=== PATIENT | male | born 1950 ===

== ENCOUNTER 2020-10-04 14:51 | Inpatient (IN) | payer MEDICARE, MEDICAID, SELFPAY ==
--- NOTE | ~2020-10-04 | CT_ITS ---
EXAMINATION: CT CHEST WITHOUT CONTRAST CLINICAL INFORMATION: hypoxia, abnormal CXR . COMPARISON: Chest x-ray. TECHNIQUE: Multidetector volumetric imaging was performed from the thoracic inlet through the lung bases without contrast. Sagittal and coronal reformatted images were obtained on the technologist workstation. Soft tissue and lung algorithms evaluated. Thick slab MIP images were performed to increase nodule conspicuity. This CT examination was performed using dose optimization techniques as appropriate, variously including the following: *Automated exposure control *Adjustment of mA and/or kV according to patient size (this includes techniques or standardized protocols for targeted exams where dose is matched to indication/reason for exam; i.e. extremities or head) *Use of iterative reconstruction technique DLP: 348 mGy-cm. FINDINGS: LUNG: Linear dependent scarring or atelectasis seen more so at the lung bases. This is superimposed on centrilobular emphysematous changes which is more prominent at the lung apices. MEDIASTINUM: Vascular calcification in the aorta and coronary vessels. No bulky adenopathy. PERICARDIUM/PLEURA: Small right pleural effusion. No significant pericardial effusion. No pleural mass or thickening. THYROID/VISUALIZED LOWER NECK: Unremarkable. CHEST WALL/AXILLA: Unremarkable. VISUALIZED UPPER ABDOMEN: Unremarkable. CT/CT chest wo con IMPRESSION: Dependent airspace disease more likely due to atelectasis or scarring. No dense consolidation otherwise..
--- NOTE | ~2020-10-04 | XR_ITS ---
EXAMINATION: PORTABLE CHEST 1 VIEW CLINICAL INFORMATION: SOB, hypoxia . COMPARISON: No recent pertinent prior studies are available for comparison. TECHNIQUE: Portable frontal view of the chest was obtained. FINDINGS: The lungs are hyperinflated with chronic appearing coarsened reticular markings bilaterally. No dense consolidation, effusion, overt edema, or pneumothorax. Mild central vascular prominence. Cardiac and mediastinal silhouettes are within normal limits for technique. No acute bony abnormality seen. XR/XR chest 1V IMPRESSION: Hyperinflated with chronic appearing coarsened reticular markings bilaterally. There is mild central vascular prominence but no overt edema. I do not have any prior films for comparison so acuteness of these changes would be difficult to assess. Clinical correlation and short interval follow-up films be helpful for evaluating further. Consider true PA and lateral films of the chest if possible.
[2020-10-04 15:17] VITALS: BP 197/120; BP 210/115; PULSE 115; PULSE 116; RESP 20; TEMP 37.1; O2SAT 75; O2SAT 85; BMI 35.4
--- NOTE | 2020-10-04 15:22 | ED_ITS ---
HPI - SOB/Dyspnea General Chief Complaint: Dyspnea Stated Complaint: DIFF BREATHING,COVID STATUS UNK Time Seen by Provider: 10/04/20 15:21 Source: patient and EMS Mode of arrival: EMS Limitations: no limitations History of Present Illness HPI Narrative: 70 yo male with history of COPD, HTN, obesity who presents to the ED with SOB x1 week. He was on his way to go get a COVID vaccination today and when he was walking he was very SOB. He used his rescue inhaler x2 without improvement. EMS was called and he was found hypoxic to 70% on room air with increased WOB. He reports he was seen by his PCP last week for SOB and he was given antibiotics for bronchitis. He had a negative COVID test at that time. He denies coughing, chest pain, abdominal pain, N/V/D, headaches or myalgias. His breathing is worse with exertion and improves with rest. In the ED he was found hypoxic to 85%, tachycardic to 110's and hypertensive 190/100's. He states he did not take his BP meds this morning. He was placed on 4L NC with improvement to 95% MD elicited complaint: shortness of breath Pertinent past history: COPD Onset (ago): day(s) (7) Context: recent illness Timing: intermittent and progressively worsening Severity: severe Exacerbating factors: exertion Relieving factors: rest Known history of: COPD Associated symptoms: denies other symptoms Treatment prior to arrival: oxygen Related Data Home oxygen amount: none Allergies Allergy/AdvReac Type Severity Reaction Status Date / Time No Known Allergies Allergy Verified 10/04/20 15:16 Review of Systems Review of Systems: Constitutional: No Fever, No Chills ENT/Mouth: No sore throat, No Rhinorrhea, No Swallowing Difficulty Cardiovascular: No Chest Pain, + SOB, No Orthopnea, No Edema Respiratory: No Cough, No Sputum, + Wheezing, + dyspnea Gastrointestinal: No Nausea, No Vomiting, No Diarrhea, No abdominal Pain Musculoskeletal: No joint pain, No Myalgias Skin: No Skin Lesions, No rash Neuro: No Weakness, No Numbness, No Dizziness, No Headache Psych: No Anxiety/Panic, No Depression Heme/Lymph: No Bruising, No Lymphadenopathy PMFSH Past Medical History Attestation statement: The following information was validated with the patient. Medical History Asthma Bronchitis COPD (chronic obstructive pulmonary disease) High cholesterol HTN (hypertension) Social History Social History Advance Directives: No Advance Directives Information Provided: No Physical Exam Vital Signs: Vital Signs: Last Vital Signs Temp 98.7 F 10/04/20 15:17 Pulse 114 H 10/04/20 15:32 Resp 20 10/04/20 15:17 BP 197/120 H 10/04/20 15:17 Pulse Ox 85 L 10/04/20 15:17 Body Mass Index 35.4 Appearance: Alert. Oriented X3. Mild respiratory distress with RR mid 20's Eyes: Pupils equal, round and reactive to light. ENT: Pharynx normal. Neck: Normal inspection. Neck supple. CVS: tachycardic, regular rhythm. Pulses normal. Respiratory: Mild respiratory distress, lung sounds are coarse and wheezy throughout with rhonchi in RLL. Abdomen: Softly distended, obese and nontender. +BS x4 Skin: Skin warm and dry. Normal skin color. Normal skin turgor. No rashes. Extremities: No lower extremity edema. Negative Jose R's sign Neuro: Oriented X 3. No motor deficit. No sensory deficit. Course Course Course Narrative: 70 y/o male with hx COPD presenting with SOB and hypoxia. Exam is consistent with COPD exacerbation - will need to r/o pneumonia and COVID. CXR and septic workup pending. Will give hour long albuterol treatement, IV solumedrol and reassess. RT at the bedside now. Reevaluation(s) Reevaluation #1: No leukocytosis and lactic acid is normal. Remains tachycardic and hypertensive (improving). He remains wheezy and course but it is overall improved. He is afebrile here but temp for EMS was 100.7. Will give Rocephin/Azithromycin for CAP coverage. His bicarbonate is 40, consistent with chronic CO2 retention. Suspect REBECA/OHS given his body habitus. Will check ABG now to see where he is at. He is not lethargic and not working to breathe, no need for rescue non-invasive ventilation at this time. Reevaluation #2: ABG is consistent with acute on chronic hypoxic and hypercarbic respiratory failure. CXR shows coarsened reticular markings bilaterally, no prior imaging to assess chronicity. DDIMER negative. COVID negative. Will get dry CT chest for further evaluation. He remains on 4L NC with SpO2 93-97%. Reevaluation #3: CT showing Dependent airspace disease more likely due to atelectasis or scarring. No dense consolidation otherwise. Procal low. Doubt pna. Spoke with Dr. Linda who will admit the patient - requesting repeat troponin and consult cards if elevated. MDM - SOB/Dyspnea Lab Data Result diagrams: 10/04/20 15:53 10/04/20 15:53 Labs: Lab Results 10/04/20 10/04/20 10/04/20 Range/Units 15:53 15:53 15:53 WBC 9.7 (4.8-10.8) X10*3/uL RBC 6.35 H (4.60-5.80) X10*6/uL Hgb 17.8 (14.0-18.0) g/dl Hct 60.4 H (42-52) % MCV 95.1 (80-98) fL MCH 28.0 (27.0-33.0) pg MCHC 29.5 L (31.0-36.0) g/dl RDW 13.8 (11.0-16.0) % Plt Count 200 (160-400) X10*3/uL MPV 10.6 (9.4-12.4) fL Immature Gran % (Auto) 0.6 H (0.0-0.4) % Neut % (Auto) 65.4 (45-73) % Lymph % (Auto) 19.0 L (20-40) % [place] % (Auto) 12.8 H (2-11) % Eos % (Auto) 1.6 (0-4) % Baso % (Auto) 0.6 (0-2) % Lymph # (Auto) 1.8 (1.2-4.9) X10*3/uL [place] # (Auto) 1.2 (0.1-1.2) X10*3/uL Eos # (Auto) 0.2 (0.0-0.4) X10*3/uL Baso # (Auto) 0.1 (0.0-0.2) X10*3/uL Abs Immat Gran (auto) 0.06 H (0.00-0.03) X10*3/uL Absolute Neuts (auto) 6.3 (2.0-8.3) X10*3/uL Absolute Nucleated RBC 0.000 (0.0-0.012) X10*3/uL Nucleated RBC % (auto) 0.0 (0.0-0.2) /100WBC PT (10.8-13.0) SEC INR (0.9-1.1) APTT (24.1-38.0) SEC D-Dimer NG/ML Hold Blue Top ABG pH (7.35-7.45) ABG pCO2 (32-45) mmHg ABG pO2 (83-108) mmHg ABG HCO3 (22-26) mmol/L ABG O2 Saturation % ABG Base Excess Oxygen Given Sodium 145 (135-145) mmol/L Potassium 4.4 (3.3-5.1) mmol/L Chloride 99 (96-108) mmol/L Carbon Dioxide 40 H* (22-29) mmol/L Anion Gap 10 L (12-20) BUN 18 H (9-16) mg/dL Creatinine 1.03 (0.5-1.4) mg/dL Estim Creat Clear Calc 67.4 Estimated GFR > 60 Random Glucose 126 H (60-115) mg/dL Lactic Acid (0.5-2.0) mmol/L Calcium 9.3 (8.4-10.2) mg/dL Magnesium 2.2 (1.6-2.6) mg/dL Total Bilirubin 0.8 (0.0-1.0) mg/dL Direct Bilirubin 0.2 (0.0-0.5) mg/dL AST 24 (5-37) U/L ALT 56 H (0-40) U/L Alkaline Phosphatase 80 (39-117) U/L Troponin I High Sens 17.9 (<3.5-35.0) ng/L C-Reactive Protein 0.50 (< or = 0.50) mg/dL B-Natriuretic Peptide 111 H (<100) pg/mL Total Protein 7.0 (6.5-8.0) g/dL Albumin 4.0 (3.5-5.0) g/dL Procalcitonin ng/mL Coronavirus (PCR) (Negative) Influenza Type A (PCR) (Negative) Influenza Type B (PCR) (Negative) RSV RNA Qual (PCR) (Negative) 10/04/20 10/04/20 10/04/20 Range/Units 15:53 15:54 15:55 WBC (4.8-10.8) X10*3/uL RBC (4.60-5.80) X10*6/uL Hgb (14.0-18.0) g/dl Hct (42-52) % MCV (80-98) fL MCH (27.0-33.0) pg MCHC (31.0-36.0) g/dl RDW (11.0-16.0) % Plt Count (160-400) X10*3/uL MPV (9.4-12.4) fL Immature Gran % (Auto) (0.0-0.4) % Neut % (Auto) (45-73) % Lymph % (Auto) (20-40) % [place] % (Auto) (2-11) % Eos % (Auto) (0-4) % Baso % (Auto) (0-2) % Lymph # (Auto) (1.2-4.9) X10*3/uL [place] # (Auto) (0.1-1.2) X10*3/uL Eos # (Auto) (0.0-0.4) X10*3/uL Baso # (Auto) (0.0-0.2) X10*3/uL Abs Immat Gran (auto) (0.00-0.03) X10*3/uL Absolute Neuts (auto) (2.0-8.3) X10*3/uL Absolute Nucleated RBC (0.0-0.012) X10*3/uL Nucleated RBC % (auto) (0.0-0.2) /100WBC PT 11.9 (10.8-13.0) SEC INR 1.0 (0.9-1.1) APTT 32.1 (24.1-38.0) SEC D-Dimer < 200 NG/ML Hold Blue Top SEE NOTE ABG pH (7.35-7.45) ABG pCO2 (32-45) mmHg ABG pO2 (83-108) mmHg ABG HCO3 (22-26) mmol/L ABG O2 Saturation % ABG Base Excess Oxygen Given Sodium (135-145) mmol/L Potassium (3.3-5.1) mmol/L Chloride (96-108) mmol/L Carbon Dioxide (22-29) mmol/L Anion Gap (12-20) BUN (9-16) mg/dL Creatinine (0.5-1.4) mg/dL Estim Creat Clear Calc Estimated GFR Random Glucose (60-115) mg/dL Lactic Acid 1.3 (0.5-2.0) mmol/L Calcium (8.4-10.2) mg/dL Magnesium (1.6-2.6) mg/dL Total Bilirubin (0.0-1.0) mg/dL Direct Bilirubin (0.0-0.5) mg/dL AST (5-37) U/L ALT (0-40) U/L Alkaline Phosphatase (39-117) U/L Troponin I High Sens (<3.5-35.0) ng/L C-Reactive Protein (< or = 0.50) mg/dL B-Natriuretic Peptide (<100) pg/mL Total Protein (6.5-8.0) g/dL Albumin (3.5-5.0) g/dL Procalcitonin ng/mL Coronavirus (PCR) (Negative) Influenza Type A (PCR) (Negative) Influenza Type B (PCR) (Negative) RSV RNA Qual (PCR) (Negative) 10/04/20 10/04/20 10/04/20 Range/Units 15:55 15:55 16:57 WBC (4.8-10.8) X10*3/uL RBC (4.60-5.80) X10*6/uL Hgb (14.0-18.0) g/dl Hct (42-52) % MCV (80-98) fL MCH (27.0-33.0) pg MCHC (31.0-36.0) g/dl RDW (11.0-16.0) % Plt Count (160-400) X10*3/uL MPV (9.4-12.4) fL Immature Gran % (Auto) (0.0-0.4) % Neut % (Auto) (45-73) % Lymph % (Auto) (20-40) % [place] % (Auto) (2-11) % Eos % (Auto) (0-4) % Baso % (Auto) (0-2) % Lymph # (Auto) (1.2-4.9) X10*3/uL [place] # (Auto) (0.1-1.2) X10*3/uL Eos # (Auto) (0.0-0.4) X10*3/uL Baso # (Auto) (0.0-0.2) X10*3/uL Abs Immat Gran (auto) (0.00-0.03) X10*3/uL Absolute Neuts (auto) (2.0-8.3) X10*3/uL Absolute Nucleated RBC (0.0-0.012) X10*3/uL Nucleated RBC % (auto) (0.0-0.2) /100WBC PT (10.8-13.0) SEC INR (0.9-1.1) APTT (24.1-38.0) SEC D-Dimer NG/ML Hold Blue Top ABG pH 7.33 L (7.35-7.45) ABG pCO2 64 H* (32-45) mmHg ABG pO2 77 L (83-108) mmHg ABG HCO3 34 H (22-26) mmol/L ABG O2 Saturation 96.0 % ABG Base Excess 5.5 Oxygen Given 4 L Sodium (135-145) mmol/L Potassium (3.3-5.1) mmol/L Chloride (96-108) mmol/L Carbon Dioxide (22-29) mmol/L Anion Gap (12-20) BUN (9-16) mg/dL Creatinine (0.5-1.4) mg/dL Estim Creat Clear Calc Estimated GFR Random Glucose (60-115) mg/dL Lactic Acid (0.5-2.0) mmol/L Calcium (8.4-10.2) mg/dL Magnesium (1.6-2.6) mg/dL Total Bilirubin (0.0-1.0) mg/dL Direct Bilirubin (0.0-0.5) mg/dL AST (5-37) U/L ALT (0-40) U/L Alkaline Phosphatase (39-117) U/L Troponin I High Sens (<3.5-35.0) ng/L C-Reactive Protein (< or = 0.50) mg/dL B-Natriuretic Peptide (<100) pg/mL Total Protein (6.5-8.0) g/dL Albumin (3.5-5.0) g/dL Procalcitonin 0.03 ng/mL Coronavirus (PCR) NEGATIVE (Negative) Influenza Type A (PCR) NEGATIVE (Negative) Influenza Type B (PCR) NEGATIVE (Negative) RSV RNA Qual (PCR) NEGATIVE (Negative) Critical Care Time Critical Care Time Critical Care Time: Yes Total Critical Care Time: 45 Attestation: I attest to critical care time spent caring for this patient with life threatening acute hypoxic respiratory failure. Time spent frequently reassessing respiratory and hemodynamic status at the bedside, reviewing results and imaging and coordinating care. Discharge Plan Discharge Clinical Impression: Acute respiratory failure with hypoxia and hypercarbia, COPD exacerbation Patient Disposition: Admitted As Inpatient
--- NOTE | 2020-10-04 15:28 | PC.NURSE ---
INCREASED WORK OF BREATHING WIT MINIMAL MOVEMENT IN BED. BELLY BREATHING. DENIES CP, LEG SWELLING, DIFF WITH LYING FLAT. PT SPKING SHORT PHRASES WHEN EXERTING HIMSELF. RECOVERS QUICKLY WITH 6L nc.
[2020-10-04 15:32] VITALS: PULSE 114; O2SAT 93
--- NOTE | 2020-10-04 15:33 | ECG_ITS ---
Test Reason : SHORTNES OF BREATH Blood Pressure : / mmHG Vent. Rate : 121 BPM Atrial Rate : 121 BPM P-R Int : 142 ms QRS Dur : 072 ms QT Int : 332 ms P-R-T Axes : 060 -19 049 degrees QTc Int : 471 ms Sinus tachycardia with Premature supraventricular complexes Inferior infarct , age undetermined Abnormal ECG No previous ECGs available Referred By: Yady Poe Electronically Signed By:Willem Tomlinson
[2020-10-04] MEDS: Albuterol Sulfate (0.083%) 2.5 MG/3 ML VIAL.NEB 10 MG INHALE (15:49)
[2020-10-04] MEDS: methylPREDNISolone Sod Succ/PF 125 MG/2 ML VIAL IVPUSH (15:59)
[2020-10-04 16:09] LABS: MANUAL DIFF FLAG NO
[2020-10-04 16:18] LABS: Basophils Absolute Auto 0.1 X10*3/uL (0.0-0.2); Basophils Percent Auto 0.6 % (0-2); Eosinophils Absolute Auto 0.2 X10*3/uL (0.0-0.4); Eosinophils Percent Auto 1.6 % (0-4); Hemoglobin 17.8 g/dl (14.0-18.0); Imm Gran Abs Auto 0.06 X10*3/uL (0.00-0.03); Imm Gran Pct Auto 0.6 % (0.0-0.4); Lymphocytes Absolute Auto 1.8 X10*3/uL (1.2-4.9); Mean Corpuscular HGB Conc 29.5 g/dl (31.0-36.0); Mean Corpuscular Volume 95.1 fL (80-98); Mean Platelet Volume 10.6 fL (9.4-12.4); Monocytes Absolute Auto 1.2 X10*3/uL (0.1-1.2); Monocytes Percent Auto 12.8 % (2-11); Neutrophils Absolute Auto 6.3 X10*3/uL (2.0-8.3); Neutrophils Percent Auto 65.4 % (45-73); Platelet Count 200 X10*3/uL (160-400); Red Blood Count 6.35 X10*6/uL (4.60-5.80); Red Cell Distribution Width 13.8 % (11.0-16.0); White Blood Count 9.7 X10*3/uL (4.8-10.8)
[2020-10-04 16:19] LABS: Partial Thromboplastin Time 32.1 SEC (24.1-38.0)
[2020-10-04 16:25] LABS: Prothrombin Time 11.9 SEC (10.8-13.0)
[2020-10-04 16:26] LABS: Hematocrit 60.4 % (42-52)
[2020-10-04 16:33] LABS: Lactic Acid 1.3 mmol/L (0.5-2.0)
[2020-10-04 16:41] LABS: Alanine Aminotransferase 56 U/L (0-40); Alkaline Phosphatase 80 U/L (39-117); Anion Gap 10 (12-20); Aspartate Amino Transferase 24 U/L (5-37); Bilirubin Direct 0.2 mg/dL (0.0-0.5); Bilirubin Total 0.8 mg/dL (0.0-1.0); Blood Urea Nitrogen 18 mg/dL (9-16); Calcium 9.3 mg/dL (8.4-10.2); Carbon Dioxide 40 mmol/L (22-29); Chloride 99 mmol/L (96-108); Creatinine Clr Calc Pharmacy 67.4; Estimated Glomerular Filt Rate > 60; Glucose Random 126 mg/dL (60-115); Magnesium 2.2 mg/dL (1.6-2.6); Potassium 4.4 mmol/L (3.3-5.1); Sodium 145 mmol/L (135-145)
[2020-10-04 16:45] LABS: B Type Natriuretic Peptide 111 pg/mL (<100); Troponin-I High Sensitivity 17.9 ng/L (<3.5-35.0)
[2020-10-04 16:47] LABS: Influenza A PCR NEGATIVE (Negative); Influenza B PCR NEGATIVE (Negative); Resp Syncy Virus RNA Qual PCR NEGATIVE (Negative); SARS COV2 PCR INHOUSE NEGATIVE (Negative)
[2020-10-04 16:52] LABS: D Dimer < 200 NG/ML
[2020-10-04 16:54] VITALS: O2SAT 94
[2020-10-04 16:57] LABS: Procalcitonin 0.03 ng/mL
[2020-10-04 17:05] LABS: Pt Ventilation O2% 4 L
[2020-10-04 17:12] LABS: PO2 ABG 77 mmHg (83-108); pH ABG 7.33 (7.35-7.45)
[2020-10-04 17:13] LABS: Base Excess ABG 5.5; HCO3 ABG 34 mmol/L (22-26)
[2020-10-04 17:14] LABS: ABG PCO2 64 mmHg (32-45)
[2020-10-04] MEDS: cefTRIAXone sodium 1 GM in 0.9 % Sodium Chloride 50 ML IV (17:19)
[2020-10-04] MEDS: 0.9 % Sodium Chloride 1,000 ML 999 ML IVCONT (17:25)
[2020-10-04 18:13] LABS: Adenovirus PCR Not Detected (Not Detect.); Bordetella parapertussis PCR Not Detected (Not Detect.); Bordetella pertussis PCR Not Detected (Not Detect.); Chlamydia pneumoniae PCR Not Detected (Not Detect.); Coronavirus 229E PCR Not Detected (Not Detect.); Coronavirus HKU1 PCR Not Detected (Not Detect.)
[2020-10-04 18:15] LABS: Coronavirus NL63 PCR Not Detected (Not Detect.); Coronavirus OC43 PCR Not Detected (Not Detect.); Human metapneumovirus PCR Not Detected (Not Detect.); Influenza A PCR Not Detected (Not Detect.); Influenza B PCR Not Detected (Not Detect.); Mycoplasma pneumoniae PCR Not Detected (Not Detect.); Parainfluenza 1 PCR Not Detected (Not Detect.); Parainfluenza 2 PCR Not Detected (Not Detect.); Parainfluenza 3 PCR Not Detected (Not Detect.); Parainfluenza 4 PCR Not Detected (Not Detect.); RSV PCR Not Detected (Not Detect.); Rhino/Enterovirus PCR Not Detected (Not Detect.); SARS-CoV-2 PCR Not Detected (Not Detect.)
[2020-10-04] MEDS: Azithromycin 500 MG in 0.9 % Sodium Chloride 250 ML 125 MG IV (18:40)
--- NOTE | 2020-10-04 19:34 | P.HPHOSP_ITS ---
History of Present Illness Date of Service: 10/04/20 Chief Complaint: Shortness of breath 70-year-old male with a past medical history of COPD not on home oxygen, hypertension presented to the hospital with a chief complaint of shortness of breath. Patient reported past 1 week he has been having shortness of breath and intermittent cough has seen the PCP will give antibiotics and her symptoms were not improving and has been scheduled for COVID test today Will glue for testing Center he became increasingly short of breath and dyspnea on exertion subsequently EMS was called in and EMS noted that he has increased work of breathing and was noted to be hypoxic to 70s placed on supplemental oxygen man after can lead 4 L with improvement in oxygenation subsequently brought to the ER for further evaluation. Patient denies any chest pain palpitations lightheadedness dizziness. Denies any numbness tingling. Denies any GI or symptoms. Patient denies any headaches or blurry visions. Review of all other systems is negative except mentioned above ER course: Per ER team patient's oxygenation improved on supplemental oxygen at 4 L. Patient was given nebulizations and steroids. His workup breathing impr tea. Blood gas showed pCO2 of 63 and a serum bicarb of 40. Troponin of 17, EKG nonischemic, patient denied any chest pain. Follow-up troponin pending. ER team Mentioned that if elevated will call Cardiology. Also mentioned that patient blood pressure was elevated on presentation noted to be in hypertensive urgency-attributed to the acute respiratory distress secondary to hypoxia/COPD exacerbation. D-dimer was negative. CT scan showed question atelectasis were pneumonia-given antibiotics. [facility] Medical History Asthma Bronchitis COPD (chronic obstructive pulmonary disease) High cholesterol HTN (hypertension) Social History Household Members: Spouse Housing: Apartment Do you presently have visiting nurse or other home services: No Smoking Status: Former smoker Use of substances other than those prescribed or required for medical reasons: No Have you been hit, kicked, punched, or otherwise hurt by someone within the past year? If so, by whom?: No Do you feel safe in your current relationship?: Yes Is there a partner from a previous relationship who is making you feel unsafe now?: No Are you made to feel afraid or neglected: No Advance Directives: No Advance Directives Information Provided: No Do you have thoughts of harming others: None Do you have a plan to hurt others: No Plan Recently lost weight without trying: No Meds Allergies Allergy/AdvReac Type Severity Reaction Status Date / Time No Known Allergies Allergy Verified 10/04/20 15:16 Active Medications: Current Medications Generic Name Dose Route Start Last Admin Trade Name Freq PRN Reason Stop Dose Admin Acetaminophen 650 mg 10/04/20 19:26 Acetaminophen Supp 650 Mg Supp.Rect FL Q6H PRN Pain, Mild (Pain Scale 1-3) Albuterol/Ipratropium 3 ml 10/04/20 20:00 Albuterol/Iprat 2.5/0.5mg 3 Ml Ampul.Neb INHALE RQ6H WHILE AWAKE MARISOL Albuterol/Ipratropium 3 ml 10/04/20 19:33 Albuterol/Iprat 2.5/0.5mg 3 Ml Ampul.Neb INHALE RQ4H PRN Shortness of Breath/Wheezing Docusate Sodium 100 mg 10/04/20 21:00 Docusate Sodium 100 Mg Capsule PO BID [facility] Enoxaparin Sodium 40 mg 10/04/20 20:00 Enoxaparin Sodium 40 Mg/0.4 Ml Syringe SUBCUT Q24H MARISOL Famotidine 20 mg 10/05/20 09:00 Famotidine 20 Mg Tablet PO DAILY [facility] Methylprednisolone Sodium Succinate 60 mg 10/04/20 22:00 Methylprednisolone Sod Succ/Pf 125 Mg/2 Ml Vial IVPUSH Q8H [facility] Sodium Chloride 3 ml 10/05/20 00:00 0.9 % Sodium Chloride Flush 3 Ml Syringe IVFLUSH QSHIFT [facility] Zolpidem Tartrate 5 mg 10/04/20 19:26 Zolpidem Tartrate 5 Mg Tablet PO BEDTIME PRN Insomnia Home Medications Medication Instructions Recorded Confirmed Last Taken Type albuterol sulfate 2 puff PO Q6H 10/04/20 10/04/20 10/04/20 09:00 History albuterol sulfate 3 ml INHALATION Q6H PRN 10/04/20 10/04/20 10/04/20 09:00 History brimonidine 1 drp OPHTHALMIC (EYE) Q12H 10/04/20 10/04/20 10/04/20 09:00 History budesonide-formoterol 2 puff PO BID 10/04/20 10/04/2021 09:00 History cholecalciferol (vitamin D3) 1 cap PO QWEEK 10/04/20 10/04/20 10/04/20 09:00 History fluticasone propion-salmeterol 1 puff PO BID 10/04/20 10/04/20 10/04/20 09:00 History [Advair Diskus] fluticasone propion-salmeterol 1 puff PO BID 10/04/20 10/04/20 10/04/20 09:00 History [Advair Diskus] olmesartan 1 tab PO DAILY 10/04/20 10/04/20 10/04/20 09:00 History prednisone PO 10/04/20 10/04/20 10/04/20 09:00 History tizanidine 1 tab PO Q8H PRN 10/04/20 10/04/20 10/04/20 09:00 History Physical Exam Vital Signs and Narrative: Vital Signs: Last Vital Signs Temp 98.7 F 10/04/20 15:17 Pulse 114 H 10/04/20 15:32 Resp 20 10/04/20 15:17 BP 197/120 H 10/04/20 15:17 Pulse Ox 85 L 10/04/20 15:17 Body Mass Index 35.4 Gen: Appears be in no acute distress; speaks in full sentences HEENT: NCAT, Moist mucosa. Pulmonary: Coarse breath sounds, bilateral expiratory wheezing, has decent air entry CVS: Normal S1-S2 Abdomen: BS+, Soft, Nontender Extremities: Warm well perfused Neuro: Alert and awake. Results Labs CBC and Chem 7: 10/04/20 15:53 10/04/20 15:53 Labs: Laboratory Results - last 24 hr 10/04/20 10/04/20 10/04/20 15:53 15:53 15:53 MCV 95.1 MCH 28.0 MCHC 29.5 L RDW 13.8 Plt Count 200 MPV 10.6 Immature Gran % (Auto) 0.6 H Neut % (Auto) 65.4 Lymph % (Auto) 19.0 L [place] % (Auto) 12.8 H Eos % (Auto) 1.6 Baso % (Auto) 0.6 Lymph # (Auto) 1.8 [place] # (Auto) 1.2 Eos # (Auto) 0.2 Baso # (Auto) 0.1 Abs Immat Gran (auto) 0.06 H Absolute Neuts (auto) 6.3 Absolute Nucleated RBC 0.000 Nucleated RBC % (auto) 0.0 PT INR APTT D-Dimer Hold Blue Top ABG pH ABG pCO2 ABG pO2 ABG HCO3 ABG O2 Saturation ABG Base Excess Oxygen Given Anion Gap 10 L Estim Creat Clear Calc 67.4 Estimated GFR > 60 Random Glucose 126 H Lactic Acid Calcium 9.3 Magnesium 2.2 Total Bilirubin 0.8 Direct Bilirubin 0.2 AST 24 ALT 56 H Alkaline Phosphatase 80 Troponin I High Sens 17.9 C-Reactive Protein 0.50 B-Natriuretic Peptide 111 H Total Protein 7.0 Albumin 4.0 Procalcitonin Coronavirus (PCR) Influenza Type A (PCR) Influenza Type B (PCR) RSV RNA Qual (PCR) 10/04/20 10/04/20 10/04/20 15:53 15:54 15:55 MCV MCH MCHC RDW Plt Count MPV Immature Gran % (Auto) Neut % (Auto) Lymph % (Auto) [place] % (Auto) Eos % (Auto) Baso % (Auto) Lymph # (Auto) [place] # (Auto) Eos # (Auto) Baso # (Auto) Abs Immat Gran (auto) Absolute Neuts (auto) Absolute Nucleated RBC Nucleated RBC % (auto) PT 11.9 INR 1.0 APTT 32.1 D-Dimer < 200 Hold Blue Top SEE NOTE ABG pH ABG pCO2 ABG pO2 ABG HCO3 ABG O2 Saturation ABG Base Excess Oxygen Given Anion Gap Estim Creat Clear Calc Estimated GFR Random Glucose Lactic Acid 1.3 Calcium Magnesium Total Bilirubin Direct Bilirubin AST ALT Alkaline Phosphatase Troponin I High Sens C-Reactive Protein B-Natriuretic Peptide Total Protein Albumin Procalcitonin Coronavirus (PCR) Influenza Type A (PCR) Influenza Type B (PCR) RSV RNA Qual (PCR) 10/04/20 10/04/20 10/04/20 15:55 15:55 16:57 MCV MCH MCHC RDW Plt Count MPV Immature Gran % (Auto) Neut % (Auto) Lymph % (Auto) [place] % (Auto) Eos % (Auto) Baso % (Auto) Lymph # (Auto) [place] # (Auto) Eos # (Auto) Baso # (Auto) Abs Immat Gran (auto) Absolute Neuts (auto) Absolute Nucleated RBC Nucleated RBC % (auto) PT INR APTT D-Dimer Hold Blue Top ABG pH 7.33 L ABG pCO2 64 H* ABG pO2 77 L ABG HCO3 34 H ABG O2 Saturation 96.0 ABG Base Excess 5.5 Oxygen Given 4 L Anion Gap Estim Creat Clear Calc Estimated GFR Random Glucose Lactic Acid Calcium Magnesium Total Bilirubin Direct Bilirubin AST ALT Alkaline Phosphatase Troponin I High Sens C-Reactive Protein B-Natriuretic Peptide Total Protein Albumin Procalcitonin 0.03 Coronavirus (PCR) NEGATIVE Influenza Type A (PCR) NEGATIVE Influenza Type B (PCR) NEGATIVE RSV RNA Qual (PCR) NEGATIVE Imaging Radiologist's Impressions: Impressions Chest X-Ray 10/04/20 15:32 IMPRESSION: Hyperinflated with chronic appearing coarsened reticular markings bilaterally. There is mild central vascular prominence but no overt edema. I do not have any prior films for comparison so acuteness of these changes would be difficult to assess. Clinical correlation and short interval follow-up films be helpful for evaluating further. Consider true PA and lateral films of the chest if possible. Chest CT 10/04/20 17:18 IMPRESSION: Dependent airspace disease more likely due to atelectasis or scarring. No dense consolidation otherwise.. Assessment and Plan (1) Acute respiratory failure with hypoxia and hypercarbia: Status: Acute 70-year-old male with a past medical history of hypertension, COPD not on home oxygen presented to the hospital with a chief complaint of shortness of breath/dyspnea on exertion-worsening symptoms over the past 1 week; noted to be in acute hypoxic/hypercapnic respiratory failure in the setting of COPD. Admit dontrell to the hospital for further management. Acute hypoxic/hypercapnic respiratory failure: The setting of COPD exacerbation. Currently on supplemental oxygen. Not in distress. Continue management for COPD. Acute severe COPD exacerbation: Patient placed on supplemental oxygen via nasal cannula. Goal oxygen saturation 93%. Initial blood pressures hypercapnia. Patient has been given nebulizations and steroids. Will repeat blood gas. P.r.n. BiPAP Continue Solu-Medrol IV t.i.d. Continue nebulizations standing and p.r.n. Elevated troponins: Patient noted to have mildly elevated troponin. EKG nonischemic. Patient denies any chest pain. Follow-up troponin pending. Cardiology consult Hypertensive urgency: Continue home medications. Hydralazine p.r.n. if blood pressure greater than 180/90. Patient currently asymptomatic. Nonfocal examination. For all other chronic conditions, home medications will be continued DVT prophylaxis: Lovenox GI prophylaxis: Pepcid Full code
[2020-10-04] MEDS: Albuterol/Iprat 2.5/0.5MG 3 ML AMPUL.NEB INHALE (20:29)
[2020-10-04 20:30] VITALS: PULSE 120; O2SAT 92
[2020-10-04 21:44] VITALS: BP 148/92; PULSE 116; RESP 21; TEMP 37.1; O2SAT 94
--- NOTE | 2020-10-04 21:56 | PC.NURSE ---
pt has been resting queitly and able to tolerate standing without assistance or severe sob. s till has increased work of breathing with exertion. requesting additional updraft at thsi time. ls wheezy but less coarse and moderate air movement. spking full sentences.
[2020-10-04] MEDS: methylPREDNISolone Sod Succ/PF 125 MG/2 ML VIAL 60 MG IVPUSH (22:51)
[2020-10-04] MEDS: Enoxaparin Sodium 40 MG/0.4 ML SYRINGE SUBCUT (22:53)
[2020-10-04] MEDS: Docusate Sodium 100 MG CAPSULE PO (22:54)
[2020-10-04 23:33] LABS: Troponin-I High Sensitivity 15.2 ng/L (<3.5-35.0)
[2020-10-05] VITALS (11 sets, daily range): BP systolic 132–170; BP diastolic 73–99; PULSE 89–114; RESP 18–20; TEMP 36.6–36.9; O2SAT 90–96; BMI 35.4
[2020-10-05] MEDS: Brimonidine Tartrate 0.2% Oph 5 ML BOTTLE 1 DROP EYE-BOTH ×3 (00:23→21:09)
[2020-10-05] MEDS: 0.9 % Sodium Chloride Flush 3 ML SYRINGE IVFLUSH ×4 (00:24→21:09)
[2020-10-05 06:09] LABS: Basophils Percent Auto 0.1 % (0-2); Hematocrit 59.1 % (42-52); Hemoglobin 17.5 g/dl (14.0-18.0); Imm Gran Abs Auto 0.08 X10*3/uL (0.00-0.03); Imm Gran Pct Auto 1.1 % (0.0-0.4); Lymphocytes Absolute Auto 0.7 X10*3/uL (1.2-4.9); Lymphocytes Percent Auto 9.2 % (20-40); MANUAL DIFF FLAG SCAN; Mean Corpuscular HGB Conc 29.6 g/dl (31.0-36.0); Mean Corpuscular Hemoglobin 28.1 pg (27.0-33.0); Mean Corpuscular Volume 94.9 fL (80-98); Mean Platelet Volume 10.2 fL (9.4-12.4); Monocytes Absolute Auto 0.2 X10*3/uL (0.1-1.2); Monocytes Percent Auto 2.3 % (2-11); Neutrophils Absolute Auto 6.4 X10*3/uL (2.0-8.3); Neutrophils Percent Auto 87.3 % (45-73); Platelet Count 194 X10*3/uL (160-400); Red Blood Count 6.23 X10*6/uL (4.60-5.80); Red Cell Distribution Width 13.7 % (11.0-16.0); SCAN SMEAR FLAG 1; White Blood Count 7.4 X10*3/uL (4.8-10.8)
[2020-10-05] MEDS: methylPREDNISolone Sod Succ/PF 125 MG/2 ML VIAL 60 MG IVPUSH ×3 (06:15→21:08)
[2020-10-05 06:36] LABS: Anion Gap 11 (12-20); Blood Urea Nitrogen 17 mg/dL (9-16); Calcium 8.2 mg/dL (8.4-10.2); Carbon Dioxide 35 mmol/L (22-29); Chloride 101 mmol/L (96-108); Creatinine Clr Calc Pharmacy 73.8; Estimated Glomerular Filt Rate > 60; Glucose Random 193 mg/dL (60-115); Potassium 4.9 mmol/L (3.3-5.1); Sodium 142 mmol/L (135-145)
[2020-10-05 06:40] LABS: SLIDE REVIEW VERIFIED
--- NOTE | 2020-10-05 07:49 | P.PNIM_ITS ---
Subjective Subjective Date of Service: 10/05/20 Interval History: Seen in f/u for acute exacerbation of COPD with first hospitalization, he feels better this morning, still on high amount of oxygen but no distress Review of Systems Gen: no fever Resp: + sob, no cough CV: no chest, no DIOR, no leg edema GI: No n/v, no abd pain Neuro: No confusion Physical Exam Vital Signs: Vital Signs: Last Vital Signs Temp 97.8 F 10/05/20 04:04 Pulse 110 H 10/05/20 04:04 Resp 18 10/05/20 04:04 BP 158/73 H 10/05/20 04:04 Pulse Ox 95 10/05/20 04:04 Body Mass Index 35.4 Const: General: cooperative and no acute distress Orientation/consciousness: patient oriented x3 Neck: Neck: Yes supple Resp: Effort & Inspection: no use of accessory muscles Auscultation: no wheezes and diminished lung sounds Cardio: Jugular venous distension: no JVD Rate: regular rate Rhythm: regular rhythm Heart sounds: S1 normal heart sound present and S2 normal heart sound present GI: Palpation (GI): nontender Percussion: Yes normal to percussion Skin: General skin exam: no rashes or lesions noted Neuro: General: patient oriented x3 Cognition (Neuro): normal cognition Psych: Appearance: grossly normal Objective Data Current Medications Generic Name Dose Route Start Last Admin Trade Name Freq PRN Reason Stop Dose Admin Acetaminophen 650 mg 10/04/20 19:26 Acetaminophen Supp 650 Mg Supp.Rect VA Q6H PRN Pain, Mild (Pain Scale 1-3) Albuterol/Ipratropium 3 ml 10/04/20 20:00 10/04/20 20:29 Albuterol/Iprat 2.5/0.5mg 3 Ml Ampul.Neb INHALE 3 ml RQ6H WHILE AWAKE MARISOL Administration Albuterol/Ipratropium 3 ml 10/04/20 19:33 Albuterol/Iprat 2.5/0.5mg 3 Ml Ampul.Neb INHALE RQ4H PRN Shortness of Breath/Wheezing Brimonidine Tartrate 1 drop 10/04/20 22:45 10/05/20 00:23 Brimonidine Tartrate 0.2% Oph 5 Ml Bottle EYE-BOTH 1 drop Q12H MARISOL Administration Docusate Sodium 100 mg 10/04/20 21:00 10/04/20 22:54 Docusate Sodium 100 Mg Capsule PO 100 mg BID MARISOL Administration Enoxaparin Sodium 40 mg 10/04/20 20:00 10/04/20 22:53 Enoxaparin Sodium 40 Mg/0.4 Ml Syringe SUBCUT 40 mg Q24H MARISOL Administration Famotidine 20 mg 10/05/20 09:00 Famotidine 20 Mg Tablet PO DAILY [facility] Methylprednisolone Sodium Succinate 60 mg 10/04/20 22:00 10/05/20 06:15 Methylprednisolone Sod Succ/Pf 125 Mg/2 Ml Vial IVPUSH 60 mg Q8H MARISOL Administration Sodium Chloride 3 ml 10/05/20 00:00 10/05/20 00:24 0.9 % Sodium Chloride Flush 3 Ml Syringe IVFLUSH 3 ml QSHIFT MARISOL Administration Valsartan 160 mg 10/05/20 09:00 Valsartan 160 Mg Tablet PO DAILY [facility] Zolpidem Tartrate 5 mg 10/04/20 19:26 Zolpidem Tartrate 5 Mg Tablet PO BEDTIME PRN Insomnia Labs CBC & Chem 7: 10/05/20 05:50 10/05/20 05:50 Assessment and Plan (1) Acute respiratory failure with hypoxia and hypercarbia: Status: Acute Assessment and Plan: 70-year-old male with a past medical history of hypertension, COPD not on home oxygen quit smoking 5 years presented with dyspnea, worst with exertion- worsening symptoms over the past 1 week; noted to be in acute hypoxic/hypercapnic respiratory failure in the setting of COPD and admitted for exacerbation of COPD Acute hypoxic/hypercapnic respiratory failure d/t COPD exacerbation that is severe--Overall is better today, yet still with high O2 requirement. -Continue IV Solumedrol for another day -Bronchodilators by Nebs -Close oxygen monitoring Troponin of 15 and 17 NOT elevated per H and P Hypertensive urgency: Initial BP was high but has come down. On Omesartan at home, give formulary equivalent DVT prophylaxis: Lovenox GI prophylaxis: Pepcid Full code
[2020-10-05] MEDS: Albuterol/Iprat 2.5/0.5MG 3 ML AMPUL.NEB INHALE ×3 (08:14→20:51)
--- NOTE | 2020-10-05 09:03 | MHC.CM.PN ---
CM met with Patient at bedside. Patient lives with his Girlfriend in an apartment at [address] [place] [address] in [place]. Patient had no prior services nor DME and his goal is to return home. CM has initiated and will follow for dc planning. IMM addressed with Patient and the original has been given to him and a copy has been placed on the chart. PCP is Dr. Mike Black in [facility] [phone].
[2020-10-05] MEDS: Valsartan 160 MG TABLET PO (09:05)
[2020-10-05] MEDS: Famotidine 20 MG TABLET PO (09:05)
[2020-10-05] MEDS: Docusate Sodium 100 MG CAPSULE PO (09:05)
[2020-10-06 03:47] VITALS: BP 132/83; PULSE 101; RESP 18; TEMP 36.7; O2SAT 91
[2020-10-06] MEDS: methylPREDNISolone Sod Succ/PF 125 MG/2 ML VIAL 60 MG IVPUSH ×2 (06:14→15:20)
[2020-10-06] MEDS: Famotidine 20 MG TABLET PO (07:37)
[2020-10-06] MEDS: Valsartan 160 MG TABLET PO (07:37)
[2020-10-06] MEDS: Brimonidine Tartrate 0.2% Oph 5 ML BOTTLE 1 DROP EYE-BOTH (07:38)
[2020-10-06] MEDS: 0.9 % Sodium Chloride Flush 3 ML SYRINGE IVFLUSH ×2 (07:40→15:20)
[2020-10-06 07:47] VITALS: BP 149/96; PULSE 90; RESP 20; TEMP 36.3; O2SAT 91
[2020-10-06 07:58] VITALS: PULSE 98; O2SAT 93
[2020-10-06] MEDS: Albuterol/Iprat 2.5/0.5MG 3 ML AMPUL.NEB INHALE (07:58)
--- NOTE | 2020-10-06 10:41 | P.DS_ITS ---
DS: Providers Provider Date of Service: 10/06/20 <Maxine John NP - Last Filed: 10/06/20 11:00> 12/18/20 <Isaac Becker MD - Last Filed: 12/18/20 16:47> Date of admission: 10/04/20 19:26 <Maxine John NP - Last Filed: 10/06/20 11:00> Date of discharge: 10/06/20 <Maxine John NP - Last Filed: 10/06/20 11:00> Primary care physician: Unknown Physician <Maxine John NP - Last Filed: 10/06/20 11:00> Admitting clinician: Adrien Penaloza <Maxine John NP - Last Filed: 10/06/20 11:00> Attending physician on admission: Adrien Penaloza <Maxine John NP - Last Filed: 10/06/20 11:00> Attending physician on discharge: Isaac Becker <Maxine John NP - Last Filed: 10/06/20 11:00> Discharging clinician: Isaac Becker <Maxine John NP - Last Filed: 10/06/20 11:00> DS: Diagnosis Discharge Diagnosis (1) Acute respiratory failure with hypoxia and hypercarbia: Status: Resolved <Maxine John NP - Last Filed: 10/06/20 11:00> Problem details: HP as per admitting provider 70-year-old male with a past medical history of COPD not on home oxygen, hypertension presented to the hospital with a chief complaint of shortness of breath. Patient reported past 1 week he has been having shortness of breath and intermittent cough has seen the PCP will give antibiotics and her symptoms were not improving and has been scheduled for COVID test today Will glue for testing Center he became increasingly short of breath and dyspnea on exertion subsequently EMS was called in and EMS noted that he has increased work of breathing and was noted to be hypoxic to 70s placed on supplemental oxygen man after can lead 4 L with improvement in oxygenation subsequently brought to the ER for further evaluation. Patient denies any chest pain palpitations lightheadedness dizziness. Denies any numbness tingling. Denies any GI or symptoms. Patient denies any headaches or blurry visions. Review of all other systems is negative except mentioned above ER course: Per ER team patient's oxygenation improved on supplemental oxygen at 4 L. Patient was given nebulizations and steroids. His workup breathing improved. Blood gas showed pCO2 of 63 and a serum bicarb of 40. Troponin of 17, EKG nonischemic, patient denied any chest pain. Follow-up troponin pending. ER team Mentioned that if elevated will call Cardiology. Also mentioned that patient blood pressure was elevated on presentation noted to be in hypertensive urgency- attributed to the acute respiratory distress secondary to hypoxia/COPD exacerbation. D-dimer was negative. CT scan showed question atelectasis were pneumonia-given antibiotics . Acute hypoxic respiratory failure with hypercarbia secondary to COPD exacerbation. No dense consolidation noted on chest CT. Symptoms improving with Solumedrol and scheduled albuterol. Hypoxia related to chronic COPD. Home oxygen evaluation as well as 5 days of prednisone. Continue home inhalors. Elevated troponins. Flat, nonischemic EKG. Hypertension. Initially with hypertensive urgency, Resolved without intervention. Continue home antihypertensive medication. <Maxine John NP - Last Filed: 10/06/20 11:00> (2) COPD exacerbation: Status: Resolved <Maxine John NP - Last Filed: 10/06/20 11:00> DS: Medications Discharge Medications Home Medications: Home Medications Medication Instructions Recorded Confirmed albuterol sulfate 2 puff PO Q6H 10/04/20 10/04/20 albuterol sulfate 3 ml INHALATION Q6H PRN 10/04/20 10/04/20 brimonidine 1 drp OPHTHALMIC (EYE) Q12H 10/04/20 10/04/20 budesonide-formoterol 2 puff PO BID 10/04/20 10/04/20 cholecalciferol (vitamin D3) 1 cap PO QWEEK 10/04/20 10/04/20 fluticasone propion-salmeterol 1 puff PO BID 10/04/20 10/04/20 [Advair Diskus] fluticasone propion-salmeterol 1 puff PO BID 10/04/20 10/04/20 [Advair Diskus] olmesartan 1 tab PO DAILY 10/04/20 10/04/20 prednisone PO 10/04/20 10/04/20 tizanidine 1 tab PO Q8H PRN 10/04/20 10/04/20 <Maxine John NP - Last Filed: 10/06/20 11:00> DS: Summary Time Spent with Patient Time attestation: Total time spent providing and/or coordinating discharge services: <Maxine John NP - Last Filed: 10/06/20 11:00> Discharge coordination time: Greater than 30 minutes <Isaac Becker MD - Last Filed: 12/18/20 16:47> Physical Exam Vital Signs: Vital Signs: Last Vital Signs Temp 97.4 F 10/06/20 07:47 Pulse 98 10/06/20 07:58 Resp 20 10/06/20 07:47 BP 149/96 H 10/06/20 07:47 Pulse Ox 91 L 10/06/20 07:47 Body Mass Index 35.4 <Maxine John NP - Last Filed: 10/06/20 11:00> Appearing in no acute distress head is normocephalic atraumatic eyes pupils are PERRLA sclera is anicteric mouth throat mucous membranes are intact and moist neck is supple no lymphadenopathy, no JVD noted lung sounds Exp wheezes heart regular rate rhythm, clear S1, S2 positive bowel sounds, abdomen is soft, nontender neuro patient is alert x3, no focal deficits <Maxine John NP - Last Filed: 10/06/20 11:00> DS: Data Data Completed and Pending Labs on day of discharge: Preliminary micro results at discharge 10/04/20 17:17 Blood Culture - Preliminary Blood - Venous No growth after 24 hours. 10/04/20 15:53 Blood Culture - Preliminary Blood - Venous No growth after 24 hours. <Maxine John NP - Last Filed: 10/06/20 11:00> Discharge Plan Discharge Anticipated Discharge Date/Time: 10/06/20 10:42 <Maxine John NP - Last Filed: 10/06/20 11:00> Patient Disposition: Home, Self-Care <Maxine John NP - Last Filed: 10/06/20 11:00> Discharge Diagnosis: COPD exacerbation <Maxine John NP - Last Filed: 10/06/20 11:00> COPD exacerbation <Isaac Becker MD - Last Filed: 12/18/20 16:47> Referrals: Physician,Unknown [Primary Care Provider] - <Maxine John NP - Last Filed: 10/06/20 11:00> Discharge Medications: New prednisone 50 mg tablet 40 mg PO DAILY Qty: 5 RF: 0 Continued fluticasone propion-salmeterol [Advair Diskus] 250-50 mcg/dose blister with device 1 puff PO BID RF: 0 albuterol sulfate 2.5 mg /3 mL (0.083 %) solution for nebulization 3 ml inhalation Q6H PRN (Reason: wheezing) RF: 0 tizanidine 4 mg tablet 1 tab PO Q8H PRN (Reason: low back pain) RF: 0 brimonidine 0.2 % drops 1 drp ophthalmic (eye) Q12H RF: 0 fluticasone propion-salmeterol [Advair Diskus] 100-50 mcg/dose blister with device 1 puff PO BID RF: 0 albuterol sulfate 90 mcg/actuation HFA aerosol inhaler 2 puff PO Q6H RF: 0 olmesartan 40 mg tablet 1 tab PO DAILY RF: 0 cholecalciferol (vitamin D3) 1,250 mcg (50,000 unit) capsule 1 cap PO QWEEK RF: 0 budesonide-formoterol 160-4.5 mcg/actuation HFA aerosol inhaler 2 puff PO BID RF: 0 Discontinued prednisone 20 mg tablet PO RF: 0 <Maxine John NP - Last Filed: 10/06/20 11:00> Discharge Orders: Discharge Order (Routine); Ordered 10/06/20 Ordered By: Isaac Becker <Maxine John NP - Last Filed: 10/06/20 11:00> Diet: advance to usual diet <Maxine John NP - Last Filed: 10/06/20 11:00> advance to usual diet <Isaac Becker MD - Last Filed: 12/18/20 16:47> Activity on Discharge: As tolerated <Maxine John NP - Last Filed: 10/06/20 11:00> As tolerated <Isaac Becker MD - Last Filed: 12/18/20 16:47> Stand Alone Forms: Patient Portal Discharge page <Maxine John NP - Last Filed: 10/06/20 11:00> Visit Report Forms: Patient Portal Discharge page <Maxine John NP - Last Filed: 10/06/20 11:00> Care Plan Goals: Prevent rehospitalization <Maxine John NP - Last Filed: 10/06/20 11:00> Health Concerns: Chronic lung problems. <Maxine John NP - Last Filed: 10/06/20 11:00> Plan of Treatment: Take Prednisone for 5 days Continue inhalors Follow up with PCP with your PCP in a week, call for appointment <Maxine John NP - Last Filed: 10/06/20 11:00> Assessment: COPD exacerbation <Maxine John NP - Last Filed: 10/06/20 11:00> Discharge Date/Time: 10/06/20 16:12 <Maxine John NP - Last Filed: 10/06/20 11:00>
--- NOTE | 2020-10-06 11:03 | MHC.CM.PN ---
Per ROUNDS discussion, Patient will require a home O2 eval. Home is the goal for dc and CM will follow for possible need to adjust the dc plan.
[2020-10-06 11:26] VITALS: BP 138/89; PULSE 90; RESP 17; TEMP 36.7; O2SAT 91
[2020-10-06 13:44] VITALS: PULSE 105; PULSE 109; PULSE 112; O2SAT 88; O2SAT 94; O2SAT 95
[2020-10-06 15:29] VITALS: BP 148/90; PULSE 93; RESP 19; TEMP 36.3; O2SAT 92
--- NOTE | 2020-10-06 15:34 | MHC.CM.PN ---
Patient has been medically cleared for dc to home today, no services. Per Rn, Patient will be going home on new O2 (arranges by RT). Last IMM addressed yesterday.
== END 2020-10-06 16:12 | disposition home or self-care (01) | DRG 190 ==
LOC: HO.ED 18:48 → HO.EDOVER 19:58 → HO.S3 22:05
PROVIDERS: Physician Assistant; Admitting Provider Hospitalist; Emergency Provider Emergency Medicine; PCP Internal Medicine; Visit Provider Internal Medicine
DX: J44.1 Chronic obstructive pulmonary disease with (acute) exacerbation (principal); J96.01 Acute respiratory failure with hypoxia; J96.02 Acute respiratory failure with hypercapnia; I16.0 Hypertensive urgency; E66.9 Obesity, unspecified; Z20.822 Contact with and (suspected) exposure to COVID-19; Z68.35 Body mass index [BMI] 35.0-35.9, adult; Z79.51 Long term (current) use of inhaled steroids; Z79.52 Long term (current) use of systemic steroids; Z79.899 Other long term (current) drug therapy
CPT/HCPCS: 0241U; 36415; 71045; 71250; 80048; 80076; 82803; 83605; 83735; 83880; 84145; 84484; 85025; 85379; 85610; 85730; 86140; 87040; 87633; 93005; 94640; 94644; 99218; 99285; J0456; J0696; J1650; J2930

== ENCOUNTER 2021-01-04 10:14 | Outpatient (REF) | payer MEDICARE, SELFPAY | END 2021-01-04 10:15 | disposition home or self-care (01) | LOC: HO.BBR 10:14 | PROVIDERS: Visit Provider Internal Medicine Hematology & Oncology | DX: D75.1 Secondary polycythemia (principal) | CPT/HCPCS: 36415; 85014; 85018; 99195 ==

== ENCOUNTER 2021-02-08 09:38 | Outpatient (REF) | payer MEDICARE, MEDICAID, SELFPAY | END 2021-02-08 09:39 | disposition home or self-care (01) | LOC: HO.BBR 09:38 | PROVIDERS: Visit Provider Internal Medicine Hematology & Oncology | DX: D75.1 Secondary polycythemia (principal) | CPT/HCPCS: 85018; 99195 ==

== ENCOUNTER 2021-02-22 09:30 | Outpatient (REF) | payer MEDICARE, MEDICAID, SELFPAY | END 2021-02-22 09:31 | disposition home or self-care (01) | LOC: HO.BBR 09:30 | PROVIDERS: Visit Provider Internal Medicine Hematology & Oncology | DX: D75.1 Secondary polycythemia (principal) | CPT/HCPCS: 85014; 85018; 99195 ==

== ENCOUNTER 2021-03-08 09:57 | Outpatient (REF) | payer MEDICARE, MEDICAID, SELFPAY | END 2021-03-08 09:58 | disposition home or self-care (01) | LOC: HO.BBR 09:57 | PROVIDERS: Visit Provider Internal Medicine Hematology & Oncology | DX: D75.1 Secondary polycythemia (principal) | CPT/HCPCS: 85014; 85018; 99195 ==

== ENCOUNTER 2021-03-22 10:27 | Outpatient (REF) | payer MEDICARE, MEDICAID, SELFPAY | END 2021-03-22 10:28 | disposition home or self-care (01) | LOC: HO.BBR 10:27 | PROVIDERS: Visit Provider Internal Medicine Hematology & Oncology | DX: D75.1 Secondary polycythemia (principal) | CPT/HCPCS: 85018 ==

== ENCOUNTER 2021-04-13 10:44 | Outpatient (REF) | payer MEDICARE, SELFPAY | END 2021-04-13 10:45 | disposition home or self-care (01) | LOC: HO.BBR 10:44 | PROVIDERS: Visit Provider Internal Medicine Hematology & Oncology | DX: D75.1 Secondary polycythemia (principal) | CPT/HCPCS: 36415; 85018; 99195 ==

== ENCOUNTER 2021-04-26 10:30 | Outpatient (REF) | payer MEDICARE, MEDICAID, SELFPAY | END 2021-04-26 10:31 | disposition home or self-care (01) | LOC: HO.BBR 10:30 | PROVIDERS: Visit Provider Internal Medicine Hematology & Oncology | DX: D75.1 Secondary polycythemia (principal) | CPT/HCPCS: 85018; 99195 ==

== ENCOUNTER 2021-05-13 09:19 | Outpatient (REF) | payer MEDICARE, MEDICAID, SELFPAY | END 2021-05-13 09:20 | disposition home or self-care (01) | LOC: HO.BBR 09:19 | PROVIDERS: Visit Provider Internal Medicine Hematology & Oncology | DX: D75.1 Secondary polycythemia (principal) | CPT/HCPCS: 85018; 99195 ==

== ENCOUNTER 2021-05-25 08:36 | Outpatient (REF) | payer MEDICARE, MEDICAID, SELFPAY | END 2021-05-25 08:37 | disposition home or self-care (01) | LOC: HO.BBR 08:36 | PROVIDERS: Visit Provider Internal Medicine Hematology & Oncology | DX: D75.1 Secondary polycythemia (principal) | CPT/HCPCS: 85014; 85018; 99195 ==

== ENCOUNTER 2021-06-10 10:12 | Outpatient (REF) | payer MEDICARE, MEDICAID, SELFPAY | END 2021-06-10 10:13 | disposition home or self-care (01) | LOC: HO.BBR 10:12 | PROVIDERS: Visit Provider Internal Medicine Hematology & Oncology | DX: D75.1 Secondary polycythemia (principal) | CPT/HCPCS: 85018 ==

== ENCOUNTER 2021-06-24 09:39 | Outpatient (REF) | payer MEDICARE, MEDICAID, SELFPAY | END 2021-06-24 09:40 | disposition home or self-care (01) | LOC: HO.BBR 09:39 | PROVIDERS: Visit Provider Internal Medicine Hematology & Oncology | DX: D75.1 Secondary polycythemia (principal) | CPT/HCPCS: 85014; 85018; 99195 ==

== ENCOUNTER 2021-07-08 09:37 | Outpatient (REF) | payer MEDICARE, MEDICAID, SELFPAY | END 2021-07-08 09:38 | disposition home or self-care (01) | LOC: HO.BBR 09:37 | PROVIDERS: Visit Provider Internal Medicine Hematology & Oncology | DX: D75.1 Secondary polycythemia (principal) | CPT/HCPCS: 85018; 99195 ==

== ENCOUNTER 2021-07-22 10:05 | Outpatient (REF) | payer MEDICARE, MEDICAID, SELFPAY | END 2021-07-22 10:06 | disposition home or self-care (01) | LOC: HO.BBR 10:05 | PROVIDERS: Visit Provider Internal Medicine Hematology & Oncology | DX: D75.1 Secondary polycythemia (principal) | CPT/HCPCS: 85018 ==

== ENCOUNTER 2021-08-04 12:33 | Outpatient (REF) | payer MEDICARE, MEDICAID, SELFPAY | END 2021-08-04 12:34 | disposition home or self-care (01) | LOC: HO.BBR 12:33 | PROVIDERS: Visit Provider Internal Medicine Hematology & Oncology | DX: D75.1 Secondary polycythemia (principal) | CPT/HCPCS: 85014; 85018; 99195 ==

== ENCOUNTER 2021-08-17 10:52 | Emergency (ER) | payer MEDICARE, MEDICAID, SELFPAY | END 2021-08-17 12:37 | disposition left against medical advice (07) | LOC: HO.ED 12:19 | PROVIDERS: Emergency Provider Emergency Medicine; PCP Internal Medicine | DX: M54.9 Dorsalgia, unspecified (principal) ==

== ENCOUNTER 2021-08-18 10:13 | Emergency (ER) | payer MEDICARE, MEDICAID, SELFPAY ==
--- NOTE | ~2021-08-18 | CT_ITS ---
EXAMINATION: CT ANGIOGRAM OF THE CHEST WITH AND WITHOUT CONTRAST (CT PULMONARY ANGIOGRAM FOR PE) CLINICAL INFORMATION: Reason for Exam back pain, SOB, tachycardic COMPARISON: 10/04/2020 TECHNIQUE: Prior to contrast administration, noncontrast localization images were obtained. Subsequently, multidetector volumetric imaging was performed from the thoracic inlet to below the diaphragms following the administration of 80 mL Omnipaque 350 intravenous contrast. No contrast reaction reported Sagittal, coronal, and MIP oblique sagittal reformatted images were obtained on the CT workstation, uploaded to PACS, and reviewed. This CT examination was performed using dose optimization techniques as appropriate, variously including the following: *Automated exposure control *Adjustment of mA and/or kV according to patient size (this includes techniques or standardized protocols for targeted exams where dose is matched to indication/reason for exam; i.e. extremities or head) *Use of iterative reconstruction technique Total exam dose-length product 426 mGy-cm FINDINGS: QUALITY OF STUDY/CONTRAST BOLUS: Satisfactory. PULMONARY ARTERIES: No evidence of filling defect to suggest a pulmonary embolism. There is no septal bowing or reflux into the liver. The thoracic inlet is within normal limits. The axillary regions are unremarkable. Partial imaging of the upper abdominal structures are unremarkable. Centrally there is no bulky adenopathy. Some mild hilar nodes are noted. Imaging lung fong. Right lung; There is COPD here. Likely dependent atelectasis is present. There is an area in the right upper lung which is new from previous small patchy opacity on image 17 is likely a small area of infiltrate. Another focus on image 21. Mild patchy change anterior right midlung. Left lung; Stable reticular nodular change left midlung laterally may be chronic and there is also deep penetration atelectasis. Mild increased patchy opacities in the left lower lobe superiorly may be dependent atelectasis or small area of infiltrate. Stable minimal nodularity in the minor fissure likely represents a lymph node. Review of the bone windows does not demonstrate evidence for a bony lesion. CT/CT angio chest PE protocol IMPRESSION: There is no filling defect to suggest a pulmonary embolism. In the lungs once again chronic changes at the bases with dependent atelectasis and COPD but some minimal new patchy areas of opacity in the right lung and one on the left may represent small areas of subtle acute infiltrate. Attention to follow-up. VTE: negative
[2021-08-18 10:27] VITALS: BP 141/77; PULSE 116; RESP 22; TEMP 37.1; O2SAT 92; BMI 40.1
--- NOTE | 2021-08-18 11:01 | ED_ITS ---
HPI - Back Pain/Injury General Chief Complaint: Back Pain/Injury Stated Complaint: back pain Time Seen by Provider: 08/18/21 10:44 Source: patient Mode of arrival: ambulatory Limitations: no limitations History of Present Illness HPI Narrative: 8-year-old male with a history of COPD on 3 L nasal cannula at baseline, HTN, obesity, who presents to the ER with 2 days of worsening back pain. He is a vague historian. He reports seeing his Primary care doctor in the past for back pain and was told it was muscular. He denies any new injury or trauma. He states the pain is stabbing and comes and goes. It started in his right upper back, radiated down to his right lower back and now is in his left lower back. He still has some residual right upper back pain. He denies any chest pain or SOB (beyond his baseline). He cannot say what makes the pain better or worse. He has not taken any medications for this. MD elicited complaint: back pain Pertinent past history: prior back pain Onset (ago): day(s) Timing: intermittent Severity: moderate Similar Symptoms Previously: Yes Quality: sharp Location: right lower back, right upper back and left lower back Context: unknown Associated symptoms: denies other symptoms Related Data Home Medications Medication Instructions Recorded Confirmed albuterol sulfate 3 ml INHALATION Q6H PRN 10/04/20 10/04/20 albuterol sulfate 90 mcg/actuation 2 puff PO Q6H 10/04/20 10/04/20 aerosol inhaler brimonidine 0.2 % eye drops 1 drp OPHTHALMIC (EYE) Q12H 10/04/20 10/04/20 budesonide-formoterol HFA 160 2 puff PO BID 10/04/20 10/04/20 mcg-4.5 mcg/actuation aerosol inhaler cholecalciferol (vitamin D3) 1,250 1 cap PO QWEEK 10/04/20 10/04/20 mcg (50,000 unit) capsule fluticasone 100 mcg-salmeterol 50 1 puff PO BID 10/04/20 10/04/20 mcg/dose blistr powdr for inhalation (Advair Diskus) fluticasone 250 mcg-salmeterol 50 1 puff PO BID 10/04/20 10/04/20 mcg/dose blistr powdr for inhalation (Advair Diskus) olmesartan 40 mg tablet 1 tab PO DAILY 10/04/20 10/04/20 tizanidine 4 mg tablet 1 tab PO Q8H PRN 10/04/20 10/04/20 Previous Rx's Medication Instructions Recorded prednisone 50 mg tablet 40 mg PO DAILY #5 tab 10/06/20 azithromycin 250 mg tablet See Rx Instructions .ROUTE 08/18/21 (Zithromax Z-Suraj) .COMPLEX #6 tab prednisone 20 mg tablet 40 mg PO DAILY #10 tab 08/18/21 Allergies Allergy/AdvReac Type Severity Reaction Status Date / Time No Known Allergies Allergy Verified 10/04/20 15:16 Review of Systems Review of Systems: Constitutional: No Fever, No Chills ENT/Mouth: No sore throat, No Rhinorrhea, No Swallowing Difficulty Cardiovascular: No Chest Pain, No SOB, No Orthopnea, No Edema Respiratory: No Cough, No Sputum, No Wheezing, No dyspnea Gastrointestinal: No Nausea, No Vomiting, No Diarrhea, No abdominal Pain Genitourinary: No Dysuria, No Urinary Frequency, No Hematuria Musculoskeletal: + joint pain, + Myalgias Skin: No Skin Lesions, No rash Neuro: No Weakness, No Numbness, No Dizziness, No Headache Psych: No Anxiety/Panic, No Depression Heme/Lymph: No Bruising, No Lymphadenopathy PMFSH Past Medical History Medical History Asthma Bronchitis COPD (chronic obstructive pulmonary disease) High cholesterol HTN (hypertension) Social History Social History Household Members: Spouse Housing: Apartment Do you presently have visiting nurse or other home services: No Advance Directives: No Advance Directives Information Provided: Yes service: No Current occupational status: disabled Physical Exam Vital Signs: Vital Signs: Last Vital Signs Temp 98.8 F 08/18/21 10:27 Pulse 101 H 08/18/21 14:18 Resp 16 08/18/21 14:18 BP 113/73 08/18/21 14:18 Pulse Ox 94 08/18/21 14:18 Oxygen Flow Rate 4 08/18/21 10:27 BMI result Body Mass Index 40.1 Appearance: Alert. Oriented X3. No acute distress. Eyes: Pupils equal, round and reactive to light. ENT: Pharynx normal. Neck: Normal inspection. Neck supple. CVS: Tachycardic regular rhythm. Pulses normal. Respiratory: No respiratory distress. Breath sounds significantly decreased throughout, minimal air movement. No wheezing or rhonchi. Abdomen: Softly distended, obese and nontender. +BS x4 Skin: Skin warm and dry. Normal skin color. Normal skin turgor. No rashes. Extremities: No lower extremity edema. No calf tenderness. Neuro: Oriented X 3. No motor deficit. No sensory deficit. Course Course Course Narrative: 71-year-old male presents to the ER with several days of back pain. Reports upper and lower back pain. History of muscular back pain in the past. He arrives tachycardic. SpO2 on his baseline 2 L is 92%. He reports his breathing is at his baseline. He denies any chest pain. There remains a concern for possible PE that is causing his back pain. Will check CTA chest as well as lab workup and check a COVID swab. Reevaluation(s) Reevaluation #1: COVID positive. This could explain his back pain. CT is pending to rule out PE. His oxygen saturations remain in the low to mid 90s on his baseline 3 L nasal cannula. He denies any shortness of breath at this time. IV Decadron ordered. Breath sounds improved with albuterol inhaler. His tachycardia has improved as well. Reevaluation #2: CT scan showing no evidence of PE. There is dependent atelectasis at the bases with new patchy opacity in the right lung which could show a subtle acute infiltrate. This most likely viral in nature. Will plan to discharge home with oral prednisone and Z-Suraj for pulmonary inflammation. He has a home pulse oximeter and was instructed to closely water is O2 sats and his symptoms closely at home. He will follow-up with his doctor and come back to ER if he has new or worsening symptoms. Referral has been made for for monoclonal antibodies. Form has been faxed in patient should receive a phone call to set up the date for infusion. Patient agreeable with plan. MDM - Back Pain/Injury Medical Records Attestation: I reviewed the patient's medical records. Lab Data Attestation: I reviewed the patient's lab results. Result diagrams: 08/18/21 11:36 08/18/21 11:36 Labs: Lab Results 08/18/21 08/18/21 08/18/21 Range/Units 11:36 11:36 11:36 WBC 7.2 (4.8-10.8) X10*3/uL RBC 6.70 H (4.60-5.80) X10*6/uL Hgb 12.6 L (14.0-18.0) g/dl Hct 50.6 (42.0-52.0) % MCV 75.5 L (80.0-98.0) fL MCH 18.8 L (27.0-33.0) pg MCHC 24.9 L (31.0-36.0) g/dl RDW 21.4 H (11.0-16.0) % Plt Count 261 (160-400) X10*3/uL MPV 9.2 L (9.4-12.4) fL Immature Gran % (Auto) 1.5 H (0.0-0.4) % Neut % (Auto) 55.5 (45-73) % Lymph % (Auto) 26.6 (20-40) % [place] % (Auto) 15.1 H (2-11) % Eos % (Auto) 0.6 (0-4) % Baso % (Auto) 0.7 (0-2) % Lymph # (Auto) 1.9 (1.2-4.9) X10*3/uL [place] # (Auto) 1.1 (0.1-1.2) X10*3/uL Eos # (Auto) 0.0 (0.0-0.4) X10*3/uL Baso # (Auto) 0.1 (0.0-0.2) X10*3/uL Abs Immat Gran (auto) 0.11 H (0.00-0.03) X10*3/uL Absolute Neuts (auto) 4.0 (2.0-8.3) x10*3/uL Absolute Nucleated RBC 0.650 H (0.0-0.012) X10*3/uL Nucleated RBC % (auto) 9.0 H (0.0-0.2) /100WBC Sodium 138 (135-145) mmol/L Potassium 4.6 (3.3-5.1) mmol/L Chloride 99 (96-108) mmol/L Carbon Dioxide 37 H (22-29) mmol/L Anion Gap 7 L (12-20) BUN 14 (9-16) mg/dL Creatinine 1.08 (0.5-1.4) mg/dL Estim Creat Clear Calc 67.8 Estimated GFR > 60 Random Glucose 193 H (60-115) mg/dL Calcium 8.5 (8.4-10.2) mg/dL Magnesium 1.9 (1.6-2.6) mg/dL Total Bilirubin 0.6 (0.0-1.0) mg/dL Direct Bilirubin 0.3 (0.0-0.5) mg/dL AST 15 (5-37) U/L ALT 15 (0-40) U/L Alkaline Phosphatase 61 D (39-117) U/L Total Protein 6.6 (6.5-8.0) g/dL Albumin 3.7 (3.5-5.0) g/dL COVID-19 (CHIDI) Positive A (Negative) COVID-19 Clin Com See Note ECG Data Attestation: I personally reviewed and interpreted this ECG as follows: ECG interpretation date: 08/18/21 ECG interpretation time: 12:11 Interpretation: Sinus tachycardia, heart rate 117 beats per minute, normal [place] interval, no ST segment elevations or depressions. Discharge Plan Discharge Clinical Impression: COVID-19 Patient Disposition: Home, Self-Care Instructions: Covid-19 Viral Syndrome and Novel Coronavirus (ED) Hey/Ath Additional Instructions: You were found to be COVID-19 POSITIVE today. Your oxygen levels were normal on your baseline 3 L NC of oxygen [facility] will contact your for an appointment for monoclonal antibodies Rest. Drink plenty of fluids. Take the prescribed steroid and antibiotic to help decrease inflammation in your lungs. Do not go out in public for the next 10 days. Take over the counter cold/flu medications as needed for your symptoms. Take Tylenol and/or Motrin as needed for fevers and body aches. Follow up with your doctor this week. Recommend monitoring your oxygen level with your at home pulse oximeter. If you shortness of breath worsens, if you develop difficulty breathing or any other concerning symptom come back to the ER for further evaluation. Prescriptions: New prednisone 20 mg tablet 40 mg PO DAILY Qty: 10 RF: 0 azithromycin [Zithromax Z-Suraj] 250 mg tablet See Rx Instructions .ROUTE .COMPLEX Qty: 6 RF: 0 No Action fluticasone propion-salmeterol [Advair Diskus] 250-50 mcg/dose blister with device 1 puff PO BID RF: 0 albuterol sulfate 2.5 mg /3 mL (0.083 %) solution for nebulization 3 ml inhalation Q6H PRN (Reason: wheezing) RF: 0 tizanidine 4 mg tablet 1 tab PO Q8H PRN (Reason: low back pain) RF: 0 brimonidine 0.2 % drops 1 drp ophthalmic (eye) Q12H RF: 0 fluticasone propion-salmeterol [Advair Diskus] 100-50 mcg/dose blister with device 1 puff PO BID RF: 0 albuterol sulfate 90 mcg/actuation HFA aerosol inhaler 2 puff PO Q6H RF: 0 olmesartan 40 mg tablet 1 tab PO DAILY RF: 0 cholecalciferol (vitamin D3) 1,250 mcg (50,000 unit) capsule 1 cap PO QWEEK RF: 0 budesonide-formoterol 160-4.5 mcg/actuation HFA aerosol inhaler 2 puff PO BID RF: 0 prednisone 50 mg tablet 40 mg PO DAILY Qty: 5 RF: 0 Referrals: Mike Black MD [Primary Care Provider] - 1 week
--- NOTE | 2021-08-18 11:21 | ECG_ITS ---
Test Reason : tachycardia Blood Pressure : / mmHG Vent. Rate : 117 BPM Atrial Rate : 117 BPM P-R Int : 158 ms QRS Dur : 078 ms QT Int : 318 ms P-R-T Axes : 056 006 064 degrees QTc Int : 443 ms Sinus tachycardia Inferior infarct (cited on or before 04-OCT-2020) Abnormal ECG When compared with ECG of 04-OCT-2020 15:51, Premature supraventricular complexes are no longer Present Referred By: Yady Poe Electronically Signed By:Willem Tomlinson
[2021-08-18 11:42] LABS: MANUAL DIFF FLAG NO
[2021-08-18] MEDS: Acetaminophen 325 MG TABLET 975 MG PO (11:46)
[2021-08-18 11:47] VITALS: BP 119/74; PULSE 112; RESP 18; O2SAT 90
[2021-08-18 11:47] LABS: Basophils Absolute Auto 0.1 X10*3/uL (0.0-0.2); Basophils Percent Auto 0.7 % (0-2); Eosinophils Percent Auto 0.6 % (0-4); Hematocrit 50.6 % (42.0-52.0); Hemoglobin 12.6 g/dl (14.0-18.0); Imm Gran Abs Auto 0.11 X10*3/uL (0.00-0.03); Imm Gran Pct Auto 1.5 % (0.0-0.4); Lymphocytes Absolute Auto 1.9 X10*3/uL (1.2-4.9); Lymphocytes Percent Auto 26.6 % (20-40); Mean Corpuscular HGB Conc 24.9 g/dl (31.0-36.0); Mean Corpuscular Hemoglobin 18.8 pg (27.0-33.0); Mean Platelet Volume 9.2 fL (9.4-12.4); Monocytes Absolute Auto 1.1 X10*3/uL (0.1-1.2); Monocytes Percent Auto 15.1 % (2-11); Neutrophils Percent Auto 55.5 % (45-73); Platelet Count 261 X10*3/uL (160-400); Red Cell Distribution Width 21.4 % (11.0-16.0); White Blood Count 7.2 X10*3/uL (4.8-10.8)
[2021-08-18 11:50] LABS: Mean Corpuscular Volume 75.5 fL (80.0-98.0)
[2021-08-18 11:51] LABS: COVID-19 Test Positive (Negative); IDNOW Serial# 9DD0AD1C
[2021-08-18 11:57] LABS: Alanine Aminotransferase 15 U/L (0-40); Albumin Level 3.7 g/dL (3.5-5.0); Alkaline Phosphatase 61 U/L (39-117); Anion Gap 7 (12-20); Aspartate Amino Transferase 15 U/L (5-37); Bilirubin Direct 0.3 mg/dL (0.0-0.5); Bilirubin Total 0.6 mg/dL (0.0-1.0); Blood Urea Nitrogen 14 mg/dL (9-16); Calcium 8.5 mg/dL (8.4-10.2); Carbon Dioxide 37 mmol/L (22-29); Chloride 99 mmol/L (96-108); Creatinine Clr Calc Pharmacy 67.8; Estimated Glomerular Filt Rate > 60; Glucose Random 193 mg/dL (60-115); Magnesium 1.9 mg/dL (1.6-2.6); Potassium 4.6 mmol/L (3.3-5.1); Sodium 138 mmol/L (135-145); Total Protein 6.6 g/dL (6.5-8.0)
[2021-08-18] MEDS: Albuterol Sulfate 90 MCG 8 GM INHALER 2 PUFF INHALE (12:51)
[2021-08-18 12:52] VITALS: PULSE 105; RESP 18; O2SAT 91
[2021-08-18] MEDS: iohexoL 350 MG/ML 100 ML INFUS..BTL IV (13:24)
[2021-08-18 14:18] VITALS: BP 113/73; PULSE 101; RESP 16; O2SAT 94
[2021-08-18] MEDS: dexAMETHasone sod phosphate 10 MG/ML VIAL IVPUSH (15:36)
== END 2021-08-18 15:47 | disposition home or self-care (01) ==
PROVIDERS: Physician Assistant; Emergency Provider Emergency Medicine; PCP Internal Medicine
DX: U07.1 COVID-19 (principal); J44.9 Chronic obstructive pulmonary disease, unspecified; I10 Essential (primary) hypertension; M54.50 Low back pain, unspecified; Z79.899 Other long term (current) drug therapy
CPT/HCPCS: 36415; 71275; 80048; 80076; 83735; 85025; 87635; 93005; 94640; 96374; 99284; J1100; Q9967

== ENCOUNTER 2021-09-01 13:49 | Outpatient (REF) | payer MEDICARE, MEDICAID, SELFPAY ==
[2021-09-01 15:55] LABS: Binax Internal Control QC Valid; Binax Now Covid-19 Ag Negative (Negative)
== END 2021-09-01 13:50 | disposition home or self-care (01) ==
LOC: HO.LAB 13:49
PROVIDERS: Visit Provider Internal Medicine
DX: Z20.822 Contact with and (suspected) exposure to COVID-19 (principal)
CPT/HCPCS: C9803

== ENCOUNTER 2021-10-03 12:55 | Outpatient (REF) | payer MEDICARE, MEDICAID, SELFPAY ==
[2021-10-03 14:01] LABS: COVID-19 Test Negative (Negative)
== END 2021-10-03 12:56 | disposition home or self-care (01) ==
LOC: HO.LAB 12:55
PROVIDERS: Visit Provider Internal Medicine
DX: Z20.822 Contact with and (suspected) exposure to COVID-19 (principal)
CPT/HCPCS: 87635; C9803

== ENCOUNTER 2021-11-15 08:31 | Outpatient (REF) | payer MEDICARE, SELFPAY ==
[2021-11-15 08:57] LABS: MANUAL DIFF FLAG NO
[2021-11-15 09:14] LABS: Basophils Absolute Auto 0.1 X10*3/uL (0.0-0.2); Basophils Percent Auto 0.8 % (0-2); Eosinophils Absolute Auto 0.2 X10*3/uL (0.0-0.4); Eosinophils Percent Auto 2.4 % (0-4); Hematocrit 54.6 % (42.0-52.0); Hemoglobin 13.8 g/dl (14.0-18.0); Imm Gran Abs Auto 0.03 X10*3/uL (0.00-0.03); Imm Gran Pct Auto 0.3 % (0.0-0.4); Lymphocytes Absolute Auto 3.2 X10*3/uL (1.2-4.9); Lymphocytes Percent Auto 35.5 % (20-40); Mean Corpuscular HGB Conc 25.3 g/dl (31.0-36.0); Mean Corpuscular Hemoglobin 18.9 pg (27.0-33.0); Mean Corpuscular Volume 74.6 fL (80.0-98.0); Mean Platelet Volume 10.1 fL (9.4-12.4); Monocytes Percent Auto 11.6 % (2-11); Neutrophils Absolute Auto 4.4 x10*3/uL (2.0-8.3); Neutrophils Percent Auto 49.4 % (45-73); Platelet Count 261 X10*3/uL (160-400); Red Blood Count 7.32 X10*6/uL (4.60-5.80); Red Cell Distribution Width 21.7 % (11.0-16.0); White Blood Count 8.9 X10*3/uL (4.8-10.8)
[2021-11-15 09:20] LABS: Estimated Average Glucose 146 mg/dL; Hemoglobin A1c % 6.7 %
[2021-11-15 09:42] LABS: Alanine Aminotransferase 20 U/L (0-40); Alkaline Phosphatase 86 U/L (39-117); Anion Gap 11 (12-20); Aspartate Amino Transferase 12 U/L (5-37); Bilirubin Total 0.5 mg/dL (0.0-1.0); Blood Urea Nitrogen 21 mg/dL (9-16); Calcium 9.1 mg/dL (8.4-10.2); Carbon Dioxide 29 mmol/L (22-29); Chloride 106 mmol/L (96-108); Cholesterol 157 mg/dL; Estimated Glomerular Filt Rate > 60; Glucose Random 143 mg/dL (60-115); HDL Cholesterol 47 mg/dL; LDL Cholesterol Calculated 84 mg/dl; Potassium 4.9 mmol/L (3.3-5.1); Sodium 141 mmol/L (135-145); Total Protein 6.9 g/dL (6.5-8.0); Triglycerides 130 mg/dL
[2021-11-15 10:05] LABS: Thyroid Stimulating Hormone 2.41 uIU/mL (0.32-4.0)
[2021-11-15 11:52] LABS: Creatinine Urine 201.13 mg/dL; Microalbum/Creatinine Ratio Ur 12.9 ug/mg cr
== END 2021-11-15 08:32 | disposition home or self-care (01) ==
LOC: HO.LAB 08:31
PROVIDERS: PCP Internal Medicine; Visit Provider Internal Medicine
DX: Z00.01 Encounter for general adult medical examination with abnormal findings (principal); E11.9 Type 2 diabetes mellitus without complications; H54.8 Legal blindness, as defined in USA; I10 Essential (primary) hypertension; J44.9 Chronic obstructive pulmonary disease, unspecified
CPT/HCPCS: 36415; 80053; 80061; 82043; 83036; 84443; 85025

== ENCOUNTER 2021-12-17 13:00 | Emergency (ER) | payer OTHER, SELFPAY ==
--- NOTE | ~2021-12-17 | CT_ITS ---
EXAMINATION: CT ABDOMEN AND PELVIS WITH CONTRAST CLINICAL INFORMATION: Abdominal distention. COMPARISON: CTA chest dated 08/18/2021. TECHNIQUE: Multidetector volumetric images were obtained from the superior aspect of the liver through the pubic symphysis following administration 85 mL of Omnipaque 350 intravenous contrast. Sagittal and coronal reformatted images were obtained on the technologist's workstation. Oral contrast: No This CT examination was performed using dose optimization techniques as appropriate, variously including the following: *Automated exposure control *Adjustment of mA and/or kV according to patient size (this includes techniques or standardized protocols for targeted exams where dose is matched to indication/reason for exam; i.e. extremities or head) *Use of iterative reconstruction technique DLP: 720 mGy-cm FINDINGS: LUNG BASES: Mild bibasilar probable atelectasis. LIVER, GALLBLADDER, AND BILIARY TREE: The liver is normal in size, shape, and attenuation. No focal hepatic lesion or biliary ductal dilatation is present. The gallbladder is unremarkable with no evidence of radiopaque gallstones, gallbladder wall thickening, or obvious pericholecystic inflammatory changes. PANCREAS: Unremarkable. SPLEEN: Unremarkable. ADRENAL GLANDS: Unremarkable. KIDNEYS AND URETERS: The kidneys are normal in size, shape, and attenuation. No hydronephrosis, hydroureter, or calculi seen. Lateral left mid pole 1.1 cm hypodensity measuring approximately -1 Hounsfield units. Findings could represent a simple cyst versus angiomyolipoma. This is unchanged when compared to the CT dated 08/18/2021. Multiple simple-appearing right-sided renal cysts. No perinephric stranding. BLADDER: Unremarkable. GASTROINTESTINAL TRACT: No small- or large-bowel obstruction. No bowel wall thickening or associated inflammatory change. Sigmoid diverticulosis without evidence of acute diverticulitis. Unremarkable appendix. PERITONEAL CAVITY: No intra-abdominal free air or free fluid. ABDOMINAL WALL: Small, fat-containing left inguinal hernia. LYMPH NODES: No significant lymphadenopathy. VASCULAR: Atherosclerotic calcifications. No abdominal aortic dilatation or dissection. Unremarkable IVC. PELVIC VISCERA: Mild prostatomegaly with small parenchymal calcifications. OSSEOUS STRUCTURES: Unremarkable. CT/CT abdomen pelvis w con IMPRESSION: 1. No small- or large-bowel obstruction. Diverticulosis without evidence of acute diverticulitis. Unremarkable appendix. 2. No intra-abdominal lymphadenopathy or ascites. 3. Stable left posterior midpole simple cyst versus angiomyolipoma. Additional right-sided simple cysts are not clinically significant and no followup imaging is recommended. No enhancing renal parenchymal lesion. No hydronephrosis or hydroureter. Fleischner guidelines were followed.
--- NOTE | ~2021-12-17 | XR_ITS ---
EXAMINATION: XR chest 1V CLINICAL INFORMATION: Reason for Exam dyspnea COMPARISON: Chest radiograph 10/04/2020 TECHNIQUE: One view of the chest XR/XR chest 1V FINDINGS/IMPRESSION: Mildly diffusely increased interstitial opacities with perihilar prominence which can be seen in the setting of atypical/viral infection or interstitial edema. No pneumothorax. No pleural effusion. Borderline enlarged cardiac silhouette similar to prior.
[2021-12-17 13:17] VITALS: BP 115/78; PULSE 100; RESP 18; TEMP 36.7; O2SAT 75; BMI 39.8
--- NOTE | 2021-12-17 14:28 | ED_ITS ---
HPI - SOB/Dyspnea General Chief Complaint: Dyspnea Stated Complaint: back and abd pain Time Seen by Provider: 12/17/21 14:02 Source: patient and old records reviewed Mode of arrival: ambulatory Limitations: no limitations History of Present Illness MD elicited complaint: shortness of breath (due to increased weight gain over 3 years) Pertinent past history: COPD Onset (ago): year(s) (3) Context: other (states his belly just keeps getting bigger and bigger and his doctor states it is fine but he can't breathe because it is so big and his pants are tights) Timing: constant Severity: moderate Exacerbating factors: exertion Relieving factors: nothing Known history of: COPD Associated symptoms: denies other symptoms Treatment prior to arrival: oxygen Related Data Home Medications Medication Instructions Recorded Confirmed albuterol sulfate 3 ml INHALATION Q6H PRN 10/04/20 10/04/20 albuterol sulfate 90 mcg/actuation 2 puff PO Q6H 10/04/20 10/04/20 aerosol inhaler brimonidine 0.2 % eye drops 1 drp OPHTHALMIC (EYE) Q12H 10/04/20 10/04/20 budesonide-formoterol HFA 160 2 puff PO BID 10/04/20 10/04/20 mcg-4.5 mcg/actuation aerosol inhaler cholecalciferol (vitamin D3) 1,250 1 cap PO QWEEK 10/04/20 10/04/20 mcg (50,000 unit) capsule fluticasone 100 mcg-salmeterol 50 1 puff PO BID 10/04/20 10/04/20 mcg/dose blistr powdr for inhalation (Advair Diskus) fluticasone 250 mcg-salmeterol 50 1 puff PO BID 10/04/20 10/04/20 mcg/dose blistr powdr for inhalation (Advair Diskus) olmesartan 40 mg tablet 1 tab PO DAILY 10/04/20 10/04/20 tizanidine 4 mg tablet 1 tab PO Q8H PRN 10/04/20 10/04/20 Previous Rx's Medication Instructions Recorded prednisone 50 mg tablet 40 mg PO DAILY #5 tab 10/06/20 azithromycin 250 mg tablet See Rx Instructions .ROUTE 08/18/21 (Zithromax Z-Suraj) .COMPLEX #6 tab prednisone 20 mg tablet 40 mg PO DAILY #10 tab 08/18/21 Allergies Allergy/AdvReac Type Severity Reaction Status Date / Time No Known Allergies Allergy Verified 12/17/21 13:25 Review of Systems Review of Systems: Constitutional : No Weight loss, No Fever, No Chills, pos unexplained weight gain ENT/Mouth : No sore throat, No Rhinorrhea Eyes: No Swelling, No Redness Cardiovascular : No Chest Pain, pos SOB, NoEdema Respiratory : No Cough, No Sputum, No Wheezing Gastrointestinal : no Nausea, no Vomiting, no Diarrhea, positive abdominal Pain, No Hematochezia, No Melena Genitourinary : No Dysuria, No Urinary Frequency, No Hematuria, No Urgency Musculoskeletal : No joint pain, No Myalgias, No Joint Swelling Skin : No Skin Lesions, No rash Neuro : No Weakness, No Numbness, No Dizziness, No Headache Psych : No Anxiety/Panic, No Depression Heme/Lymph: No Bruising, No Lymphadenopathy Endocrine : No Polyuria, No Polydipsia All other systems reviewed and are negative. [facility] Past Medical History Attestation statement: The following information was validated with the patient. Medical History Asthma Bronchitis COPD (chronic obstructive pulmonary disease) High cholesterol HTN (hypertension) Social History Social History (Updated 12/17/21 @ 14:37 by Tabby Reyes DO) Household Members: Spouse Housing: Apartment Do you presently have visiting nurse or other home services: No Alcohol intake: never Patient Tobacco Use Status: Never used Tobacco Use of substances other than those prescribed or required for medical reasons: No Advance Directives: No Advance Directives Information Provided: No service: No Current occupational status: disabled Physical Exam Vital Signs: Vital Signs: Last Vital Signs Temp 98.2 F 12/17/21 14:38 Pulse 91 12/17/21 15:50 Resp 18 12/17/21 15:50 BP 138/90 H 12/17/21 14:38 Pulse Ox 94 12/17/21 14:38 BMI result Body Mass Index 39.8 Appearance: Alert. Oriented X3. No acute distress. Eyes: Pupils equal, round and reactive to light. ENT: Pharynx normal. Neck: Normal inspection. Neck supple. CVS: Normal heart rate and rhythm. Pulses normal. Respiratory: No respiratory distress. Breath sounds decreased with diffuse mild wheezes noted Abdomen: Soft and obese but nontender Skin: Skin warm and dry. Normal skin color. Normal skin turgor. Extremities: No lower extremity edema. No calf ttp Neuro: Oriented X 3. No motor deficit. No sensory deficit. Course Course Course Narrative: trop at baseline signed out to Dr. Wiggins pending CT scan results MDM - SOB/Dyspnea MDM Narrative Medical decision making narrative: 71 yo male with hx of asthma, bronchitis, COPD on home O2, HLD here with c/o dyspnea but only because his abdomen is getting bigger every year and he cannot walk. He reports no n/v constipation or change in urinary habits. He also notes he has had pain in his abdomen x 3 years but has not had any imaging done. At this tmie he states he doesn't overeat - his abdomen appears obese. He is saturating fine on home O2. Will obtain labs, TSH, CT scan for mass/ascites. Dispo per results and findings. Lab Data Result diagrams: 12/17/21 14:53 12/17/21 14:53 Labs: Lab Results 12/17/21 12/17/21 12/17/21 Range/Units 14:52 14:52 14:52 WBC (4.8-10.8) X10*3/uL RBC (4.60-5.80) X10*6/uL Hgb (14.0-18.0) g/dl Hct (42.0-52.0) % MCV (80.0-98.0) fL MCH (27.0-33.0) pg MCHC (31.0-36.0) g/dl RDW (11.0-16.0) % Plt Count (160-400) X10*3/uL MPV (9.4-12.4) fL Immature Gran % (Auto) (0.0-0.4) % Neut % (Auto) (45-73) % Lymph % (Auto) (20-40) % [place] % (Auto) (2-11) % Eos % (Auto) (0-4) % Baso % (Auto) (0-2) % Lymph # (Auto) (1.2-4.9) X10*3/uL [place] # (Auto) (0.1-1.2) X10*3/uL Eos # (Auto) (0.0-0.4) X10*3/uL Baso # (Auto) (0.0-0.2) X10*3/uL Abs Immat Gran (auto) (0.00-0.03) X10*3/uL Absolute Neuts (auto) (2.0-8.3) x10*3/uL Absolute Nucleated RBC (0.0-0.012) X10*3/uL Nucleated RBC % (auto) (0.0-0.2) /100WBC PT 12.5 (9.9-13.0) SEC INR 1.1 (0.9-1.1) Sodium (135-145) mmol/L Potassium (3.3-5.1) mmol/L Chloride (96-108) mmol/L Carbon Dioxide (22-29) mmol/L Anion Gap (12-20) BUN (9-16) mg/dL Creatinine (0.5-1.4) mg/dL Estim Creat Clear Calc Estimated GFR Random Glucose (60-115) mg/dL Calcium (8.4-10.2) mg/dL Magnesium (1.6-2.6) mg/dL Total Bilirubin (0.0-1.0) mg/dL Direct Bilirubin (0.0-0.5) mg/dL AST (5-37) U/L ALT (0-40) U/L Alkaline Phosphatase (39-117) U/L Troponin I High Sens (<3.5-35.0) ng/L B-Natriuretic Peptide 29 (<100) pg/mL Total Protein (6.5-8.0) g/dL Albumin (3.5-5.0) g/dL Lipase (8-78) U/L TSH 1.99 (0.32-4.0) uIU/mL Urine Color Urine Appearance Urine pH (5.0-8.0) Ur Specific [place] (1.005-1.025) Urine Protein (NEG-TRACE) MG/DL Urine Glucose (UA) (NEG) MG/DL Urine Ketones (NEG) MG/DL Urine Blood (NEG) Urine Nitrite (NEG) Ur Leukocyte Esterase (NEG) COVID-19 (CHIDI) (Negative) COVID-19 Clin Com 12/17/21 12/17/21 12/17/21 Range/Units 14:53 14:53 14:53 WBC 8.3 (4.8-10.8) X10*3/uL RBC 7.11 H (4.60-5.80) X10*6/uL Hgb 13.6 L (14.0-18.0) g/dl Hct 54.1 H (42.0-52.0) % MCV 76.1 L (80.0-98.0) fL MCH 19.1 L (27.0-33.0) pg MCHC 25.1 L (31.0-36.0) g/dl RDW 21.9 H (11.0-16.0) % Plt Count 247 (160-400) X10*3/uL MPV 9.8 (9.4-12.4) fL Immature Gran % (Auto) 0.5 H (0.0-0.4) % Neut % (Auto) 57.1 (45-73) % Lymph % (Auto) 26.6 (20-40) % [place] % (Auto) 12.7 H (2-11) % Eos % (Auto) 1.8 (0-4) % Baso % (Auto) 1.3 (0-2) % Lymph # (Auto) 2.2 (1.2-4.9) X10*3/uL [place] # (Auto) 1.1 (0.1-1.2) X10*3/uL Eos # (Auto) 0.2 (0.0-0.4) X10*3/uL Baso # (Auto) 0.1 (0.0-0.2) X10*3/uL Abs Immat Gran (auto) 0.04 H (0.00-0.03) X10*3/uL Absolute Neuts (auto) 4.8 (2.0-8.3) x10*3/uL Absolute Nucleated RBC 0.020 H (0.0-0.012) X10*3/uL Nucleated RBC % (auto) 0.2 (0.0-0.2) /100WBC PT (9.9-13.0) SEC INR (0.9-1.1) Sodium 142 (135-145) mmol/L Potassium 4.8 (3.3-5.1) mmol/L Chloride 104 (96-108) mmol/L Carbon Dioxide 32 H (22-29) mmol/L Anion Gap 11 L (12-20) BUN 17 H (9-16) mg/dL Creatinine 0.85 (0.5-1.4) mg/dL Estim Creat Clear Calc 85.7 Estimated GFR > 60 Random Glucose 88 D (60-115) mg/dL Calcium 9.1 (8.4-10.2) mg/dL Magnesium 2.1 (1.6-2.6) mg/dL Total Bilirubin 0.7 (0.0-1.0) mg/dL Direct Bilirubin 0.2 (0.0-0.5) mg/dL AST 11 (5-37) U/L ALT 14 (0-40) U/L Alkaline Phosphatase 81 (39-117) U/L Troponin I High Sens (<3.5-35.0) ng/L B-Natriuretic Peptide (<100) pg/mL Total Protein 7.0 (6.5-8.0) g/dL Albumin 4.0 (3.5-5.0) g/dL Lipase 18 (8-78) U/L TSH (0.32-4.0) uIU/mL Urine Color Urine Appearance Urine pH (5.0-8.0) Ur Specific [place] (1.005-1.025) Urine Protein (NEG-TRACE) MG/DL Urine Glucose (UA) (NEG) MG/DL Urine Ketones (NEG) MG/DL Urine Blood (NEG) Urine Nitrite (NEG) Ur Leukocyte Esterase (NEG) COVID-19 (CHIDI) Negative (Negative) COVID-19 Clin Com See Note 12/17/21 12/17/21 Range/Units 14:53 15:30 WBC (4.8-10.8) X10*3/uL RBC (4.60-5.80) X10*6/uL Hgb (14.0-18.0) g/dl Hct (42.0-52.0) % MCV (80.0-98.0) fL MCH (27.0-33.0) pg MCHC (31.0-36.0) g/dl RDW (11.0-16.0) % Plt Count (160-400) X10*3/uL MPV (9.4-12.4) fL Immature Gran % (Auto) (0.0-0.4) % Neut % (Auto) (45-73) % Lymph % (Auto) (20-40) % [place] % (Auto) (2-11) % Eos % (Auto) (0-4) % Baso % (Auto) (0-2) % Lymph # (Auto) (1.2-4.9) X10*3/uL [place] # (Auto) (0.1-1.2) X10*3/uL Eos # (Auto) (0.0-0.4) X10*3/uL Baso # (Auto) (0.0-0.2) X10*3/uL Abs Immat Gran (auto) (0.00-0.03) X10*3/uL Absolute Neuts (auto) (2.0-8.3) x10*3/uL Absolute Nucleated RBC (0.0-0.012) X10*3/uL Nucleated RBC % (auto) (0.0-0.2) /100WBC PT (9.9-13.0) SEC INR (0.9-1.1) Sodium (135-145) mmol/L Potassium (3.3-5.1) mmol/L Chloride (96-108) mmol/L Carbon Dioxide (22-29) mmol/L Anion Gap (12-20) BUN (9-16) mg/dL Creatinine (0.5-1.4) mg/dL Estim Creat Clear Calc Estimated GFR Random Glucose (60-115) mg/dL Calcium (8.4-10.2) mg/dL Magnesium (1.6-2.6) mg/dL Total Bilirubin (0.0-1.0) mg/dL Direct Bilirubin (0.0-0.5) mg/dL AST (5-37) U/L ALT (0-40) U/L Alkaline Phosphatase (39-117) U/L Troponin I High Sens 17.4 (<3.5-35.0) ng/L B-Natriuretic Peptide (<100) pg/mL Total Protein (6.5-8.0) g/dL Albumin (3.5-5.0) g/dL Lipase (8-78) U/L TSH (0.32-4.0) uIU/mL Urine Color YELLOW Urine Appearance CLEAR Urine pH 5.5 (5.0-8.0) Ur Specific [place] 1.025 (1.005-1.025) Urine Protein NEG (NEG-TRACE) MG/DL Urine Glucose (UA) NEG (NEG) MG/DL Urine Ketones NEG (NEG) MG/DL Urine Blood NEG (NEG) Urine Nitrite NEG (NEG) Ur Leukocyte Esterase NEG (NEG) COVID-19 (CHIDI) (Negative) COVID-19 Clin Com ECG Data Attestation: I personally reviewed and interpreted this ECG as follows: ECG interpretation date: 12/17/21 ECG interpretation time: 14:49 Interpretation: Rate: 81 Rhythm: NSR Stem: normal Normal P waves. Normal [place]. Normal QRS complex. ST T wave : normal no [place] qTC: normal prior studies: no acute ischemia The study has been interpreted contemporaneously by me. Discharge Plan Discharge Clinical Impression: Gain of weight Prescriptions: No Action fluticasone propion-salmeterol [Advair Diskus] 250-50 mcg/dose blister with device 1 puff PO BID 0RF albuterol sulfate 2.5 mg /3 mL (0.083 %) solution for nebulization 3 ml inhalation Q6H PRN (Reason: wheezing) 0RF tizanidine 4 mg tablet 1 tab PO Q8H PRN (Reason: low back pain) 0RF brimonidine 0.2 % drops 1 drp ophthalmic (eye) Q12H 0RF fluticasone propion-salmeterol [Advair Diskus] 100-50 mcg/dose blister with device 1 puff PO BID 0RF albuterol sulfate 90 mcg/actuation HFA aerosol inhaler 2 puff PO Q6H 0RF olmesartan 40 mg tablet 1 tab PO DAILY 0RF cholecalciferol (vitamin D3) 1,250 mcg (50,000 unit) capsule 1 cap PO QWEEK 0RF budesonide-formoterol 160-4.5 mcg/actuation HFA aerosol inhaler 2 puff PO BID 0RF prednisone 50 mg tablet 40 mg PO DAILY Qty: 5 0RF prednisone 20 mg tablet 40 mg PO DAILY Qty: 10 0RF azithromycin [Zithromax Z-Suraj] 250 mg tablet See Rx Instructions .ROUTE .COMPLEX Qty: 6 0RF Rx Instructions: take 500 mg today (day 1), then 250 mg for 4 days (days 2-5)
[2021-12-17 14:38] VITALS: BP 138/90; PULSE 89; RESP 24; TEMP 36.8; O2SAT 94
--- NOTE | 2021-12-17 14:38 | ECG_ITS ---
Test Reason : Abdominal pain Blood Pressure : / mmHG Vent. Rate : 081 BPM Atrial Rate : 081 BPM P-R Int : 170 ms QRS Dur : 064 ms QT Int : 338 ms P-R-T Axes : 062 009 055 degrees QTc Int : 392 ms Normal sinus rhythm Normal ECG No significant changes when compared with the previous EKG of 18 aug 2021 Referred By: Tabby Reyes Electronically Signed By:LUCA DE SOUZA
[2021-12-17 14:57] LABS: MANUAL DIFF FLAG NO
[2021-12-17 14:58] LABS: Basophils Absolute Auto 0.1 X10*3/uL (0.0-0.2); Basophils Percent Auto 1.3 % (0-2); Eosinophils Absolute Auto 0.2 X10*3/uL (0.0-0.4); Eosinophils Percent Auto 1.8 % (0-4); Hematocrit 54.1 % (42.0-52.0); Hemoglobin 13.6 g/dl (14.0-18.0); Imm Gran Abs Auto 0.04 X10*3/uL (0.00-0.03); Imm Gran Pct Auto 0.5 % (0.0-0.4); Lymphocytes Absolute Auto 2.2 X10*3/uL (1.2-4.9); Lymphocytes Percent Auto 26.6 % (20-40); Mean Corpuscular HGB Conc 25.1 g/dl (31.0-36.0); Mean Corpuscular Hemoglobin 19.1 pg (27.0-33.0); Mean Corpuscular Volume 76.1 fL (80.0-98.0); Mean Platelet Volume 9.8 fL (9.4-12.4); Monocytes Absolute Auto 1.1 X10*3/uL (0.1-1.2); Monocytes Percent Auto 12.7 % (2-11); NRBC Pct Auto 0.2 /100WBC (0.0-0.2); Neutrophils Absolute Auto 4.8 x10*3/uL (2.0-8.3); Neutrophils Percent Auto 57.1 % (45-73); Platelet Count 247 X10*3/uL (160-400); Red Blood Count 7.11 X10*6/uL (4.60-5.80); Red Cell Distribution Width 21.9 % (11.0-16.0); White Blood Count 8.3 X10*3/uL (4.8-10.8)
[2021-12-17 15:13] LABS: COVID-19 Test Negative (Negative)
[2021-12-17 15:15] LABS: INTERNATIONAL NORM RATIO 1.1 (0.9-1.1); Prothrombin Time 12.5 SEC (9.9-13.0)
[2021-12-17 15:26] LABS: Alanine Aminotransferase 14 U/L (0-40); Alkaline Phosphatase 81 U/L (39-117); Anion Gap 11 (12-20); Aspartate Amino Transferase 11 U/L (5-37); Bilirubin Direct 0.2 mg/dL (0.0-0.5); Bilirubin Total 0.7 mg/dL (0.0-1.0); Blood Urea Nitrogen 17 mg/dL (9-16); Calcium 9.1 mg/dL (8.4-10.2); Carbon Dioxide 32 mmol/L (22-29); Chloride 104 mmol/L (96-108); Creatinine Clr Calc Pharmacy 85.7; Estimated Glomerular Filt Rate > 60; Glucose Random 88 mg/dL (60-115); Lipase 18 U/L (8-78); Magnesium 2.1 mg/dL (1.6-2.6); Potassium 4.8 mmol/L (3.3-5.1); Sodium 142 mmol/L (135-145)
[2021-12-17 15:28] LABS: Troponin-I High Sensitivity 17.4 ng/L (<3.5-35.0)
[2021-12-17 15:29] LABS: B Type Natriuretic Peptide 29 pg/mL (<100)
--- NOTE | 2021-12-17 15:33 | PC.NURSE ---
#20 IV placed in the left AC with problem. VSS O2 is 94% on 2L
[2021-12-17 15:35] LABS: Appearance Urine CLEAR; Color Urine YELLOW; Glucose Urine UA NEG (NEG); Leukocyte Esterase Urine NEG (NEG); Nitrite Urine NEG (NEG); PH 5.5 (5.0-8.0); Specific Gravity - Urine 1.025 (1.005-1.025); Urine Blood NEG (NEG); Urine Ketones NEG (NEG); Urine Protein NEG (NEG-TRACE)
[2021-12-17 15:46] LABS: TSH reflex Free T4 1.99 uIU/mL (0.32-4.0)
[2021-12-17] MEDS: Albuterol Sulfate (0.083%) 2.5 MG/3 ML VIAL.NEB INHALE (15:49)
[2021-12-17 15:50] VITALS: PULSE 91; RESP 18; O2SAT 95
[2021-12-17] MEDS: iohexoL 350 MG/ML 100 ML INFUS..BTL IV (15:54)
== END 2021-12-17 16:49 | disposition home or self-care (01) ==
PROVIDERS: Emergency Medicine; Emergency Provider Emergency Medicine Emergency Medical Services; PCP Internal Medicine
DX: R63.5 Abnormal weight gain (principal); Z68.39 Body mass index [BMI] 39.0-39.9, adult; R06.02 Shortness of breath; J44.9 Chronic obstructive pulmonary disease, unspecified; I10 Essential (primary) hypertension; Z20.822 Contact with and (suspected) exposure to COVID-19; Z99.81 Dependence on supplemental oxygen
CPT/HCPCS: 36415; 71045; 74177; 80048; 80076; 81003; 83690; 83735; 83880; 84443; 84484; 85025; 85610; 87635; 93005; 94640; 99284; Q9967

== ENCOUNTER → 2022-01-18 09:54 | Outpatient (BNVA) | payer OTHER, SELFPAY | PROVIDERS: PCP Internal Medicine; Visit Provider Hospitalist | DX: G47.33 Obstructive sleep apnea (adult) (pediatric) (principal); J96.11 Chronic respiratory failure with hypoxia; J96.12 Chronic respiratory failure with hypercapnia; J43.2 Centrilobular emphysema | CPT/HCPCS: 94618; 99202 ==

== ENCOUNTER 2022-01-21 12:47 | Emergency (ER) | payer OTHER, SELFPAY ==
--- NOTE | ~2022-01-21 | US_ITS ---
EXAMINATION: DUPLEX DOPPLER ULTRASOUND EVALUATION OF THE LEFT UPPER EXTREMITY CLINICAL INFORMATION: Dusky without palpable pulse COMPARISON: None TECHNIQUE: Real-time ultrasound and Doppler techniques (integrating B-mode 2D vascular images, Doppler spectral analysis and color flow Doppler imaging) were utilized to interrogate the left upper extremity arterial system. FINDINGS: Proximal subclavian artery has a triphasic waveform with peak systolic velocity of 102 cm/s. The distal subclavian artery has a triphasic waveform with peak systolic velocity of 95 cm/s. The axillary artery has a triphasic waveform with peak systolic velocity 52 cm/s. Proximal brachial artery has a triphasic waveform with peak systolic velocity of 61 cm/s. Mid brachial artery has a biphasic waveform with peak systolic velocity of 62 cm/s. The distal brachial artery has a triphasic waveform with peak systolic velocity of 52 cm/s. The mid renal artery has a monophasic waveform with peak systolic velocity of 16 cm/s. The mid ulna artery has a monophasic waveform with peak systolic velocity of 8 cm/s. US/US arterial duplex UE LT IMPRESSION: Hemodynamically significant disease present within the left radial and ulnar arteries with monophasic waveforms and diminished flow with essentially normal arterial blood flow to the distal brachial artery.
--- NOTE | ~2022-01-21 | XR_ITS ---
EXAMINATION: XR CHEST CLINICAL INFORMATION: Shortness breath COMPARISON: December 17, 2021 TECHNIQUE: AP portable view of the chest was obtained. FINDINGS: There are increased interstitial markings present more prominent in the mid and lower zones. There is a small amount of disease seen with question small effusion about the right costophrenic angle. The cardiopericardial silhouette appears mildly enlarged. No pneumothorax is seen. XR/XR chest 1V IMPRESSION: Mild cardiomegaly with probable pulmonary vascular congestion. Minor right base disease with question small effusion.
--- NOTE | ~2022-01-21 | US_ITS ---
EXAMINATION: US VENOUS WITH DOPPLER UPPER EXTREMITY, LEFT CLINICAL INFORMATION: Left arm pain and swelling COMPARISON: None TECHNIQUE: Ultrasound of the upper extremity is performed using compression sonography and color and pulse Doppler flow with assessment of augmentation of flow. There is also imaging and Doppler assessment of the jugular and subclavian veins. Spectral analysis with color-flow imaging is performed. FINDINGS: Respiratory variation, normal compression, and augmented flow are noted throughout the upper extremity including the axillary, brachial, cubital, and radial and ulnar veins. There is normal flow in the internal jugular and subclavian veins. There is no visible deep or superficial thrombophlebitis. US/US venous duplex UE LT IMPRESSION: No acute DVT demonstrated in the left upper extremity
[2022-01-21 12:56] VITALS: BP 133/81; PULSE 102; RESP 22; TEMP 37; O2SAT 75; BMI 39.8
--- NOTE | 2022-01-21 13:11 | ECG_ITS ---
Test Reason : SOB Blood Pressure : / mmHG Vent. Rate : 098 BPM Atrial Rate : 098 BPM P-R Int : 158 ms QRS Dur : 074 ms QT Int : 334 ms P-R-T Axes : 067 012 055 degrees QTc Int : 426 ms Normal sinus rhythm Normal ECG When compared with ECG of 17-DEC-2021 14:39, No significant change was found Referred By: Theodora Perez Electronically Signed By:WALTER GALLOWAY MD
[2022-01-21 13:19] LABS: MANUAL DIFF FLAG NO
--- NOTE | 2022-01-21 13:22 | ED_ITS ---
HPI - Extremity Problem General Chief complaint: Extremity Injury, Upper Stated complaint: Left arm pain Time Seen by Provider: 01/21/22 13:11 Source: patient, family () and wire stitcher operator Mode of arrival: ambulatory History of Present Illness HPI Narrative: 71-year-old male comes in with his for complaints of left upper extremity p ain and change in color since yesterday, patient denies any trauma but states that when he went to check his home oxygenation he was unable to obtain a reading from that hand. Patient reports that the pain is in his left forearm and radiates to his fingers. Unfortunately, patient did not realize that his portable tank was almost without oxygen in he became very tachypneic and short of breath. Related Data Home Medications Medication Instructions Recorded Confirmed albuterol sulfate 3 ml INHALATION Q6H PRN 10/04/20 10/04/20 albuterol sulfate 90 mcg/actuation 2 puff PO Q6H 10/04/20 10/04/20 aerosol inhaler olmesartan 40 mg tablet 1 tab PO DAILY 10/04/20 10/04/20 tizanidine 4 mg tablet 1 tab PO Q8H PRN 10/04/20 10/04/20 fluticasone 250 mcg-salmeterol 50 1 inh INHALATION BID 01/18/22 mcg/dose blistr powdr for inhalation (Wixela Inhub) Previous Rx's Medication Instructions Recorded roflumilast 250 mcg tablet 250 mcg PO DAILY 30 Days #30 tab 01/18/22 (Daliresp) umeclidinium 62.5 mcg/actuation 1 inh INHALATION DAILY 30 Days #30 01/18/22 blister powder for inhalation ea (Incruse Ellipta) apixaban 2.5 mg tablet (Eliquis) 2.5 mg PO BID 30 Days #60 tab 01/21/22 Allergies Allergy/AdvReac Type Severity Reaction Status Date / Time No Known Allergies Allergy Verified 01/18/22 10:10 Review of Systems Review of Systems: Pertinent positives and negatives as stated in HPI 10 point review of systems is otherwise negative. [facility] Past Medical History Source: nursing notes reviewed Medical History Asthma Bronchitis Chronic respiratory failure COPD (chronic obstructive pulmonary disease) COPD (chronic obstructive pulmonary disease) High cholesterol HTN (hypertension) REBECA (obstructive sleep apnea) Social History Social History Household Members: Spouse Housing: Apartment Do you presently have visiting nurse or other home services: No Alcohol intake: never Patient Tobacco Use Status: Never used Tobacco Advance Directives: No Advance Directives Information Provided: No service: No Current occupational status: disabled Physical Exam Vital Signs: Vital Signs: Last Vital Signs Temp 98.6 F 01/21/22 12:56 Pulse 90 01/21/22 15:09 Resp 16 01/21/22 15:09 BP 112/77 01/21/22 15:09 Pulse Ox 95 01/21/22 15:09 BMI result Body Mass Index 39.8 VITAL SIGNS: Reviewed. GENERAL: Well developed, well nourished, in no acute distress. HEAD: Normocephalic/atraumatic EYES: PERRLA, EOMI EARS: Ext canals without abnormality OROPHARYNX: no oral lesions noted, posterior pharynx clear LUNGS: Mildly tachypneic with expiratory wheeze. SpO2<75> patient was placed back on oxygen and responded well with repeat SpO2-94% CARDIOVASCULAR: Regular rate and rhythm without noted murmurs, no JVD or bilateral lower extremity 1+ pitting edema ABDOMEN: Soft, non-tender, non-distended with bowel sounds. MUSCULOSKELETAL: No tenderness, deformities, or effusions noted on gross inspection. EXTREMITIES: No cyanosis, clubbing or edema; LEFT UPPER EXTREMITY: Hand and fingers are dusky in color with prolonged cap refill, unable to palpate radial pulse but obtained by Doppler, ulnar pulses unable to be palpated and not detectable by the Doppler, able to palpate the brachial pulse. SKIN: Inspection of the skin reveals no rashes NEUROLOGIC: Alert and oriented x 4. Strength and sensation to light touch were grossly intact x 4. Course Course Course Narrative: 71-year-old male with history and clinical presentation consistent with suspected acute thrombotic event affecting the ulnar pulse in the left hand. This appears to have started yesterday, will obtain full labs as well as arterial/venous duplex. A reviewed all investigations and there is noted significant disease within the all are radial arteries on the left with essentially normal flow into the brachial artery. I discussed this case with Dr. Joyner. Patient was informed of all results with a Slovenian-speaking wire stitcher operator and discharged home in stable condition. Reevaluation(s) Reevaluation #1: I discussed the case with vascular, Dr Joyner, who recommends Eliquis 2.5 b.i.d. and he will follow the patient up in the outpatient setting. Time: 17:48 MDM - Extremity (Nontraumatic) Lab Data Result diagrams: 01/21/22 13:15 01/21/22 13:15 Labs: Lab Results 01/21/22 01/21/22 01/21/22 Range/Units 13:15 13:15 13:15 WBC 8.2 (4.8-10.8) X10*3/uL RBC 7.54 H (4.60-5.80) X10*6/uL Hgb 13.4 L (14.0-18.0) g/dl Hct 55.1 H (42.0-52.0) % MCV 73.1 L (80.0-98.0) fL MCH 17.8 L (27.0-33.0) pg MCHC 24.3 L (31.0-36.0) g/dl RDW 22.8 H (11.0-16.0) % Plt Count 204 (160-400) X10*3/uL MPV 9.6 (9.4-12.4) fL Immature Gran % (Auto) 0.9 H (0.0-0.4) % Neut % (Auto) 63.1 (45-73) % Lymph % (Auto) 22.8 (20-40) % Rock % (Auto) 10.4 (2-11) % Eos % (Auto) 1.8 (0-4) % Baso % (Auto) 1.0 (0-2) % Lymph # (Auto) 1.9 (1.2-4.9) X10*3/uL [place] # (Auto) 0.9 (0.1-1.2) X10*3/uL Eos # (Auto) 0.2 (0.0-0.4) X10*3/uL Baso # (Auto) 0.1 (0.0-0.2) X10*3/uL Abs Immat Gran (auto) 0.07 H (0.00-0.03) X10*3/uL Absolute Neuts (auto) 5.2 (2.0-8.3) x10*3/uL Absolute Nucleated RBC 0.080 H (0.0-0.012) X10*3/uL Nucleated RBC % (auto) 1.0 H (0.0-0.2) /100WBC PT 13.6 H (9.9-13.0) SEC INR 1.2 H (0.9-1.1) VBG pH (7.32-7.43) VBG pCO2 mmHg VBG pO2 mmHg VBG HCO3 (22-26) mmol/L VBG O2 Saturation % VBG Base Excess mmol/L Sodium 139 (135-145) mmol/L Potassium 4.5 (3.3-5.1) mmol/L Chloride 102 (96-108) mmol/L Carbon Dioxide 30 H (22-29) mmol/L Anion Gap 12 (12-20) BUN 13 (9-16) mg/dL Creatinine 0.93 (0.5-1.4) mg/dL Estim Creat Clear Calc 78.3 Estimated GFR > 60 Random Glucose 144 H D (60-115) mg/dL Calcium 8.7 (8.4-10.2) mg/dL Total Bilirubin 0.7 (0.0-1.0) mg/dL AST 16 D (5-37) U/L ALT 13 (0-40) U/L Alkaline Phosphatase 72 (39-117) U/L B-Natriuretic Peptide (<100) pg/mL Total Protein 6.9 (6.5-8.0) g/dL Albumin 4.0 (3.5-5.0) g/dL 01/21/22 01/21/22 Range/Units 13:15 14:01 WBC (4.8-10.8) X10*3/uL RBC (4.60-5.80) X10*6/uL Hgb (14.0-18.0) g/dl Hct (42.0-52.0) % MCV (80.0-98.0) fL MCH (27.0-33.0) pg MCHC (31.0-36.0) g/dl RDW (11.0-16.0) % Plt Count (160-400) X10*3/uL MPV (9.4-12.4) fL Immature Gran % (Auto) (0.0-0.4) % Neut % (Auto) (45-73) % Lymph % (Auto) (20-40) % [place] % (Auto) (2-11) % Eos % (Auto) (0-4) % Baso % (Auto) (0-2) % Lymph # (Auto) (1.2-4.9) X10*3/uL [place] # (Auto) (0.1-1.2) X10*3/uL Eos # (Auto) (0.0-0.4) X10*3/uL Baso # (Auto) (0.0-0.2) X10*3/uL Abs Immat Gran (auto) (0.00-0.03) X10*3/uL Absolute Neuts (auto) (2.0-8.3) x10*3/uL Absolute Nucleated RBC (0.0-0.012) X10*3/uL Nucleated RBC % (auto) (0.0-0.2) /100WBC PT (9.9-13.0) SEC INR (0.9-1.1) VBG pH 7.31 L (7.32-7.43) VBG pCO2 55 mmHg VBG pO2 63 mmHg VBG HCO3 28 H (22-26) mmol/L VBG O2 Saturation 87.0 % VBG Base Excess 0.5 mmol/L Sodium (135-145) mmol/L Potassium (3.3-5.1) mmol/L Chloride (96-108) mmol/L Carbon Dioxide (22-29) mmol/L Anion Gap (12-20) BUN (9-16) mg/dL Creatinine (0.5-1.4) mg/dL Estim Creat Clear Calc Estimated GFR Random Glucose (60-115) mg/dL Calcium (8.4-10.2) mg/dL Total Bilirubin (0.0-1.0) mg/dL AST (5-37) U/L ALT (0-40) U/L Alkaline Phosphatase (39-117) U/L B-Natriuretic Peptide 41 (<100) pg/mL Total Protein (6.5-8.0) g/dL Albumin (3.5-5.0) g/dL ECG Data Attestation EKG: I personally reviewed and interpreted this ECG as follows: Prior ECG tracings: available for review Interpretation: Normal sinus rhythm, HR-98, no STEMI, ME/QRS/QTC are within normal limits. Discharge Plan Discharge Clinical Impression: Dusky discoloration of skin, COPD (chronic obstructive pulmonary disease), PAD (peripheral artery disease) Patient Disposition: Home, Self-Care Instructions: Apixaban (By mouth), COPD (Chronic Obstructive Pulmonary Disease) (ED), Peripheral Artery Disease (ED) Additional Instructions: 1. Reanudar todos los medicamentos caseros seg?n lo prescrito. 2. Comenz? a viktor Eliquis y debe tomarlo seg?n lo prescrito. 3. Se le schaffer proporcionado benjamín derivaci?n para el seguimiento con el cirujano vascular, el Dr. Joyner. Debe llamar a la oficina el lunes por la ma?kervin. Regrese a la arielle de emergencias si los s?ntomas empeoran. Prescriptions: New Eliquis 2.5 mg tablet 2.5 mg PO BID 30 Days Qty: 60 0RF No Action albuterol sulfate 2.5 mg /3 mL (0.083 %) solution for nebulization 3 ml inhalation Q6H PRN (Reason: wheezing) 0RF tizanidine 4 mg tablet 1 tab PO Q8H PRN (Reason: low back pain) 0RF albuterol sulfate 90 mcg/actuation HFA aerosol inhaler 2 puff PO Q6H 0RF olmesartan 40 mg tablet 1 tab PO DAILY 0RF fluticasone propion-salmeterol [Wixela Inhub] 250-50 mcg/dose blister with device 1 inh inhalation BID 0RF Daliresp 250 mcg tablet 250 mcg PO DAILY 30 Days Qty: 30 11RF Incruse Ellipta 62.5 mcg/actuation blister with device 1 inh inhalation DAILY 30 Days Qty: 30 11RF Referrals: Amy Orozco MD [Primary Care Provider] - Sai Joyner MD [Physician] - 01/23/22 Print Language: Slovenian
[2022-01-21 13:23] LABS: Basophils Absolute Auto 0.1 X10*3/uL (0.0-0.2); Eosinophils Absolute Auto 0.2 X10*3/uL (0.0-0.4); Eosinophils Percent Auto 1.8 % (0-4); Hemoglobin 13.4 g/dl (14.0-18.0); Imm Gran Abs Auto 0.07 X10*3/uL (0.00-0.03); Imm Gran Pct Auto 0.9 % (0.0-0.4); Lymphocytes Absolute Auto 1.9 X10*3/uL (1.2-4.9); Lymphocytes Percent Auto 22.8 % (20-40); Mean Corpuscular HGB Conc 24.3 g/dl (31.0-36.0); Mean Corpuscular Hemoglobin 17.8 pg (27.0-33.0); Mean Corpuscular Volume 73.1 fL (80.0-98.0); Mean Platelet Volume 9.6 fL (9.4-12.4); Monocytes Absolute Auto 0.9 X10*3/uL (0.1-1.2); Monocytes Percent Auto 10.4 % (2-11); Neutrophils Absolute Auto 5.2 x10*3/uL (2.0-8.3); Neutrophils Percent Auto 63.1 % (45-73); Platelet Count 204 X10*3/uL (160-400); Red Blood Count 7.54 X10*6/uL (4.60-5.80); Red Cell Distribution Width 22.8 % (11.0-16.0); White Blood Count 8.2 X10*3/uL (4.8-10.8)
[2022-01-21 13:25] LABS: Hematocrit 55.1 % (42.0-52.0)
[2022-01-21 13:26] LABS: INTERNATIONAL NORM RATIO 1.2 (0.9-1.1); Prothrombin Time 13.6 SEC (9.9-13.0)
[2022-01-21] MEDS: Albuterol/Iprat 2.5/0.5MG 3 ML AMPUL.NEB INHALE (13:33)
[2022-01-21 13:34] VITALS: PULSE 91; RESP 16; O2SAT 94
[2022-01-21 13:39] LABS: Alanine Aminotransferase 13 U/L (0-40); Alkaline Phosphatase 72 U/L (39-117); Anion Gap 12 (12-20); Aspartate Amino Transferase 16 U/L (5-37); Bilirubin Total 0.7 mg/dL (0.0-1.0); Blood Urea Nitrogen 13 mg/dL (9-16); Calcium 8.7 mg/dL (8.4-10.2); Carbon Dioxide 30 mmol/L (22-29); Chloride 102 mmol/L (96-108); Creatinine Clr Calc Pharmacy 78.3; Estimated Glomerular Filt Rate > 60; Glucose Random 144 mg/dL (60-115); Potassium 4.5 mmol/L (3.3-5.1); Sodium 139 mmol/L (135-145); Total Protein 6.9 g/dL (6.5-8.0)
--- NOTE | 2022-01-21 14:04 | PC.NURSE ---
pt resting comfortably in high fowlers position. pt remains nsr in lead 2 with wpd skin resps are = and nonlabored, exp wheezes noted in all fong. pt denies discomfort, awaiting ultrasound.
[2022-01-21 14:12] LABS: VBG Base Excess 0.5 mmol/L; VBG HCO3 28 mmol/L (22-26); VBG pCO2 55 mmHg; VBG pH 7.31 (7.32-7.43); VBG pO2 63 mmHg
[2022-01-21 14:13] LABS: Venous Blood Gas Refer to POC result
[2022-01-21 14:44] LABS: B Type Natriuretic Peptide 41 pg/mL (<100)
[2022-01-21 15:09] VITALS: BP 112/77; PULSE 90; RESP 16; O2SAT 95
--- NOTE | 2022-01-21 15:10 | PC.NURSE ---
pt back from ultrasound, no change in assesment, in no distress
== END 2022-01-21 18:28 | disposition home or self-care (01) ==
PROVIDERS: Emergency Provider Student in an Organized Health Care Education/Training Program; PCP Internal Medicine
DX: J44.9 Chronic obstructive pulmonary disease, unspecified (principal); I73.9 Peripheral vascular disease, unspecified; R06.02 Shortness of breath; R60.0 Localized edema; M79.89 Other specified soft tissue disorders; M79.602 Pain in left arm; Z79.899 Other long term (current) drug therapy
CPT/HCPCS: 36415; 71045; 80053; 82803; 83880; 85025; 85610; 93005; 93931; 93971; 94640; 99282; 99283

== ENCOUNTER 2022-01-28 06:18 | Inpatient (IN) | payer OTHER, SELFPAY ==
[2022-01-28] VITALS (23 sets, daily range): BP systolic 99–150; BP diastolic 47–86; PULSE 101–124; RESP 13–26; TEMP 36.9–37.7; O2SAT 85–98; BMI 41.1
--- NOTE | ~2022-01-28 | XR_ITS ---
EXAMINATION: XR CHEST CLINICAL INFORMATION: Shortness of breath COMPARISON: Chest x-rays of 01/21/2022, 12/17/2021, chest CT of 08/18/2021 TECHNIQUE: 2 views of the chest were obtained. FINDINGS: Cardiomediastinal silhouette is unchanged with mild cardiomegaly. Diffuse interstitial prominence is noted with central vascular prominence; somewhat more prominent compared to last x-ray of 01/21/2022. Trace bilateral pleural effusions, greater on the right compared to left. No dense focal consolidation is seen. No pneumothorax. Changes of upper lobe predominance emphysema are better seen on the chest CT. Regional skeleton appears intact. Visualized upper abdomen is unremarkable. XR/XR chest 2V IMPRESSION: Mild interstitial edema. Stable bilateral trace pleural effusions compared to last x-ray, right greater than left. No focal consolidation noted.
[2022-01-28 06:54] LABS: Mean Corpuscular HGB Conc 22.6 g/dl (31.0-36.0); SCAN SMEAR FLAG 1
[2022-01-28 06:56] LABS: Basophils Percent Auto 0.6 % (0-2); Eosinophils Absolute Auto 0.1 X10*3/uL (0.0-0.4); Eosinophils Percent Auto 1.7 % (0-4); Hemoglobin 13.9 g/dl (14.0-18.0); Imm Gran Abs Auto 0.11 X10*3/uL (0.00-0.03); Imm Gran Pct Auto 1.5 % (0.0-0.4); Lymphocytes Absolute Auto 1.5 X10*3/uL (1.2-4.9); Lymphocytes Percent Auto 20.7 % (20-40); MANUAL DIFF FLAG SCAN; Mean Corpuscular Hemoglobin 17.3 pg (27.0-33.0); Mean Corpuscular Volume 76.8 fL (80.0-98.0); Mean Platelet Volume 8.9 fL (9.4-12.4); Monocytes Absolute Auto 0.7 X10*3/uL (0.1-1.2); Neutrophils Absolute Auto 4.8 x10*3/uL (2.0-8.3); Neutrophils Percent Auto 66.5 % (45-73); Platelet Count 201 X10*3/uL (160-400); Red Blood Count 8.02 X10*6/uL (4.60-5.80); White Blood Count 7.2 X10*3/uL (4.8-10.8)
[2022-01-28 06:58] LABS: Hematocrit 61.6 % (42.0-52.0); NRBC Pct Auto 2.1 /100WBC (0.0-0.2); PLT ABN DIST 1
[2022-01-28 07:07] LABS: COVID-19 Test Negative (Negative); IDNOW Serial# 16C4AD1C; Influenza A Negative (Negative); Influenza B2 Negative (Negative)
[2022-01-28 07:11] LABS: Alanine Aminotransferase 12 U/L (0-40); Albumin Level 4.2 g/dL (3.5-5.0); Alkaline Phosphatase 72 U/L (39-117); Anion Gap 12 (12-20); Aspartate Amino Transferase 12 U/L (5-37); Blood Urea Nitrogen 13 mg/dL (9-16); Calcium 8.9 mg/dL (8.4-10.2); Carbon Dioxide 39 mmol/L (22-29); Chloride 97 mmol/L (96-108); Creatinine Clr Calc Pharmacy 74.8; Estimated Glomerular Filt Rate > 60; Glucose Random 143 mg/dL (60-115); Sodium 143 mmol/L (135-145); Total Protein 7.4 g/dL (6.5-8.0)
--- NOTE | 2022-01-28 07:37 | ED_ITS ---
HPI - General Adult General Chief complaint: Upper Respiratory Symptoms Stated complaint: Sob Time Seen by Provider: 01/28/22 07:36 Source: patient and family Mode of arrival: ambulatory Limitations: altered mental status History of Present Illness HPI narrative: 71 year-old male history of asthma/COPD with chronic respiratory failure, high cholesterol, hyper tension came in for evaluation of generalized weakness and as per family patient has been sleeping too much, patient in the emergency department is awake and able to provide history, declined any complain at this point. No headache, no neck pain, no chest pain, no difficulty breathing, no abdominal pain, normal bowel movement. However patient appear lethargic and slightly disoriented to time and place. Related Data Home Medications Medication Instructions Recorded Confirmed albuterol sulfate 3 ml inhalation Q6H PRN wheezing 10/04/20 01/28/22 albuterol sulfate 90 mcg/actuation 2 puff PO Q6H 10/04/20 01/28/22 aerosol inhaler fluticasone 250 mcg-salmeterol 50 1 inh inhalation BID 01/18/22 01/28/22 mcg/dose blistr powdr for inhalation (Wixela Inhub) amlodipine 10 mg tablet 1 tab PO DAILY 01/28/22 01/28/22 budesonide 160 mcg-glycopyr 9 2 puff PO BID 01/28/22 01/28/22 mcg-formot 4.8 mcg/actuation HFA inhaler (Breztri Aerosphere) cholecalciferol (vitamin D3) 50 50 mcg PO DAILY 01/28/22 01/28/22 mcg (2,000 unit) tablet metoprolol succinate 50 mg 1 tab PO DAILY 01/28/22 01/28/22 tablet,extended release 24 hr sitagliptin 100 mg tablet (Januvia) 1 tab PO DAILY 01/28/22 01/28/22 Previous Rx's Medication Instructions Recorded umeclidinium 62.5 mcg/actuation 1 inh inhalation DAILY 30 days #30 01/18/22 blister powder for inhalation ea (Incruse Ellipta) apixaban 2.5 mg tablet (Eliquis) 2.5 mg PO BID 30 days #60 tabs 01/21/22 Allergies Allergy/AdvReac Type Severity Reaction Status Date / Time No Known Allergies Allergy Verified 01/18/22 10:10 Review of Systems Review of Systems: Yes Unobtainable due to mental status [facility] Past Medical History Medical History (Updated 01/28/22 @ 11:47 by Anni Mack MD) Asthma Bronchitis Chronic respiratory failure COPD (chronic obstructive pulmonary disease) COPD (chronic obstructive pulmonary disease) High cholesterol HTN (hypertension) REBECA (obstructive sleep apnea) Social History Social History Household Members: Spouse Housing: Apartment Do you presently have visiting nurse or other home services: No Alcohol intake: former Patient Tobacco Use Status: Never used Tobacco Advance Directives: No Advance Directives Information Provided: No service: No Current occupational status: disabled Physical Exam ED Vital Signs: Vital Signs - 24 hr 01/28/22 06:23 01/28/22 07:37 01/28/22 07:44 Temperature 99.9 F 99.3 F Pulse Rate 104 H 124 H Respiratory Rate 26 H 15 Blood Pressure 146/81 H 150/86 H Pulse Oximetry 94 94 93 Oxygen Delivery Method Nasal Cannula Nasal Cannula Nasal Cannula Oxygen Flow Rate 4 01/28/22 08:57 Temperature Pulse Rate 114 H Respiratory Rate 14 Blood Pressure 117/63 Pulse Oximetry 94 Oxygen Delivery Method Nasal Cannula Oxygen Flow Rate 4 BMI result Body Mass Index 41.1 Vital signs have been reviewed as appeared to be correct. Blood pressure normal. Heart rate normal. Respiration rate normal. Temperature normal. Oxygen saturation normal. Appearance: Alert. Disoriented to time and place and event, no acute distress. Head: Normal external exam. Normocephalic. Atraumatic. No Turner signs noted. No raccoon eyes noted Eyes: PERRLA. EOMI. Conjunctiva and sclera normal. Eyelids normal. ENT: TM's Normal. Pharynx normal. Uvula midline. Moist mucous membranes. No trismus noted. No drooling noted. No muffled voice noted. Neck: Normal inspection. Neck supple. FROM. No adenopathy. Thyroid Normal. No meningeal signs. No neck mass noted. CVS: Normal heart rate and rhythm. Heart sound normal. No murmurs noted. Pulses normal throughout. Respiratory: No respiratory distress. Painless inspiration. Breath sounds normal. No wheezes/rales/rhonchi noted. Chest nontender. No accessory muscle usage noted or decreased air movement noted. Abdomen: Soft and nontender. Bowel sounds normal in all 4 quadrants. No distention noted. No organomegaly noted. No visible injury noted. Back: No CVA tenderness. Full range of motion noted. Skin: Skin warm and dry. Normal skin color. Normal skin turgor. No rashes/lesions/lacerations noted. Extremities: No lower extremity edema. Extremities exhibit normal range of motion. Extremities nontender. Neuro: Lethargic respond to sternal rub, disoriented to time and place and jessica nt.. Cranial nerve exam: II-XII are grossly intact No motor deficit. No sensory deficit. Reflexes normal. Course Course Course Narrative: Assessment and plan. 71 year-old male with history of COPD came in for the last week being disoriented and lethargic with generalized weakness family also reporting confusion patient himself has no complaint. ABG showed acute acidosis with respiratory failure and hypercarbia Reevaluation(s) Reevaluation #1: Patient was placed on BiPAP in the emergency department, patient appeared more awake, respond briskly to examiner, family reported that the patient is back to his normal baseline. Will continue with BiPAP admit to ICU Time: 11:44 Medical Decision Making Lab Data Result diagrams: 01/28/22 06:34 01/28/22 06:34 Labs: Lab Results 01/28/22 01/28/22 01/28/22 Range/Units 06:34 06:34 06:34 WBC 7.2 (4.8-10.8) X10*3/uL RBC 8.02 H (4.60-5.80) X10*6/uL Hgb 13.9 L (14.0-18.0) g/dl Hct 61.6 H (42.0-52.0) % MCV 76.8 L (80.0-98.0) fL MCH 17.3 L (27.0-33.0) pg MCHC 22.6 L (31.0-36.0) g/dl RDW 23.0 H (11.0-16.0) % Plt Count 201 (160-400) X10*3/uL MPV 8.9 L (9.4-12.4) fL Immature Gran % (Auto) 1.5 H (0.0-0.4) % Neut % (Auto) 66.5 (45-73) % Lymph % (Auto) 20.7 (20-40) % [place] % (Auto) 9.0 (2-11) % Eos % (Auto) 1.7 (0-4) % Baso % (Auto) 0.6 (0-2) % Lymph # (Auto) 1.5 (1.2-4.9) X10*3/uL [place] # (Auto) 0.7 (0.1-1.2) X10*3/uL Eos # (Auto) 0.1 (0.0-0.4) X10*3/uL Baso # (Auto) 0.0 (0.0-0.2) X10*3/uL Abs Immat Gran (auto) 0.11 H (0.00-0.03) X10*3/uL Absolute Neuts (auto) 4.8 (2.0-8.3) x10*3/uL Absolute Nucleated RBC 0.150 H (0.0-0.012) X10*3/uL Nucleated RBC % (auto) 2.1 H (0.0-0.2) /100WBC Smear Tech's Comments VERIFIED O2 Saturation % ABG pH at Pt Temp (7.35-7.45) ABG pCO2 at Pt Temp (32-45) mmHg ABG pO2 at Pt Temp (83-108) mmHg ABG HCO3 (22-26) mmol/L ABG Base Excess (Actual) mmol/L Sodium 143 (135-145) mmol/L Potassium 5.0 (3.3-5.1) mmol/L Chloride 97 (96-108) mmol/L Carbon Dioxide 39 H (22-29) mmol/L Anion Gap 12 (12-20) BUN 13 (9-16) mg/dL Creatinine 0.99 (0.5-1.4) mg/dL Estim Creat Clear Calc 74.8 Estimated GFR > 60 Random Glucose 143 H (60-115) mg/dL Calcium 8.9 (8.4-10.2) mg/dL Total Bilirubin 1.0 (0.0-1.0) mg/dL AST 12 (5-37) U/L ALT 12 (0-40) U/L Alkaline Phosphatase 72 (39-117) U/L Troponin I High Sens (<3.5-35.0) ng/L B-Natriuretic Peptide (<100) pg/mL Total Protein 7.4 (6.5-8.0) g/dL Albumin 4.2 (3.5-5.0) g/dL COVID-19 (CHIDI) (Negative) COVID-19 Clin Com Influenza Type A (JUANIS) Negative (Negative) Influenza Type B (JUANIS) Negative (Negative) Influenza A & B Note See Note 01/28/22 01/28/22 01/28/22 Range/Units 06:34 09:48 09:56 WBC (4.8-10.8) X10*3/uL RBC (4.60-5.80) X10*6/uL Hgb (14.0-18.0) g/dl Hct (42.0-52.0) % MCV (80.0-98.0) fL MCH (27.0-33.0) pg MCHC (31.0-36.0) g/dl RDW (11.0-16.0) % Plt Count (160-400) X10*3/uL MPV (9.4-12.4) fL Immature Gran % (Auto) (0.0-0.4) % Neut % (Auto) (45-73) % Lymph % (Auto) (20-40) % [place] % (Auto) (2-11) % Eos % (Auto) (0-4) % Baso % (Auto) (0-2) % Lymph # (Auto) (1.2-4.9) X10*3/uL [place] # (Auto) (0.1-1.2) X10*3/uL Eos # (Auto) (0.0-0.4) X10*3/uL Baso # (Auto) (0.0-0.2) X10*3/uL Abs Immat Gran (auto) (0.00-0.03) X10*3/uL Absolute Neuts (auto) (2.0-8.3) x10*3/uL Absolute Nucleated RBC (0.0-0.012) X10*3/uL Nucleated RBC % (auto) (0.0-0.2) /100WBC Smear Tech's Comments O2 Saturation 96.0 % ABG pH at Pt Temp 7.20 L* (7.35-7.45) ABG pCO2 at Pt Temp 86 H* (32-45) mmHg ABG pO2 at Pt Temp 85 (83-108) mmHg ABG HCO3 34 H (22-26) mmol/L ABG Base Excess (Actual) 2.4 mmol/L Sodium (135-145) mmol/L Potassium (3.3-5.1) mmol/L Chloride (96-108) mmol/L Carbon Dioxide (22-29) mmol/L Anion Gap (12-20) BUN (9-16) mg/dL Creatinine (0.5-1.4) mg/dL Estim Creat Clear Calc Estimated GFR Random Glucose (60-115) mg/dL Calcium (8.4-10.2) mg/dL Total Bilirubin (0.0-1.0) mg/dL AST (5-37) U/L ALT (0-40) U/L Alkaline Phosphatase (39-117) U/L Troponin I High Sens 3.6 D (<3.5-35.0) ng/L B-Natriuretic Peptide 54 (<100) pg/mL Total Protein (6.5-8.0) g/dL Albumin (3.5-5.0) g/dL COVID-19 (CHIDI) Negative (Negative) COVID-19 Clin Com See Note Influenza Type A (JUANIS) (Negative) Influenza Type B (JUANIS) (Negative) Influenza A & B Note Critical Care Time Critical Care Time Critical Care Time: Yes Total Critical Care Time: 60 Attestation: I spent 60 minutes providing critical care service to the patient, this including time spent at the bedside to evaluate the patient, reassess the patient, monitoring vital signs, review labs, and radiographic studies, counse ling the patient/family, discussing the case with consultants, disposition the patient. Discharge Plan Discharge Clinical Impression: COPD (chronic obstructive pulmonary disease), Acute on chronic respiratory justice lure with hypercapnia Patient Disposition: Admitted As Inpatient
[2022-01-28 07:57] LABS: SLIDE REVIEW VERIFIED
[2022-01-28 09:59] LABS: ABG Base Excess 2.4 mmol/L; ABG HCO3 34 mmol/L (22-26); ABG pCO2 86 mmHg (32-45); ABG pO2 85 mmHg (83-108)
[2022-01-28 10:00] LABS: ABG Refer to POC result
[2022-01-28 10:30] LABS: B Type Natriuretic Peptide 54 pg/mL (<100); Troponin-I High Sensitivity 3.6 ng/L (<3.5-35.0)
--- NOTE | 2022-01-28 10:38 | PC.NURSE ---
Assumed care of patient . patient put on BIIPAP by RT . IV placed on right AC . patient positioned upright tolerating BIPAP . family at bedside .
--- NOTE | 2022-01-28 10:56 | PHA.MEDREC ---
Pharmacy Consult ? Medication Reconciliation Pharmacy has completed the medication reconciliation. Pt's at bedside, went over med list. Stated that he no longer takes atorvastatin 10mg.
[2022-01-28] MEDS: acetaZOLAMIDE sodium 500 MG VIAL 250 MG IVPUSH ×2 (11:10→18:30)
--- NOTE | 2022-01-28 11:34 | P.HPCC_ITS ---
History of Present Illness Date of Service: 01/28/22 Chief Complaint: weakness and confusion 71-year-old gentleman with underlying history of obesity, obesity hypoventilation, severe COPD on 4 L of supplemental oxygen, poor compliance with CPAP and oxygen, also hypertension and diabetes mellitus admitted 01/28/2022 with complaints of slowly worsening weakness and confusion. On ER evaluation patient to be hypercapnic and hypoxic requiring initiation of BiPAP support. He was started on acetazolamide and admitted to the intensive care unit. Review of Systems Review of Systems: Yes Unobtainable due to mental status PMFSH Past Medical History Medical History (Updated 01/28/22 @ 11:38 by Jeremy Gonsalez MD) Asthma Bronchitis Chronic respiratory failure COPD (chronic obstructive pulmonary disease) COPD (chronic obstructive pulmonary disease) High cholesterol HTN (hypertension) REBECA (obstructive sleep apnea) Social History Social History Household Members: Spouse Housing: Apartment Do you presently have visiting nurse or other home services: No Alcohol intake: former Patient Tobacco Use Status: Never used Tobacco Advance Directives: No Advance Directives Information Provided: No service: No Current occupational status: disabled Meds Allergies Allergy/AdvReac Type Severity Reaction Status Date / Time No Known Allergies Allergy Verified 01/18/22 10:10 Active Medications: Current Medications Acetazolamide (Acetazolamide Sodium 500 Mg Vial) 250 mg IVPUSH Q8H [facility] Last Admin: 01/28/22 11:10 Dose: 250 mg Apixaban (Apixaban 2.5 Mg Tablet) 2.5 mg PO BID [facility] Home Medications Medication Instructions Recorded Confirmed Last Taken Type albuterol sulfate 3 ml inhalation Q6H PRN wheezing 10/04/20 01/28/22 10/04/20 09:00 History albuterol sulfate 90 mcg/actuation 2 puff PO Q6H 10/04/20 01/28/22 10/04/20 09:00 History aerosol inhaler fluticasone 250 mcg-salmeterol 50 1 inh inhalation BID 01/18/22 01/28/22 01/27/22 History mcg/dose blistr powdr for inhalation (Wixela Inhub) amlodipine 10 mg tablet 1 tab PO DAILY 01/28/22 01/28/22 01/27/22 History budesonide 160 mcg-glycopyr 9 2 puff PO BID 01/28/22 01/28/22 01/27/22 History mcg-formot 4.8 mcg/actuation HFA inhaler ([employer]Binder[employer]) cholecalciferol (vitamin D3) 50 50 mcg PO DAILY 01/28/22 01/28/22 01/27/22 History mcg (2,000 unit) tablet metoprolol succinate 50 mg 1 tab PO DAILY 01/28/22 01/28/22 01/27/22 History tablet,extended release 24 hr sitagliptin 100 mg tablet (Januvia) 1 tab PO DAILY 01/28/22 01/28/22 01/27/22 History Physical Exam Vital Signs: Vital Signs: Last Vital Signs Temp 99.2 F 01/28/22 10:41 Pulse 107 H 01/28/22 11:11 Resp 22 H 01/28/22 11:11 BP 131/72 01/28/22 11:11 Pulse Ox 91 L 01/28/22 11:11 O2 Del Method 01/28/22 11:11 O2 Flow Rate 4 01/28/22 08:57 Oxygen Flow Rate 4 01/28/22 07:44 BMI result Body Mass Index 41.1 Const: General: no acute distress and lethargic ( arousable, confused) Or ientation/consciousness: lethargic ( arousable, confused) Eyes: Sclerae: sclerae normal EOM: EOMs intact bilaterally Neck: Neck: Yes no lymphadenopathy, Yes trachea midline and Yes supple Resp: Effort & Inspection: normal respiratory effort and no respiratory distress Auscultation: crackles ( diffuse bilateral) Cardio: Rate: tachycardic Rhythm: regular rhythm Heart sounds: no gallops, no murmurs and no rubs GI: Palpation (GI): Soft to palpation and Other GI palpation findings present ( Nontender) Auscultation: normal bowel sounds Extrem: General: No clubbing, No cyanosis and Yes edema ( trace bilateral) Results Labs CBC and Chem 7: 01/28/22 06:34 01/28/22 06:34 Labs: Laboratory Results - last 24 hr 01/28/22 01/28/22 01/28/22 06:34 06:34 06:34 MCV 76.8 L MCH 17.3 L MCHC 22.6 L RDW 23.0 H Plt Count 201 MPV 8.9 L Immature Gran % (Auto) 1.5 H Neut % (Auto) 66.5 Lymph % (Auto) 20.7 [place] % (Auto) 9.0 Eos % (Auto) 1.7 Baso % (Auto) 0.6 Lymph # (Auto) 1.5 [place] # (Auto) 0.7 Eos # (Auto) 0.1 Baso # (Auto) 0.0 Abs Immat Gran (auto) 0.11 H Absolute Neuts (auto) 4.8 Absolute Nucleated RBC 0.150 H Nucleated RBC % (auto) 2.1 H Smear Tech's Comments VERIFIED O2 Saturation ABG pH at Pt Temp ABG pCO2 at Pt Temp ABG pO2 at Pt Temp ABG HCO3 ABG Base Excess (Actual) Anion Gap 12 Estim Creat Clear Calc 74.8 Estimated GFR > 60 Random Glucose 143 H Calcium 8.9 Total Bilirubin 1.0 AST 12 ALT 12 Alkaline Phosphatase 72 Troponin I High Sens B-Natriuretic Peptide Total Protein 7.4 Albumin 4.2 COVID-19 (CHIDI) COVID-[facility] Com Influenza Type A (JUANIS) Negative Influenza Type B (JUANIS) Negative Influenza A & B Note See Note 01/28/22 01/28/22 01/28/22 06:34 09:48 09:56 MCV MCH MCHC RDW Plt Count MPV Immature Gran % (Auto) Neut % (Auto) Lymph % (Auto) [place] % (Auto) Eos % (Auto) Baso % (Auto) Lymph # (Auto) [place] # (Auto) Eos # (Auto) Baso # (Auto) Abs Immat Gran (auto) Absolute Neuts (auto) Absolute Nucleated RBC Nucleated RBC % (auto) Smear Tech's Comments O2 Saturation 96.0 ABG pH at Pt Temp 7.20 L* ABG pCO2 at Pt Temp 86 H* ABG pO2 at Pt Temp 85 ABG HCO3 34 H ABG Base Excess (Actual) 2.4 Anion Gap Estim Creat Clear Calc Estimated GFR Random Glucose Calcium Total Bilirubin AST ALT Alkaline Phosphatase Troponin I High Sens 3.6 D B-Natriuretic Peptide 54 Total Protein Albumin COVID-19 (CHIDI) Negative COVID-LIANAI Com See Note Influenza Type A (JUANIS) Influenza Type B (JUANIS) Influenza A & B Note Imaging Radiologist's Impressions: Impressions Chest X-Ray 01/28/22 06:40 IMPRESSION: Mild interstitial edema. Stable bilateral trace pleural effusions compared to last x-ray, right greater than left. No focal consolidation noted. Assessment and Plan (1) Acute on chronic respiratory failure with hypoxia and hypercapnia: Status: Acute (2) Obesity hypoventilation syndrome: Status: Acute (3) COPD (chronic obstructive pulmonary disease): Qualifiers: COPD type: emphysema Emphysema type: centrilobular Qualified Code(s): J43.2 - Centrilobular emphysema Status: Acute (4) Diabetes mellitus: Status: Acute (5) HTN (hypertension): Status: Acute Plan Assessment: 71-year-old gentleman with underlying REBECA/OHHS, severe supplemental oxygen dependent COPD with poor compliance with treatment admitted with acute on chronic hypoxic and hypercapnic respiratory failure now requiring BiPAP support. Plan: Neuro: No acute issues. Cardiac: AFib on anticoagulation. Likely underlying diastolic dysfunction. 2D echocardiogram is ordered. Pulmonary: Acute on chronic hypoxic and hypercapnic respiratory failure requiring BiPAP support. Started on acetazolamide. Renal: No acute issues. Endo: No acute issues. Underlying diabetes mellitus GI: No acute issues. ID: No acute issues Heme/Onc: No acute issues. Psych: No acute issues. Miscellaneous: No acute issues. Prophylaxis: Eliquis Diet: NPO on BiPAP Critical care time spent: 45 minutes
[2022-01-28 13:15] LABS: ABG Base Excess 9.2 mmol/L; ABG HCO3 42 mmol/L (22-26); ABG pCO2 95 mmHg (32-45); ABG pH 7.25 (7.35-7.45); ABG pO2 78 mmHg (83-108)
[2022-01-28 13:29] LABS: ABG Refer to POC result
[2022-01-28 14:15] LABS: Glucose, Whole Blood 123 mg/dL (60-115)
--- NOTE | 2022-01-28 15:45 | PC.NURSE ---
Addendum entered by Tyrone Ocampo RN 01/28/22 18:01: md informed of VBG results Original Note: Report taken from ED RN. Pt arrived with RN and RT. Family later at bedside, updated by MD. Admission assessment completed. Safety and fall precautions in place. Call kelly within reach. Pt repo'ed Q2. capacity planning analyst at bedside for assessment.
[2022-01-28 17:53] LABS: Glucose, Whole Blood 120 mg/dL (60-115)
[2022-01-28 17:55] LABS: VBG Base Excess 8.1 mmol/L; VBG HCO3 40 mmol/L (22-26); VBG pCO2 86 mmHg; VBG pH 7.27 (7.32-7.43); VBG pO2 53 mmHg
[2022-01-28 17:57] LABS: Venous Blood Gas Refer to POC result
[2022-01-28 18:06] LABS: Anion Gap 10 (12-20); Blood Urea Nitrogen 12 mg/dL (9-16); Calcium 8.6 mg/dL (8.4-10.2); Carbon Dioxide 39 mmol/L (22-29); Chloride 98 mmol/L (96-108); Creatinine Clr Calc Pharmacy 89.2; Estimated Glomerular Filt Rate > 60; Glucose Random 111 mg/dL (60-115); Potassium 4.9 mmol/L (3.3-5.1); Sodium 142 mmol/L (135-145)
[2022-01-28] MEDS: Furosemide 200 MG in 0.9 % Sodium Chloride 80 ML IVCONT (19:05)
[2022-01-28] MEDS: Apixaban 2.5 MG TABLET PO (19:28)
[2022-01-28] MEDS: LORazepam 2 MG/ML VIAL 1 MG IVPUSH (21:48)
[2022-01-29] VITALS (31 sets, daily range): BP systolic 91–238; BP diastolic 64–90; PULSE 99–120; RESP 13–25; TEMP 37.1; O2SAT 87–94; BMI 38.5
[2022-01-29 00:03] LABS: Glucose, Whole Blood 124 mg/dL (60-115)
[2022-01-29] MEDS: acetaZOLAMIDE sodium 500 MG VIAL 250 MG IVPUSH ×3 (03:24→18:21)
[2022-01-29 05:29] LABS: VBG Base Excess 8.3 mmol/L; VBG HCO3 38 mmol/L (22-26); VBG pCO2 71 mmHg; VBG pH 7.33 (7.32-7.43); VBG pO2 60 mmHg
[2022-01-29 05:43] LABS: Imm Gran Abs Auto 0.06 X10*3/uL (0.00-0.03); Imm Gran Pct Auto 0.8 % (0.0-0.4); Mean Corpuscular HGB Conc 23.1 g/dl (31.0-36.0); Mean Corpuscular Hemoglobin 17.6 pg (27.0-33.0); PLT ABN DIST 1; SCAN SMEAR FLAG 1
[2022-01-29 05:44] LABS: Basophils Absolute Auto 0.1 X10*3/uL (0.0-0.2); Basophils Percent Auto 0.8 % (0-2); Eosinophils Absolute Auto 0.1 X10*3/uL (0.0-0.4); Eosinophils Percent Auto 1.6 % (0-4); Hematocrit 57.6 % (42.0-52.0); Hemoglobin 13.3 g/dl (14.0-18.0); Lymphocytes Absolute Auto 1.3 X10*3/uL (1.2-4.9); Lymphocytes Percent Auto 16.7 % (20-40); Mean Corpuscular Volume 76.4 fL (80.0-98.0); Mean Platelet Volume 9.6 fL (9.4-12.4); Monocytes Absolute Auto 0.8 X10*3/uL (0.1-1.2); NRBC Pct Auto 0.6 /100WBC (0.0-0.2); Neutrophils Absolute Auto 5.5 x10*3/uL (2.0-8.3); Neutrophils Percent Auto 70.1 % (45-73); Platelet Count 198 X10*3/uL (160-400); Red Blood Count 7.54 X10*6/uL (4.60-5.80); Red Cell Distribution Width 22.9 % (11.0-16.0); White Blood Count 7.9 X10*3/uL (4.8-10.8)
[2022-01-29 05:49] LABS: MANUAL DIFF FLAG NO
[2022-01-29 06:04] LABS: Albumin Level 3.9 g/dL (3.5-5.0); Anion Gap 13 (12-20); Blood Urea Nitrogen 14 mg/dL (9-16); Calcium 8.4 mg/dL (8.4-10.2); Carbon Dioxide 36 mmol/L (22-29); Chloride 94 mmol/L (96-108); Creatinine Clr Calc Pharmacy 74.8; Estimated Glomerular Filt Rate > 60; Glucose Random 118 mg/dL (60-115); Phosphorus 3.2 mg/dL (2.7-4.5); Potassium 4.2 mmol/L (3.3-5.1); Sodium 139 mmol/L (135-145)
[2022-01-29 06:28] LABS: Glucose, Whole Blood 140 mg/dL (60-115)
[2022-01-29] MEDS: Apixaban 2.5 MG TABLET PO ×2 (08:12→19:53)
[2022-01-29 09:01] LABS: Venous Blood Gas Refer to POC result
--- NOTE | 2022-01-29 09:48 | PC.NURSE ---
Addendum entered by Tyrone Ocampo RN 01/29/22 10:10: pt had 2.6 sec burst of SVT while sleeping, md informed Original Note: family visiting at bedside this AM, MD updated pt's daughter. Pt taken off bipap this AM and placed on n/c. around 0945 pt desat to 84%, n/c increased to 4L from 2L, RT and MD informed. Loom Changer at bedside for assessment and med pass. lasix drip in place. pt voiding in urinal. safety and fall precautions in place. call kelly within reach. pt repo'ed q2. mouth care provided
--- NOTE | 2022-01-29 11:33 | PM.CCPN ---
Subjective Subjective Date of Service: 01/29/22 Interval History: 71-year-old gentleman with underlying history of obesity, obesity hypoventilation, no formal diagnosis of REBECA, but has sleep study ordered, severe COPD on 4 L of supplemental oxygen, poor compliance with oxygen, also hypertension and diabetes mellitus admitted 01/28/2022 with complaints of slowly worsening weakness and confusion. On ER evaluation patient to be hypercapnic and hypoxic requiring initiation of BiPAP support. He was started on acetazolamide and admitted to the intensive care unit. no events overnight. Respiratory status improving, however still requires BiPAP support intermittently. Critical Care Time (minutes): 45 Physical Exam Vital Signs: Vital Signs: Last Vital Signs Temp 98.7 F 01/29/22 08:00 Pulse 120 H 01/29/22 11:00 Resp 21 H 01/29/22 11:00 BP 127/90 H 01/29/22 11:00 Pulse Ox 87 L 01/29/22 11:00 O2 Del Method 01/29/22 11:00 O2 Flow Rate 2 01/29/22 11:00 FiO2 45 01/29/22 08:00 Oxygen Flow Rate 4 01/28/22 07:44 BMI result Body Mass Index 38.5 Const: General: no acute distress, alert and awake Eyes: Sclerae: sclerae normal EOM: EOMs intact bilaterally Neck: Neck: Yes no lymphadenopathy, Yes trachea midline and Yes supple Resp: Effort & Inspection: normal respiratory effort and no respiratory distress Auscultation: crackles ( bibasilar) Cardio: Rate: regular rate Rhythm: regular rhythm Heart sounds: no gallops, no murmurs and no rubs GI: Palpation (GI): Soft to palpation and Other GI palpation findings present ( Nontender) Auscultation: normal bowel sounds Extrem: General: No clubbing, No cyanosis and Yes edema ( trace bilateral) Objective Data Labs CBC & Chem 7: 01/29/22 05:23 01/29/22 05:23 Labs: Laboratory Results - last 24 hr 01/28/22 01/28/22 01/28/22 13:07 14:06 17:40 WBC RBC Hgb Hct MCV MCH MCHC RDW Plt Count MPV Immature Gran % (Auto) Neut % (Auto) Lymph % (Auto) [place] % (Auto) Eos % (Auto) Baso % (Auto) Lymph # (Auto) [place] # (Auto) Eos # (Auto) Baso # (Auto) Abs Immat Gran (auto) Absolute Neuts (auto) Absolute Nucleated RBC Nucleated RBC % (auto) O2 Saturation 96.0 ABG pH at Pt Temp 7.25 L ABG pCO2 at Pt Temp 95 H* ABG pO2 at Pt Temp 78 L ABG HCO3 42 H ABG Base Excess (Actual) 9.2 VBG pH VBG pCO2 VBG pO2 VBG HCO3 VBG O2 Saturation VBG Base Excess Sodium 142 Potassium 4.9 Chloride 98 Carbon Dioxide 39 H Anion Gap 10 L BUN 12 Creatinine 0.83 Estim Creat Clear Calc 89.2 Estimated GFR > 60 POC Glucose 123 H Random Glucose 111 Calcium 8.6 Phosphorus Magnesium Albumin 01/28/22 01/28/22 01/28/22 17:49 17:50 23:57 WBC RBC Hgb Hct MCV MCH MCHC RDW Plt Count MPV Immature Gran % (Auto) Neut % (Auto) Lymph % (Auto) [place] % (Auto) Eos % (Auto) Baso % (Auto) Lymph # (Auto) [place] # (Auto) Eos # (Auto) Baso # (Auto) Abs Immat Gran (auto) Absolute Neuts (auto) Absolute Nucleated RBC Nucleated RBC % (auto) O2 Saturation ABG pH at Pt Temp ABG pCO2 at Pt Temp ABG pO2 at Pt Temp ABG HCO3 ABG Base Excess (Actual) VBG pH 7.27 L VBG pCO2 86 VBG pO2 53 VBG HCO3 40 H VBG O2 Saturation 82.0 VBG Base Excess 8.1 Sodium Potassium Chloride Carbon Dioxide Anion Gap BUN Creatinine Estim Creat Clear Calc Estimated GFR POC Glucose 120 H 124 H Random Glucose Calcium Phosphorus Magnesium Albumin 01/29/22 01/29/22 01/29/22 05:23 05:23 05:25 WBC 7.9 RBC 7.54 H Hgb 13.3 L Hct 57.6 H MCV 76.4 L MCH 17.6 L MCHC 23.1 L RDW 22.9 H Plt Count 198 MPV 9.6 Immature Gran % (Auto) 0.8 H Neut % (Auto) 70.1 Lymph % (Auto) 16.[address] [place] % (Auto) 10.0 Eos % (Auto) 1.6 Baso % (Auto) 0.8 Lymph # (Auto) 1.3 [place] # (Auto) 0.8 Eos # (Auto) 0.1 Baso # (Auto) 0.1 Abs Immat Gran (auto) 0.06 H Absolute Neuts (auto) 5.5 Absolute Nucleated RBC 0.050 H Nucleated RBC % (auto) 0.6 H O2 Saturation ABG pH at Pt Temp ABG pCO2 at Pt Temp ABG pO2 at Pt Temp ABG HCO3 ABG Base Excess (Actual) VBG pH 7.33 VBG pCO2 71 VBG pO2 60 VBG HCO3 38 H VBG O2 Saturation 90.0 VBG Base Excess 8.3 Sodium 139 Potassium 4.2 Chloride 94 L Carbon Dioxide 36 H Anion Gap 13 BUN 14 Creatinine 0.99 Estim Creat Clear Calc 74.8 Estimated GFR > 60 POC Glucose Random Glucose 118 H Calcium 8.4 Phosphorus 3.2 Magnesium 2.0 Albumin 3.9 01/29/22 06:16 WBC RBC Hgb Hct MCV MCH MCHC RDW Plt Count MPV Immature Gran % (Auto) Neut % (Auto) Lymph % (Auto) [place] % (Auto) Eos % (Auto) Baso % (Auto) Lymph # (Auto) [place] # (Auto) Eos # (Auto) Baso # (Auto) Abs Immat Gran (auto) Absolute Neuts (auto) Absolute Nucleated RBC Nucleated RBC % (auto) O2 Saturation ABG pH at Pt Temp ABG pCO2 at Pt Temp ABG pO2 at Pt Temp ABG HCO3 ABG Base Excess (Actual) VBG pH VBG pCO2 VBG pO2 VBG HCO3 VBG O2 Saturation VBG Base Excess Sodium Potassium Chloride Carbon Dioxide Anion Gap BUN Creatinine Estim Creat Clear Calc Estimated GFR POC Glucose 140 H Random Glucose Calcium Phosphorus Magnesium Albumin Progress Note: A&P Assessment and plan (1) HTN (hypertension): Status: Acute (2) Diabetes mellitus: Status: Acute (3) Obesity hypoventilation syndrome: Status: Acute (4) Acute on chronic respiratory failure with hypoxia and hypercapnia: Status: Acute (5) COPD (chronic obstructive pulmonary disease): Status: Acute Plan Assessment: 71-year-old gentleman with underlying REBECA/OHHS, severe supplemental oxygen dependent COPD with poor compliance with treatment admitted with acute on chronic hypoxic and hypercapnic respiratory failure now requiring BiPAP support. Plan: Neuro: No acute issues. Cardiac: AFib on anticoagulation. Likely underlying diastolic dysfunction. 2D echocardiogram is pending. Continue with diuresis. Pulmonary: Acute on chronic hypoxic and hypercapnic respiratory failure requiring BiPAP support on/off, improving. Continue on acetazolamide. Renal: No acute issues. Endo: No acute issues. Underlying diabetes mellitus GI: No acute issues. ID: No acute issues Heme/Onc: No acute issues. Psych: No acute issues. Miscellaneous: No acute issues. Prophylaxis: Eliquis Diet: NPO on BiPAP Critical care time spent: 45 minutes Quality Stroke Does the patient have a stroke diagnosis?: No VTE Prior VTE?: No VTE Risk Level:: Medical - moderate - high VTE Device Contraindication: Treatment Not Indicated VTE Drug Contraindication: N/A - Med Ordered
[2022-01-29 11:45] LABS: Glucose, Whole Blood 136 mg/dL (60-115)
[2022-01-29 12:12] LABS: Venous Blood Gas Refer to POC result
[2022-01-29 12:13] LABS: VBG Base Excess 11.2 mmol/L; VBG HCO3 43 mmol/L (22-26); VBG pCO2 84 mmHg; VBG pH 7.31 (7.32-7.43); VBG pO2 69 mmHg
[2022-01-29] MEDS: Albuterol/Iprat 2.5/0.5MG 3 ML AMPUL.NEB INHALE ×2 (12:33→20:30)
[2022-01-29 17:48] LABS: Glucose, Whole Blood 137 mg/dL (60-115)
[2022-01-29 18:08] LABS: Anion Gap 11 (12-20); Blood Urea Nitrogen 16 mg/dL (9-16); Calcium 8.8 mg/dL (8.4-10.2); Carbon Dioxide 39 mmol/L (22-29); Chloride 92 mmol/L (96-108); Creatinine Clr Calc Pharmacy 70.9; Estimated Glomerular Filt Rate > 60; Glucose Random 130 mg/dL (60-115); Potassium 4.2 mmol/L (3.3-5.1); Sodium 138 mmol/L (135-145)
[2022-01-29] MEDS: Melatonin 3 MG TABLET 6 MG PO (19:53)
[2022-01-29] MEDS: Furosemide 200 MG in 0.9 % Sodium Chloride 80 ML IVCONT (19:54)
[2022-01-30] VITALS (21 sets, daily range): BP systolic 97–149; BP diastolic 61–83; PULSE 88–114; RESP 13–23; TEMP 36.7–37.6; O2SAT 82–99; BMI 36.4
[2022-01-30] MEDS: acetaZOLAMIDE sodium 500 MG VIAL 250 MG IVPUSH ×3 (03:53→20:39)
[2022-01-30 03:54] LABS: Glucose, Whole Blood 114 mg/dL (60-115)
[2022-01-30 05:18] LABS: VBG Base Excess 3.4 mmol/L; VBG HCO3 28 mmol/L (22-26); VBG pCO2 41 mmHg; VBG pH 7.43 (7.32-7.43); VBG pO2 74 mmHg
[2022-01-30 05:32] LABS: Hemoglobin 13.2 g/dl (14.0-18.0); Imm Gran Abs Auto 0.06 X10*3/uL (0.00-0.03); Imm Gran Pct Auto 0.7 % (0.0-0.4); PLT ABN DIST 1; SCAN SMEAR FLAG 1
[2022-01-30 05:34] LABS: Basophils Percent Auto 0.5 % (0-2); Eosinophils Absolute Auto 0.1 X10*3/uL (0.0-0.4); Eosinophils Percent Auto 1.4 % (0-4); Hematocrit 55.3 % (42.0-52.0); Lymphocytes Absolute Auto 1.5 X10*3/uL (1.2-4.9); Lymphocytes Percent Auto 17.9 % (20-40); Mean Corpuscular HGB Conc 23.9 g/dl (31.0-36.0); Mean Corpuscular Hemoglobin 17.4 pg (27.0-33.0); Mean Corpuscular Volume 72.8 fL (80.0-98.0); Monocytes Absolute Auto 0.8 X10*3/uL (0.1-1.2); Monocytes Percent Auto 9.9 % (2-11); NRBC Pct Auto 0.2 /100WBC (0.0-0.2); Neutrophils Absolute Auto 5.8 x10*3/uL (2.0-8.3); Neutrophils Percent Auto 69.6 % (45-73); Platelet Count 203 X10*3/uL (160-400); Red Cell Distribution Width 23.3 % (11.0-16.0); White Blood Count 8.4 X10*3/uL (4.8-10.8)
[2022-01-30 05:37] LABS: MANUAL DIFF FLAG NO
[2022-01-30 05:48] LABS: Albumin Level 3.9 g/dL (3.5-5.0); Anion Gap 15 (12-20); Blood Urea Nitrogen 19 mg/dL (9-16); Calcium 8.7 mg/dL (8.4-10.2); Carbon Dioxide 33 mmol/L (22-29); Chloride 94 mmol/L (96-108); Creatinine Clr Calc Pharmacy 68.2; Estimated Glomerular Filt Rate > 60; Glucose Random 108 mg/dL (60-115); Magnesium 2.1 mg/dL (1.6-2.6); Phosphorus 2.9 mg/dL (2.7-4.5); Potassium 3.8 mmol/L (3.3-5.1); Sodium 138 mmol/L (135-145)
[2022-01-30 05:53] LABS: Venous Blood Gas Refer to POC result
--- NOTE | 2022-01-30 07:00 | CA_ITS ---
Transthoracic Echocardiogram Patient (Last, First, Middle): Dandy Lo E Gender: Male Date of : 1950 Age: 71 Procedure Date: 01/30/2022 Procedure Type: Transthoracic Echocardiogram Location: ICU Height: 160.02 cm Weight: 92.99 kg BSA: 1.95 m2 Heart Rate: 103 bpm BP: 121 / 79 mmHg Swimming Pool Installer And Servicer: SB Referring MD: Jeremy Gonsalez MD Symptoms: dyspnea on exertion Study Quality: Fair/Contrast ECG Rhythm: Tachycardia Conclusions: - Normal left ventricular size and systolic function. There is moderately increased left ventricular wall thickness. The visually estimated ejection fraction is between 60-65%. - E/E prime ratio is between 8 and 15 consistent with indeterminate filling pressures. - Normal right ventricular cavity size and systolic function. - There is mild dilatation of the ascending aorta measuring 4.00 cm. Findings Procedure Information Contrast agent, definity, is being given per protocol without apparent complications. Left Ventricle Normal left ventricular size and systolic function. There is moderately increased left ventricular wall thickness. The visually estimated ejection fraction is between 60-65%. There is no evidence of regional wall motion abnormalities. Abnormal diastolic function is noted. Spectral Doppler is indicative of an impaired relaxation filling pattern. E/E prime ratio is between 8 and 15 consistent with indeterminate filling pressures. Right Ventricle Normal right ventricular cavity size and systolic function. Atria The left atrium is normal in size. Aortic Valve There is mild calcification of the aortic valve. There is no aortic valve regurgitation. Aortic sclerosis without any significant stenosis. Mitral Valve There is moderate mitral annular calcification. There is no mitral valve regurgitation. There is no mitral valve stenosis. Pulmonic Valve Normal pulmonic valve structure and function. There is trace pulmonic valve regurgitation. Tricuspid Valve Likely normal tricuspid valve structure and function. Tricuspid regurgitation envelope is inadequate for calculation of right ventricular systolic pressure. Normal right atrial pressure. Great Vessels There is mild dilatation of the ascending aorta measuring 4.00 cm. Small plaque is seen in the sinuses of Valsalva. The visualized portions of the pulmonary artery and branches are normal. Venous The inferior vena cava is normal in size and collapses greater than 50% with inspiration. Pericardium/Pleural Normal pericardial structure. Prior Study Comparison No prior study available for comparison. Measurements 2D Linear Measurements IVSd: 1.46 0.6-0.9/0.6-1.0 cm LVIDd: 3.82 3.9-5.3/4.2-5.9 cm LVIDd Index: 1.96 2.4-3.2/2.2-3.1 cm/m2 LVIDs: 2.85 2.0-3.6 cm LVPWd: 1.43 0.7-1.1 cm Ao Root: 3.10 2.1-3.5 cm LA Diam: 3.20 2.7-3.8/3.0-4.0 cm LAIDs Index: 1.64 1.5-2.3 cm/m2 LV Mass: 256.22 67-162/88-224 g LV Mass Index: 131.40 43-95/49-115 g/m2 LVOT Diam: 2.40 3.0+(-)1.3 cm 2D Systolic Function EF 4C: 61.80 >55% EF 2C: 56.30 >55% EF BiP: 58.50 >55% Mitral Valve MV Pk E: 0.82 MV PK A: 1.20 MV Decel Time: 116.00 E/A: 0.70 E'Lateral: 6.96 E'Medial: 8.27 E/E' Med: 9.90 E/E' Lat: 11.80 PHT: 34.00 MVA PHT: 6.47 Decel [place]: 7.06 Aortic Valve AoV Pk Oliver: 1.87 AoV Mn Oliver: 1.25 AoV VTI: 0.25 AoV Pk Grad: 14.00 Aov Mn Grad: 7.00 VIVIANA Cont.VTI: 3.99 LVOT LVOT Pk [place]: 1.32 LVOT Mn Oliver: 0.83 LVOT VTI: 0.22 LVOT Pk Grad: 7.00 LVOT Mn Grad: 3.00 LVOT Diam: 2.40 LVOT Area: 4.52 Diastolic Function MV Pk E: 0.82 MV Pk A: 1.20 E/A: 0.70 E'Medial: 8.27 E/E' Med: 9.90 E' Laterial: 6.96 E/E' Lat: 11.80 Right Ventricle TAPSE (mm): 17.80 TVS' Oliver: 9.50 Tricuspid Valve RA Press: 8.00 Great Vessels Aorta Ao Root-2D: 3.10 2.0-3.7 cm Sinus of Valsalva: 3.10 2.0-3.5 cm Ao Asc: 4.00 2.1-3.4 cm Pulmonary Valve PV Pk Oliver: 1.51 Peak PV Grad: 9.00 Updated in Other Vendor System with Status of Final Willem Tomlinson MD electronically signed on 01/30/2022 12:43:24 PM with status of Final
[2022-01-30] MEDS: Albuterol/Iprat 2.5/0.5MG 3 ML AMPUL.NEB INHALE ×3 (07:45→19:25)
[2022-01-30] MEDS: Apixaban 2.5 MG TABLET PO ×2 (07:47→20:38)
--- NOTE | 2022-01-30 07:47 | PC.NURSE ---
Pt AxOx3, with at bedside. Rt removed his BiPAP and is 4L and given a treatment.
--- NOTE | 2022-01-30 09:12 | PM.CCPN ---
Subjective Subjective Date of Service: 01/30/22 Interval History: 71-year-old gentleman with underlying history of obesity, obesity hypoventilation, no formal diagnosis of REBECA, but has sleep study ordered, severe COPD on 4 L of supplemental oxygen, poor compliance with oxygen, also hypertension and diabetes mellitus admitted 01/28/2022 with complaints of slowly worsening weakness and confusion. On ER evaluation patient to be hypercapnic and hypoxic requiring initiation of BiPAP support. He was started on acetazolamide and admitted to the intensive care unit. No events overnight. Titrated off BiPAP. Critical Care Time (minutes): 0 Physical Exam Vital Signs: Vital Signs: Last Vital Signs Temp 99.4 F 01/30/22 08:00 Pulse 109 H 01/30/22 08:00 Resp 18 01/30/22 08:00 BP 121/79 01/30/22 08:00 Pulse Ox 86 L 01/30/22 08:00 O2 Del Method 01/30/22 08:00 O2 Flow Rate 5 01/30/22 08:00 FiO2 45 01/30/22 08:00 Oxygen Flow Rate 4 01/28/22 07:44 BMI result Body Mass Index 36.4 Const: General: no acute distress, alert and awake Eyes: Sclerae: sclerae normal EOM: EOMs intact bilaterally Neck: Neck: Yes no lymphadenopathy, Yes trachea midline and Yes supple Resp: Effort & Inspection: normal respiratory effort and no respiratory distress Auscultation: clear to auscultation bilaterally Cardio: Rate: tachycardic Rhythm: regular rhythm Heart sounds: no gallops, no murmurs and no rubs GI: Palpation (GI): Soft to palpation and Other GI palpation findings present ( Nontender) Auscultation: normal bowel sounds Extrem: General: No clubbing, No cyanosis and Yes edema (Trace bilateral) Objective Data Labs CBC & Chem 7: 01/30/22 05:09 01/30/22 05:09 Labs: Laboratory Results - last 24 hr 01/29/22 01/29/22 01/29/22 11:34 12:08 17:43 WBC RBC Hgb Hct MCV MCH MCHC RDW Plt Count MPV Immature Gran % (Auto) Neut % (Auto) Lymph % (Auto) [place] % (Auto) Eos % (Auto) Baso % (Auto) Lymph # (Auto) [place] # (Auto) Eos # (Auto) Baso # (Auto) Abs Immat Gran (auto) Absolute Neuts (auto) Absolute Nucleated RBC Nucleated RBC % (auto) VBG pH 7.31 L VBG pCO2 84 VBG pO2 69 VBG HCO3 43 H VBG O2 Saturation 93.0 VBG Base Excess 11.2 Sodium 138 Potassium 4.2 Chloride 92 L Carbon Dioxide 39 H Anion Gap 11 L BUN 16 Creatinine 1.01 Estim Creat Clear Calc 70.9 Estimated GFR > 60 POC Glucose 136 H Random Glucose 130 H Calcium 8.8 Phosphorus Magnesium Albumin 01/29/22 01/30/22 01/30/22 17:44 00:01 05:09 WBC 8.4 RBC 7.60 H Hgb 13.2 L Hct 55.3 H MCV 72.8 L MCH 17.4 L MCHC 23.9 L RDW 23.3 H Plt Count 203 MPV TNP Immature Gran % (Auto) 0.7 H Neut % (Auto) 69.6 Lymph % (Auto) 17.9 L [place] % (Auto) 9.9 Eos % (Auto) 1.4 Baso % (Auto) 0.5 Lymph # (Auto) 1.5 [place] # (Auto) 0.8 Eos # (Auto) 0.1 Baso # (Auto) 0.0 Abs Immat Gran (auto) 0.06 H Absolute Neuts (auto) 5.8 Absolute Nucleated RBC 0.020 H Nucleated RBC % (auto) 0.2 VBG pH VBG pCO2 VBG pO2 VBG HCO3 VBG O2 Saturation VBG Base Excess Sodium Potassium Chloride Carbon Dioxide Anion Gap BUN Creatinine Estim Creat Clear Calc Estimated GFR POC Glucose 137 H 114 Random Glucose Calcium Phosphorus Magnesium Albumin 01/30/22 01/30/22 05:09 05:13 WBC RBC Hgb Hct MCV MCH MCHC RDW Plt Count MPV Immature Gran % (Auto) Neut % (Auto) Lymph % (Auto) [place] % (Auto) Eos % (Auto) Baso % (Auto) Lymph # (Auto) [place] # (Auto) Eos # (Auto) Baso # (Auto) Abs Immat Gran (auto) Absolute Neuts (auto) Absolute Nucleated RBC Nucleated RBC % (auto) VBG pH 7.43 VBG pCO2 41 VBG pO2 74 VBG HCO3 28 H VBG O2 Saturation 97.0 VBG Base Excess 3.4 Sodium 138 Potassium 3.8 Chloride 94 L Carbon Dioxide 33 H Anion Gap 15 BUN 19 H Creatinine 1.05 Estim Creat Clear Calc 68.2 Estimated GFR > 60 POC Glucose Random Glucose 108 Calcium 8.7 Phosphorus 2.9 Magnesium 2.1 Albumin 3.9 Progress Note: A&P Assessment and plan (1) Diabetes mellitus: Status: Acute (2) Obesity hypoventilation syndrome: Status: Acute (3) Acute on chronic respiratory failure with hypoxia and hypercapnia: Status: Acute (4) REBECA (obstructive sleep apnea): Status: Acute (5) COPD (chronic obstructive pulmonary disease): Status: Acute (6) CHF (congestive heart failure): Status: Acute Plan Assessment: 71-year-old gentleman with underlying REBECA/OHHS, severe supplemental oxygen dependent COPD with poor compliance with treatment admitted with acute on chronic hypoxic and hypercapnic respiratory failure initially requiring BiPAP support. Plan: Neuro: No acute issues. Cardiac: AFib on anticoagulation. Likely underlying diastolic dysfunction. 2D echocardiogram is pending. Continue with diuresis. Pulmonary: Acute on chronic hypoxic and hypercapnic respiratory failure initially requiring BiPAP, now titrated off. Continue on acetazolamide. Likely underlying REBECA requiring nocturnal CPAP. Underlying COPD. Renal: No acute issues. Endo: No acute issues. Underlying diabetes mellitus GI: No acute issues. ID: No acute issues Heme/Onc: No acute issues. Psych: No acute issues. Miscellaneous: No acute issues. Prophylaxis: Eliquis Diet: Diabetic Quality Stroke Does the patient have a stroke diagnosis?: No VTE Prior VTE?: No VTE Risk Level:: Medical - moderate - high VTE Device Contraindication: Treatment Not Indicated VTE Drug Contraindication: N/A - Med Ordered
--- NOTE | 2022-01-30 09:38 | MHC.CM.PN ---
Met with pt and significant other, Ludy to review d/c plans: pt resides with Ludy and has [employer] for home O2 needs. He has no other services or medical equipment. Pt states Ludy assists with any care needs, including transportation. Discussed VNA for home visits/assessments to which pt declined. Pt also declined completion of a HCP. Vax w/J&J and boosted x 1. /C plan: home with Ludy who will transport and outpt f/u with PCP Dr. Olvera
--- NOTE | 2022-01-30 11:22 | P.EN_ITS ---
Event Note Date of Service: 01/30/22 Event Note: hospitalist accept note S alert, awake dyspnea improved no cough no chest pain O Temp Pulse Resp BP Pulse Ox O2 Del Method O2 Flow Rate 99.4 F 111 H 15 121/79 89 L 5 01/30/22 08:00 01/30/22 10:00 01/30/22 10:00 01/30/22 08:00 01/30/22 10:00 01/30/22 10:00 01/30/22 10:00 FiO2 45 01/30/22 08:00 gen- NAD lungs- diminished bilaterally CV- RRR no m/r/g abd- soft/NT, obese ext- no edema neuro- no focal findings Laboratory Results - last 24 hr 01/29/22 01/29/22 01/29/22 11:34 12:08 17:43 WBC RBC Hgb Hct MCV MCH MCHC RDW Plt Count MPV Immature Gran % (Auto) Neut % (Auto) Lymph % (Auto) [place] % (Auto) Eos % (Auto) Baso % (Auto) Lymph # (Auto) [place] # (Auto) Eos # (Auto) Baso # (Auto) Abs Immat Gran (auto) Absolute Neuts (auto) Absolute Nucleated RBC Nucleated RBC % (auto) VBG pH 7.31 L VBG pCO2 84 VBG pO2 69 VBG HCO3 43 H VBG O2 Saturation 93.0 VBG Base Excess 11.2 Sodium 138 Potassium 4.2 Chloride 92 L Carbon Dioxide 39 H Anion Gap 11 L BUN 16 Creatinine 1.01 Estim Creat Clear Calc 70.9 Estimated GFR > 60 POC Glucose 136 H Random Glucose 130 H Calcium 8.8 Phosphorus Magnesium Albumin 01/29/22 01/30/22 01/30/22 17:44 00:01 05:09 WBC 8.4 RBC 7.60 H Hgb 13.2 L Hct 55.3 H MCV 72.8 L MCH 17.4 L MCHC 23.9 L RDW 23.3 H Plt Count 203 MPV TNP Immature Gran % (Auto) 0.7 H Neut % (Auto) 69.6 Lymph % (Auto) 17.9 L [place] % (Auto) 9.9 Eos % (Auto) 1.4 Baso % (Auto) 0.5 Lymph # (Auto) 1.5 [place] # (Auto) 0.8 Eos # (Auto) 0.1 Baso # (Auto) 0.0 Abs Immat Gran (auto) 0.06 H Absolute Neuts (auto) 5.8 Absolute Nucleated RBC 0.020 H Nucleated RBC % (auto) 0.2 VBG pH VBG pCO2 VBG pO2 VBG HCO3 VBG O2 Saturation VBG Base Excess Sodium Potassium Chloride Carbon Dioxide Anion Gap BUN Creatinine Estim Creat Clear Calc Estimated GFR POC Glucose 137 H 114 Random Glucose Calcium Phosphorus Magnesium Albumin 01/30/22 01/30/22 05:09 05:13 WBC RBC Hgb Hct MCV MCH MCHC RDW Plt Count MPV Immature Gran % (Auto) Neut % (Auto) Lymph % (Auto) [place] % (Auto) Eos % (Auto) Baso % (Auto) Lymph # (Auto) [place] # (Auto) Eos # (Auto) Baso # (Auto) Abs Immat Gran (auto) Absolute Neuts (auto) Absolute Nucleated RBC Nucleated RBC % (auto) VBG pH 7.43 VBG pCO2 41 VBG pO2 74 VBG HCO3 28 H VBG O2 Saturation 97.0 VBG Base Excess 3.4 Sodium 138 Potassium 3.8 Chloride 94 L Carbon Dioxide 33 H Anion Gap 15 BUN 19 H Creatinine 1.05 Estim Creat Clear Calc 68.2 Estimated GFR > 60 POC Glucose Random Glucose 108 Calcium 8.7 Phosphorus 2.9 Magnesium 2.1 Albumin 3.9 hospital d#3 71yo M with REBECA + OHS, COPD, chronic hypoxic respiratory failure on 4L O2 admitted to ICU with acute/chronic hypoxic/hypercapneic respiratory failure requiring BiPAP support, stepping down to hospitalist service today # acute/chronic hypoxic/hypercapneic respiratory failure - continue acetazolamide - overnight oximetry test to qualify for home CPAP # CHF exacerbation - TTE pending, change IV furosemide infusion to IV pushes # HTN - continue metoprolol + amlodipine # COPD - continue triple controller inhaler therapy, nebs # pAF - continue apixaban for AC - continue metoprolol for RC # DM2 - correction-dose lispro, sitagliptin # VTE ppx - apixaban
[2022-01-30 11:39] LABS: Glucose, Whole Blood 136 mg/dL (60-115)
--- NOTE | 2022-01-30 12:33 | P.CDIC_ITS ---
CDI Concurrent Query Documentation Clarification: PHYSICIAN'S DOCUMENTATION REQUEST Date of Query: 01/30/22 1233 Patient Name: Dandy Ac Admit Date: 01/28/22 Dear Doctor, A review of the medical record indicates additional documentation may be needed. Please review below and update the documentation accordingly. Clinical Indicators: Risk Factors/Clinical Indicators/Treatments ED 01/28/22: disoriented, lethargic, confusion MD progress note 01/30/22: awake, alert Based on the above, could you clarify in the Progress Notes which, if any of the following, is the most likely etiology of the confusion/altered mental status? * Encephalopathy - indicate type such as metabolic, toxic, septic, alcoholic, hypertensive, etc. * Dementia - indicate type of dementia, such as Alzheimer's, senile, vascular, Lewy body, etc. * Acute delirium - indicate known or suspected etiology, such as postoperative, due to narcotics or other drugs, etc. * Baseline dementia - indicate type, such as Alzheimer's, senile, vascular, Lewy body, etc., and any associated behavioral disturbances (aggressive, combative, or violent behavior) * Acute or subacute confusional state due to (specify known or suspected etiology) * Other etiology (please specify) * Unable to determine Use of terms such as suspected, likely, concern for, or probable (associated with a specific diagnosis that is being evaluated, monitored, or treated as if it exists) are acceptable and can be coded in the inpatient setting, when documented at the time of discharge. Thank you, Tisha Argueta RN Extension: [phone] Please use your independent medical judgment in providing your response. THIS QUERY IS PART OF THE PERMANENT MEDICAL RECORD Provider Response: Metabolic Encephalopathy
--- NOTE | 2022-01-30 13:53 | PC.NURSE ---
Pt was on lasix drip a 5cc/hr with carrier at 8cc/hr. Stopped per MD and d/c in system
[2022-01-30 16:33] LABS: Glucose, Whole Blood 182 mg/dL (60-115)
[2022-01-30] MEDS: Furosemide 40 MG/4 ML VIAL IVPUSH (17:04)
[2022-01-30] MEDS: Insulin Lispro 100 UNIT/ML 3 ML VIAL SUBCUT (17:04)
--- NOTE | 2022-01-30 19:59 | PM.EVENT ---
Event Note Date of Service: 01/31/22 Event Note: pt was unable to tolerate nocturnal oximetry test becoming sig hypoxic on RA
[2022-01-30 20:29] LABS: Glucose, Whole Blood 134 mg/dL (60-115)
[2022-01-30] MEDS: Melatonin 3 MG TABLET 6 MG PO (20:38)
[2022-01-30 22:50] LABS: ABG HCO3 22 mmol/L (22-26); ABG pCO2 31 mmHg (32-45); ABG pH 7.46 (7.35-7.45); ABG pO2 64 mmHg (83-108)
--- NOTE | 2022-01-30 22:50 | PC.RT ---
pt was placed on an overnight pulse ox around 20:00 sating 90% on RA. pt quickly began to desat to the low 80's within minutes. overnight pulse ox was terminated per MD and placed back on oxygen 5L. ABG to follow.
[2022-01-30 23:31] LABS: ABG Refer to POC result
[2022-01-31] VITALS (11 sets, daily range): BP systolic 106–138; BP diastolic 60–84; PULSE 79–107; RESP 15–22; TEMP 36.7–37.2; O2SAT 91–98
[2022-01-31 00:30] LABS: Glucose, Whole Blood 126 mg/dL (60-115)
--- NOTE | 2022-01-31 01:48 | PC.RT ---
pt was encouraged to use the cpap for bedtime and he refused at this time
[2022-01-31] MEDS: acetaZOLAMIDE sodium 500 MG VIAL 250 MG IVPUSH (04:00)
[2022-01-31 05:38] LABS: Glucose, Whole Blood 138 mg/dL (60-115)
[2022-01-31 06:19] LABS: MANUAL DIFF FLAG NO
[2022-01-31 06:28] LABS: Venous Blood Gas Refer to POC result
[2022-01-31 06:29] LABS: Basophils Absolute Auto 0.1 X10*3/uL (0.0-0.2); Basophils Percent Auto 0.7 % (0-2); Eosinophils Absolute Auto 0.1 X10*3/uL (0.0-0.4); Eosinophils Percent Auto 1.8 % (0-4); Hemoglobin 13.6 g/dl (14.0-18.0); Imm Gran Abs Auto 0.03 X10*3/uL (0.00-0.03); Imm Gran Pct Auto 0.4 % (0.0-0.4); Lymphocytes Absolute Auto 1.1 X10*3/uL (1.2-4.9); Mean Corpuscular HGB Conc 24.3 g/dl (31.0-36.0); Mean Corpuscular Hemoglobin 17.4 pg (27.0-33.0); Mean Corpuscular Volume 71.6 fL (80.0-98.0); Monocytes Absolute Auto 0.8 X10*3/uL (0.1-1.2); Monocytes Percent Auto 11.3 % (2-11); Neutrophils Absolute Auto 4.7 x10*3/uL (2.0-8.3); Neutrophils Percent Auto 69.8 % (45-73); Platelet Count 199 X10*3/uL (160-400); Red Blood Count 7.82 X10*6/uL (4.60-5.80); Red Cell Distribution Width 23.3 % (11.0-16.0); White Blood Count 6.7 X10*3/uL (4.8-10.8)
[2022-01-31 06:44] LABS: B Type Natriuretic Peptide 14 pg/mL (<100)
[2022-01-31 06:50] LABS: Anion Gap 11 (12-20); Blood Urea Nitrogen 20 mg/dL (9-16); Calcium 8.9 mg/dL (8.4-10.2); Carbon Dioxide 36 mmol/L (22-29); Chloride 95 mmol/L (96-108); Estimated Glomerular Filt Rate > 60; Glucose Random 132 mg/dL (60-115); Magnesium 2.5 mg/dL (1.6-2.6); Potassium 3.6 mmol/L (3.3-5.1); Sodium 138 mmol/L (135-145)
[2022-01-31] MEDS: Albuterol/Iprat 2.5/0.5MG 3 ML AMPUL.NEB INHALE ×3 (07:43→18:57)
[2022-01-31] MEDS: Fluticasone/Vilanterol 200/25 BLST.W.DEV 1 PUFF INHALE (07:43)
[2022-01-31 08:11] LABS: Glucose, Whole Blood 160 mg/dL (60-115)
[2022-01-31] MEDS: Apixaban 2.5 MG TABLET PO ×2 (08:43→20:25)
[2022-01-31] MEDS: amLODIPine Besylate 10 MG TABLET PO (08:43)
[2022-01-31] MEDS: SITagliptin Phosphate 100 MG TABLET PO (08:43)
[2022-01-31] MEDS: Metoprolol Succinate ER 50 MG TAB.ER.24H PO (08:43)
[2022-01-31] MEDS: Insulin Lispro 100 UNIT/ML 3 ML VIAL SUBCUT ×3 (08:45→20:25)
[2022-01-31] MEDS: methylPREDNISolone Sod Succ 40 MG/ML VIAL IVPUSH ×3 (08:47→23:24)
--- NOTE | 2022-01-31 11:17 | HO.PM.IMPN ---
Subjective Subjective Date of Service: 01/31/22 Interval History: became hypoxic overnight on oximetry test placed on 10 Lpm O2, now 4 Lpm breathing improved no cough Review of Systems Review of Systems: Yes all other systems are reviewed and are negative Physical Exam Vital Signs: Vital Signs: Last Vital Signs Temp 98.6 F 01/31/22 07:49 Pulse 95 01/31/22 07:49 Resp 20 01/31/22 07:49 BP 136/81 01/31/22 07:49 Pulse Ox 94 01/31/22 07:49 O2 Del Method 01/31/22 07:49 O2 Flow Rate 4 01/31/22 07:49 FiO2 45 01/30/22 08:00 Oxygen Flow Rate 4 01/28/22 07:44 BMI result Body Mass Index 36.4 Gen: in no acute distress HEENT: sclera anicteric, moist mucus membranes Neck: supple Lungs: scattered expiratory wheezing Heart: regular rate and rhythm, no murmurs Abd: soft, non-tender, non-distended Ext: no edema Skin: warm/well-perfused Neuro: alert and oriented x3, no focal findings Psych: appropriate affect Objective Data Active Medications Acetaminophen (Acetaminophen 325 Mg Tablet) 650 mg PO Q6H PRN PRN Reason: Pain, Moderate (Pain Scale 4-6 Albuterol/Ipratropium (Albuterol/Iprat 2.5/0.5mg 3 Ml Ampul.Neb) 3 ml INHALE RQ6H WHILE AWAKE [facility] Last Admin: 01/31/22 07:43 Dose: 3 ml Documented By: REGINALD Amlodipine Besylate (Amlodipine Besylate 10 Mg Tablet) 10 mg PO DAILY [facility]; Protocol Last Admin: 01/31/22 08:43 Dose: 10 mg Documented By: JANEE Apixaban (Apixaban 2.5 Mg Tablet) 2.5 mg PO BID [facility] Last Admin: 01/31/22 08:43 Dose: 2.5 mg Documented By: JANEE Fluticasone/Vilanterol (Fluticasone/Vilanterol 200/25 Blst.W.Dev) 1 puff INHALE RDAILY [facility] Last Admin: 01/31/22 07:43 Dose: 1 puff Documented By: REGINALD Insulin Human Lispro (Insulin Lispro 100 Unit/Ml 3 Ml Vial) 0 unit SUBCUT QIDACHS [facility]; Protocol Last Admin: 01/31/22 08:45 Dose: 2 unit Documented By: JANEE Lorazepam (Lorazepam 2 Mg/Ml Vial) 1 mg IVPUSH ONCE PRN PRN Reason: anxiety/restlessness Last Admin: 01/28/22 21:48 Dose: 1 mg Documented By: LASHAWN Melatonin (Melatonin 3 Mg Tablet) 6 mg PO BEDTIME [facility] Last Admin: 01/30/22 20:38 Dose: 6 mg Documented By: KATE Methylprednisolone Sodium Succinate (Methylprednisolone Sod Succ 40 Mg/Ml Vial) 40 mg IVPUSH Q8H [facility] Last Admin: 01/31/22 08:47 Dose: 40 mg Documented By: JANEE Metoprolol Succinate (Metoprolol Succinate Er 50 Mg Tab.Er.24h) 50 mg PO DAILY [facility]; Protocol Last Admin: 01/31/22 08:43 Dose: 50 mg Documented By: JANEE Sitagliptin Phosphate (Sitagliptin Phosphate 100 Mg Tablet) 100 mg PO DAILY [facility] Last Admin: 01/31/22 08:43 Dose: 100 mg Documented By: JANEE Tiotropium [place] (Tiotropium [place] 18 Mcg Cap.W.Dev) 1 puff INHALE RDAILY [facility] Last Admin: 01/31/22 07:43 Dose: 1 puff Documented By: REGINALD Labs CBC & Chem 7: 01/31/22 06:09 01/31/22 06:09 Labs: Laboratory Results - last 24 hr 01/30/22 01/30/22 01/30/22 11:20 16:06 20:24 MCV MCH MCHC RDW Plt Count MPV Immature Gran % (Auto) Neut % (Auto) Lymph % (Auto) [place] % (Auto) Eos % (Auto) Baso % (Auto) Lymph # (Auto) [place] # (Auto) Eos # (Auto) Baso # (Auto) Abs Immat Gran (auto) Absolute Neuts (auto) Absolute Nucleated RBC Nucleated RBC % (auto) O2 Saturation ABG pH at Pt Temp ABG pCO2 at Pt Temp ABG pO2 at Pt Temp ABG HCO3 ABG Base Excess (Actual) Anion Gap Estim Creat Clear Calc Estimated GFR POC Glucose 136 H 182 H 134 H Random Glucose Calcium Phosphorus Magnesium B-Natriuretic Peptide 01/30/22 01/31/22 01/31/22 22:44 00:26 05:34 MCV MCH MCHC RDW Plt Count MPV Immature Gran % (Auto) Neut % (Auto) Lymph % (Auto) [place] % (Auto) Eos % (Auto) Baso % (Auto) Lymph # (Auto) [place] # (Auto) Eos # (Auto) Baso # (Auto) Abs Immat Gran (auto) Absolute Neuts (auto) Absolute Nucleated RBC Nucleated RBC % (auto) O2 Saturation 92.0 ABG pH at Pt Temp 7.46 H ABG pCO2 at Pt Temp 31 L ABG pO2 at Pt Temp 64 L ABG HCO3 22 ABG Base Excess (Actual) 0.0 Anion Gap Estim Creat Clear Calc Estimated GFR POC Glucose 126 H 138 H Random Glucose Calcium Phosphorus Magnesium B-Natriuretic Peptide 01/31/22 01/31/22 01/31/22 06:09 06:09 06:09 MCV 71.6 L MCH 17.4 L MCHC 24.3 L RDW 23.3 H Plt Count 199 MPV Not Reportable Immature Gran % (Auto) 0.4 Neut % (Auto) 69.8 Lymph % (Auto) 16.0 L [place] % (Auto) 11.3 H Eos % (Auto) 1.8 Baso % (Auto) 0.7 Lymph # (Auto) 1.1 L [place] # (Auto) 0.8 Eos # (Auto) 0.1 Baso # (Auto) 0.1 Abs Immat Gran (auto) 0.03 Absolute Neuts (auto) 4.7 Absolute Nucleated RBC 0.000 Nucleated RBC % (auto) 0.0 O2 Saturation ABG pH at Pt Temp ABG pCO2 at Pt Temp ABG pO2 at Pt Temp ABG HCO3 ABG Base Excess (Actual) Anion Gap 11 L Estim Creat Clear Calc 62.0 Estimated GFR > 60 POC Glucose Random Glucose 132 H Calcium 8.9 Phosphorus 5.0 H Magnesium 2.5 B-Natriuretic Peptide 01/31/22 08:08 MCV MCH MCHC RDW Plt Count MPV Immature Gran % (Auto) Neut % (Auto) Lymph % (Auto) [place] % (Auto) Eos % (Auto) Baso % (Auto) Lymph # (Auto) [place] # (Auto) Eos # (Auto) Baso # (Auto) Abs Immat Gran (auto) Absolute Neuts (auto) Absolute Nucleated RBC Nucleated RBC % (auto) O2 Saturation ABG pH at Pt Temp ABG pCO2 at Pt Temp ABG pO2 at Pt Temp ABG HCO3 ABG Base Excess (Actual) Anion Gap Estim Creat Clear Calc Estimated GFR POC Glucose 160 H Random Glucose Calcium Phosphorus Magnesium B-Natriuretic Peptide TTE (01/30/22) - Normal left ventricular size and systolic function. There is ? moderately increased left ventricular wall thickness.? The ? ? ? visually estimated ejection fraction is between 60-65%.? - E/E prime ratio is between 8 and 15 consistent with? indeterminate filling pressures. ? - Normal right ventricular cavity size and systolic function.? ? - There is mild dilatation of the ascending aorta measuring 4.00 cm.? Assessment and Plan (1) Acute on chronic respiratory failure with hypercapnia: Status: Acute Plan hospital d#4 71yo M with REBECA + OHS, COPD, chronic hypoxic respiratory failure on 4L O2 admitted to ICU with acute/chronic hypoxic/hypercapneic respiratory failure requiring BiPAP support, stepped down to [facility] [place]/30/22 # acute/chronic hypoxic/hypercapneic respiratory failure - d/c acetazolamide - home CPAP- RT + CM to coordinate # metabolic encephalopathy - due to hypercapnea + hypoxia; resolved # COPD exacerbation - start methylprednisolone, continue triple controller inhaler therapy + nebs # acute/chronic HFpEF - euvolemic, change IV to PO furosemide # HTN - continue metoprolol + amlodipine # pAF - continue apixaban for AC - continue metoprolol for RC # DM2 - correction-dose lispro, sitagliptin # VTE ppx - apixaban # dispo - anticipate home with VNA once CPAP in place In my clinical judgment, the patient requires continued hospitalization for the following reasons: COPD exacerbation, dispo planning Quality Stroke Does the patient have a stroke diagnosis?: No VTE Prior VTE?: No VTE Risk Level:: Medical - moderate - high VTE Device Contraindication: Treatment Not Indicated VTE Drug Contraindication: N/A - Med Ordered
[2022-01-31 11:27] LABS: Glucose, Whole Blood 147 mg/dL (60-115)
[2022-01-31 16:50] LABS: Glucose, Whole Blood 205 mg/dL (60-115)
[2022-01-31 20:09] LABS: Glucose, Whole Blood 206 mg/dL (60-115)
[2022-01-31] MEDS: Melatonin 3 MG TABLET 6 MG PO (20:25)
[2022-02-01] VITALS (7 sets, daily range): BP systolic 101–136; BP diastolic 56–75; PULSE 58–97; RESP 14–20; TEMP 36.9–37.2; O2SAT 87–96
[2022-02-01] MEDS: Albuterol/Iprat 2.5/0.5MG 3 ML AMPUL.NEB INHALE ×2 (07:34→14:24)
[2022-02-01] MEDS: Fluticasone/Vilanterol 200/25 BLST.W.DEV 1 PUFF INHALE (07:35)
[2022-02-01] MEDS: Metoprolol Succinate ER 50 MG TAB.ER.24H PO (07:54)
[2022-02-01] MEDS: Apixaban 2.5 MG TABLET PO (07:55)
[2022-02-01] MEDS: amLODIPine Besylate 10 MG TABLET PO (07:55)
[2022-02-01] MEDS: methylPREDNISolone Sod Succ 40 MG/ML VIAL IVPUSH (07:55)
[2022-02-01] MEDS: Furosemide 40 MG TABLET PO (07:55)
[2022-02-01] MEDS: SITagliptin Phosphate 100 MG TABLET PO (07:55)
[2022-02-01] MEDS: Insulin Lispro 100 UNIT/ML 3 ML VIAL SUBCUT ×3 (07:56→17:47)
[2022-02-01 08:01] LABS: Glucose, Whole Blood 189 mg/dL (60-115)
[2022-02-01 08:41] LABS: VBG Base Excess 7.2 mmol/L; VBG HCO3 36 mmol/L (22-26); VBG pCO2 69 mmHg; VBG pH 7.33 (7.32-7.43); VBG pO2 65 mmHg
[2022-02-01 11:20] LABS: Glucose, Whole Blood 209 mg/dL (60-115)
--- NOTE | 2022-02-01 14:30 | MHC.CM.PN ---
per rounds pt needs a home 02 eval needs a cpap machine
--- NOTE | 2022-02-01 16:50 | P.PNIM_ITS ---
Subjective Subjective Date of Service: 02/01/22 Interval History: Breathing improved Qualified for home O2 via reservoir nasal cannula 3L at rest, 4L with exertion Review of Systems Review of Systems: Yes all other systems are reviewed and are negative Physical Exam Vital Signs: Vital Signs: Last Vital Signs Temp 98.9 F 02/01/22 15:49 Pulse 70 02/01/22 15:49 Resp 14 02/01/22 15:49 BP 101/56 L 02/01/22 15:49 Pulse Ox 94 02/01/22 15:49 O2 Del Method 02/01/22 15:49 O2 Flow Rate 3 02/01/22 12:00 FiO2 45 01/30/22 08:00 Oxygen Flow Rate 4 01/28/22 07:44 BMI result Body Mass Index 36.4 Gen: in no acute distress HEENT: sclera anicteric, moist mucus membranes Neck: supple Lungs: scattered expiratory wheezing Heart: regular rate and rhythm, no murmurs Abd: soft, non-tender, non-distended Ext: no edema Skin: warm/well-perfused Neuro: alert and oriented x3, no focal findings Psych: appropriate affect Objective Data Active Medications Acetaminophen (Acetaminophen 325 Mg Tablet) 650 mg PO Q6H PRN PRN Reason: Pain, Moderate (Pain Scale 4-6 Albuterol/Ipratropium (Albuterol/Iprat 2.5/0.5mg 3 Ml Ampul.Neb) 3 ml INHALE RQ6H WHILE AWAKE [facility] Last Admin: 02/01/22 14:24 Dose: 3 ml Documented By: REGINALD Amlodipine Besylate (Amlodipine Besylate 10 Mg Tablet) 10 mg PO DAILY [facility]; Protocol Last Admin: 02/01/22 07:55 Dose: 10 mg Documented By: JANEE Apixaban (Apixaban 2.5 Mg Tablet) 2.5 mg PO BID [facility] Last Admin: 02/01/22 07:55 Dose: 2.5 mg Documented By: JANEE Fluticasone/Vilanterol (Fluticasone/Vilanterol 200/25 Blst.W.Dev) 1 puff INHALE RDAILY [facility] Last Admin: 02/01/22 07:35 Dose: 1 puff Documented By: REGINALD Furosemide (Furosemide 40 Mg Tablet) 40 mg PO DAILY [facility]; Protocol Last Admin: 02/01/22 07:55 Dose: 40 mg Documented By: JANEE Insulin Human Lispro (Insulin Lispro 100 Unit/Ml 3 Ml Vial) 0 unit SUBCUT QIDACHS [facility]; Protocol Last Admin: 02/01/22 12:24 Dose: 4 unit Documented By: JANEE Lorazepam (Lorazepam 2 Mg/Ml Vial) 1 mg IVPUSH ONCE PRN PRN Reason: anxiety/restlessness Last Admin: 01/28/22 21:48 Dose: 1 mg Documented By: LASHAWN Melatonin (Melatonin 3 Mg Tablet) 6 mg PO BEDTIME [facility] Last Admin: 01/31/22 20:25 Dose: 6 mg Documented By: LASHAWN Methylprednisolone Sodium Succinate (Methylprednisolone Sod Succ 40 Mg/Ml Vial) 40 mg IVPUSH Q12H [facility] Metoprolol Succinate (Metoprolol Succinate Er 50 Mg Tab.Er.24h) 50 mg PO DAILY [facility]; Protocol Last Admin: 02/01/22 07:54 Dose: 50 mg Documented By: JANEE Sitagliptin Phosphate (Sitagliptin Phosphate 100 Mg Tablet) 100 mg PO DAILY [facility] Last Admin: 02/01/22 07:55 Dose: 100 mg Documented By: JANEE Tiotropium [place] (Tiotropium [place] 18 Mcg Cap.W.Dev) 1 puff INHALE RDAILY [facility] Last Admin: 02/01/22 07:35 Dose: 1 puff Documented By: REGINALD Labs CBC & Chem 7: 01/31/22 06:09 01/31/22 06:09 Labs: Laboratory Results - last 24 hr 01/31/22 01/31/22 01/31/22 06:19 16:46 20:05 VBG pH 7.33 VBG pCO2 69 VBG pO2 65 VBG HCO3 36 H VBG O2 Saturation 89.0 VBG Base Excess 7.2 POC Glucose 205 H 206 H 02/01/22 02/01/22 07:32 11:17 VBG pH VBG pCO2 VBG pO2 VBG HCO3 VBG O2 Saturation VBG Base Excess POC Glucose 189 H 209 H Assessment and Plan (1) Acute on chronic respiratory failure with hypercapnia: Status: Acute Plan hospital d#5 71yo M with REBECA + OHS, COPD, chronic hypoxic respiratory failure on 4L O2 admitted to ICU with acute/chronic hypoxic/hypercapneic respiratory failure requiring BiPAP support, stepped down to [facility] [place]/22 # acute/chronic hypoxic/hypercapneic respiratory failure - d/c acetazolamide - home CPAP/BiPAP- will consult Pulm to arrange - home O2 via reservoir nasal cannula: 3L at rest, 4L with exertion # metabolic encephalopathy - due to hypercapnea + hypoxia; resolved # COPD exacerbation - d#2 of methylprednisolone taper, continue triple controller inhaler therapy + nebs # acute/chronic HFpEF - euvolemic, changed IV to PO furosemide # HTN - continue metoprolol + amlodipine # pAF - continue apixaban for AC - continue metoprolol for RC # DM2 - correction-dose lispro, sitagliptin # VTE ppx - apixaban # dispo - anticipate home with VNA once CPAP in place In my clinical judgment, the patient requires continued hospitalization for the following reasons: COPD exacerbation, dispo planning Quality Stroke Does the patient have a stroke diagnosis?: No VTE Prior VTE?: No VTE Risk Level:: Medical - moderate - high VTE Device Contraindication: Treatment Not Indicated VTE Drug Contraindication: N/A - Med Ordered
[2022-02-01 17:07] LABS: Glucose, Whole Blood 172 mg/dL (60-115)
--- NOTE | 2022-02-01 17:10 | PM.DS ---
DS: Providers Provider Date of Service: 02/01/22 Date of admission: 01/28/22 10:18 Primary care physician: Unknown Physician Consults: 02/01/22 10:51 Consult to Pulmonology Routine Consulting Provider: Tommy John Reason for consultation: resp failure needs CPAP DS: Diagnosis Discharge Diagnosis (1) Acute on chronic respiratory failure with hypoxia and hypercapnia: Status: Acute (2) Acute on chronic heart failure with preserved ejection fraction (HFpEF): Status: Acute (3) COPD exacerbation: Status: Acute (4) REBECA (obstructive sleep apnea): Status: Acute (5) Metabolic encephalopathy: Status: Acute DS: Summary Hospital Course Hospital Course: from admission H+P by signaling project engineer Jeremy Gonsalez MD, 01/28/22: 71-year-old gentleman with underlying history of obesity, obesity hypoventilation, severe COPD on 4 L of supplemental oxygen, poor compliance with CPAP and oxygen, also hypertension and diabetes mellitus admitted 01/28/2022 with complaints of slowly worsening weakness and confusion. On ER evaluation patient to be hypercapnic and hypoxic requiring initiation of BiPAP support. He was started on acetazolamide and admitted to the intensive care unit. 71yo M with REBECA + OHS, COPD, chronic hypoxic respiratory failure on 4L O2 admitted to ICU with acute/chronic hypoxic/hypercapneic respiratory failure requiring BiPAP support, stepped down to IMC 01/30/22 after mental status normalized and respiratory distress resolved. Treated with acetazolamide. Refused further BiPAP in IMC. Home O2 evaluation done and pt was set up for reservoir nasal cannula, 3L at rest, 4L with exertion. He has an appointment for inpatient sleep study for BiPAP vs IVAPS. He was diuresed to euvolemia with furosemide and also treated with steroids for COPD exacerbation. He was discharged home with instructions to follow up with Primary Care and Pulmonology and to keep his sleep study appointment. He was given a steroid taper for 6 days . He declined VNA services. Time Spent with Patient Time attestation: Total time spent providing and/or coordinating discharge services: Discharge coordination time: Greater than 30 minutes Quality: Safe Use of Opioids Does Pt have an Active Cancer Diagnosis on the Problem List?: No Quality: Stroke Does the patient have a stroke diagnosis?: No Physical Exam Vital Signs: Vital Signs: Last Vital Signs Temp 98.9 F 02/01/22 15:49 Pulse 70 02/01/22 15:49 Resp 14 02/01/22 15:49 BP 101/56 L 02/01/22 15:49 Pulse Ox 94 02/01/22 15:49 O2 Del Method 02/01/22 15:49 O2 Flow Rate 3 02/01/22 12:00 FiO2 45 01/30/22 08:00 Oxygen Flow Rate 4 01/28/22 07:44 BMI result Body Mass Index 36.4 Gen: in no acute distress HEENT: sclera anicteric, moist mucus membranes Neck: supple Lungs: CTAB Heart: regular rate and rhythm, no murmurs Abd: soft, non-tender, non-distended Ext: no edema or cyanosis Skin: warm/well-perfused Neuro: alert and oriented x3, no focal findings Psych: appropriate affect DS: Data Data Completed and Pending Labs on day of discharge: Laboratory Results - last 24 hr 01/31/22 01/31/22 02/01/22 06:19 20:05 07:32 VBG pH 7.33 VBG pCO2 69 VBG pO2 65 VBG HCO3 36 H VBG O2 Saturation 89.0 VBG Base Excess 7.2 POC Glucose 206 H 189 H 02/01/22 02/01/22 11:17 16:43 VBG pH VBG pCO2 VBG pO2 VBG HCO3 VBG O2 Saturation VBG Base Excess POC Glucose 209 H 172 H Discharge Plan Discharge Patient Disposition: Home, Self-Care Discharge Diagnosis: acute/chronic hypoxic/hypercapneic respiratory failure metabolic encephalopathy COPD exacerbation acute/chronic HFpEF Referrals: Amy Orozco MD [Physician] - 1 Week Tommy John MD [Physician] - 1 Week Discharge Medications: New furosemide 40 mg Tablet 40 mg PO DAILY Qty: 30 0RF Protocol: Hold for SBP< HOLD for SBP < : 90 prednisone 10 mg tablet See Rx Instructions .ROUTE .COMPLEX Qty: 14 0RF Rx Instructions: 40 mg daily x 2 days, then 20 mg daily x 2 days, then 10 mg daily x 2 days Continued albuterol sulfate 2.5 mg /3 mL (0.083 %) solution for nebulization 3 ml inhalation Q6H PRN (Reason: wheezing) albuterol sulfate 90 mcg/actuation HFA aerosol inhaler 2 puff PO Q6H Eliquis 2.5 mg tablet 2.5 mg PO BID 30 Days Qty: 60 0RF metoprolol succinate 50 mg tablet extended release 24 hr 1 tab PO DAILY amlodipine 10 mg tablet 1 tab PO DAILY Januvia 100 mg tablet 1 tab PO DAILY Breztri Aerosphere 160-9-4.8 mcg/actuation HFA aerosol inhaler 2 puff PO BID cholecalciferol (vitamin D3) 50 mcg (2,000 unit) Tablet 50 mcg PO DAILY fluticasone propion-salmeterol [Wixela Inhub] 250-50 mcg/dose blister with device 1 inh inhalation BID Incruse Ellipta 62.5 mcg/actuation blister with device 1 inh inhalation DAILY 30 Days Qty: 30 11RF Discharge Orders: Discharge Order (Routine); Ordered 02/01/22 Ordered By: Faisal White Diet: advance to usual diet and diabetic diet Activity on Discharge: As tolerated Stand Alone Forms: Patient Portal Discharge page Care Plan Goals: lung health Health Concerns: acute/chronic hypoxic/hypercapneic respiratory failure metabolic encephalopathy COPD exacerbation acute/chronic HFpEF Plan of Treatment: take prednisone as follows: 40 mg daily x 2 days, then 20 mg daily x 2 days, then 10 mg daily x 2 days home oxygen with reservoir nasal cannula: 3L at rest, 4L with exertion follow up with primary care + pulmonology outpatient sleep study for CPAP/BiPAP Assessment: See Discharge Summary
== END 2022-02-01 18:00 | disposition home or self-care (01) | DRG 291 ==
LOC: HO.ED 06:46 → HO.EDOVER 10:29 → HO.ICU 13:03 → HO.IMC 01-30 11:32
PROVIDERS: Admitting Provider Internal Medicine Pulmonary Disease; Emergency Provider Emergency Medicine; Visit Provider Family Medicine
DX: I11.0 Hypertensive heart disease with heart failure (principal); J96.21 Acute and chronic respiratory failure with hypoxia; J96.22 Acute and chronic respiratory failure with hypercapnia; I50.33 Acute on chronic diastolic (congestive) heart failure; G93.41 Metabolic encephalopathy; E66.2 Morbid (severe) obesity with alveolar hypoventilation; E87.2 Acidosis; J43.2 Centrilobular emphysema; I48.0 Paroxysmal atrial fibrillation; E11.9 Type 2 diabetes mellitus without complications; E78.00 Pure hypercholesterolemia, unspecified; Z91.19 Patient's noncompliance with other medical treatment and regimen; Z20.822 Contact with and (suspected) exposure to COVID-19; Z68.36 Body mass index [BMI] 36.0-36.9, adult; Z79.51 Long term (current) use of inhaled steroids; Z79.01 Long term (current) use of anticoagulants; Z79.899 Other long term (current) drug therapy
CPT/HCPCS: 36415; 36600; 71046; 80048; 80053; 82040; 82803; 82947; 83735; 83880; 84100; 84484; 85025; 87502; 87635; 93306; 94640; 94660; 94762; 97162; 99285; J1940; J2060; J2920

== ENCOUNTER 2022-02-21 10:30 | Outpatient (REF) | payer OTHER, SELFPAY ==
--- NOTE | 2022-02-21 14:04 | PFT_ITS ---
FLOWS: FEV1 26% of predicted at 0.63 L. FVC 41% of predicted at 1.35 L. FEV1 to FVC ratio of 0.47. No bronchodilator response. LUNG VOLUMES: Total lung capacity 67% of predicted at 3.81 L. Residual volume 116% of predicted at 2.43 L. Slow vital capacity 39% of predicted at 1.38 L. Expiratory reserve volume 36% of predicted at 0.3 L. Diffusion capacity is severely decreased, diffusion capacity adjust to being moderately decreased after correction for alveolar ventilation. IMPRESSION: Very severe obstructive and moderate restrictive combined ventilatory defect with no bronchodilator response. Decreased expiratory reserve volume suggests extrathoracic restriction likely secondary to abdominal obesity. Decreased diffusion capacity suggests emphysema. MD ILDA Arrdeondo/MODL / [id number]
== END 2022-02-21 10:31 | disposition home or self-care (01) ==
LOC: HO.RESP 10:30
PROVIDERS: PCP Internal Medicine; Visit Provider Hospitalist
DX: M79.602 Pain in left arm (principal); J96.10 Chronic respiratory failure, unspecified whether with hypoxia or hypercapnia; J44.9 Chronic obstructive pulmonary disease, unspecified; J96.11 Chronic respiratory failure with hypoxia; J96.12 Chronic respiratory failure with hypercapnia
CPT/HCPCS: 94060; 94727; 94729; 99202; 99212

== ENCOUNTER 2022-03-13 08:10 | Outpatient (REF) | payer OTHER, SELFPAY ==
--- NOTE | ~2022-03-13 | XR_ITS ---
EXAMINATION: XR CHEST CLINICAL INFORMATION: Interstitial pulmonary disease, unspecified. COMPARISON: Chest radiographs 01/28/2022, 01/21/2022, 12/17/2021 TECHNIQUE: 2 views of the chest were obtained. FINDINGS: Heart is within normal size. There is even distribution of the vascularity which may suggest mild underlying increased pulmonary venous pressures. There are no curly lines, no vascular congestion or effusion. The costophrenic sulci are clear. There is no lobar or segmental airspace consolidation or ground-glass opacity. The hilar contours are normal. There is a tortuous descending thoracic aorta again seen. No acute bony abnormality. XR/XR chest 2V IMPRESSION: Even distribution vascularity which may suggest mild elevated pulmonary venous pressures. Heart size is normal. No effusion. No airspace consolidation or ground-glass opacity.
[2022-03-13 09:52] LABS: Alanine Aminotransferase 15 U/L (0-40); Alkaline Phosphatase 61 U/L (39-117); Anion Gap 12 (12-20); Aspartate Amino Transferase 8 U/L (5-37); Bilirubin Total 0.5 mg/dL (0.0-1.0); Blood Urea Nitrogen 26 mg/dL (9-16); Calcium 8.9 mg/dL (8.4-10.2); Carbon Dioxide 32 mmol/L (22-29); Chloride 103 mmol/L (96-108); Cholesterol 182 mg/dL; Estimated Glomerular Filt Rate > 60; Glucose Random 151 mg/dL (60-115); HDL Cholesterol 52 mg/dL; LDL Cholesterol Calculated 103 mg/dl; Potassium 4.5 mmol/L (3.3-5.1); Sodium 142 mmol/L (135-145); Total Protein 6.9 g/dL (6.5-8.0); Triglycerides 135 mg/dL
[2022-03-13 10:02] LABS: Estimated Average Glucose 137 mg/dL; Hemoglobin A1c % 6.4 %
== END 2022-03-13 08:11 | disposition home or self-care (01) ==
LOC: HO.LAB 08:10
PROVIDERS: PCP Internal Medicine; Visit Provider Internal Medicine
DX: J84.9 Interstitial pulmonary disease, unspecified (principal); J96.10 Chronic respiratory failure, unspecified whether with hypoxia or hypercapnia; E11.9 Type 2 diabetes mellitus without complications; G47.33 Obstructive sleep apnea (adult) (pediatric); I10 Essential (primary) hypertension; J44.1 Chronic obstructive pulmonary disease with (acute) exacerbation
CPT/HCPCS: 36415; 71046; 80053; 80061; 83036

== ENCOUNTER → 2022-03-15 08:59 | Outpatient (BNVA) | payer OTHER, SELFPAY | PROVIDERS: PCP Internal Medicine; Visit Provider Hospitalist | DX: J44.9 Chronic obstructive pulmonary disease, unspecified (principal); J84.9 Interstitial pulmonary disease, unspecified; J96.11 Chronic respiratory failure with hypoxia; J96.12 Chronic respiratory failure with hypercapnia; G47.33 Obstructive sleep apnea (adult) (pediatric) | CPT/HCPCS: 94618; 99212 ==

== ENCOUNTER 2022-04-25 10:17 | Outpatient (REF) | payer OTHER, MEDICAID, SELFPAY ==
--- NOTE | ~2022-04-25 | CT_ITS ---
EXAMINATION: CT CHEST WITHOUT CONTRAST CLINICAL INFORMATION: Interstitial lung disease COMPARISON: Previous CTA of the chest July 2021 TECHNIQUE: Multidetector volumetric CT imaging of the chest was done. Axial MIP volume rendering provided. Sagittal and coronal reformatted images were obtained. This CT examination was performed using dose optimization techniques as appropriate, variously including the following: *Automated exposure control *Adjustment of mA and/or kV according to patient size (this includes techniques or standardized protocols for targeted exams where dose is matched to indication/reason for exam; i.e. extremities or head) *Use of iterative reconstruction technique DLP: 223 mGy-cm FINDINGS: LUNGS: There is evidence of emphysema. There are increased interstitial markings seen dependently at the lung bases with increased interlobular septal thickening. Some of these changes may be related to dependent atelectasis. Follow-up prone imaging may be helpful. There is interval improvement in the bilateral small patchy opacities or infiltrates. Largest remaining areas are in the lingula axial image 98 series 13 and dependent bilateral lower lobes. There is a 4 mm semisolid left upper lobe nodule axial image 82 series 13. There is bronchial wall thickening in the lingula that is stable. No new nodule or infiltrate. MEDIASTINUM: Small mediastinal lymph nodes. No enlarged lymph nodes. Normal heart size. Mild coronary artery calcification. Tortuous upper normal-size thoracic aorta PLEURA: There is no pleural effusion. No pleural mass or thickening. AXILLA: Small bilateral axillary lymph nodes. No enlarged lymph nodes or chest wall mass. UPPER ABDOMEN: Unremarkable. OSSEOUS STRUCTURES: Unremarkable. CT/CT chest wo IV con IMPRESSION: Mild emphysema. Increased interstitial markings and interlobular septal thickening similar to previous exam. Improved small bilateral patchy infiltrates or areas of atelectasis from July 2021 exam. Left upper lobe bronchial wall thickening and 4 mm semisolid left upper lobe nodule. These findings are similar to previous exam. Coronary artery calcification. Upper normal-size tortuous thoracic aorta. Fleischner guidelines were followed.
== END 2022-04-25 10:18 | disposition home or self-care (01) ==
LOC: HO.CT 10:17
PROVIDERS: PCP Internal Medicine; Visit Provider Hospitalist
DX: J84.9 Interstitial pulmonary disease, unspecified (principal)
CPT/HCPCS: 71250

== ENCOUNTER 2022-05-15 12:00 | Outpatient (REF) | payer OTHER, SELFPAY ==
--- NOTE | ~2022-05-15 | XR_ITS ---
EXAMINATION: XR LUMBOSACRAL SPINE WITH OBLIQUES CLINICAL INFORMATION: Spondylosis without myelopathy or radiculopathy. COMPARISON: CT scan of the abdomen and pelvis November 2021. TECHNIQUE: 7 views of lumbosacral spine including obliques and flexion and extension views. FINDINGS: Vertebral bodies are normally aligned with normal height. At L4-L5, there is mild degenerative disc changes manifested by endplate osteophytes. Disc space normal. Remaining disc levels unremarkable. Normal translation of vertebral segments with flexion and extension. Incidental note made of arterial calcification in the abdominal aorta. XR/XR lumbar spine 6V w bending IMPRESSION: Mild spondylosis of the lumbosacral spine without change.
== END 2022-05-15 12:01 | disposition home or self-care (01) ==
LOC: HO.XRAY 12:00
PROVIDERS: PCP Internal Medicine; Visit Provider Nurse Practitioner Family
DX: M54.16 Radiculopathy, lumbar region (principal); M47.816 Spondylosis without myelopathy or radiculopathy, lumbar region; Z99.81 Dependence on supplemental oxygen
CPT/HCPCS: 72114; 99202

== ENCOUNTER → 2022-05-19 09:54 | Outpatient (BNVA) | payer OTHER, SELFPAY | PROVIDERS: PCP Internal Medicine; Visit Provider Hospitalist | DX: J44.9 Chronic obstructive pulmonary disease, unspecified (principal); J84.9 Interstitial pulmonary disease, unspecified; J96.11 Chronic respiratory failure with hypoxia; J96.12 Chronic respiratory failure with hypercapnia; G47.33 Obstructive sleep apnea (adult) (pediatric) | CPT/HCPCS: 99212 ==

== ENCOUNTER 2022-06-02 15:36 | Outpatient (REF) | payer OTHER, SELFPAY ==
--- NOTE | ~2022-06-02 | MR_ITS ---
EXAMINATION: MR LUMBAR SPINE WITHOUT CONTRAST CLINICAL INFORMATION: Lower back pain. COMPARISON: Lumbar spine radiographs from 05/15/2022. CT abdomen and pelvis from 12/17/2021. TECHNIQUE: MRI of the lumbar spine was obtained using routine sequences without contrast. FINDINGS: Straightening of the normal lumbar lordosis. Mild degenerative retrolisthesis of L5 on S1. Moderate degenerative disc disease at T11-T12 and L5-S1. Mild disc desiccation at L4-L5. Associated mild mixed Modic type discogenic endplate changes. No suspicious marrow edema. The vertebral body heights are largely maintained. The conus medullaris terminates at the level of L2. The distal spinal cord is normal in appearance. Moderate subcutaneous edema within the soft tissues of the back from L1-S2. No additional significant abnormalities of the paraspinal musculature. Multiple partially visualized T2 hyperintense renal cysts along the lower pole the right kidney, measuring up to 1.5 cm (no follow-up imaging recommended based on current guidelines at the time of examination). Otherwise, limited evaluation of the intra-abdominal structures without significant abnormalities. The abdominal aorta is of normal contour and caliber. AXIAL SPINAL LEVELS: L1-L2: Normal annular contour. There is mild right and no left facet joint arthropathy. There is no neural foraminal stenosis. There is no spinal canal stenosis. L2-L3: Normal annular contour. There is mild bilateral facet joint arthropathy. There is no neural foraminal stenosis. There is no spinal canal stenosis. L3-L4: Normal annular contour. There is mild bilateral facet joint arthropathy. There is no neural foraminal stenosis. There is no spinal canal stenosis. L4-L5: Mild diffuse disc bulge with superimposed left foraminal disc protrusion. There is mild bilateral facet joint arthropathy. There is mild left and no right neural foraminal stenosis. There is no spinal canal stenosis. L5-S1: Moderate diffuse disc bulge. There is moderate bilateral facet joint arthropathy. There is moderate left and mild right neural foraminal stenosis. There is no spinal canal stenosis. MR/MR lumbar spine wo con IMPRESSION: Mild to moderate multilevel degenerative spondyloarthropathy of the lumbar spine as described in detail above. Most notably, there is moderate left-sided neural foraminal stenosis at L5-S1. No additional overt spinal canal stenosis or nerve root compression.
== END 2022-06-02 15:37 | disposition home or self-care (01) ==
LOC: HO.MRI 15:36
PROVIDERS: Visit Provider Nurse Practitioner Family
DX: M54.16 Radiculopathy, lumbar region (principal)
CPT/HCPCS: 72148

== ENCOUNTER → 2022-06-09 15:44 | Outpatient (BNVA) | payer OTHER, SELFPAY | PROVIDERS: PCP Internal Medicine; Visit Provider Nurse Practitioner Family | DX: M54.16 Radiculopathy, lumbar region (principal); M47.816 Spondylosis without myelopathy or radiculopathy, lumbar region; Z99.81 Dependence on supplemental oxygen | CPT/HCPCS: 99212 ==

== ENCOUNTER 2022-06-14 15:19 | Outpatient (REF) | payer OTHER, SELFPAY ==
[2022-06-14 17:29] LABS: Influenza A PCR NEGATIVE (Negative); Influenza B PCR NEGATIVE (Negative); Resp Syncy Virus RNA Qual PCR NEGATIVE (Negative); SARS COV2 PCR INHOUSE NEGATIVE (Negative)
== END 2022-06-14 15:20 | disposition home or self-care (01) ==
LOC: HO.LAB 15:19
PROVIDERS: Visit Provider Internal Medicine
DX: R43.9 Unspecified disturbances of smell and taste (principal); Z20.822 Contact with and (suspected) exposure to COVID-19
CPT/HCPCS: 0241U

== ENCOUNTER 2022-07-03 09:15 | Outpatient (REF) | payer OTHER, SELFPAY ==
[2022-07-03 10:06] LABS: MANUAL DIFF FLAG NO
[2022-07-03 10:57] LABS: Basophils Absolute Auto 0.1 X10*3/uL (0.0-0.2); Eosinophils Absolute Auto 0.2 X10*3/uL (0.0-0.4); Eosinophils Percent Auto 2.8 % (0-4); Hemoglobin 15.2 g/dl (14.0-18.0); Imm Gran Abs Auto 0.02 X10*3/uL (0.00-0.03); Imm Gran Pct Auto 0.3 % (0.0-0.4); Lymphocytes Percent Auto 25.5 % (20-40); Mean Corpuscular HGB Conc 25.4 g/dl (31.0-36.0); Mean Corpuscular Hemoglobin 20.8 pg (27.0-33.0); Mean Corpuscular Volume 81.8 fL (80.0-98.0); Mean Platelet Volume 10.2 fL (9.4-12.4); Monocytes Absolute Auto 0.9 X10*3/uL (0.1-1.2); Neutrophils Absolute Auto 4.8 x10*3/uL (2.0-8.3); Neutrophils Percent Auto 59.4 % (45-73); Platelet Count 246 X10*3/uL (160-400); Red Blood Count 7.32 X10*6/uL (4.60-5.80); Red Cell Distribution Width 20.7 % (11.0-16.0)
[2022-07-03 11:03] LABS: Hematocrit 59.9 % (42.0-52.0)
[2022-07-03 11:04] LABS: Estimated Average Glucose 166 mg/dL; Hemoglobin A1c % 7.4 %
[2022-07-03 11:20] LABS: Creatinine Urine 386.77 mg/dL; Microalbum/Creatinine Ratio Ur 21.4 ug/mg cr
[2022-07-03 11:25] LABS: Alanine Aminotransferase 16 U/L (0-40); Albumin Level 4.2 g/dL (3.5-5.0); Alkaline Phosphatase 66 U/L (39-117); Anion Gap 14 (12-20); Aspartate Amino Transferase 13 U/L (5-37); Bilirubin Total 0.9 mg/dL (0.0-1.0); Blood Urea Nitrogen 14 mg/dL (9-16); Calcium 9.2 mg/dL (8.4-10.2); Carbon Dioxide 34 mmol/L (22-29); Chloride 100 mmol/L (96-108); Cholesterol 162 mg/dL; Estimated Glomerular Filt Rate > 60; Glucose Random 136 mg/dL (60-115); HDL Cholesterol 41 mg/dL; LDL Cholesterol Calculated 102 mg/dl; Potassium 4.8 mmol/L (3.3-5.1); Sodium 143 mmol/L (135-145); Total Protein 7.3 g/dL (6.5-8.0); Triglycerides 95 mg/dL
== END 2022-07-03 09:16 | disposition home or self-care (01) ==
LOC: HO.LAB 09:15
PROVIDERS: PCP Internal Medicine; Visit Provider Internal Medicine
DX: E11.65 Type 2 diabetes mellitus with hyperglycemia (principal); I10 Essential (primary) hypertension; J44.1 Chronic obstructive pulmonary disease with (acute) exacerbation; R09.02 Hypoxemia
CPT/HCPCS: 36415; 80053; 80061; 82043; 83036; 85025

== ENCOUNTER → 2022-07-21 09:31 | Outpatient (BNVA) | payer OTHER, SELFPAY | PROVIDERS: PCP Internal Medicine; Visit Provider Hospitalist | DX: J44.9 Chronic obstructive pulmonary disease, unspecified (principal); J96.11 Chronic respiratory failure with hypoxia; J96.12 Chronic respiratory failure with hypercapnia; J84.9 Interstitial pulmonary disease, unspecified; R91.1 Solitary pulmonary nodule; G47.33 Obstructive sleep apnea (adult) (pediatric); Z79.52 Long term (current) use of systemic steroids; Z79.899 Other long term (current) drug therapy; Z99.81 Dependence on supplemental oxygen | CPT/HCPCS: 99212 ==

== ENCOUNTER 2022-07-27 10:36 | Day surgery (SDC) | payer OTHER, SELFPAY ==
[2022-07-21 12:56] VITALS: BMI 40.8
--- NOTE | 2022-07-24 14:40 | P.CONAN_ITS ---
Documented by User: Natalie Jean NP 07/24/22 14:43 HPI - Anesthesia Eval Consult details Narrative: 72yo M for Interlaminar L5-F5Gsekajms Steroid Injection 07/21/22 Pulmo visit: Pt resp status stable, continues on continuous supplemental O2 @ 3L, instructed to decrease prednisone from 5mg daily to 5mg QOD PMFSH Active Problems Active Problems: All Active Problems (Updated 07/23/22 @ 20:33 by Tommy John MD) Pulmonary nodule (Acute) COVID-19 (Acute) Acute on chronic respiratory failure with hypoxia and hypercapnia (Acute) Acute on chronic heart failure with preserved ejection fraction (HFpEF) (Acute) COPD exacerbation (Acute) Metabolic encephalopathy (Acute) Left arm pain (Acute) ILD (interstitial lung disease) (Acute) O2 dependent (Acute) Lumbar back pain with radiculopathy affecting right lower extremity (Acute) Lumbar spondylosis (Acute) Lumbar radiculopathy (Acute) Screening examination for infectious disease (Acute) COPD (chronic obstructive pulmonary disease) (Acute) Chronic respiratory failure (Acute) Past Medical History Medical History (Updated 07/23/22 @ 20:33 by Tommy John MD) Acute on chronic respiratory failure with hypercapnia Acute on chronic respiratory failure with hypoxia and hypercapnia Asthma Bronchitis CHF (congestive heart failure) Chronic respiratory failure COPD (chronic obstructive pulmonary disease) Diabetes mellitus High cholesterol HTN (hypertension) Obesity hypoventilation syndrome On beta drea at home REBECA (obstructive sleep apnea) Pulmonary nodule Social History Social History Household Members: Spouse Housing: Apartment Do you presently have visiting nurse or other home services: No Alcohol intake: former Patient Tobacco Use Status: Never used Tobacco Second Hand Smoke Exposure: No Advance Directives: No Advance Directives Information Provided: Yes service: No Current occupational status: disabled Meds Allergies Allergy/AdvReac Type Severity Reaction Status Date / Time No Known Allergies Allergy Verified 07/21/22 10:01 Home Medications Medication Instructions Recorded Confirmed Last Taken Type fluticasone 250 mcg-salmeterol 50 1 inh inhalation BID 01/18/22 07/21/22 01/27/22 History mcg/dose blistr powdr for inhalation (Wixela Inhub) amlodipine 10 mg tablet 1 tab PO DAILY 01/28/22 07/21/22 01/27/22 History budesonide 160 mcg-glycopyr 9 2 puff PO BID 01/28/22 07/21/22 01/27/22 History mcg-formot 4.8 mcg/actuation HFA inhaler (Breztri Aerosphere) cholecalciferol (vitamin D3) 50 50 mcg PO DAILY 01/28/22 07/21/22 01/27/22 History mcg (2,000 unit) tablet metoprolol succinate 50 mg 1 tab PO DAILY 01/28/22 07/21/22 01/27/22 History tablet,extended release 24 hr sitagliptin phosphate 100 mg 1 tab PO DAILY 01/28/22 07/21/22 01/27/22 History tablet (Januvia) metformin 500 mg tablet,extended 1,000 mg PO BID 07/07/22 07/21/22 Unknown History release 24 hr olmesartan 40 mg tablet 40 mg PO DAILY 07/07/22 07/21/22 Unknown History rosuvastatin 10 mg tablet 10 mg PO DAILY 07/07/22 07/21/22 Unknown History Exam Exam Date and Time: July 24, 2022 1440 Height,Weight and Vital Signs: Height 5 ft 2 in Weight 101.151 kg Pertinent Lab Results Pertinent Lab Results: Laboratory Tests 07/03/22 07/03/22 10:04 10:04 WBC 8.0 Hgb 15.2 Hct 59.9 H Plt Count 246 Sodium 143 Potassium 4.8 Chloride 100 Carbon Dioxide 34 H BUN 14 Creatinine 1.16 Narrative Narrative: ECHO 01/2022 Conclusions: - Normal left ventricular size and systolic function. There is ? moderately increased left ventricular wall thickness.? The ? ? ? visually estimated ejection fraction is between 60-65%.? - E/E prime ratio is between 8 and 15 consistent with? indeterminate filling pressures. ? - Normal right ventricular cavity size and systolic function.? ? - There is mild dilatation of the ascending aorta measuring 4.00 cm.? ?? EKG 01/2022 Vent. Rate : 098 BPM ? ? Atrial Rate : 098 BPM ?? P-R Int : 158 ms? QRS Dur : 074 ms ? ? QT Int : 334 ms ? ? ? P-R-T Axes : 067 012 055 degrees ?? QTc Int : 426 ms ? Normal sinus rhythm Normal ECG When compared with ECG of 17-DEC-2021 14:39, No significant change was found PFT 02/2022 IMPRESSION:? Very severe obstructive and moderate restrictive combined ventilatory defect with no bronchodilator response.? Decreased expiratory reserve volume suggests extrathoracic restriction likely secondary to abdominal obesity.? Decreased diffusion capacity suggests emphysema. Assessment and Plan Assessment Anesthesia Assessment: Chart Reviewed Documented by User: Donita De Guzman MD 07/27/22 12:04 [facility] Past Medical History Medical History (Updated 07/23/22 @ 20:33 by Tommy John MD) Acute on chronic respiratory failure with hypercapnia Acute on chronic respiratory failure with hypoxia and hypercapnia Asthma Bronchitis CHF (congestive heart failure) Chronic respiratory failure COPD (chronic obstructive pulmonary disease) Diabetes mellitus High cholesterol HTN (hypertension) Obesity hypoventilation syndrome On beta drea at home REBECA (obstructive sleep apnea) Pulmonary nodule Family History Family history of problems with anesthesia: No Surgical History History of Problems with Anesthesia: No Social History Social History Household Members: Spouse Housing: Apartment Do you presently have visiting nurse or other home services: No Alcohol intake: former Patient Tobacco Use Status: Never used Tobacco Second Hand Smoke Exposure: No Advance Directives: No Advance Directives Information Provided: Yes service: No Current occupational status: disabled Meds Allergies Allergy/AdvReac Type Severity Reaction Status Date / Time No Known Allergies Allergy Verified 07/21/22 10:01 Home Medications Medication Instructions Recorded Confirmed Last Taken Type fluticasone 250 mcg-salmeterol 50 1 inh inhalation BID 01/18/22 07/21/22 01/27/22 History mcg/dose blistr powdr for inhalation (Wixela Inhub) amlodipine 10 mg tablet 1 tab PO DAILY 01/28/22 07/21/22 01/27/22 History budesonide 160 mcg-glycopyr 9 2 puff PO BID 01/28/22 07/21/22 01/27/22 History mcg-formot 4.8 mcg/actuation HFA inhaler (Breztri Aerosphere) cholecalciferol (vitamin D3) 50 50 mcg PO DAILY 01/28/22 07/21/22 01/27/22 History mcg (2,000 unit) tablet metoprolol succinate 50 mg 1 tab PO DAILY 01/28/22 07/21/22 01/27/22 History tablet,extended release 24 hr sitagliptin phosphate 100 mg 1 tab PO DAILY 01/28/22 07/21/22 01/27/22 History tablet (Januvia) metformin 500 mg tablet,extended 1,000 mg PO BID 07/07/22 07/21/22 Unknown History release 24 hr olmesartan 40 mg tablet 40 mg PO DAILY 07/07/22 07/21/22 Unknown History rosuvastatin 10 mg tablet 10 mg PO DAILY 07/07/22 07/21/22 Unknown History Exam Airway Mallampati Class: III TM Dist: <=3cm Neck ROM: Full Heart: rr Lungs: cta Assessment and Plan Assessment Anesthesia Assessment: Anesthesia Plan Discussed Final Anesthetic Review Family History of Problems with Anesthesia: No History of Problems with Anesthesia: No NPO: Yes ASA Class: III Final Preanesthetic Review: No Changes in Pt Med Stat Patient Risk: Intermediate Procedure Risk: Low Anesthetic Plan Anesthetic Plan: MAC:
--- NOTE | ~2022-07-27 | FL_ITS ---
EXAMINATION: XR FLUOROSCOPY WITH IMAGES CLINICAL INFORMATION: Pain. Lumbosacral epidural steroid injection COMPARISON: MR lumbar spine 06/02/2022 TECHNIQUE: Fluoroscopy Supervised By: Dr. Du Sheets. Fluoroscopy Time: 0.3 minutes. Cumulative Dose: 13.0 mGy. DAP: 3.19 Gycm2. Images: 2. FINDINGS: There is an interlaminar spinal needle with tip at midline L5-S1. FL/FL guidance in OR IMPRESSION: Fluoroscopy for pain management procedure.
--- NOTE | 2022-07-27 11:36 | MHC.SHP ---
Pre-Procedural Eval Section A Date of Service: 07/27/22 The patient is an INPATIENT: No Changes since office visit: Yes Patient answered all questions The History & Physical has been completed within 30 days and I have reviewed it.: No Section B Chief Complaint: Radiculopathy, lumbar region Details of Present Illness: as above Relevant Family History (Specify if Yes): No Relevant Social History: None Present Medications: see Short Stay Collaborative assessment Medical History: No relevant PMH History of Previous Operations: No relevant previous surgery Allergies: Allergies Allergy/AdvReac Type Severity Reaction Status Date / Time No Known Allergies Allergy Verified 07/21/22 10:01 Review of Systems Sugical H&P ROS: Negative: Constitution, Cardiovascular, Respiratory, Neurological, Psychiatric, Hem-Onc, Allergic/Immunologic, Gastrointestinal, Genitourinary, Musculoskeletal, Integumentary, Endocrine and Eyes/Ears/Nose/Throat Exam Surgical H&P Exam: Normal: HEENT, Normal: Heart, Normal: Lungs, Normal: Extremities, Normal: Abdomen, Normal: Skin and Normal: Neurological Plan Diagnosis/Plan: Unchanged I have reviewed the history and physical and performed a pertinent physical examination on my patient. No changes have occurred unless specified.
--- NOTE | 2022-07-27 12:08 | P.BOP_ITS ---
Brief Operative Note Date of Service: 07/27/22 Pre-op diagnosis: radiculopathy lumbosacral Post-op diagnosis: same Procedure: interlaminar epidural steroid injection. Surgeon: Du Sheets MD Was an General Merchandise Salesperson used for this Procedure?: No Estimated blood loss (mL): 1 Condition: stable Disposition: PACU
--- NOTE | 2022-07-27 12:09 | W.PM.OPN ---
Operative Note Operative Note Date of Service: 07/27/22 Narrative: Interlaminar L5-S1 epidural steroid injection ? Informed consent was thoroughly explained to the patient before the procedure.? The patient came to the operating room.? He was positioned prone on operating table with a pillow under his abdomen.? Time-out was performed delineating correct site and side of the procedure, nature of the injection, name and date of of the patient. ? The lower back of the patient was prepped with ChloraPrep and draped with sterile utility towels.? C-arm was brought over the operating field and sq picture of L5 vertebra and Sacral bone were demonstrated on the screen.? The right side of the interlaminar space L5- S1 was chosen as the target of the injection. The projection of the upper border of the S1 lamina was chosen as an initial target of the injection. The projection of the target to the skin was injected with lidocaine 2% 2 mls. After that 2o G 10 cm tuohy needle was advanced through the skin wheal toward the target under intermittent AP and lateral view, When the needle contacted the bone of the lamina close to the right side of the spinous process the tip of the needle was shifted toward cephalad direction and loss of the resistance to air syringe was attached to the needle. The needle was advanced slowly few mm further until the SOLO was felt. Injection of the omnipaque 180 contrast was performed into the needle demonstrating epidurogram. After that 3 ml. of lidocaine 1% mixed with 40 mg of kenalog was performed into the needle. After that injection of the treatment medicine 2 cc of lidocaine 1% mixed with Kenalog 40 mg was injected into the foramina.? Injection of the contrast and injection of the treatment medicine was observed live on the screen.? No intrathecal and no intravascular spread of the contrast was noted. ? Upon completion of the procedure the needle was removed and sterile Band-Aids were applied. ? Patient tolerated procedure well he was taken outside of the operating room where he recovered uneventfully.
[2022-07-27 12:15] VITALS: BP 119/85; PULSE 78; RESP 18; TEMP 36.8; O2SAT 90
[2022-07-27] MEDS: Lactated Ringers 1,000 ML 50 ML IVCONT (12:19)
[2022-07-27 12:24] LABS: Glucose, Whole Blood 149 mg/dL (60-115)
[2022-07-27 12:54] VITALS: BP 93/62; PULSE 83; RESP 20; TEMP 37.1; O2SAT 98
[2022-07-27 13:09] VITALS: BP 96/54; PULSE 79; RESP 20; TEMP 36.8; O2SAT 95
[2022-07-27 13:24] VITALS: BP 101/48; PULSE 78; RESP 18; TEMP 37.4; O2SAT 95
== END 2022-07-27 14:27 | disposition home or self-care (01) ==
PROVIDERS: PCP Internal Medicine; Visit Provider Anesthesiology
PROC: 3E0R33Z Introduction of Anti-inflammatory into Spinal Canal, Percutaneous Approach (ICD-10-PCS; CPT 62323; principal; 2022-07-27 12:20)
DX: M54.16 Radiculopathy, lumbar region (principal); J96.22 Acute and chronic respiratory failure with hypercapnia; J96.21 Acute and chronic respiratory failure with hypoxia; Z99.81 Dependence on supplemental oxygen; J44.9 Chronic obstructive pulmonary disease, unspecified; I11.0 Hypertensive heart disease with heart failure; I50.9 Heart failure, unspecified; E78.00 Pure hypercholesterolemia, unspecified; E66.2 Morbid (severe) obesity with alveolar hypoventilation; Z68.41 Body mass index [BMI] 40.0-44.9, adult; E11.9 Type 2 diabetes mellitus without complications; Z79.01 Long term (current) use of anticoagulants; Z79.52 Long term (current) use of systemic steroids; Z79.84 Long term (current) use of oral hypoglycemic drugs
CPT/HCPCS: 62323; 82947; J3301; Q9965

== ENCOUNTER → 2022-08-30 10:42 | Outpatient (BNVA) | payer OTHER, SELFPAY | PROVIDERS: PCP Internal Medicine; Visit Provider Anesthesiology | DX: J96.21 Acute and chronic respiratory failure with hypoxia (principal); J96.22 Acute and chronic respiratory failure with hypercapnia; M54.16 Radiculopathy, lumbar region; M47.816 Spondylosis without myelopathy or radiculopathy, lumbar region | CPT/HCPCS: 99212 ==

== ENCOUNTER 2022-10-02 09:50 | Outpatient (REF) | payer OTHER, SELFPAY ==
[2022-10-02 11:12] LABS: Estimated Average Glucose 157 mg/dL; Hemoglobin A1c % 7.1 %
[2022-10-02 11:16] LABS: Alanine Aminotransferase 23 U/L (0-40); Albumin Level 4.1 g/dL (3.5-5.0); Alkaline Phosphatase 66 U/L (39-117); Anion Gap 15 (12-20); Aspartate Amino Transferase 15 U/L (5-37); Bilirubin Total 0.7 mg/dL (0.0-1.0); Blood Urea Nitrogen 14 mg/dL (9-16); Calcium 9.6 mg/dL (8.4-10.2); Carbon Dioxide 29 mmol/L (22-29); Chloride 103 mmol/L (96-108); Cholesterol 192 mg/dL; Estimated Glomerular Filt Rate > 60; Glucose Random 140 mg/dL (60-115); HDL Cholesterol 47 mg/dL; LDL Cholesterol Calculated 118 mg/dl; Sodium 142 mmol/L (135-145); Total Protein 7.1 g/dL (6.5-8.0); Triglycerides 139 mg/dL
== END 2022-10-02 09:51 | disposition home or self-care (01) ==
LOC: HO.LAB 09:50
PROVIDERS: PCP Internal Medicine; Visit Provider Internal Medicine
DX: I10 Essential (primary) hypertension (principal); E11.65 Type 2 diabetes mellitus with hyperglycemia; E78.00 Pure hypercholesterolemia, unspecified; R80.9 Proteinuria, unspecified
CPT/HCPCS: 36415; 80053; 80061; 83036

== ENCOUNTER → 2022-10-30 10:02 | Outpatient (BNVA) | payer OTHER, SELFPAY | PROVIDERS: PCP Internal Medicine; Visit Provider Hospitalist | DX: J44.9 Chronic obstructive pulmonary disease, unspecified (principal); J96.11 Chronic respiratory failure with hypoxia; J96.12 Chronic respiratory failure with hypercapnia; J84.9 Interstitial pulmonary disease, unspecified; R91.1 Solitary pulmonary nodule; G47.33 Obstructive sleep apnea (adult) (pediatric) | CPT/HCPCS: 99212 ==

== ENCOUNTER 2022-12-28 10:16 | Outpatient (REF) | payer OTHER, SELFPAY ==
[2022-12-28 10:34] LABS: MANUAL DIFF FLAG NO
[2022-12-28 11:03] LABS: Basophils Absolute Auto 0.1 X10*3/uL (0.0-0.2); Basophils Percent Auto 0.6 % (0-2); Eosinophils Absolute Auto 0.1 X10*3/uL (0.0-0.4); Eosinophils Percent Auto 1.3 % (0-4); Hemoglobin 17.7 g/dl (14.0-18.0); Imm Gran Abs Auto 0.04 X10*3/uL (0.00-0.03); Imm Gran Pct Auto 0.5 % (0.0-0.4); Lymphocytes Absolute Auto 2.5 X10*3/uL (1.2-4.9); Lymphocytes Percent Auto 30.6 % (20-40); Mean Corpuscular HGB Conc 29.8 g/dl (31.0-36.0); Mean Corpuscular Hemoglobin 26.6 pg (27.0-33.0); Mean Corpuscular Volume 89.2 fL (80.0-98.0); Mean Platelet Volume 9.9 fL (9.4-12.4); Monocytes Absolute Auto 0.7 X10*3/uL (0.1-1.2); Monocytes Percent Auto 8.9 % (2-11); Neutrophils Absolute Auto 4.7 x10*3/uL (2.0-8.3); Neutrophils Percent Auto 58.1 % (45-73); Platelet Count 212 X10*3/uL (160-400); Red Blood Count 6.65 X10*6/uL (4.60-5.80); Red Cell Distribution Width 14.3 % (11.0-16.0)
[2022-12-28 11:12] LABS: Hematocrit 59.3 % (42.0-52.0)
[2022-12-28 11:13] LABS: Estimated Average Glucose 154 mg/dL
[2022-12-28 11:48] LABS: Creatinine Urine 276.26 mg/dL; Microalbum/Creatinine Ratio Ur 27.5 ug/mg cr
[2022-12-28 12:06] LABS: Alanine Aminotransferase 21 U/L (0-40); Albumin Level 4.3 g/dL (3.5-5.0); Alkaline Phosphatase 92 U/L (39-117); Anion Gap 11 (12-20); Aspartate Amino Transferase 13 U/L (5-37); Bilirubin Total 0.7 mg/dL (0.0-1.0); Blood Urea Nitrogen 15 mg/dL (9-16); Carbon Dioxide 33 mmol/L (22-29); Chloride 101 mmol/L (96-108); Cholesterol 210 mg/dL; Estimated Glomerular Filt Rate > 60; Glucose Random 126 mg/dL (60-115); HDL Cholesterol 45 mg/dL; LDL Cholesterol Calculated 129 mg/dl; Sodium 140 mmol/L (135-145); Total Protein 7.4 g/dL (6.5-8.0); Triglycerides 182 mg/dL
[2022-12-28 12:26] LABS: Thyroid Stimulating Hormone 1.12 uIU/mL (0.32-4.0)
== END 2022-12-28 10:17 | disposition home or self-care (01) ==
LOC: HO.LAB 10:16
PROVIDERS: PCP Internal Medicine; Visit Provider Internal Medicine
DX: E11.9 Type 2 diabetes mellitus without complications (principal); I10 Essential (primary) hypertension; R51.9 Headache, unspecified; R80.9 Proteinuria, unspecified
CPT/HCPCS: 36415; 80053; 80061; 82043; 83036; 84443; 85025

== ENCOUNTER 2022-12-28 10:39 | Day surgery (SDC) | payer OTHER, SELFPAY ==
[2022-12-20 11:27] VITALS: BMI 41.1
--- NOTE | 2022-12-27 10:03 | P.CONAN_ITS ---
Documented by User: Natalie Jean NP 12/27/22 10:06 HPI - Anesthesia Eval Consult details Narrative: 72yo M for Interlaminar L5-S1 Epidural Steroid Injection s/p same 07/2022 with TIVA Chronic resp failure with cont O2 @ 3L. Follows [facility] [place]. Last office visit 10/2022. Stable, off prednisone, continue with current tx. PMFSH Active Problems Active Problems: All Active Problems (Updated 12/20/22 @ 11:27 by Megan Perez RN) COVID-19 (Acute) Acute on chronic respiratory failure with hypoxia and hypercapnia (Acute) Acute on chronic heart failure with preserved ejection fraction (HFpEF) (Acute) COPD exacerbation (Acute) Metabolic encephalopathy (Acute) Left arm pain (Acute) ILD (interstitial lung disease) (Acute) O2 dependent (Acute) Lumbar back pain with radiculopathy affecting right lower extremity (Acute) Lumbar spondylosis (Acute) Lumbar radiculopathy (Acute) Screening examination for infectious disease (Acute) Pulmonary nodule (Acute) COPD (chronic obstructive pulmonary disease) (Acute) Chronic respiratory failure (Acute) Past Medical History Medical History (Updated 12/20/22 @ 11:27 by Megan Perez RN) Acute on chronic respiratory failure with hypercapnia Acute on chronic respiratory failure with hypoxia and hypercapnia Asthma Bronchitis CHF (congestive heart failure) Chronic respiratory failure COPD (chronic obstructive pulmonary disease) Diabetes mellitus High cholesterol HTN (hypertension) O2 dependent Obesity hypoventilation syndrome On beta drea at home REBECA (obstructive sleep apnea) Pulmonary nodule Family History Family history of problems with anesthesia: No Surgical History Surgical History (Updated 12/20/22 @ 11:00 by Megan Perez RN) History of surgery History of Problems with Anesthesia: No Social History Social History Household Members: Spouse Housing: Apartment Are you a primary care specialist to a significant other at home: No Do you presently have visiting nurse or other home services: No Alcohol intake: former Patient Tobacco Use Status: Never used Tobacco Second Hand Smoke Exposure: No Use of substances other than those prescribed or required for medical reasons: No Are you DNR?: No Advance Directives: No Advance Directives Information Provided: Yes (brochure mailed) Advance Directives on File: No Recently lost weight without trying: No Eating poorly because of decreased appetite: No Nutrition Risks: No Nutritional Risk service: No Current occupational status: disabled Meds Allergies Allergy/AdvReac Type Severity Reaction Status Date / Time No Known Allergies Allergy Verified 10/30/22 10:37 Home Medications Medication Instructions Recorded Confirmed Last Taken Type fluticasone 250 mcg-salmeterol 50 1 inh inhalation BID 01/18/22 12/20/22 01/27/22 History mcg/dose blistr powdr for inhalation (Wixela Inhub) amlodipine 10 mg tablet 1 tab PO DAILY 01/28/22 12/20/22 01/27/22 History budesonide 160 mcg-glycopyr 9 2 puff PO BID 01/28/22 12/20/22 01/27/22 History mcg-formot 4.8 mcg/actuation HFA inhaler (Breztri Aerosphere) metoprolol succinate 50 mg 1 tab PO DAILY 01/28/22 12/20/22 01/27/22 History tablet,extended release 24 hr sitagliptin phosphate 100 mg 1 tab PO DAILY 01/28/22 12/20/22 01/27/22 History tablet (Januvia) metformin 500 mg tablet,extended 1,000 mg PO BID 07/07/22 12/20/22 Unknown History release 24 hr olmesartan 40 mg tablet 40 mg PO DAILY 07/07/22 12/20/22 Unknown History rosuvastatin 10 mg tablet 10 mg PO DAILY 07/07/22 12/20/22 Unknown History Oxygen Home Use 10/30/22 Unknown History nebulizers 10/30/22 Unknown History Exam Exam Date and Time: December 27, 2022 1003 Height,Weight and Vital Signs: Height 5 ft 2 in Weight 102.058 kg Pertinent Lab Results Pertinent Lab Results: Laboratory Tests 07/03/22 10/02/22 10:04 10:12 WBC 8.0 Hgb 15.2 Hct 59.9 H Plt Count 246 Sodium 142 Potassium 5.0 Chloride 103 Carbon Dioxide 29 BUN 14 Creatinine 1.03 Narrative Narrative: ECHO 01/2022 Conclusions: - Normal left ventricular size and systolic function. There is ? moderately increased left ventricular wall thickness.? The ? ? ? visually estimated ejection fraction is between 60-65%.? - E/E prime ratio is between 8 and 15 consistent with? indeterminate filling pressures. ? - Normal right ventricular cavity size and systolic function.? ? - There is mild dilatation of the ascending aorta measuring 4.00 cm.? ?? EKG 01/2022 Vent. Rate : 098 BPM ? ? Atrial Rate : 098 BPM ?? P-R Int : 158 ms? QRS Dur : 074 ms ? ? QT Int : 334 ms ? ? ? P-R-T Axes : 067 012 055 degrees ?? QTc Int : 426 ms ? Normal sinus rhythm Normal ECG When compared with ECG of 17-DEC-2021 14:39, No significant change was found PFT 02/2022 IMPRESSION:? Very severe obstructive and moderate restrictive combined ventilatory defect with no bronchodilator response.? Decreased expiratory reserve volume suggests extrathoracic restriction likely secondary to abdominal obesity.? Decreased diffusion capacity suggests emphysema. CT chest wo IV con 04/2022 IMPRESSION: Mild emphysema. Increased interstitial markings and interlobular septal thickening similar to previous exam. Improved small bilateral patchy infiltrates or areas of atelectasis from July 2021 exam. Left upper lobe bronchial wall thickening and 4 mm semisolid left upper lobe nodule. These findings are similar to previous exam. Coronary artery calcification. Upper normal-size tortuous thoracic aorta. Assessment and Plan Assessment Anesthesia Assessment: Chart Reviewed Final Anesthetic Review Family History of Problems with Anesthesia: No History of Problems with Anesthesia: No Documented by User: Carlos Tavarez MD 12/28/22 13:12 [facility] Past Medical History Medical History (Updated 12/20/22 @ 11:27 by Megan Perez RN) Acute on chronic respiratory failure with hypercapnia Acute on chronic respiratory failure with hypoxia and hypercapnia Asthma Bronchitis CHF (congestive heart failure) Chronic respiratory failure COPD (chronic obstructive pulmonary disease) Diabetes mellitus High cholesterol HTN (hypertension) O2 dependent Obesity hypoventilation syndrome On beta drea at home REBECA (obstructive sleep apnea) Pulmonary nodule Surgical History Surgical History (Updated 12/20/22 @ 11:00 by Megan Perez RN) History of surgery Social History Social History Household Members: Spouse Housing: Apartment Are you a primary care specialist to a significant other at home: No Do you presently have visiting nurse or other home services: No Alcohol intake: former Patient Tobacco Use Status: Never used Tobacco Second Hand Smoke Exposure: No Use of substances other than those prescribed or required for medical reasons: No Are you DNR?: No Advance Directives: No Advance Directives Information Provided: Yes (brochure mailed) Advance Directives on File: No Recently lost weight without trying: No Eating poorly because of decreased appetite: No Nutrition Risks: No Nutritional Risk service: No Current occupational status: disabled [employer] Allergies Allergy/AdvReac Type Severity Reaction Status Date / Time No Known Allergies Allergy Verified 10/30/22 10:37 Home Medications Medication Instructions Recorded Confirmed Last Taken Type fluticasone 250 mcg-salmeterol 50 1 inh inhalation BID 01/18/22 12/20/22 01/27/22 History mcg/dose blistr powdr for inhalation (Wixela Inhub) amlodipine 10 mg tablet 1 tab PO DAILY 01/28/22 12/20/22 01/27/22 History budesonide 160 mcg-glycopyr 9 2 puff PO BID 01/28/22 12/20/22 01/27/22 History mcg-formot 4.8 mcg/actuation HFA inhaler (Breztri Aerosphere) metoprolol succinate 50 mg 1 tab PO DAILY 01/28/22 12/20/22 01/27/22 History tablet,extended release 24 hr sitagliptin phosphate 100 mg 1 tab PO DAILY 01/28/22 12/20/22 01/27/22 History tablet (Januvia) metformin 500 mg tablet,extended 1,000 mg PO BID 07/07/22 12/20/22 Unknown History release 24 hr olmesartan 40 mg tablet 40 mg PO DAILY 07/07/22 12/20/22 Unknown History rosuvastatin 10 mg tablet 10 mg PO DAILY 07/07/22 12/20/22 Unknown History Oxygen Home Use 10/30/22 Unknown History nebulizers 10/30/22 Unknown History Exam Airway Mallampati Class: III TM Dist: <=3cm Neck ROM: Full Denture: Upper Heart: ok Lungs: severe CLD Assessment and Plan Assessment Anesthesia Assessment: Anesthesia Plan Discussed Final Anesthetic Review NPO: Yes ASA Class: IV Final Preanesthetic Review: No Changes in Pt Med Stat, Meds/Allgs Chart Reviewed, Consent Obtained/Reviewed and Anes Risks/Benef Reviewed Patient Risk: High Procedure Risk: Intermediate Anesthetic Plan Anesthetic Plan: MAC: and Agree w/ Assess. and Plan Disposition: Standard PACU
--- NOTE | ~2022-12-28 | FL_ITS ---
EXAMINATION: XR FLUOROSCOPY WITH IMAGES CLINICAL INFORMATION: Pain management procedure/injection COMPARISON: Fluoroscopic spot views 07/27/2022 TECHNIQUE: Fluoroscopy Supervised By: Dr. Du Sheets. Fluoroscopy Time: 0.2 minutes. Cumulative Dose: 4.25 mGy. DAP: 0.0699 mGycm2. Images: 3. FINDINGS: There is a spinal needle at the interlaminar L5-S1 level. Epidural contrast demonstrated. FL/FL guidance in OR IMPRESSION: Fluoroscopy for pain management procedure.
--- NOTE | 2022-12-28 11:40 | MHC.SHP ---
Pre-Procedural Eval Section A Date of Service: 12/28/22 The patient is an INPATIENT: No Changes since office visit: Yes Patient answered all questions The History & Physical has been completed within 30 days and I have reviewed it.: No Section B Chief Complaint: Radiculopathy, lumbar region Details of Present Illness: as above Relevant Family History (Specify if Yes): No Relevant Social History: None Present Medications: see Short Stay Collaborative assessment Medical History: No relevant PMH History of Previous Operations: No relevant previous surgery Allergies: Allergies Allergy/AdvReac Type Severity Reaction Status Date / Time No Known Allergies Allergy Verified 10/30/22 10:37 Review of Systems Sugical H&P ROS: Negative: Constitution, Cardiovascular, Respiratory, Neurological, Psychiatric, Hem-Onc, Allergic/Immunologic, Gastrointestinal, Genitourinary, Musculoskeletal, Integumentary, Endocrine and Eyes/Ears/Nose/Throat Exam Surgical H&P Exam: Normal: HEENT, Normal: Heart, Normal: Lungs, Normal: Extremities, Normal: Abdomen, Normal: Skin and Normal: Neurological Plan Diagnosis/Plan: Unchanged I have reviewed the history and physical and performed a pertinent physical examination on my patient. No changes have occurred unless specified. Time Spent With Patient Time: Total time managing care of this patient today ____ minutes.
[2022-12-28 11:50] VITALS: BP 144/105; PULSE 105; RESP 20; TEMP 37.6; O2SAT 88
[2022-12-28 11:54] VITALS: BMI 41.1
[2022-12-28] MEDS: Lactated Ringers 1,000 ML 100 ML IVCONT (12:02)
--- NOTE | 2022-12-28 13:05 | W.PM.OPN ---
Operative Note Operative Note Date of Service: 12/28/22 Narrative: Interlaminar L5-S1 epidural steroid injection ? Informed consent was thoroughly explained to the patient before the procedure.? The patient came to the operating room.? He was positioned prone on operating table with a pillow under his abdomen.? Time-out was performed delineating correct site and side of the procedure, nature of the injection, name and date of of the patient. ? The lower back of the patient was prepped with ChloraPrep and draped with sterile utility towels.? C-arm was brought over the operating field and sq picture of L5 vertebra and Sacral bone were demonstrated on the screen.? The right side of the interlaminar space L5- S1 was chosen as the target of the injection. The projection of the upper border of the S1 lamina was chosen as an initial target of the injection. The projection of the target to the skin was injected with lidocaine 1% 2 mls. After that 2o G 10 cm tuohy needle was advanced through the skin wheal toward the target under intermittent AP and lateral view, When the needle contacted the bone of the lamina close to the right side of the spinous process the tip of the needle was shifted toward cephalad direction and loss of the resistance to air syringe was attached to the needle. The needle was advanced slowly few mm further until the SOLO was felt. Injection of the omnipaque 180 contrast was performed into the needle demonstrating epidurogram. After that 3 ml. of lidocaine 1% mixed with 40 mg of kenalog was performed into the needle. After that injection of the treatment medicine 4 cc of lidocaine 1% mixed with Kenalog 40 mg was injected into the epidural space.? Injection of the contrast and injection of the treatment medicine was observed on the screen.? No intrathecal and no intravascular spread of the contrast was noted. ? Upon completion of the procedure the needle was removed and sterile Band-Aids were applied. ? Patient tolerated procedure well he was taken outside of the operating room where he recovered uneventfully.
--- NOTE | 2022-12-28 13:06 | P.BOP_ITS ---
Brief Operative Note Date of Service: 12/28/22 Pre-op diagnosis: radiculopathy lumbar Post-op diagnosis: same Procedure: interlaminar EDEN L5- S1 Implants: as above Surgeon: Du Sheets MD Anesthesia: MAC Was an Scrubber Operator used for this Procedure?: No Estimated blood loss (mL): 2 Condition: stable Disposition: PACU
[2022-12-28 13:35] LABS: Glucose, Whole Blood 132 mg/dL (60-115)
[2022-12-28 13:52] VITALS: BP 125/75; PULSE 95; RESP 18; TEMP 37.1; O2SAT 93
[2022-12-28 14:07] VITALS: BP 146/71; PULSE 90; RESP 16; TEMP 36.8; O2SAT 95
== END 2022-12-28 14:47 | disposition home or self-care (01) ==
PROVIDERS: PCP Internal Medicine; Visit Provider Anesthesiology
PROC: 3E0R33Z Introduction of Anti-inflammatory into Spinal Canal, Percutaneous Approach (ICD-10-PCS; CPT 62323; principal; 2022-12-28 13:10)
DX: M54.16 Radiculopathy, lumbar region (principal); M47.816 Spondylosis without myelopathy or radiculopathy, lumbar region; J96.22 Acute and chronic respiratory failure with hypercapnia; J96.21 Acute and chronic respiratory failure with hypoxia; I11.0 Hypertensive heart disease with heart failure; I50.9 Heart failure, unspecified; J44.9 Chronic obstructive pulmonary disease, unspecified; J40 Bronchitis, not specified as acute or chronic; R91.1 Solitary pulmonary nodule; E11.9 Type 2 diabetes mellitus without complications; E78.00 Pure hypercholesterolemia, unspecified; E66.2 Morbid (severe) obesity with alveolar hypoventilation
CPT/HCPCS: 62323; 82947; J3010; J3301; Q9965

== ENCOUNTER → 2023-02-15 10:09 | Outpatient (BNVA) | payer OTHER, SELFPAY | PROVIDERS: PCP Internal Medicine; Visit Provider Nurse Practitioner Family | DX: M47.816 Spondylosis without myelopathy or radiculopathy, lumbar region (principal); M54.16 Radiculopathy, lumbar region; M51.36 Other intervertebral disc degeneration, lumbar region; Z91.81 History of falling | CPT/HCPCS: 99212 ==

== ENCOUNTER 2023-04-18 09:07 | Outpatient (REF) | payer MEDICARE, MEDICAID, SELFPAY ==
--- NOTE | ~2023-04-18 | CT_ITS ---
EXAMINATION: CT CHEST WITHOUT CONTRAST CLINICAL INFORMATION: Solitary pulmonary nodule COMPARISON: CT chest from 04/25/2022 TECHNIQUE: Multidetector volumetric CT imaging of the chest was done. Axial MIP volume rendering provided. Sagittal and coronal reformatted images were obtained. This CT examination was performed using dose optimization techniques as appropriate, variously including the following: *Automated exposure control *Adjustment of mA and/or kV according to patient size (this includes techniques or standardized protocols for targeted exams where dose is matched to indication/reason for exam; i.e. extremities or head) *Use of iterative reconstruction technique DLP: 227 mGy-cm FINDINGS: LUNGS/PLEURA: Biapical pleural parenchymal scarring. Emphysematous changes. Peripheral reticular nodular opacities. Stable micronodular pulmonary nodules for example in the anterolateral aspect of the right upper lobe (series 5, image 102) measuring 2 mm, stable. Stable nodular focus along the right minor fissure (series 5, image 249) measuring 2 mm. A few patchy radiopacities along the posterior aspect of the right upper lobe (series 5, image 157 and series 5, image 172 may reflect atelectatic changes versus scarring. Thickening along the mid to lateral margin of the right major fissure. Atelectatic changes along the right lung base. Atelectatic changes of the lingula. Stable nodular focus along the left major fissure (series 5, image 242) measuring 3 mm atelectatic changes of the left lung base. No new enlarged or suspicious pulmonary nodules or masses are noted. Central airways are patent. No pneumothorax. No large pleural effusion MEDIASTINUM: Heart is not enlarged. No pericardial effusion. Coronary artery calcifications are noted. Aorta is nonaneurysmal and demonstrates atherosclerotic calcifications. Main pulmonary artery is enlarged. A few mildly prominent though nonenlarged peritracheal, precarinal, and periaortic lymph nodes are noted. Visualized portions of the thyroid are AXILLA: No lymphadenopathy. 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 OSSEOUS STRUCTURES: Unremarkable. CT/CT chest wo IV con IMPRESSION: 1. Redemonstration of bilateral pulmonary nodules the largest measuring up to 3 mm, stable. 2. No new suspicious pulmonary nodules or masses are noted. 3. 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
== END 2023-04-18 09:08 | disposition home or self-care (01) ==
LOC: HO.CT 09:07
PROVIDERS: PCP Internal Medicine; Visit Provider Hospitalist
DX: R91.1 Solitary pulmonary nodule (principal)
CPT/HCPCS: 71250

== ENCOUNTER 2023-04-26 12:41 | Outpatient (REF) | payer MEDICARE, MEDICAID, SELFPAY ==
--- NOTE | ~2023-04-26 | MR_ITS ---
MR LUMBAR SPINE WITHOUT CONTRAST CLINICAL INFORMATION: Intervertebral disc degeneration/lumbar region. COMPARISON: Lumbar spine MRI 06/02/2022. TECHNIQUE: MRI of the lumbar spine was obtained using routine sequences without contrast. FINDINGS: There are 5 nonrib-bearing lumbar-type vertebral bodies. Lumbar alignment is normal. The vertebral body heights are maintained. There is mild disc volume loss and there is disc desiccation at L5-S1. There is no bone marrow edema. There are no acute fractures. Conus terminates at the L1-L2 level. No significant extraspinal soft tissue findings. The L1-L2, L2-L3, and L3-L4 disc contours remain within normal limits. No central canal stenosis and no foraminal stenosis at these levels. L4-L5: Diffuse annular disc bulge the superimposed left lateral disc osteophyte resulting in mild left-sided foraminal encroachment. No central canal and no right foraminal stenosis. L5-S1: Diffuse annular disc bulge with a superimposed shallow left paracentral disc protrusion that contacts without compressing the traversing left S1 nerve root within the left subarticular zone, similar to the prior study. Disc osteophyte and facet arthropathy result in stable mild to moderate left-sided foraminal stenosis. MR/MR lumbar spine wo con IMPRESSION: - At L5-S1, a shallow left paracentral disc protrusion contacts without compressing the traversing left S1 nerve root within the left subarticular zone and multifactorial degenerative changes result in stable mild to moderate left-sided foraminal stenosis. - At L4-L5, a left lateral disc osteophyte protrusion results in mild left-sided foraminal encroachment.
== END 2023-04-26 12:42 | disposition home or self-care (01) ==
LOC: HO.MRI 12:41
PROVIDERS: PCP Internal Medicine; Visit Provider Nurse Practitioner Family
DX: M51.36 Other intervertebral disc degeneration, lumbar region (principal); M47.816 Spondylosis without myelopathy or radiculopathy, lumbar region; M54.16 Radiculopathy, lumbar region; Z91.81 History of falling
CPT/HCPCS: 72148

== ENCOUNTER 2023-04-30 10:14 | Outpatient (AMB) | payer MEDICARE, SELFPAY ==
--- NOTE | 2023-04-30 10:36 | A.OFFVIS_ITS ---
Intake Vital Signs 04/30/23 10:37 Height 5 ft 2 in Weight 225 lb 1.471 oz BMI 41.2 BP 128/70 Blood Pressure Location Rt brachial Position Sitting Pulse 89 Pulse Source Pulse Oximeter Pulse Oximetry (%) 97 Oxygen Delivery Method Room Air Comment 3 Liters Oxygen([facility]) Intake Visit Reasons: COPD Satellite Installation Technician Required: No Allergies No Known Allergies Allergy (Verified 04/30/23 10:42) HPI HPI Comments History of Present Illness Details The patient is a 72-year-old gentleman with a known history of COPD and chronic respiratory failure. Apparently he has been diagnosed with COPD now for more than 30 years. The patient is no longer smoking. He previously was followed by Pulmonary at [facility]. However, recently he did move to [place] and now is getting established with local physicians and specialists. I did review his information from [facility]. His last PFTs from 2019 demonstrated that his FEV1 was around 45% suggesting severe COPD. In addition to that a significant diffusion impairment. The patient does have oxygen prescribed but he does not use it all the time. Sometimes he cannot carry the tank so is hard for him to uses oxygen. During the office visit initially will get tested for portable oxygen concentrator or conserving device. However, his baseline pulse ox was 81% on room air so therefore we terminated the conserving device trial as he is not going to qualify. He required up to 4 L of oxygen per minute to maintain a pulse ox in the low 90s. Will see about getting him an Oxymizer pendant to help him with his oxygen requirements. In addition to this the patient did have an ABG several years back demonstrating acute on chronic hypercarbic respiratory failure with CO2 of 68 mmHg per explained to the patient that with post hypercarbic hypoxic respiratory failure he needs to take care of himself because this can potentially continue getting worse. The patient has been on respiratory inhalers he has, she she she she she any medications she recently was prescribed Wixela which is fine but he has not started as of yet. Will maximize his respiratory at this time. In addition to this the patient does have daytime drowsiness with an [place] score of 12/24. His significant other reports snoring and also episodes of apnea. Therefore the patient will need an in-lab sleep study. Due to the fact that we need to measure his end- tidal CO2 to assess for ivaps the patient will be referred to [facility]. The patient also benefit from pulmonary rehab. also to note the patient did have a CT scan of the chest back in July 2021 when he was diagnosed with COVID demonstrating some minimal areas of ground-glass opacities, moderate emphysema is bronchitis and areas of atelectasis and scarring. The patient has already require prednisone for exacerbations. Usually requires prednisone 2 to 3 times a year. Therefore he will be an excellent candidate for Daliresp to treat his chronic bronchitis and to decrease his prednisone needs specially with his new diagnosis of diabetes. 02/21/2022 the patient is here for a pulmonary follow-up visit. He still struggling with his breathing. The patient has significant COPD and also developed severe COVID. Has been using 2 L of oxygen. Recently was admitted to the hospital with worsening respiratory symptoms and confusion. He was noted to have acute on chronic hypercarbic respiratory failure. He required BiPAP. The patient was briefly admitted to the ICU. He did improve and was able to be down graded to the intermediate medical unit. We did review his x-ray still demonstrating reticulonodular opacities at the bases. The patient also has been using the oxygen at nighttime to sleep with. He still having episodes of waking up short of breath. Based on his advanced COPD with now hypercarbic respiratory failure the patient will benefit from a noninvasive ventilator. Will go ahead and Request an astral from a local [employer] [facility]. During the office visit we did have him go for brief walking oximetry. We used a portable oxygen concentrator. The patient is doing better and he was able to maintain a pulse ox about 88-90% on a 4 L pulse With activity. Will go ahead optimize his respiratory therapy and repeat the study in a few weeks. I am hopeful that he is doing better we can see about getting him on a smaller conserving device. He does have a hard time caring the bigger tank. 03/15/2022 the patient is here for a pulmonary follow-up visit. Overall he is starting to feel better. The prednisone has been helpful. He has been taking a small dose to try to minimize the hyperglycemia. He also was prescribed Daliresp. He did not start that medication. I will recent to the pharmacy. That is with hopes of decreasing further his steroid medication. His breathing is overall better. We did review his chest x-ray that he had couple days ago which demonstrated interval improvement of the basilar opacities. Still having some evidence of perihilar congestion. the x-ray continues to be abnormal. His last CT scan of the chest was back in 2020. will go ahead request a CT scan at this time to assess the degree of the interstitial lung disease after therapy with prednisone. the patient is also scheduled undergo a in-lab sleep study. We did request that at [facility] in order to assess his end-tidal CO2. [facility]. The patient did a lot better. He was able to maintain a pulse ox of 93% on room air while resting. Although, he desaturated with activity he was able to maintain a pulse ox of 91% on 3 L pulse. Therefore I will send a prescription to his DME company, [employer] to provide him with smaller the cylinders with a conserving valve to be able to use at 3 L pulse. 05/19/2022 the patient for pulmonary follow-up visit. The multiple complaints. First feels that his oxygen is in a lasting for 20-30 minutes when she would be a conserving tank. We did go through the instructions and the use. Appears that he was setting with lung setting where was running continuous instead of pulse. Did read the rectum and her use it correctly this with should have ample amount of oxygen only with 1 tank. The patient does well with the pulse is conserving device which continued to use it. The meantime the patient has been taking the prednisone twice a day. We did review his CT scan of the chest demonstrating some stability in some areas and some improvement in some others. Overall this is an improvement. The patient would like to come off some of the prednisone. Overall his breathing feels better. He still has dyspnea on exertion and cough. But at this point will try to decrease the prednisone in view of his diabetes. With decreased down to 5 mg daily from 5 mg twice a day. Hopefully we can tolerate this for 2 weeks as we do work on decreasing further. The patient is also struggling with CPAP. Does not like the CPAP mask. I did adjust the settings and adjust the mask and tolerated better. 07/21/2022 the patient is here for a pulmonary follow-up visit. Overall he is doing better from a respiratory status. He still having issues with her DME company. He does clam picker his own tanks in the state that typically the only partially full and therefore the anti faster. We did request a filling station from the [employer]. However, they do not have those available anymore. Patient will continue to have to work with [employer]. In the meantime he did get the right instructions and has been using the oxygen tanks appropriately at 3 L pulse with activity. The patient has been on the 5 mg of prednisone. We did talk about changing it to every other day with the hopes that he can then stop it after a few weeks. He does continue to use the Daliresp. In addition to that he has been using the CPAP. He does use the PAP therapy more than 4 hours a night. The CPAP therapy continues to be affecting beneficial. Will follow-up in 6 months. 10/30/2022 the patient is here for pulvito fuchs follow-up visit. She continues use the oxygen with good effect. He has a hard time with the filling station and needs oxygen tanks. He is looking to get a portable oxygen concentrator. Currently he is using 3 L pulse. He understands that the battery life on the portable oxygen concentrator is a limited. He also understands that his [employer] company may be in back order of the portable oxygen concentrator is a may not have 1 available for him at this time. He understands the process may be long. He is looking to travel to [place]. He would have to call the [employer] to try to get a rental or lease if they have 1 available. He did wean off the prednisone. The patient continues on the Daliresp. He is currently tolerating the 250 mcg dose will go ahead and increase that. We did review his last CT scan of the chest demonstrating some degree of emphysema and some degree of interstitial lung disease with some scarring. He also has pulmonary nodule noted. He continues uses respiratory therapy with good effect. 04/30/2023 the patient is here for pulvito fuchs follow-up visit. The patient finally got his all portable oxygen concentrator. He has found that this is very affecting beneficial for him. He continues uses respiratory therapy with good effect. He still gets shortness of breath with activity but mild in severity. The patient also has been tolerating the higher dose Daliresp. Has not seen however significant weight loss. The patient recently had a CT scan of the chest in 04/18/2023. It appears that he has stable pulmonary nodules. However he has been having abdominal discomfort and distention. It was mentioned that there was some abnormality with this GI tract. Therefore will going to refer him to GI to further address that issue. Otherwise patient will return in 6-8 months. [facility] Medical History (Updated 04/30/23 @ 22:07 by Tommy John MD) Abdominal pain O2 dependent Pulmonary nodule On beta drea at home CHF (congestive heart failure) Acute on chronic respiratory failure with hypercapnia Diabetes mellitus Obesity hypoventilation syndrome Acute on chronic respiratory failure with hypoxia and hypercapnia REBECA (obstructive sleep apnea) Chronic respiratory failure COPD (chronic obstructive pulmonary disease) Asthma Bronchitis HTN (hypertension) High cholesterol Surgical History History of surgery Social History Household Members: Spouse Housing: Apartment Are you a primary healthcare risk control consultant to a significant other at home: No Do you presently have visiting nurse or other home services: No Alcohol intake: former Patient Tobacco Use Status: Never used Tobacco Second Hand Smoke Exposure: No service: No Current occupational status: disabled Review of Systems Const Reports no additional complaints ENT Reports Normal hearing present Card Denies chest pain, Denies chest pain at rest, Denies chest pain with activity, Denies pedal edema and Reports dyspnea on exertion Resp Denies cough and Reports dyspnea on exertion GI Denies abdominal pain Musc Denies abnormal gait, Reports back pain, Denies muscle cramps and Denies radiating pain into limb Skin/Breast Denies skin ulcer and Denies wounds Neuro Reports Normal hearing present and Denies abnormal gait Psych Reports no additional complaints Physical Exam Vital Signs: Last Vital Signs Pulse 89 04/30/23 10:37 BP 128/70 04/30/23 10:37 Pulse Ox 97 04/30/23 10:37 Oxygen Delivery Method Room Air 04/30/23 10:37 BMI result Body Mass Index 41.2 Const General: cooperative, healthy appearing and comfortable Orientation/consciousness: oriented to person, oriented to place and oriented to time HEENT Head: Yes normal to inspection Neck Neck: Yes normal visual inspection Carotids: no bruits Chest Chest palpation & inspection: normal inspection of the chest Resp Effort & Inspection: normal respiratory effort and able to speak in complete sentences Auscultation: no crackles, no rales, no rhonchi, no wheezes and diminished lung sounds Cardio Rate: regular rate Rhythm: regular rhythm Heart sounds: S1 normal heart sound present and S2 normal heart sound present Bruits: no carotid bruits Peripheral pulses: Peripheral pulses 2+ throughout GI Inspection: Yes normal to inspection Skin Wounds: no wounds Hair: normal Neuro General: oriented to person, oriented to place and oriented to time Cranial nerves: Yes Normal hearing present Cognition (Neuro): normal cognition Motor exam (neuro): 5/5 motor strength present throughout Extrem Other: venous exam: No significant superficial varicosities or spider telangiectasias, minimal edema General: No clubbing, No cyanosis and No edema Psych Appearance: grossly normal Mental Status: mental status grossly normal Speech and movement: Normal speech and movement present Assessment & Plan Assessment & Plan (1) Chronic respiratory failure: Code(s): J96.10 - Chronic respiratory failure, unspecified whether with hypoxia or hypercapnia Qualifiers: Respiratory failure complication: hypoxia and hypercapnia Qualified C ode(s): J96.11 - Chronic respiratory failure with hypoxia; J96.12 - Chronic respiratory failure with hypercapnia (2) REBECA (obstructive sleep apnea): Code(s): G47.33 - Obstructive sleep apnea (adult) (pediatric) (3) COPD (chronic obstructive pulmonary disease): Code(s): J44.9 - Chronic obstructive pulmonary disease, unspecified Qualifiers: COPD type: chronic bronchitis Chronic bronchitis type: mixed simple and mucopurulent Qualified Code(s): J41.8 - Mixed simple and mucopurulent chronic bronchitis (4) ILD (interstitial lung disease): Comment: likely post covid changes Code(s): J84.9 - Interstitial pulmonary disease, unspecified (5) Pulmonary nodule: Code(s): R91.1 - Solitary pulmonary nodule Plan continue Daliresp 500 mcg continue diuresis as tolerated continue with Incruse and Wixela continue with oxygen supplementation. Portable oxygen concentrator (POC) 3 L pulse to be provided for better portability outside of the home. He is to continue using the oxygen with sleep. 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, R10.9 - Unspecified abdominal pain Medications: New prednisone PO daily; Take 2 tabs daily x 5 days, then 1 tablet daily x 5 days 10 days 15 tabs 0RF Coding Level of Care Code Est Pt Level 4 (21727) Diagnoses Chronic respiratory failure with hypoxia and hypercapnia J96.11; J96.12 Respiratory failure complication: hypoxia and hypercapnia REBECA (obstructive sleep apnea) G47.33 Mixed simple and mucopurulent chronic bronchitis J41.8 COPD type: chronic bronchitis Chronic bronchitis type: mixed simple and mucopurulent ILD (interstitial lung disease) J84.9 Pulmonary nodule R91.1 Time Spent (min) 18
[2023-04-30 10:37] VITALS: BP 128/70; PULSE 89; O2SAT 97; BMI 41.2
== END 2023-04-30 11:00 | disposition home or self-care (01) ==
PROVIDERS: PCP Internal Medicine; Visit Provider Hospitalist
DX: J96.11 Chronic respiratory failure with hypoxia (principal); J96.12 Chronic respiratory failure with hypercapnia; G47.33 Obstructive sleep apnea (adult) (pediatric); J41.8 Mixed simple and mucopurulent chronic bronchitis; J84.9 Interstitial pulmonary disease, unspecified; R91.1 Solitary pulmonary nodule
CPT/HCPCS: 99214

== ENCOUNTER → 2023-04-30 10:14 | Outpatient (BNVA) | payer MEDICARE, SELFPAY | PROVIDERS: PCP Internal Medicine; Visit Provider Hospitalist | DX: J41.8 Mixed simple and mucopurulent chronic bronchitis (principal); J96.11 Chronic respiratory failure with hypoxia; J96.12 Chronic respiratory failure with hypercapnia; J84.9 Interstitial pulmonary disease, unspecified; G47.33 Obstructive sleep apnea (adult) (pediatric); R91.1 Solitary pulmonary nodule; Z79.899 Other long term (current) drug therapy | CPT/HCPCS: 99212 ==

== ENCOUNTER 2023-05-15 11:25 | Outpatient (REF) | payer MEDICARE, SELFPAY ==
[2023-05-15 13:04] LABS: MANUAL DIFF FLAG NO
[2023-05-15 13:12] LABS: Basophils Absolute Auto 0.1 X10*3/uL (0.0-0.2); Eosinophils Absolute Auto 0.1 X10*3/uL (0.0-0.4); Eosinophils Percent Auto 1.8 % (0-4); Hemoglobin 17.6 g/dl (14.0-18.0); Imm Gran Abs Auto 0.04 X10*3/uL (0.00-0.03); Imm Gran Pct Auto 0.5 % (0.0-0.4); Lymphocytes Absolute Auto 1.9 X10*3/uL (1.2-4.9); Lymphocytes Percent Auto 24.7 % (20-40); Mean Corpuscular HGB Conc 29.9 g/dl (31.0-36.0); Mean Corpuscular Hemoglobin 27.6 pg (27.0-33.0); Mean Corpuscular Volume 92.3 fL (80.0-98.0); Mean Platelet Volume 10.1 fL (9.4-12.4); Monocytes Absolute Auto 0.9 X10*3/uL (0.1-1.2); Monocytes Percent Auto 11.5 % (2-11); Neutrophils Absolute Auto 4.7 x10*3/uL (2.0-8.3); Neutrophils Percent Auto 60.5 % (45-73); Platelet Count 254 X10*3/uL (160-400); Red Blood Count 6.37 X10*6/uL (4.60-5.80); Red Cell Distribution Width 13.7 % (11.0-16.0); White Blood Count 7.8 X10*3/uL (4.8-10.8)
[2023-05-15 13:34] LABS: Alanine Aminotransferase 18 U/L (0-40); Albumin Level 4.2 g/dL (3.5-5.0); Alkaline Phosphatase 60 U/L (39-117); Anion Gap 14 (12-20); Aspartate Amino Transferase 14 U/L (5-37); Bilirubin Direct 0.2 mg/dL (0.0-0.5); Bilirubin Total 0.5 mg/dL (0.0-1.0); Blood Urea Nitrogen 17 mg/dL (9-16); Calcium 10.2 mg/dL (8.4-10.2); Carbon Dioxide 27 mmol/L (22-29); Chloride 104 mmol/L (96-108); Cholesterol 126 mg/dL (<200); Estimated Glomerular Filt Rate > 60; Glucose Random 107 mg/dL (60-115); HDL Cholesterol 44 mg/dL (>40); Hematocrit 58.8 % (42.0-52.0); LDL Cholesterol Calculated 61 mg/dL (<100); Potassium 4.1 mmol/L (3.3-5.1); Sodium 141 mmol/L (135-145); Total Protein 7.5 g/dL (6.5-8.0); Triglycerides 105 mg/dL (<150)
[2023-05-15 13:42] LABS: TSH reflex Free T4 0.98 uIU/mL (0.32-4.0)
[2023-05-15 14:04] LABS: Creatinine Urine 96.17 mg/dL; Microalbum/Creatinine Ratio Ur 22.8 ug/mg cr (<30)
== END 2023-05-15 11:26 | disposition home or self-care (01) ==
LOC: HO.HHCL 11:25
PROVIDERS: Visit Provider Internal Medicine
DX: I10 Essential (primary) hypertension (principal); E11.65 Type 2 diabetes mellitus with hyperglycemia
CPT/HCPCS: 36415; 80048; 80061; 80076; 82043; 82570; 84443; 85025

== ENCOUNTER 2023-06-04 12:40 | Outpatient (AMB) | payer MEDICARE, SELFPAY ==
--- NOTE | 2023-06-04 12:48 | A.OFFVIS_ITS ---
Intake Vital Signs 06/04/23 13:05 Height 5 ft 2 in Weight 217 lb BMI 39.7 BP 128/76 Blood Pressure Location Rt brachial Position Sitting Respiration 14 Pulse 99 Pulse Source Pulse Oximeter Pulse Oximetry (%) 93 Oxygen Delivery Method Nasal Cannula Oxygen Flow Rate 3 Intake Visit Reasons: MRI follow up per Deyanira Allergies No Known Allergies Allergy (Verified 06/04/23 13:06) HPI HPI Comments History of Present Illness Details Patient presents today to assess response to Interlaminar L5-S1 epidural steroid injection on 12/28/[address] Sheets. Patient reports 0% pain pain at this time and reports previous same injection provided him 80% pain relief. Patient reports he fell few months ago while getting out of bed and fell on his right side. He reports increased back pain with prolonged standing, prolonged sitting and bending forward. He denies pain aggravation with flexing backwards. On the MRI which was presented to me today there are not much of the significant changes short of L5-S1 disc bulge with superimposed shallow left paracentral disc protrusion that contacts without compressing the traversing left S1 nerve root within the left subarticular zone, disc osteophyte and facet arthropathy results in stable mild to moderate left- sided foraminal stenosis. However patient denies any radiculopathic pain, he denies any pain radiating in the left or right lower extremity. On personal examination there are L5-S1 Modic type 2 changes especially on L5 vertebra which could be addressed with intracept procedure. The only problem with this procedure is that the patient has severe COPD and respiratory failure and he may be a poor candidate for endotracheal intubation required for general anesthesia. However case under LMA might be considered. PRIOR: Patient presents today in the office to discuss results of lumbar spine MRI. He continues to endorse lower back pain that radiates into his right lower extremity posteriorly and occasionally to left lower extremity posteriorly in his left manning with associated numbness and tingling in his feet, right more than left. Patient reports back pain with worst with standing position and walking and mildly relieved with rest and sitting. Lumbar spine MRI noted for mild to moderate multilevel degenerative spondyloarthropathy of the lumbar spine as described in detail below. Most notably, there is moderate left-sided neural foraminal stenosis at L5-S1. Patient is interested in therapeutic lumbar EDEN injection. His blood sugars at home has been in 160's per patient and his family. Patient reports he has been off Eliquis for few months and does not take aspirin. Patient denies any bowel or bladder incontinence or saddle anesthesia. Patient is on home O2 at 3L via nasal cannula today. His pulse oximetry was 89% with mild dyspnea on exertion and warm to touch. Patient reports he is hot blooded and always feels warm. We increased his O2 to 4L via NC and O2Sats increased to 91%. His baseline is 84% on room air. He follows regularly with Dr. John. Patient denies any recent exposure to known sick contacts or recent travels. I have encouraged patient to get tested for flu and COVID for re- assurance given his significant medical history and co-morbidities. PRIOR: Patient is a pleasant 71 years old Kyrgyz speaking male presents today with worsening chronic back pain. Patient reports low back pain for the past 30 years without previous back surgery or injections. Denies any recent trauma, injury or falls. Patient has complex medical history, has COPD, DM (A1C 6.4), HTN, asthma, sleep apnea, vascular insufficiency left arm, on Eliquis per referral notes, O2 dependent with recent hypercapnic respiratory failure with ICU stay in 01/2022. Patient reports he is no longer on Eliquis and was advised to confirm this with this PCP. Patient reports his back pain originates as axial and spreads across his lower back and into his right lower extremity posteriorly just below right knee level with associated numbness and tingling in his right foot and toes. He reports starting physical therapy a few months ago but had to stop due to worsening of his back symptoms. Patient reports back pain with right sided radicular symptoms is reproducible with walking for 5 minutes, standing 5-10 minutes, climbing stairs and bending forward. He does get dyspneic with exertion and has to use O2@ 4L with ambulation and O2@ 3L with rest. Pain is described as constant aching, shooting, throbbing, numbing, tingling, spasming and heavy. Patient has been managing his pain with resting, hot shower or heat therapy, and extra strength Tylenol. He rates his pain 10/10. Patient reports lumbar spine MRI was ordered by his PCP but has not been scheduled yet. Patient is not sure if an MRI has been ordered. He denies any fever, malaise, abdominal or groin pain, shortness of breaths, bowel or bladder incontinence or saddle anesthesia. Patient ambulates with antalgic gait without assisting devices today. Patient reports right lower extremity weakness. Family reports the patient uses a walker at home and has been holding on to his family with ambulation today. [facility] Medical History (Updated 06/04/23 @ 13:30 by Du Sheets MD) Abdominal pain O2 dependent Pulmonary nodule On beta drea at home CHF (congestive heart failure) Acute on chronic respiratory failure with hypercapnia Diabetes mellitus Obesity hypoventilation syndrome Acute on chronic respiratory failure with hypoxia and hypercapnia REBECA (obstructive sleep apnea) Chronic respiratory failure COPD (chronic obstructive pulmonary disease) Asthma Bronchitis HTN (hypertension) High cholesterol Surgical History History of surgery Social History Household Members: Spouse Housing: Apartment Are you a primary director of healthcare systems to a significant other at home: No Do you presently have visiting nurse or other home services: No Alcohol intake: former Patient Tobacco Use Status: Never used Tobacco Second Hand Smoke Exposure: No service: No Current occupational status: disabled Physical Exam Vital Signs: Last Vital Signs Pulse 99 06/04/23 13:05 Resp 14 06/04/23 13:05 BP 128/76 06/04/23 13:05 Pulse Ox 93 06/04/23 13:05 Oxygen Delivery Method Nasal Cannula 06/04/23 13:05 Oxygen Flow Rate 3 06/04/23 13:05 BMI result Body Mass Index 39.7 Assessment & Plan Assessment & Plan (1) Lumbar spondylosis: Code(s): M47.816 - Spondylosis without myelopathy or radiculopathy, lumbar region (2) Lumbar radiculopathy: Code(s): M54.16 - Radiculopathy, lumbar region (3) Lumbar degenerative disc disease: Code(s): M51.36 - Other intervertebral disc degeneration, lumbar region (4) History of recent fall: Code(s): Z91.81 - History of falling (5) Vertebrogenic low back pain: Code(s): M54.51 - Vertebrogenic low back pain Plan Patient is status post interlaminar L5-S1 EDEN with no pain relief. Previously on 12/08/23, this injection provided patient with 80% pain relief for several months. And P referred him to MRI which did not demonstrate any nerve root compressions. The same time the patient has significant Modic type 1 and type to changes at L5-S1 vertebras. Intercept can be considered however this patient might require general anesthesia for the procedure. It is unclear whether not he will be able to tolerate general anesthetic. I will request Dr. John to give me a clearance on this matter. After that I will discuss the situation with the patient over the telephone. I promised to give him a call. Coding Level of Care Code Est Pt Level 4 (40986) Diagnoses Lumbar spondylosis M47.816 Lumbar radiculopathy M54.16 Lumbar degenerative disc disease M51.36 History of recent fall Z91.81 Vertebrogenic low back pain M54.51
[2023-06-04 13:05] VITALS: BP 128/76; PULSE 99; RESP 14; O2SAT 93; BMI 39.7
== END 2023-06-04 13:15 | disposition home or self-care (01) ==
PROVIDERS: PCP Internal Medicine; Visit Provider Anesthesiology
DX: M47.816 Spondylosis without myelopathy or radiculopathy, lumbar region (principal); M54.16 Radiculopathy, lumbar region; M51.36 Other intervertebral disc degeneration, lumbar region; Z91.81 History of falling; M54.51 Vertebrogenic low back pain
CPT/HCPCS: 99214

== ENCOUNTER → 2023-06-04 12:40 | Outpatient (BNVA) | payer MEDICARE, SELFPAY | PROVIDERS: PCP Internal Medicine; Visit Provider Anesthesiology | DX: M47.816 Spondylosis without myelopathy or radiculopathy, lumbar region (principal); M54.16 Radiculopathy, lumbar region; M51.36 Other intervertebral disc degeneration, lumbar region; M54.51 Vertebrogenic low back pain; Z91.81 History of falling | CPT/HCPCS: 99212 ==

== ENCOUNTER 2023-07-04 10:06 | Outpatient (AMB) | payer MEDICARE, SELFPAY ==
--- NOTE | 2023-07-04 10:26 | MHC.OFFVIS ---
Intake Vital Signs 07/04/23 10:37 Height 5 ft 2 in Weight 217 lb 13.067 oz BMI 39.8 BP 137/102 H Blood Pressure Location Lt brachial Position Sitting Pulse 92 Intake Visit Reasons: Positive colorectal cancer screening using Cologuard test Intake Note: Patient presents to in office visit today as a new patient for positive cologuard test. CC: Patient reports occasional abdominal bloating, denies other GI symptoms today. 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 PMX COPD REBECA CHF High cholesterol Hypertension Chronic respiratory failure/interstitial lung disease Diabetes History of metabolic encephalopathy Lumbar degenerative disc disease Frequent falls ? Chilaiditis syndrome History of peptic ulcer disease Positive Cologuard screening 06/13/2023 ? Glaucoma * SURGICAL HISTORY Lumbar laminectomy L5-S1 Colonoscopy-5 years ago per PCP record at [facility], GERD * ALLERGIES: NKDA * [facility] LABS: PCP labs 04/2023 unremarkable hepatic panel, unremarkable renal panel, TSH normal, unremarkable CBC CHEST CT 04/19/23 IMPRESSION: 1. Redemonstration of bilateral pulmonary nodules the largest measuring up to 3 mm, stable. 2. No new suspicious pulmonary nodules or masses are noted. 3. 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 LUMBAR SPINE MRI .The L1-L2, L2-L3, and L3-L4 disc contours remain within normal limits. No central canal stenosis and no foraminal stenosis at these levels * CT ABDOMEN AND PELVIS 12/17/21 FINDINGS: LUNG BASES: Mild bibasilar probable atelectasis. LIVER, GALLBLADDER, AND BILIARY TREE: The liver is normal in size, shape, and attenuation. No focal hepatic lesion or biliary ductal dilatation is present. The gallbladder is unremarkable with no evidence of radiopaque gallstones, gallbladder wall thickening, or obvious pericholecystic inflammatory changes. PANCREAS: Unremarkable. SPLEEN: Unremarkable. ADRENAL GLANDS: Unremarkable. KIDNEYS AND URETERS: The kidneys are normal in size, shape, and attenuation. No hydronephrosis, hydroureter, or calculi seen. Lateral left mid pole 1.1 cm hypodensity measuring approximately -1 Hounsfield units. Findings could represent a simple cyst versus angiomyolipoma. This is unchanged when compared to the CT dated 08/18/2021. Multiple simple-appearing right-sided renal cysts. No perinephric stranding. BLADDER: Unremarkable. GASTROINTESTINAL TRACT: No small- or large-bowel obstruction. No bowel wall thickening or associated inflammatory change. Sigmoid diverticulosis without evidence of acute diverticulitis. Unremarkable appendix. PERITONEAL CAVITY: No intra-abdominal free air or free fluid. ABDOMINAL WALL: Small, fat-containing left inguinal hernia. LYMPH NODES: No significant lymphadenopathy. VASCULAR: Atherosclerotic calcifications. No abdominal aortic dilatation or dissection. Unremarkable IVC. PELVIC VISCERA: Mild prostatomegaly with small parenchymal calcifications. OSSEOUS STRUCTURES: Unremarkable. CT/CT abdomen pelvis w con IMPRESSION: 1. No small- or large-bowel obstruction. Diverticulosis without evidence of acute diverticulitis. Unremarkable appendix. 2. No intra-abdominal lymphadenopathy or ascites. 3. Stable left posterior midpole simple cyst versus angiomyolipoma. Additional right-sided simple cysts are not clinically significant and no followup imaging is recommended. No enhancing renal parenchymal lesion. No hydronephrosis or hydroureter. TODAY'S VISIT Cymraes #Ivon Negro He is here with a female family member who is supportive. She is a retired nurse. He at first denies stomach pain and says he has pain in my bladder but since he saw his PCP the pain went away. He now has not dyspepsia, GERD, upper abd pain, CIC or lower abd pain. He was told his last scope 5 years ago at [facility] was normal and he would not need another for 10 years. I explain the radiology finding. He says he had some instances of feeling bloated after eating but htis resolved after I changed my diet. He is taking vitamins and consuming more fiber. This has even helped im with his low back pain (again, not upper). I explained to him management for this syndrome and I included XR been this note from the [employer] [place] [facility]: Initial management of Chilaiditi syndrome should include bed rest, intravenous fluid therapy, bowel decompression, enemas, and laxatives. A repeat radiograph following bowel decompression may show disappearance of the air below the diaphragm. Tus, bowel decompression documented by a follow-up radiograph can confirm both the diagnosis of the condition and the success of the therapy, by showing the disappearance of subdiaphragmatic air and repositioning of distended intestine back to the normal position beneath the liver. If the patient does not respond to initial conservative management, and either the obstruction fails to resolve or there is evidence of bowel ischemia, then surgical intervention is indicated. In recent years, surgical intervention has been increasingly used in order to manage symptoms of chronic, intermittent abdominal pain.25https://www.ncbi.nlm.nih.gov/pmc/articles/GRQ0049702/#B25? ROV prn. PFSH Medical History History of peptic ulcer disease Abdominal pain O2 dependent Pulmonary nodule On beta drea at home CHF (congestive heart failure) Acute on chronic respiratory failure with hypercapnia Diabetes mellitus Obesity hypoventilation syndrome Acute on chronic respiratory failure with hypoxia and hypercapnia REBECA (obstructive sleep apnea) Chronic respiratory failure COPD (chronic obstructive pulmonary disease) Asthma Bronchitis HTN (hypertension) High cholesterol Surgical History H/O colonoscopy History of surgery Family History Sister Breast cancer Sister FH: kidney cancer Brother Prostate cancer Social History Household Members: Spouse Housing: Apartment Are you a primary healthcare management consultant to a significant other at home: No Do you presently have visiting nurse or other home services: No Alcohol intake: former Patient Tobacco Use Status: Never used Tobacco Second Hand Smoke Exposure: No service: No Current occupational status: disabled Review of Systems Const Denies fatigue, Denies fever(s), Denies night sweats, Denies poor appetite and Denies weight loss ENT Reports Normal hearing present, Denies dysphagia, Denies odynophagia, Denies throat swelling and Denies tongue swelling Card Reports no additional complaints Resp Reports no additional complaints GI Denies abdominal pain, Denies melena, Denies bloating, Denies hematochezia, Denies constipation, Denies GI cramping, Denies dysphagia, Denies excessive flatus, Denies early satiety, Denies heartburn, Denies diarrhea, Denies nausea, Denies odynophagia, Denies vomiting and Denies hematemesis Skin/Breast Denies pruritus, Denies lesions, Denies rash and Denies jaundice Neuro Reports Normal hearing present and Denies Abnormal speech present Endo Denies fatigue Aller/Immun Denies throat swelling and Denies tongue swelling Physical Exam Vital Signs: Last Vital Signs Pulse 92 07/04/23 10:37 BP 137/102 H 07/04/23 10:37 BMI result Body Mass Index 39.8 Const General: cooperative, no acute distress, well developed and well groomed Nutritional Appearance: well nourished and obese Orientation/consciousness: oriented to person, oriented to place and oriented to time Limitations: language barrier and other limitations (oxygen dependent) HEENT Head: Yes normocephalic and Yes atraumatic Eyes General: appearance normal, both eyes and all related structures Pupils: Equal, round and reactive pupils present Neck Neck: Yes normal visual inspection and Yes no lymphadenopathy Thyroid: Thyroid normal Resp Effort & Inspection: normal respiratory effort and able to speak in complete sentences Auscultation: clear to auscultation bilaterally Cardio Rate: regular rate Rhythm: regular rhythm Heart sounds: Normal, physiologic split S2 sound present Peripheral pulses: radial pulses present and posterior tibial pulses present GI Inspection: No distended, Yes Abdominal panniculus present and Yes obesity Palpation (GI): Soft to palpation, nontender, no guarding, not rigid and No hepatosplenomegaly present Percussion: Yes normal to percussion Auscultation: normal bowel sounds Rectal Exam - Male: Yes deferred Skin Other: large nevi right cheek General skin exam: no rashes or lesions noted, turgor normal, dry skin (mostly on feet.), no jaundice, No spider nevi and no striae Rashes: no rashes Nails: normal Neuro General: oriented to person, oriented to place and oriented to time Cranial nerves: Yes Equal, round and reactive pupils present and Yes Normal hearing present Speech: No Abnormal speech present Extrem General: Yes normal to inspection, No clubbing, No cyanosis and No edema Psych Appearance: grossly normal and well kempt Mental Status: mental status grossly normal Speech and movement: Normal speech and movement present Affect: normal affect Attitude: cooperative Thought process: Normal thought process present and not confabulating Thought content: Normal thought content present Insight: Fair insight present (Psych) Judgement: Fair judgement present (Psych) Assessment & Plan Assessment & Plan (1) Positive colorectal cancer screening using DNA-based stool test: Code(s): R19.5 - Other fecal abnormalities (2) 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 She is a retired nurse. He at first denies stomach pain and says he has pain in my bladder but since he saw his PCP the pain went away. He now has not dyspepsia, GERD, upper abd pain, CIC or lower abd pain. He was told his last scope 5 years ago at [facility] was normal and he would not need another for 10 years. I explain the radiology finding. He says he had some instances of feeling bloated after eating but htis resolved after I changed my diet. He is taking vitamins and consuming more fiber. This has even helped im with his low back pain (again, not upper). I explained to him management for this syndrome and I included XR been this note from the [employer] [place] [facility]: Initial management of Chilaiditi syndrome should include bed rest, intravenous fluid therapy, bowel decompression, enemas, and laxatives. A repeat radiograph following bowel decompression may show disappearance of the air below the diaphragm. Tus, bowel decompression documented by a follow-up radiograph can confirm both the diagnosis of the condition and the success of the therapy, by showing the disappearance of subdiaphragmatic air and repositioning of distended intestine back to the normal position beneath the liver. If the patient does not respond to initial conservative management, and either the obstruction fails to resolve or there is evidence of bowel ischemia, then surgical intervention is indicated. In recent years, surgical intervention has been increasingly used in order to manage symptoms of chronic, intermittent abdominal pain.25https://www.ncbi.nlm.nih.gov/pmc/articles/HVI0356162/#B25? ROV prn. Coding Level of Care Code New Pt Level 3 (00170) Diagnoses Positive colorectal cancer screening using DNA-based stool test R19.5 Chilaiditi's syndrome Q43.3
[2023-07-04 10:37] VITALS: BP 137/102; PULSE 92; BMI 39.8
== END 2023-07-04 11:07 | disposition home or self-care (01) ==
PROVIDERS: PCP Internal Medicine; Visit Provider Nurse Practitioner
DX: R19.5 Other fecal abnormalities (principal); Q43.3 Congenital malformations of intestinal fixation
CPT/HCPCS: 99203

== ENCOUNTER → 2023-07-04 10:06 | Outpatient (BNVA) | payer MEDICARE, SELFPAY | PROVIDERS: PCP Internal Medicine; Visit Provider Nurse Practitioner | DX: R19.5 Other fecal abnormalities (principal); Q43.3 Congenital malformations of intestinal fixation | CPT/HCPCS: 99202 ==

== ENCOUNTER 2023-09-25 09:37 | Outpatient (AMB) | payer MEDICARE, MEDICAID, SELFPAY ==
[2023-09-25 09:43] VITALS: PULSE 87; O2SAT 88; BMI 39.5
--- NOTE | 2023-09-25 09:43 | A.OFFVIS_ITS ---
Intake Vital Signs 09/25/23 09:43 Height 5 ft 2 in Weight 216 lb 0.848 oz BMI 39.5 Pulse 87 Pulse Source Pulse Oximeter Pulse Oximetry (%) 88 L Oxygen Delivery Method Room Air Intake Visit Reasons: copd [employer] Required: No Allergies No Known Allergies Allergy (Verified 09/25/23 09:45) HPI HPI Comments History of Present Illness Details The patient is a 73-year-old gentleman with a known history of COPD and chronic respiratory failure. Apparently he has been diagnosed with COPD now for more than 30 years. The patient is no longer smoking. He previously was followed by Pulmonary at [facility]. However, recently he did move to [place] and now is getting established with local physicians and specialists. I did review his information from [facility]. His last PFTs from 2019 demonstrated that his FEV1 was around 45% suggesting severe COPD. In addition to that a significant diffusion impairment. The patient does have oxygen prescribed but he does not use it all the time. Sometimes he cannot carry the tank so is hard for him to uses oxygen. During the office visit initially will get tested for portable oxygen concentrator or conserving device. However, his baseline pulse ox was 81% on room air so therefore we terminated the conserving device trial as he is not going to qualify. He required up to 4 L of oxygen per minute to maintain a pulse ox in the low 90s. Will see about getting him an Oxymizer pendant to help him with his oxygen requirements. In addition to this the patient did have an ABG several years back demonstrating acute on chronic hypercarbic respiratory failure with CO2 of 68 mmHg per explained to the patient that with post hypercarbic hypoxic respiratory failure he needs to take care of himself because this can potentially continue getting worse. The patient has been on respiratory inhalers he has, she she she she she any medications she recently was prescribed Wixela which is fine but he has not started as of yet. Will maximize his respiratory at this time. In addition to this the patient does have daytime drowsiness with an Glynn score of 12/24. His significant other reports snoring and also episodes of apnea. Therefore the patient will need an in-lab sleep study. Due to the fact that we need to measure his end- tidal CO2 to assess for ivaps the patient will be referred to [facility]. The patient also benefit from pulmonary rehab. also to note the patient did have a CT scan of the chest back in July 2021 when he was diagnosed with COVID demonstrating some minimal areas of ground-glass opacities, moderate emphysema is bronchitis and areas of atelectasis and scarring. The patient has already require prednisone for exacerbations. Usually requires prednisone 2 to 3 times a year. Therefore he will be an excellent candidate for Daliresp to treat his chronic bronchitis and to decrease his prednisone needs specially with his new diagnosis of diabetes. 02/21/2022 the patient is here for a pulmonary follow-up visit. He still struggling with his breathing. The patient has significant COPD and also developed severe COVID. Has been using 2 L of oxygen. Recently was admitted to the hospital with worsening respiratory symptoms and confusion. He was noted to have acute on chronic hypercarbic respiratory failure. He required BiPAP. The patient was briefly admitted to the ICU. He did improve and was able to be down graded to the intermediate medical unit. We did review his x-ray still demonstrating reticulonodular opacities at the bases. The patient also has been using the oxygen at nighttime to sleep with. He still having episodes of waking up short of breath. Based on his advanced COPD with now hypercarbic respiratory failure the patient will benefit from a noninvasive ventilator. Will go ahead and Request an astral from a local [facility]. During the office visit we did have him go for brief walking oximetry. We used a portable oxygen concentrator. The patient is doing better and he was able to maintain a pulse ox about 88-90% on a 4 L pulse With activity. Will go ahead optimize his respiratory therapy and repeat the study in a few weeks. I am hopeful that he is doing better we can see about getting him on a smaller conserving device. He does have a hard time caring the bigger tank. 03/15/2022 the patient is here for a pulmonary follow-up visit. Overall he is starting to feel better. The prednisone has been helpful. He has been taking a small dose to try to minimize the hyperglycemia. He also was prescribed Daliresp. He did not start that medication. I will recent to the pharmacy. That is with hopes of decreasing further his steroid medication. His breathing is overall better. We did review his chest x-ray that he had couple days ago which demonstrated interval improvement of the basilar opacities. Still having some evidence of perihilar congestion. the x-ray continues to be abnormal. His last CT scan of the chest was back in 2020. will go ahead request a CT scan at this time to assess the degree of the interstitial lung disease after therapy with prednisone. the patient is also scheduled undergo a in-lab sleep study. We did request that at [facility] in order to assess his end-tidal CO2. The patient did taken for 6 minutes walk test. The patient did a lot better. He was able to maintain a pulse ox of 93% on room air while resting. Although, he desaturated with activity he was able to maintain a pulse ox of 91% on 3 L pulse. Therefore I will send a prescription to his DME company, [employer] to provide him with smaller the cylinders with a conserving valve to be able to use at 3 L pulse. 10/30/2022 the patient is here for pulvito fuchs follow-up visit. She continues use the oxygen with good effect. He has a hard time with the filling station and needs oxygen tanks. He is looking to get a portable oxygen concentrator. Currently he is using 3 L pulse. He understands that the battery life on the portable oxygen concentrator is a limited. He also understands that his DME company may be in back order of the portable oxygen concentrator is a may not have 1 available for him at this time. He understands the process may be long. He is looking to travel to [place]. He would have to call the [email or web address] company to try to get a rental or lease if they have 1 available. He did wean off the prednisone. The patient continues on the Daliresp. He is currently tolerating the 250 mcg dose will go ahead and increase that. We did review his last CT scan of the chest demonstrating some degree of emphysema and some degree of interstitial lung disease with some scarring. He also has pulmonary nodule noted. He continues uses respiratory therapy with good effect. 04/30/2023 the patient is here for pulvito fuchs follow-up visit. The patient finally got his all portable oxygen concentrator. He has found that this is very affecting beneficial for him. He continues uses respiratory therapy with good effect. He still gets shortness of breath with activity but mild in severity. The patient also has been tolerating the higher dose Daliresp. Has not seen however significant weight loss. The patient recently had a CT scan of the chest in 04/18/2023. It appears that he has stable pulmonary nodules. However he has been having abdominal discomfort and distention. It was mentioned that there was some abnormality with this GI tract. Therefore will going to refer him to GI to further address that issue. Otherwise patient will return in 6-8 months. 09/25/2023 the patient is here for pulmona ry follow-up visit. He has doing a lot better. He continues use the Breztri inhaler every day. Has not had any recent exacerbations to require prednisone. Rarely uses a rescue inhaler. The patient also responds well to the oxygen. He has a POC that he uses with activity. He also has a concentrator to use at nighttime. The oxygen therapy continues to be affecting beneficial. Did follow-up with GI and currently being evaluated for the findings on the CT scan. It is reassuring that he had a colonoscopy a few years ago. The patient is also taking the Daliresp medication tolerating that well. His last CT scan back in March 2023 was stable with stable pulmonary nodules otherwise. During his follow-up visit we will discuss when we should do additional imaging testing. He is starting to exercise a little bit more. He has a small treadmill at home and I did encourage him to do so with the oxygen. The patient did follow-up with pain management. It was recommended that he undergo a procedure under anesthesia. Currently the patient is doing well from respiratory status and is able to proceed with anesthesia and his surgical procedure at this time. FORMERLY [facility], [facility] Medical History History of peptic ulcer disease Abdominal pain O2 dependent Pulmonary nodule On beta drea at home CHF (congestive heart failure) Acute on chronic respiratory failure with hypercapnia Diabetes mellitus Obesity hypoventilation syndrome Acute on chronic respiratory failure with hypoxia and hypercapnia REBECA (obstructive sleep apnea) Chronic respiratory failure COPD (chronic obstructive pulmonary disease) Asthma Bronchitis HTN (hypertension) High cholesterol Surgical History H/O colonoscopy History of surgery Family History Sister Breast cancer Sister FH: kidney cancer Brother Prostate cancer Social History Household Members: Spouse Housing: Apartment Are you a primary career law clerk to a significant other at home: No Do you presently have visiting nurse or other home services: No Alcohol intake: former Patient Tobacco Use Status: Never used Tobacco Second Hand Smoke Exposure: No service: No Current occupational status: disabled Review of Systems Const Reports no additional complaints ENT Reports Normal hearing present Card Denies chest pain, Denies chest pain at rest, Denies chest pain with activity, Denies pedal edema and Reports dyspnea on exertion Resp Denies cough and Reports dyspnea on exertion GI Denies abdominal pain Musc Denies abnormal gait, Reports back pain, Denies muscle cramps and Denies radiating pain into limb Skin/Breast Denies skin ulcer and Denies wounds Neuro Reports Normal hearing present and Denies abnormal gait Psych Reports no additional complaints Physical Exam Vital Signs: Last Vital Signs Pulse 87 09/25/23 09:43 Pulse Ox 88 L 09/25/23 09:43 Oxygen Delivery Method Room Air 09/25/23 09:43 BMI result Body Mass Index 39.5 Const General: cooperative, healthy appearing and comfortable Orientation/consciousness: oriented to person, oriented to place and oriented to time HEENT Head: Yes normal to inspection Neck Neck: Yes normal visual inspection Carotids: no bruits Chest Chest palpation & inspection: normal inspection of the chest Resp Effort & Inspection: normal respiratory effort and able to speak in complete sentences Auscultation: no crackles, no rales, no rhonchi, no wheezes and diminished lung sounds Cardio Rate: regular rate Rhythm: regular rhythm Heart sounds: S1 normal heart sound present and S2 normal heart sound present Bruits: no carotid bruits Peripheral pulses: Peripheral pulses 2+ throughout GI Inspection: Yes normal to inspection Skin Wounds: no wounds Hair: normal Neuro General: oriented to person, oriented to place and oriented to time Cranial nerves: Yes Normal hearing present Cognition (Neuro): normal cognition Motor exam (neuro): 5/5 motor strength present throughout Extrem Other: venous exam: No significant superficial varicosities or spider telangiectasias, minimal edema General: No clubbing, No cyanosis and No edema Psych Appearance: grossly normal Mental Status: mental status grossly normal Speech and movement: Normal speech and movement present Assessment & Plan Assessment & Plan (1) Chronic respiratory failure: Code(s): J96.10 - Chronic respiratory failure, unspecified whether with hypoxia or hypercapnia Qualifiers: Respiratory failure complication: hypoxia and hypercapnia Qualified Code(s): J96.11 - Chronic respiratory failure with hypoxia; J96.12 - Chronic respiratory failure with hypercapnia (2) REBECA (obstructive sleep apnea): Code(s): G47.33 - Obstructive sleep apnea (adult) (pediatric) (3) COPD (chronic obstructive pulmonary disease): Code(s): J44.9 - Chronic obstructive pulmonary disease, unspecified Qualifiers: COPD type: chronic bronchitis Chronic bronchitis type: mixed simple and mucopurulent Qualified Code(s): J41.8 - Mixed simple and mucopurulent chronic bronchitis (4) ILD (interstitial lung disease): Code(s): J84.9 - Interstitial pulmonary disease, unspecified (5) Pulmonary nodule: Code(s): R91.1 - Solitary pulmonary nodule (6) Pre-op chest exam: Code(s): Z01.811 - Encounter for preprocedural respiratory examination Plan continue Daliresp 500 mcg continue diuresis as tolerated continue with Breztri BID JANINE as needed continue with oxygen supplementation. Portable oxygen concentrator (POC) 3 L pulse. He is to continue using the oxygen with sleep. not using APAP May proceed with Anesthesia and pain procedure follow-up in 6 months Medications: Refilled albuterol sulfate 90 mcg/actuation 2 puffs inhalation Q6H 30 days PRN 1 ea 11RF for wheezing Coding Level of Care Code Est Pt Level 4 (41993) Diagnoses Chronic respiratory failure with hypoxia and hypercapnia J96.11; J96.12 Respiratory failure complication: hypoxia and hypercapnia REBECA (obstructive sleep apnea) G47.33 Mixed simple and mucopurulent chronic bronchitis J41.8 COPD type: chronic bronchitis Chronic bronchitis type: mixed simple and mucopurulent ILD (interstitial lung disease) J84.9 Pulmonary nodule R91.1 Pre-op chest exam Z01.811 Time Spent (min) 17
== END 2023-09-25 10:04 | disposition home or self-care (01) ==
PROVIDERS: PCP Internal Medicine; Visit Provider Hospitalist
DX: J96.11 Chronic respiratory failure with hypoxia (principal); J96.12 Chronic respiratory failure with hypercapnia; G47.33 Obstructive sleep apnea (adult) (pediatric); J41.8 Mixed simple and mucopurulent chronic bronchitis; J84.9 Interstitial pulmonary disease, unspecified; R91.1 Solitary pulmonary nodule; Z01.811 Encounter for preprocedural respiratory examination
CPT/HCPCS: 99214

== ENCOUNTER → 2023-09-25 09:37 | Outpatient (BNVA) | payer MEDICARE, SELFPAY | PROVIDERS: PCP Internal Medicine; Visit Provider Hospitalist | DX: Z01.811 Encounter for preprocedural respiratory examination (principal); J96.11 Chronic respiratory failure with hypoxia; J96.12 Chronic respiratory failure with hypercapnia; J41.8 Mixed simple and mucopurulent chronic bronchitis; J84.9 Interstitial pulmonary disease, unspecified; R91.1 Solitary pulmonary nodule; G47.33 Obstructive sleep apnea (adult) (pediatric) | CPT/HCPCS: 99212 ==

== ENCOUNTER 2024-04-07 09:15 | Outpatient (AMB) | payer MEDICARE, MEDICAID, SELFPAY ==
[2024-04-07 09:22] VITALS: PULSE 70; O2SAT 94; BMI 38.3
--- NOTE | 2024-04-07 09:22 | A.OFFVIS_ITS ---
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 Apparently he has been diagnosed with COPD now for more than 30 years. The patient is no longer smoking. He previously was followed by Pulmonary at [facility]. However, recently he did move to [place] and now is getting established with local physicians and specialists. I did review his information from [facility]. His last PFTs from 2019 demonstrated that his FEV1 was around 45% suggesting severe COPD. In addition to that a significant diffusion impairment. The patient does have oxygen prescribed but he does not use it all the time. Sometimes he cannot carry the tank so is hard for him to uses oxygen. During the office visit initially will get tested for portable oxygen concentrator or conserving device. However, his baseline pulse ox was 81% on room air so therefore we terminated the conserving device trial as he is not going to qualify. He required up to 4 L of oxygen per minute to maintain a pulse ox in the low 90s. Will see about getting him an Oxymizer pendant to help him with his oxygen requirements. In addition to this the patient did have an ABG several years back demonstrating acute on chronic hypercarbic respiratory failure with CO2 of 68 mmHg per explained to the patient that with post hypercarbic hypoxic respiratory failure he needs to take care of himself because this can potentially continue getting worse. The patient has been on respiratory inhalers he has, she she she she she any medications she recently was prescribed Wixela which is fine but he has not started as of yet. Will maximize his respiratory at this time. In addition to this the patient does have daytime drowsiness with an [place] score of 12/24. His significant other reports snoring and also episodes of apnea. Therefore the patient will need an in-lab sleep study. Due to the fact that we need to measure his end-tidal CO2 to assess for ivaps the patient will be referred to [facility]. The patient also benefit from pulmonary rehab. also to note the patient did have a CT scan of the chest back in July 2021 when he was diagnosed with COVID demonstrating some minimal areas of ground-glass opacities, moderate emphysema is bronchitis and areas of atelectasis and scarring. The patient has already require prednisone for exacerbations. Usually requires prednisone 2 to 3 times a year. Therefore he will be an excellent candidate for Daliresp to treat his chronic bronchitis and to decrease his prednisone needs specially with his new diagnosis of diabetes. 10/30/2022 the patient is here for pulmonary follow-up visit. She continues use the oxygen with good effect. He has a hard time with the filling station and needs oxygen tanks. He is looking to get a portable oxygen concentrator. Currently he is using 3 L pulse. He understands that the battery life on the portable oxygen concentrator is a limited. He also understands that his [employer] company may be in back order of the portable oxygen concentrator is a may not have 1 available for him at this time. He understands the process may be long. He is looking to travel to [place]. He would have to call the [employer] company to try to get a rental or lease if they have 1 available. He did wean off the prednisone. The patient continues on the Daliresp. He is currently tolerating the 250 mcg dose will go ahead and increase that. We did review his last CT sc an of the chest demonstrating some degree of emphysema and some degree of interstitial lung disease with some scarring. He also has pulmonary nodule noted. He continues uses respiratory therapy with good effect. 04/30/2023 the patient is here for pulmonary follow-up visit. The patient finally got his all portable oxygen concentrator. He has found that this is very affecting beneficial for him. He continues uses respiratory therapy with good effect. He still gets shortness of breath with activity but mild in severity. The patient also has been tolerating the higher dose Daliresp. Has not seen however significant weight loss. The patient recently had a CT scan of the chest in 04/18/2023. It appears that he has stable pulmonary nodules. However he has been having abdominal discomfort and distention. It was mentioned that there was some abnormality with this GI tract. Therefore will going to refer him to GI to further address that issue. Otherwise patient will return in 6-8 months. 09/25/2023 the patient is here for pulmonary follow-up visit. He has doing a lot better. He continues use the Breztri inhaler every day. Has not had any recent exacerbations to require prednisone. Rarely uses a rescue inhaler. The patient also responds well to the oxygen. He has a POC that he uses with activity. He also has a concentrator to use at nighttime. The oxygen therapy continues to be affecting beneficial. Did follow-up with GI and currently being evaluated for the findings on the CT scan. It is reassuring that he had a colonoscopy a few years ago. The patient is also taking the Daliresp medication tolerating that well. His last CT scan back in March 2023 was stable with stable pulmonary nodules otherwise. During his follow-up visit we will discuss when we should do additional imaging testing. He is starting to exercise a little bit more. He has a small treadmill at home and I did encourage him to do so with the oxygen. The patient did follow-up with pain management. It was recommended that he undergo a procedure under anesthesia. Currently the patient is doing well from respiratory status and is able to proceed with anesthesia and his surgical proc edure at this time. 04/07/2024 the patient is here for pulmonary follow-up. Overall the patient has been doing well. He has not been using the oxygen actually returned it. He has been using his maintenance inhalers as prescribed. He still complains of chest congestion. [id number] severity. With yellowish phlegm. The patient also continues on Daliresp. This is helping with the chronic bronchitis. We did review his last CT scan of the chest which was 04/08/2023 demonstrating multiple pulmonary nodules. Subcentimeter in size. The patient also had some interstitial changes. Will go ahead and request a repeat CT scan of the chest and a PST so his next visit in 3-4 months. If the patient has any worsening symptoms prior to that he will call. In the meantime will treat him for a bout of bronchitis to see if we can make his chest congestion clear. In addition to that will request a flutter valve the Acapella valve will help him with mucus clearance and chest physical therapy. [facility] Medical History (Reviewed 07/04/23 @ 10:48 by Vilma Jenkins [facility] History of peptic ulcer disease Abdominal pain O2 dependent Pulmonary nodule On beta drea at home CHF (congestive heart failure) Acute on chronic respiratory failure with hypercapnia Diabetes mellitus Obesity hypoventilation syndrome Acute on chronic respiratory failure with hypoxia and hypercapnia REBECA (obstructive sleep apnea) Chronic respiratory failure COPD (chronic obstructive pulmonary disease) Asthma Bronchitis HTN (hypertension) High cholesterol Surgical History H/O colonoscopy History of surgery Family History Sister Breast cancer Sister FH: kidney cancer Brother Prostate cancer Social History Household Members: Spouse Housing: Apartment Are you a primary summer child caregiver to a significant other at home: No Do you presently have visiting nurse or other home services: No Alcohol intake: former Patient Tobacco Use Status: Never used Tobacco Second Hand Smoke Exposure: No service: No Current occupational status: disabled Review of Systems Const Reports no additional complaints ENT Reports Normal hearing present Card Denies chest pain, Denies chest pain at rest, Denies chest pain with activity, Denies pedal edema and Reports dyspnea on exertion Resp Denies cough and Reports dyspnea on exertion GI Denies abdominal pain Musc Denies abnormal gait, Reports back pain, Denies muscle cramps and Denies radiating pain into limb Skin/Breast Denies skin ulcer and Denies wounds Neuro Reports Normal hearing present and Denies abnormal gait Psych Reports no additional complaints Physical Exam Vital Signs: Last Vital Signs Pulse 70 04/07/24 09:22 Pulse Ox 94 04/07/24 09:22 Oxygen Delivery Method Room Air 04/07/24 09:22 BMI result Body Mass Index 38.3 Const General: cooperative, healthy appearing and comfortable Orientation/consciousness: oriented to person, oriented to place and oriented to time HEENT Head: Yes normal to inspection Neck Neck: Yes normal visual inspection Carotids: no bruits Chest Chest palpation & inspection: normal inspection of the chest Resp Effort & Inspection: normal respiratory effort and able to speak in complete sentences Auscultation: no crackles, no rales, no rhonchi, no wheezes and diminished lung sounds Cardio Rate: regular rate Rhythm: regular rhythm Heart sounds: S1 normal heart sound present and S2 normal heart sound present Bruits: no carotid bruits Peripheral pulses: Peripheral pulses 2+ throughout GI Inspection: Yes normal to inspection Skin Wounds: no wounds Hair: normal Neuro General: oriented to person, oriented to place and oriented to time Cranial nerves: Yes Normal hearing present Cognition (Neuro): normal cognition Motor exam (neuro): 5/5 motor strength present throughout Extrem Other: venous exam: No significant superficial varicosities or spider telangiectasias, minimal edema General: No clubbing, No cyanosis and No edema Psych Appearance: grossly normal Mental Status: mental status grossly normal Speech and movement: Normal speech and movement present Assessment & Plan Assessment & Plan (1) Chronic respiratory failure: Code(s): J96.10 - Chronic respiratory failure, unspecified whether with hypoxia or hypercapnia Category: Medical Qualifiers: Respiratory failure complication: hypoxia and hypercapnia Qualified Code(s): J96.11 - Chronic respiratory failure with hypoxia; J96.12 - Chronic respiratory failure with hypercapnia (2) REBECA (obstructive sleep apnea): Code(s): G47.33 - Obstructive sleep apnea (adult) (pediatric) Category: Medical (3) COPD (chronic obstructive pulmonary disease): Code(s): J44.9 - Chronic obstructive pulmonary disease, unspecified Category: Medical Qualifiers: COPD type: chronic bronchitis Chronic bronchitis type: mixed simple and mucopurulent Qualified Code(s): J41.8 - Mixed simple and mucopurulent chronic bronchitis (4) ILD (interstitial lung disease): Code(s): J84.9 - Interstitial pulmonary disease, unspecified Category: Medical (5) Pulmonary nodule: Code(s): R91.1 - Solitary pulmonary nodule Category: Medical Plan continue Daliresp 500 mcg continue diuresis as tolerated continue with Breztri BID JANINE as needed zpack x 5 days stopped oxygen supplementation. not using APAP CT chest 4 months PFTs in 4 months consider Pulmonary rehab follow-up in 4-6 months Orders: Orders PFT pulmonary function test 4 Months R91.1 - Solitary pulmonary nodule CT chest wo IV con 4 Months R91.1 - Solitary pulmonary nodule Medications: New albuterol sulfate 90 mcg/actuation (Ventolin HFA) 2 puffs inhalation QID PRN 18 grams 11RF shortness of breath or wheezing 30 days azithromycin 500 mg PO DAILY 5 tabs 0RF 5 days Coding Level of Care Code Est Pt Level 4 (14683) Diagnoses Chronic respiratory failure with hypoxia and hypercapnia J96.11; J96.12 Respiratory failure complication: hypoxia and hypercapnia REBECA (obstructive sleep apnea) G47.33 Mixed simple and mucopurulent chronic bronchitis J41.8 COPD type: chronic bronchitis Chronic bronchitis type: mixed simple and mucopurulent ILD (interstitial lung disease) J84.9 Pulmonary nodule R91.1 Time Spent (min) 16
== END 2024-04-07 09:51 | disposition home or self-care (01) ==
PROVIDERS: PCP Internal Medicine; Visit Provider Hospitalist
DX: J96.11 Chronic respiratory failure with hypoxia (principal); J96.12 Chronic respiratory failure with hypercapnia; G47.33 Obstructive sleep apnea (adult) (pediatric); J41.8 Mixed simple and mucopurulent chronic bronchitis; J84.9 Interstitial pulmonary disease, unspecified; R91.1 Solitary pulmonary nodule
CPT/HCPCS: 99214

== ENCOUNTER → 2024-04-07 09:15 | Outpatient (BNVA) | payer MEDICARE, SELFPAY | PROVIDERS: PCP Internal Medicine; Visit Provider Hospitalist | DX: J41.8 Mixed simple and mucopurulent chronic bronchitis (principal); J96.11 Chronic respiratory failure with hypoxia; J96.12 Chronic respiratory failure with hypercapnia; J84.9 Interstitial pulmonary disease, unspecified; G47.33 Obstructive sleep apnea (adult) (pediatric); R91.1 Solitary pulmonary nodule; Z99.81 Dependence on supplemental oxygen | CPT/HCPCS: 99212 ==

== ENCOUNTER 2024-05-07 08:59 | Outpatient (AMB) | payer MEDICARE, MEDICAID, SELFPAY ==
[2024-05-07 09:17] VITALS: BP 128/68; PULSE 69; BMI 35.4
--- NOTE | 2024-05-07 09:17 | MHC.OFFVIS ---
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 Government Affairs Director Required: Yes Government Affairs Director Name: [id number] Allergies No Known Allergies Allergy (Verified 04/07/24 09:24) Medication List - Last Reconciled 05/07/24 by Pancho Ryder MD albuterol sulfate 90 mcg/actuation 2 puffs inhalation Q6H PRN 30 days albuterol sulfate 90 mcg/actuation (Ventolin HFA) 2 puffs inhalation QID PRN 30 days albuterol sulfate 2.0833 mg (2.5 mL) inhalation Q6H PRN amlodipine 10 mg PO DAILY cwkpruyfrs-dndgzzuc-ewtgutuihe 160-9-4.8 mcg/actuation (Breztri Aerosphere) 2 inhalations inhalation BID 30 days dapagliflozin propanediol (Farxiga) 5 mg PO DAILY glipizide ER 5 mg PO DAILY ipratropium-albuterol 0.5 mg-3 mg(2.5 mg base)/3 mL 3 mL inhalation BID 30 days metoprolol succinate ER 50 mg PO DAILY nebulizers As directed olmesartan 40 mg PO DAILY pravastatin 40 mg PO DAILY roflumilast (Daliresp) 500 mcg PO DAILY 30 days semaglutide (Ozempic) 0.25 mg subcut QWEEK HPI Comments Details: Dandy has been referred for concern of an abnormal EKG. Apparently a prior EKG had shown Q-waves/concern for inferior infarct and hence he is referred. Patient himself has absolutely no cardiac symptoms. Denies any angina. He states even his breathing is okay. He has a history of COPD. Was on home oxygen but he states he is not using it at this time. Otherwise, within limits his activity, he has no specific concerns. He states he is trying to lose a lot of weight. Apparently in the last few months he has been attempting to lose weight. [facility] Medical History History of peptic ulcer disease Abdominal pain O2 dependent Pulmonary nodule On beta drea at home CHF (congestive heart failure) Acute on chronic respiratory failure with hypercapnia Diabetes mellitus Obesity hypoventilation syndrome Acute on chronic respiratory failure with hypoxia and hypercapnia REBECA (obstructive sleep apnea) Chronic respiratory failure COPD (chronic obstructive pulmonary disease) Asthma Bronchitis HTN (hypertension) High cholesterol Surgical History H/O colonoscopy History of surgery Family History Sister Breast cancer Sister FH: kidney cancer Brother Prostate cancer Social History Household Members: Spouse Housing: Apartment Are you a primary administrator health care facility to a significant other at home: No Do you presently have visiting nurse or other home services: No Alcohol intake: former Patient Tobacco Use Status: Never used Tobacco Second Hand Smoke Exposure: No service: No Current occupational status: disabled Review of Systems Const Denies weakness ENT Denies dizziness Card Denies chest pain, Denies chest pain with activity, Denies syncope, Denies rapid heart rate, Denies pedal edema, Denies edema, Denies leg edema, Denies lightheadedness, Denies palpitations, Denies dyspnea, Denies dyspnea on exertion and Denies orthopnea Resp Denies cough, Denies dyspnea and Denies dyspnea on exertion GI Denies hematochezia and Denies change in stool character Musc Denies abnormal gait, Denies muscle cramps, Denies muscle weakness, Denies numbness, Denies radiating pain into limb and Denies tingling Neuro Denies abnormal gait, Denies dizziness, Denies syncope, Denies numbness, Denies tingling and Denies weakness Endo Denies palpitations Physical Exam Vital Signs: Last Vital Signs Pulse 69 05/07/24 09:17 BP 128/68 05/07/24 09:17 BMI result Body Mass Index 35.4 Const General: comfortable and no acute distress Orientation/consciousness: patient oriented x3 HEENT Other: Unremarkable Head: Yes normal to inspection Neck Neck: Yes normal visual inspection Chest Chest palpation & inspection: normal inspection of the chest Resp Auscultation: clear to auscultation bilaterally Cardio Palpation: normal PMI Heart sounds: S1 normal heart sound present, S2 normal heart sound present, no gallops, no murmurs and no rubs GI Palpation (GI): Soft to palpation Back/Spine/Pelvis Other: unremarkable Skin General skin exam: no rashes or lesions noted Neuro General: patient oriented x3 Extrem General: Yes normal to inspection Psych Mental Status: mental status grossly normal Office Procedures EKG Details: EKG with underlying sinus rhythm at 69/Min; no significant ST-T changes and otherwise unremarkable[place] [id number], Complete Assessment & Plan Assessment & Plan (1) Atherosclerotic cardiovascular disease: Code(s): I25.10 - Atherosclerotic heart disease of [place] coronary artery without angina pectoris Category: Medical (2) COPD (chronic obstructive pulmonary disease): Code(s): J44.9 - Chronic obstructive pulmonary disease, unspecified Category: Medical (3) Chronic respiratory failure: Code(s): J96.10 - Chronic respiratory failure, unspecified whether with hypoxia or hypercapnia Category: Medical Qualifiers: Respiratory failure complication: hypoxia and hypercapnia Qualified Code(s): J96.11 - Chronic respiratory failure with hypoxia; J96.12 - Chronic respiratory failure with hypercapnia (4) Diabetes mellitus: Code(s): E11.9 - Type 2 diabetes mellitus without complications Category: Medical (5) HTN (hypertension): Code(s): I10 - Essential (primary) hypertension Category: Medical (6) Obesity hypoventilation syndrome: Code(s): E66.2 - Morbid (severe) obesity with alveolar hypoventilation Category: Medical Plan Today's EKG, there is no clear findings in the inferior wall. Hence in the PCP EKG, findings could be related to lead position. Chest CT scan from last year reported to have coronary artery calcifications which is not unusual in his age. Aorta described to be nonaneurysmal. In the echocardiogram from 2021, LVEF 60-65%; mild aortic valve calcification; moderate mitral annular calcification; ascending aortic size 4 cm. Myocardial perfusion imaging study at [facility] is unremarkable. Overall, evidence of coronary disease based on CT scan, but no evidence of ischemia on prior stress testing. He does not have any angina either. EKG today seems unremarkable. We can recheck another echocardiogram. If any clear abnormalities, then we can reassess. Otherwise, mainly risk factor modification. He states he is already trying to lose lot of weight. Aggressive management of diabetes, hypertension, dyslipidemia. Discussed with significant other. portable machine sander used. Orders: Orders CA echo transthoracic complete Today R06.02 - Shortness of breath Coding Level of Care Code New Pt Level 4 (39009) Diagnoses Atherosclerotic cardiovascular disease I25.10 COPD (chronic obstructive pulmonary disease) J44.9 Chronic respiratory failure with hypoxia and hypercapnia J96.11; J96.12 Respiratory failure complication: hypoxia and hypercapnia Diabetes mellitus E11.9 HTN (hypertension) I10 Obesity hypoventilation syndrome E66.2 CPT Codes EKG - CPT: [id number], Complete ([id number])
== END 2024-05-07 10:30 | disposition home or self-care (01) ==
PROVIDERS: PCP Internal Medicine; Visit Provider Internal Medicine
DX: I25.10 Atherosclerotic heart disease of native coronary artery without angina pectoris (principal); I10 Essential (primary) hypertension; J44.9 Chronic obstructive pulmonary disease, unspecified; J96.11 Chronic respiratory failure with hypoxia; J96.12 Chronic respiratory failure with hypercapnia; E11.8 Type 2 diabetes mellitus with unspecified complications; E66.2 Morbid (severe) obesity with alveolar hypoventilation
CPT/HCPCS: 93010; 99213

== ENCOUNTER → 2024-05-07 08:59 | Outpatient (BNVA) | payer MEDICARE, MEDICAID, SELFPAY | PROVIDERS: PCP Internal Medicine; Visit Provider Internal Medicine | DX: I25.10 Atherosclerotic heart disease of native coronary artery without angina pectoris (principal); I10 Essential (primary) hypertension; J44.9 Chronic obstructive pulmonary disease, unspecified; J96.11 Chronic respiratory failure with hypoxia; J96.12 Chronic respiratory failure with hypercapnia; E11.9 Type 2 diabetes mellitus without complications; E66.2 Morbid (severe) obesity with alveolar hypoventilation | CPT/HCPCS: 93005; 99212 ==

== ENCOUNTER → 2024-06-03 10:39 | Outpatient (REF) | payer MEDICARE, MEDICAID, SELFPAY ==
--- NOTE | 2024-06-03 10:43 | CA_ITS ---
Transthoracic Echocardiogram Patient (Last, First, Middle): Dandy Lo E Gender: Male Date of : 1950 Age: 73 Procedure Date: 06/03/2024 Procedure Type: Transthoracic Echocardiogram Location: OP Height: 160.02 cm Weight: 90.72 kg BSA: 1.93 m2 Heart Rate: bpm BP: 152 / 90 mmHg Manager Of Customer Billing: TO Referring MD: Pancho Ryder MD Symptoms: R06.02 - Shortness of breath Study Quality: Adequate w contrast ECG Rhythm: Sinus Conclusions: - The left ventricular systolic function is mildly decreased. The calculated ejection fraction is 44% by biplane method. - No obvious valvular pathology seen on this study. - There is mild dilatation of the ascending aorta measuring 4.20 cm. Findings Procedure Information Contrast agent, definity, is being given per protocol without apparent complications. Left Ventricle Normal left ventricular cavity size. The left ventricular systolic function is mildly decreased. The calculated ejection fraction is 44% by biplane method. There is mild global hypokinesis. Evidence suggests grade I (mild) diastolic dysfunction. There is mild septal asymmetric hypertrophy. Right Ventricle Normal right ventricular cavity size. There is mildly decreased right ventricular systolic function. Atria Both atria are normal in size. Aortic Valve There is a normal trileaflet aortic valve. There is mild calcification of the aortic valve. There is no aortic valve stenosis. There is no aortic valve regurgitation. Mitral Valve The mitral valve appears normal. There is no mitral valve regurgitation. There is no mitral valve stenosis. Pulmonic Valve The pulmonic valve is likely normal. Tricuspid Valve Normal tricuspid valve structure. There is trace tricuspid valve regurgitation. There is no evidence of pulmonary hypertension. Great Vessels There is mild dilatation of the ascending aorta measuring 4.20 cm. Venous The inferior vena cava is normal in size and collapses greater than 50% with inspiration. Pericardium/Pleural There is no evidence of pericardial effusion. Prior Study Comparison Changes noted compared to prior study dated: 01/30/2022. Decrease in LVEF; increase in ascending aortic size. Recommendations, Care & Conclusions No obvious valvular pathology seen on this study. Measurements 2D Linear Measurements IVSd: 1.16 0.6-0.9/0.6-1.0 cm LVIDd: 4.42 3.9-5.3/4.2-5.9 cm LVIDd Index: 2.29 2.4-3.2/2.2-3.1 cm/m2 LVIDs: 3.05 2.0-3.6 cm LVPWd: 0.84 0.7-1.1 cm LA Diam: 3.20 2.7-3.8/3.0-4.0 cm LAIDs Index: 1.66 1.5-2.3 cm/m2 LV Mass: 185.90 67-162/88-224 g LV Mass Index: 96.32 43-95/49-115 g/m2 LVOT Diam: 2.10 3.0+(-)1.3 cm 2D Systolic Function EF 4C: 43.70 >55% EF 2C: 43.50 >55% EF BiP: 43.90 >55% Mitral Valve MV Pk E: 0.85 MV PK A: 0.98 MV Decel Time: 214.00 E/A: 0.90 E'Lateral: 6.96 E'Medial: 4.90 E/E' Med: 17.40 E/E' Lat: 12.30 PHT: 63.00 MVA PHT: 3.49 Decel Sibley: 3.99 Aortic Valve AoV Pk Oliver: 1.28 AoV Mn Oliver: 0.93 AoV VTI: 0.26 AoV Pk Grad: 7.00 Aov Mn Grad: 4.00 VIVIANA Cont.VTI: 2.37 LVOT LVOT Pk Oliver: 0.89 LVOT Mn Oliver: 0.65 LVOT VTI: 0.18 LVOT Pk Grad: 3.00 LVOT Mn Grad: 2.00 LVOT Diam: 2.10 LVOT Area: 3.46 Diastolic Function MV Pk E: 0.85 MV Pk A: 0.98 E/A: 0.90 E'Medial: 4.90 E/E' Med: 17.40 E' Laterial: 6.96 E/E' Lat: 12.30 Right Ventricle TAPSE (mm): 16.10 TVS' Oliver: 8.38 Tricuspid Valve TR Pk Oliver: 2.26 TR Pk Grad: 20.00 RA Press: 3.00 RVSP: 23.00 Great Vessels Aorta Sinus of Valsalva: 3.76 2.0-3.[address] Ridge: 3.19 1.7-3.4 cm Ao Asc: 4.20 2.1-3.4 cm Updated in Other Vendor System with Status of Final Pancho Ryder MD electronically signed on 06/04/2024 10:52:40 AM with status of Final
== END ==
LOC: HO.CARD 10:39
PROVIDERS: PCP Internal Medicine; Visit Provider Internal Medicine
DX: R06.02 Shortness of breath (principal)
CPT/HCPCS: 93306; Q9957

== ENCOUNTER → 2024-06-03 10:43 | Outpatient (BNV) | payer MEDICARE, MEDICAID, SELFPAY | PROVIDERS: PCP Internal Medicine; Visit Provider Internal Medicine | DX: I42.2 Other hypertrophic cardiomyopathy (principal); I35.8 Other nonrheumatic aortic valve disorders | CPT/HCPCS: 93306 ==

== ENCOUNTER 2024-06-05 15:39 | Outpatient (REF) | payer MEDICAID, SELFPAY ==
[2024-06-05 17:05] LABS: Anion Gap 12 (12-20); Blood Urea Nitrogen 20 mg/dL (9-16); Calcium 9.7 mg/dL (8.4-10.2); Carbon Dioxide 24 mmol/L (22-29); Chloride 106 mmol/L (96-108); Estimated Glomerular Filt Rate > 60; Glucose Random 107 mg/dL (60-115); Potassium 4.2 mmol/L (3.3-5.1); Sodium 138 mmol/L (135-145)
== END 2024-06-05 15:40 | disposition home or self-care (01) ==
LOC: HO.HHCL 15:39
PROVIDERS: Visit Provider Nurse Practitioner
DX: M54.6 Pain in thoracic spine (principal); G89.29 Other chronic pain
CPT/HCPCS: 36415; 80048

== ENCOUNTER 2024-07-08 09:42 | Outpatient (REF) | payer MEDICARE, MEDICAID, SELFPAY | END 2024-07-08 09:43 | disposition home or self-care (01) | LOC: HO.CT 09:42 | PROVIDERS: PCP Internal Medicine; Visit Provider Hospitalist | DX: R91.1 Solitary pulmonary nodule (principal) | CPT/HCPCS: 71250 ==

== ENCOUNTER → 2024-07-08 09:46 | Outpatient (BNV) | payer MEDICARE, MEDICAID, SELFPAY | PROVIDERS: PCP Internal Medicine; Visit Provider Radiology Diagnostic Radiology | DX: J43.2 Centrilobular emphysema (principal); R91.8 Other nonspecific abnormal finding of lung field; J42 Unspecified chronic bronchitis | CPT/HCPCS: 71250 ==

== ENCOUNTER 2024-07-22 10:20 | Outpatient (REF) | payer MEDICARE, MEDICAID, SELFPAY ==
[2024-07-22 10:01] VITALS: PULSE 82; O2SAT 97
--- NOTE | 2024-07-22 10:49 | PFT_ITS ---
Flows: FEV1: 55 % of predicted at 1.35 L FVC: 81 % of predicted at 2.60 L FEV1/FVC: 52 % Bronchodilator response: Absent Volumes: Total lung capacity: 76 % of predicted at 4.25 L Residual volume: 78 % of predicted at 1.62 L Slow vital capacity: 76 % of predicted at 2.63 L Expiratory reserve volume: 89 % of predicted at 0.77 L Diffusion capacity: Mildly decreased, corrects to normal after adjustment for alveolar ventilation. Impression: Combined moderate obstructive and restrictive ventilatory defects with no bronchodilator response. Decreased diffusion capacity suggests emphysema. MTDD
== END 2024-07-22 10:21 | disposition home or self-care (01) ==
LOC: HO.RESP 10:20
PROVIDERS: PCP Internal Medicine; Visit Provider Hospitalist
DX: R91.1 Solitary pulmonary nodule (principal)
CPT/HCPCS: 94010; 94640; 94727; 94729

== ENCOUNTER → 2024-07-22 10:49 | Outpatient (BNV) | payer MEDICARE, MEDICAID, SELFPAY | PROVIDERS: PCP Internal Medicine; Visit Provider Internal Medicine Pulmonary Disease | DX: J44.9 Chronic obstructive pulmonary disease, unspecified (principal); R91.1 Solitary pulmonary nodule | CPT/HCPCS: 94060; 94727; 94729 ==

== ENCOUNTER 2024-07-31 10:16 | Outpatient (REF) | payer MEDICARE, MEDICAID, SELFPAY ==
[2024-07-31 12:02] LABS: Alanine Aminotransferase 26 U/L (0-40); Albumin Level 4.3 g/dL (3.5-5.0); Alkaline Phosphatase 63 U/L (39-117); Anion Gap 10 (12-20); Aspartate Amino Transferase 19 U/L (5-37); Bilirubin Total 0.7 mg/dL (0.0-1.0); Blood Urea Nitrogen 18 mg/dL (9-16); Carbon Dioxide 26 mmol/L (22-29); Chloride 109 mmol/L (96-108); Cholesterol 188 mg/dL (<200); Estimated Glomerular Filt Rate > 60; Glucose Random 109 mg/dL (60-115); HDL Cholesterol 45 mg/dL (>40); LDL Cholesterol Calculated 121 mg/dL (<100); Potassium 3.9 mmol/L (3.3-5.1); Sodium 141 mmol/L (135-145); Total Protein 7.4 g/dL (6.5-8.0); Triglycerides 110 mg/dL (<150)
[2024-07-31 12:27] LABS: Creatinine Urine 193.95 mg/dL; Microalbum/Creatinine Ratio Ur 25.2 ug/mg cr (<30)
== END 2024-07-31 10:17 | disposition home or self-care (01) ==
LOC: HO.HHCL 10:16
PROVIDERS: Visit Provider Internal Medicine
DX: E11.65 Type 2 diabetes mellitus with hyperglycemia (principal)
CPT/HCPCS: 36415; 80053; 80061; 82043; 82570

== ENCOUNTER 2024-08-08 09:47 | Outpatient (AMB) | payer MEDICARE, MEDICAID, SELFPAY ==
[2024-08-08 10:17] VITALS: BP 128/80; PULSE 81; O2SAT 92; BMI 35.3
--- NOTE | 2024-08-08 10:17 | A.OFFVIS_ITS ---
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 Apparently he has been diagnosed with COPD now for more than 30 years. The patient is no longer smoking. He previously was followed by Pulmonary at [facility]. However, recently he did move to [place] and now is getting established with local physicians and specialists. I did review his information from [facility]. His last PFTs from 2019 demonstrated that his FEV1 was around 45% suggesting severe COPD. In addition to that a significant diffusion impairment. The patient does have oxygen prescribed but he does not use it all the time. Sometimes he cannot carry the tank so is hard for him to uses oxygen. During the office visit initially will get tested for portable oxygen concentrator or conserving device. However, his baseline pulse ox was 81% on room air so therefore we terminated the conserving device trial as he is not going to qualify. He required up to 4 L of oxygen per minute to maintain a pulse ox in the low 90s. Will see about getting him an Oxymizer pendant to help him with his oxygen requirements. In addition to this the patient did have an ABG several years back demonstrating acute on chronic hypercarbic respiratory failure with CO2 of 68 mmHg per explained to the patient that with post hypercarbic hypoxic respiratory failure he needs to take care of himself because this can potentially continue getting worse. The patient has been on respiratory inhalers he has, she she she she she any medications she recently was prescribed Wixela which is fine but he has not started as of yet. Will maximize his respiratory at this time. In addition to this the patient does have daytime drowsiness with an [place] score of 12/24. His significant other reports snoring and also episodes of apnea. Therefore the patient will need an in-lab sleep study. Due to the fact that we need to measure his end-tidal CO2 to assess for ivaps the patient will be referred to [facility]. The patient also benefit from pulmonary rehab. also to note the patient did have a CT scan of the chest back in July 2021 when he was diagnosed with COVID demonstrating some minimal areas of ground-glass opacities, moderate emphysema is bronchitis and areas of atelectasis and scarring. The patient has already require prednisone for exacerbations. Usually requires prednisone 2 to 3 times a year. Therefore he will be an excellent candidate for Daliresp to treat his chronic bronchitis and to decrease his prednisone needs specially with his new diagnosis of diabetes. 10/30/2022 the patient is here for pulmonary follow-up visit. She continues use the oxygen with good effect. He has a hard time with the filling station and needs oxygen tanks. He is looking to get a portable oxygen concentrator. Currently he is using 3 L pulse. He understands that the battery life on the po rtable oxygen concentrator is a limited. He also understands that his [employer] company may be in back order of the portable oxygen concentrator is a may not have 1 available for him at this time. He understands the process may be long. He is looking to travel to [place]. He would have to call the [employer] company to try to get a rental or lease if they have 1 available. He did wean off the prednisone. The patient continues on the Daliresp. He is currently tolerating the 250 mcg dose will go ahead and increase that. We did review his last CT scan of the chest demonstrating some degree of emphysema and some degree of interstitial lung disease with some scarring. He also has pulmonary nodule noted. He continues uses respiratory therapy with good effect. 04/30/2023 the patient is here for pulmonary follow-up visit. The patient finally got his all portable oxygen concentrator. He has found that this is very affecting beneficial for him. He continues uses respiratory therapy with good effect. He still gets shortness of breath with activity but mild in severity. The patient also has been tolerating the higher dose Daliresp. Has not seen however significant weight loss. The patient recently had a CT scan of the chest in 04/18/2023. It appears that he has stable pulmonary nodules. However he has been having abdominal discomfort and distention. It was mentioned that there was some abnormality with this GI tract. Therefore will going to refer him to GI to further address that issue. Otherwise patient will return in 6-8 months. 09/25/2023 the patient is here for pulmonary follow-up visit. He has doing a lot better. He continues use the Breztri inhaler every day. Has not had any recent exacerbations to require prednisone. Rarely uses a rescue inhaler. The patient also responds well to the oxygen. He has a POC that he uses with activity. He also has a concentrator to use at nighttime. The oxygen therapy continues to be affecting beneficial. Did follow-up with GI and currently being evaluated for the findings on the CT scan. It is reassuring that he had a colonoscopy a few years ago. The patient is also taking the Daliresp medication tolerating that well. His last CT scan back in March 2023 was stable with stable pulmonary nodules otherwise. During his follow-up visit we will discuss when we should do additional imaging testing. He is starting to exercise a little bit more. He has a small treadmill at home and I did encourage him to do so with the oxygen. The patient did follow-up with pain management. It was recommended that he undergo a procedure under anesthesia. Currently the patient is doing well from respiratory status and is able to proceed with anesthesia and his surgical procedure at this time. 04/07/2024 the patient is here for pulmonary follow-up. Overall the patient has been doing well. He has not been using the oxygen actually returned it. He has been using his maintenance inhalers as prescribed. He still complains of chest congestion. [id number]-[id number] severity. With yellowish phlegm. The patient also continues on Daliresp. This is helping with the chronic bronchitis. We did review his last CT scan of the chest which was 04/08/2023 demonstrating multiple pulmonary nodules. Subcentimeter in size. The patient also had some interstitial changes. Will go ahead and request a repeat CT scan of the chest a nd a PST so his next visit in 3-4 months. If the patient has any worsening symptoms prior to that he will call. In the meantime will treat him for a bout of bronchitis to see if we can make his chest congestion clear. In addition to that will request a flutter valve the Acapella valve will help him with mucus clearance and chest physical therapy. 08/08/2024 the patient is here for a pulmonary follow-up visit. The patient overall has been doing very well. He continues therapy as prescribed. He has not had to use his nebulizer which is reassuring. The patient did have a recent CT scan of the chest which we personally reviewed. Unfortunately has not been officially read yet. Although appears that he has nodular densities are stable. He does have moderate emphysema. At this point no additional imaging studies are warranted. The patient will have the official read and will call follow-up with those findings. In the meantime he does have some minimal breath sounds on the bases. He needs to work on deep breathing exercises. Also did get the Acapella valve and we did go instructed how to use it correctly. The patient also will work on deep breathing exercises and go for walks hopefully that he can work on expanding his lung capacity. He will follow-up in the fall of 2024. If he has any issues prior to that he will call for an earlier assessment. [facility] Medical History (Updated 08/08/24 @ 10:41 by Tommy John MD) Allergies History of peptic ulcer disease Abdominal pain O2 dependent Pulmonary nodule On beta drea at home CHF (congestive heart failure) Acute on chronic respiratory failure with hypercapnia Diabetes mellitus Obesity hypoventilation syndrome Acute on chronic respiratory failure with hypoxia and hypercapnia REBECA (obstructive sleep apnea) Chronic respiratory failure COPD (chronic obstructive pulmonary disease) Asthma Bronchitis HTN (hypertension) High cholesterol Surgical History (System 06/09/24 @ 10:44 by Teena Yu) H/O colonoscopy History of surgery Family History Sister Breast cancer Sister FH: kidney cancer Brother Prostate cancer Social History (Updated 08/08/24 @ 10:22 by Ana Agustin [facility]) Household Members: Spouse Housing: Apartment Are you a primary urgent care physician assistant to a significant other at home: No Do you presently have visiting nurse or other home services: No Alcohol intake: former Patient Tobacco Use Status: Former Tobacco user Second Hand Smoke Exposure: No service: No Current occupational status: disabled Review of Systems Const Reports no additional complaints ENT Reports Normal hearing present Card Denies chest pain, Denies chest pain at rest, Denies chest pain with activity, Denies pedal edema and Reports dyspnea on exertion Resp Denies cough and Reports dyspnea on exertion GI Denies abdominal pain Musc Denies abnormal gait, Reports back pain, Denies muscle cramps and Denies radiating pain into limb Skin/Breast Denies skin ulcer and Denies wounds Neuro Reports Normal hearing present and Denies abnormal gait Psych Reports no additional complaints Physical Exam Vital Signs: Last Vital Signs Pulse 81 08/08/24 10:17 BP 128/80 08/08/24 10:17 Pulse Ox 92 08/08/24 10:17 Oxygen Delivery Method Room Air 08/08/24 10:17 BMI result Body Mass Index 35.3 Const General: cooperative, healthy appearing and comfortable Orientation/consciousness: oriented to person, oriented to place and oriented to time HEENT Head: Yes normal to inspection Neck Neck: Yes normal visual inspection Carotids: no bruits Chest Chest palpation & inspection: normal inspection of the chest Resp Effort & Inspection: normal respiratory effort and able to speak in complete sentences Auscultation: no crackles, no rales, no rhonchi, no wheezes and diminished lung sounds Cardio Rate: regular rate Rhythm: regular rhythm Heart sounds: S1 normal heart sound present and S2 normal heart sound present Bruits: no carotid bruits Peripheral pulses: Peripheral pulses 2+ throughout GI Inspection: Yes normal to inspection Skin Wounds: no wounds Hair: normal Neuro General: oriented to person, oriented to place and oriented to time Cranial nerves: Yes Normal hearing present Cognition (Neuro): normal cognition Motor exam (neuro): 5/5 motor strength present throughout Extrem Other: venous exam: No significant superficial varicosities or spider telangiectasias, minimal edema General: No clubbing, No cyanosis and No edema Psych Appearance: grossly normal Mental Status: mental status grossly normal Speech and movement: Normal speech and movement present Assessment & Plan Assessment & Plan (1) Chronic respiratory failure: Code(s): J96.10 - Chronic respiratory failure, unspecified whether with hypoxia or hypercapnia Category: Medical Qualifiers: Respiratory failure complication: hypoxia and hypercapnia Qualified Code(s): J96.11 - Chronic respiratory failure with hypoxia; J96.12 - Chronic respiratory failure with hypercapnia (2) REBECA (obstructive sleep apnea): Code(s): G47.33 - Obstructive sleep apnea (adult) (pediatric) Category: Medical (3) COPD (chronic obstructive pulmonary disease): Code(s): J44.9 - Chronic obstructive pulmonary disease, unspecified Category: Medical Qualifiers: COPD type: chronic bronchitis Chronic bronchitis type: mixed simple and mucopurulent Qualified Code(s): J41.8 - Mixed simple and mucopurulent chronic bronchitis (4) ILD (interstitial lung disease): Code(s): J84.9 - Interstitial pulmonary disease, unspecified Category: Medical (5) Pulmonary nodule: Code(s): R91.1 - Solitary pulmonary nodule Category: Medical (6) Allergies: Code(s): T78.40XA - Allergy, unspecified, initial encounter Category: Medical Plan continue Daliresp 500 mcg continue diuresis as tolerated continue with Breztri BID JANINE as needed stopped oxygen supplementation. not using APAP consider Pulmonary rehab bloodwork follow-up in 6-8 months Orders: Orders Resp Allergy Profile Region I 08/08/24 T78.40XA - Allergy, unspecified, initial encounter Coding Level of Care Code Est Pt Level 4 (33943) Complex EM visit Add On G2211 Diagnoses Chronic respiratory failure with hypoxia and hypercapnia J96.11; J96.12 Respiratory failure complication: hypoxia and hypercapnia REBECA (obstructive sleep apnea) G47.33 Mixed simple and mucopurulent chronic bronchitis J41.8 COPD type: chronic bronchitis Chronic bronchitis type: mixed simple and mucopurulent ILD (interstitial lung disease) J84.9 Pulmonary nodule R91.1 Allergies T78.40XA Time Spent (min) 17
== END 2024-08-08 11:02 | disposition home or self-care (01) ==
PROVIDERS: PCP Internal Medicine; Visit Provider Hospitalist
DX: J96.11 Chronic respiratory failure with hypoxia (principal); J96.12 Chronic respiratory failure with hypercapnia; G47.33 Obstructive sleep apnea (adult) (pediatric); J41.8 Mixed simple and mucopurulent chronic bronchitis; J84.9 Interstitial pulmonary disease, unspecified; R91.1 Solitary pulmonary nodule; T78.40XA Allergy, unspecified, initial encounter
CPT/HCPCS: 99214; G2211

== ENCOUNTER 2024-08-08 09:47 | Outpatient (REF) | payer MEDICARE, MEDICAID, SELFPAY ==
[2024-08-08 11:48] LABS: Anion Gap 13 (12-20); Blood Urea Nitrogen 17 mg/dL (9-16); Calcium 9.3 mg/dL (8.4-10.2); Carbon Dioxide 26 mmol/L (22-29); Chloride 108 mmol/L (96-108); Estimated Glomerular Filt Rate > 60; Glucose Random 119 mg/dL (60-115); Potassium 4.2 mmol/L (3.3-5.1); Sodium 143 mmol/L (135-145)
[2024-08-14 22:19] LABS: Class Alternaria alternata 0; Class Aspergillus fumigatus 0; Class Bermuda Grass 0; Class Birch 0; Class Cat Dander 0; Class Cladosporium herbarum 0; Class Cockroach 0; Class Common Ragweed 0; Class Cottonwood 0; Class Derm. pterony 0; Class Dermatophagoides farinae 0; Class Dog Dander 0; Class Elm 0; Class Maple Box Elder 0; Class Mountain Cedar 0; Class Mouse Urine Protein 0; Class Mugwort 0; Class Oak 0; Class Penicillium crysogenum 0; Class Rough Pigweed 0; Class Sheep Sorrel 0; Class Sycamore 0; Class Timothy Grass 0; Class Walnut Tree 0; Class White Ash 0; Class White Mulberry 0; D001 IgE D pteronyssinus <0.10 kU/L; D002 - IgE D farinae <0.10 kU/L; E001 - IgE Cat Dander <0.10 kU/L; E005 - IgE Dog Dander <0.10 kU/L; E072-IgE Mouse Urine <0.10 kU/L; G002 IgE Bermuda Grass <0.10 kU/L; G006 - IgE Timothy Grass <0.10 kU/L; I006-IgE Cockroach, German <0.10 kU/L; Immunoglobulin E 61 kU/L (<OR=114); M001 IgE Penicillium chrysogen <0.10 kU/L; M002 - IgE Cladosporium herbar <0.10 kU/L; M003 - IgE Aspergillus fumigat <0.10 kU/L; M006 - IgE Alternaria alternat <0.10 kU/L; T001 IgE Maple/Box Elder <0.10 kU/L; T003 IgE Common Silver Birch <0.10 kU/L; T006 - IgE Cedar, Mountain <0.10 kU/L; T007 - IgE Oak, White <0.10 kU/L; T008 IgE Elm, American <0.10 kU/L; T010 - IgE Walnut <0.10 kU/L; T011 - IgE Maple Leaf Sycamore <0.10 kU/L; T014 - IgE Cottonwood <0.10 kU/L; T015 - IgE Ash, White <0.10 kU/L; T070 - IgE White Mulberry <0.10 kU/L; W001 - IgE Ragweed, Short <0.10 kU/L; W006 - IgE Mugwort <0.10 kU/L; W014 IgE Pigweed, Common <0.10 kU/L; W018 IgE Sheep Sorrel <0.10 kU/L
== END 2024-08-08 09:48 | disposition home or self-care (01) ==
LOC: HO.LAB 09:47
PROVIDERS: Internal Medicine; PCP Internal Medicine; Visit Provider Hospitalist
DX: Z91.09 Other allergy status, other than to drugs and biological substances (principal); T78.40XA Allergy, unspecified, initial encounter; I50.33 Acute on chronic diastolic (congestive) heart failure
CPT/HCPCS: 36415; 80048; 82785; 86003; 99212

== ENCOUNTER 2024-09-25 13:03 | Outpatient (REF) | payer MEDICARE, MEDICAID, SELFPAY ==
--- OUTSIDE RECORDS SUMMARY | 2024-09-25 13:09 | XMS_ITS | Clinical Summary ---
Author Organization [employer] Address [address] [place] [address] Care Team Providers Care Drawer In Dobby Loom Name Role Phone Brenda Arnold MD Primary Care Provide r Allergies No known active allergies Medications Blood Glucose Monitoring Suppl (MyFitnessPal Verio Flex System) w/Device kit Use to check blood sugar daily as directed 1 kit 3 Active simethicone (Mylicon,Gas-X) 180 MG capsuleIndication s:Colitis Take 1 capsule (180 mg) by mouth every 8 (eight) hours if needed for flatulence. 90 capsule 1 3 Active pravastatin (Pravachol) 40 MG tabletIndications :Type 2 diabetes mellitus with hyperglycemia, without long-term current use of insulin (CMS/[facility]),Primary hypertension Take 1 tablet (40 mg) by mouth in the morning. 30 tablet 11 3 Active sildenafil (Viagra) 50 MG tabletIndications :Erectile dysfunction, unspecified erectile dysfunction type Take 1 tablet (50 mg) by mouth if needed each day for erectile dysfunction. 10 tablet 4 Active Blood Glucose Monitoring Suppl (ONE TOUCH ULTRA MINI) w/Device kitIndications:Ty pe 2 diabetes mellitus with hyperglycemia, without long-term current use of insulin (CMS/HCC) Test daily before all meals/snacks and once before bedtime. 1 kit 4 Active semaglutide (Ozempic, 1 MG/DOSE,) 2 MG/1.5ML solution pen-injectorIndic ations:Type 2 diabetes mellitus with hyperglycemia, without long-term current use of insulin (CMS/HCC) Inject 2 mg under the skin 1 (one) time per week. 2 each 12 202 4 Active glucose blood test strip Use to check BS QID 100 each 4 05/16/20 25 Active Lancets (OneTouch Delica) lancets 30G 1 each by Other route 4 times daily. 100 each 4 05/16/20 25 Active lidocaine (Lidoderm) 5 % patchIndications: Chronic right-sided thoracic back pain Apply 1 patch topically Once per day. Remove & discard patch within 12 hours or as directed by MD. 30 patch 1 4 Active baclofen (Lioresal) 10 MG tabletIndications :Chronic right-sided thoracic back pain Take one tablet TID PRN 30 tablet 4 Active metoprolol succinate XL (Toprol-XL) 50 MG 24 hr tabletIndications :Primary hypertension Take 1 tablet (50 mg) by mouth Once per day. Do not crush or chew. 30 tablet 3 4 07/31/20 25 Active Active Problems Problem Noted Date Diagnosed Date Muscular pain 07/31/2024 Assessment & Plan (07/31/2024 12:12 PM EST): Acetaminophen PRN Tearing, left 05/12/2024 Assessment & Plan (05/12/2024 2:04 PM EDT): We will wait until he is seen by specialist and then discuss findings Erectile dysfunction 10/30/2023 Assessment & Plan (02/05/2024 12:18 PM EDT): Patient reports medication did not help, I will increase his viagra to 50mg Assessment & Plan (10/30/2023 12:09 PM EDT): I will start him on sildenafil 25mg PRN (follow prescription instructions) Colitis 08/10/2023 Assessment & Plan (08/10/2023 4:19 PM EST): Food diary Positive colorectal cancer screening using Colog uard test 06/13/2023 Primary hypertension 05/15/2023 Assessment & Plan (07/31/2024 12:10 PM EST): Stable, I advised low Na diet and to c/w same medication regimen Assessment & Plan (05/12/2024 2:02 PM EDT): Controlled c/w same medication regime: Metoprolol 50mg daily and pravastatin 40mg daily I advise low Na diet and continue with weight reduction Assessment & Plan (02/05/2024 12:16 PM EDT): - Aerobic exercise to reduce BP. Initial goal of 30 min walk 3-5x/week. Increase as tolerated. - low-sodium diet (goal: <2g/day) and heart healthy diet such as DASH to reduce BP and prevent ASCVD. - Home BP monitoring 1-2 x day with goal of <140/90. - Seek immediate medical attention for chest pain, palpitations, SOB, syncope, or sudden changes in mental status. - Do not change or discontinue current prescriptions without first consulting health care provider Assessment & Plan (10/30/2023 11:59 AM EDT): Maintenance: BMP: up to date Lipid Panel: up to date ASCVD Risk: on pravastatin - Aerobic exercise to reduce BP. Initial goal of 30 min walk 3-5x/week. Increase as tolerated. - low-sodium diet (goal: <2g/day) and heart healthy diet such as DASH to reduce BP and prevent ASCVD. - Home BP monitoring 1-2 x day with goal of <140/90. - Seek immediate medical attention for chest pain, palpitations, SOB, syncope, or sudden changes in mental status. - Do not change or discontinue current prescriptions without first consulting health care provider Assessment & Plan (08/10/2023 4:19 PM EST): Maintenance: BMP: up to date Lipid Panel: up to date ASCVD Risk:I started him on pravastatin 40mg daily - Aerobic exercise to reduce BP. Initial goal of 30 min walk 3-5x/week. Increase as tolerated. - low-sodium diet (goal: <2g/day) and heart healthy diet such as DASH to reduce BP and prevent ASCVD. - Home BP monitoring 1-2 x day with goal of <140/90. - Seek immediate medical attention for chest pain, palpitations, SOB, syncope, or sudden changes in mental status. - Do not change or discontinue current prescriptions without first consulting health care provider Assessment & Plan (05/15/2023 1:09 PM EDT): Maintenance: BMP: ordered today Lipid Panel: ordered today ASCVD Risk: Calculate pending updated labs - Aerobic exercise to reduce BP. Initial goal of 30 min walk 3-5x/week. Increase as tolerated. - low-sodium diet (goal: <2g/day) and heart healthy diet such as DASH to reduce BP and prevent ASCVD. - Home BP monitoring 1-2 x day with goal of <140/90. - Seek immediate medical attention for chest pain, palpitations, SOB, syncope, or sudden changes in mental status. - Do not change or discontinue current prescriptions without first consulting health care provider -Patient will bring her medications on next appointment Type 2 diabetes mellitus wit h hyperglycemia, without long-term current use of insulin 05/15/2023 Assessment & Plan (07/31/2024 12:11 PM EST): Diabetes is: controlled - Lab Results Component Value Date HGBA1C 6.2 (A) 07/31/2024 HGBA1C 6.5 (A) 02/05/2024 HGBA1C 6.9 (A) 10/30/2023 - Lab Results Component Value Date MICROALBUR 22.0 05/15/2023 CREATININE 1.13 07/31/2024 -Changes: none - Diabetic eye exam:up to date - Diabetic foot exam:pending - Continue lifestyle modifications - Continue current medications - Follow up: 3 months Assessment & Plan (05/12/2024 2:03 PM EDT): Diabetes is: controlled - Lab Results Component Value Date HGBA1C 6.5 (A) 02/05/2024 HGBA1C 6.9 (A) 10/30/2023 HGBA1C 7.4 (A) 08/10/2023 - Lab Results Component Value Date MICROALBUR 22.0 05/15/2023 CREATININE 1.11 05/15/2023 -Changes: I will go up on ozempic to 2mg weekly - Diabetic eye exam:up to date - Diabetic foot exam:pending - Continue lifestyle modifications - Continue current medications - Follow up: 3 months Assessment & Plan (02/05/2024 12:18 PM EDT): Diabetes is: controlled - Lab Results Component Value Date HGBA1C 6.5 (A) 02/05/2024 HGBA1C 6.9 (A) 10/30/2023 HGBA1C 7.4 (A) 08/10/2023 - Lab Results Component Value Date MICROALBUR 22.0 05/15/2023 CREATININE 1.11 05/15/2023 -Changes: I will increase his ozempic to 1mg weekly - Diabetic eye exam:up to date - Diabetic foot exam:pending - Continue lifestyle modifications - Continue current medications - Follow up: 3 months Assessment & Plan (10/30/2023 12:11 PM EDT): Diabetes is: almost at goal - Lab Results Component Value Date HGBA1C 6.9 (A) 10/30/2023 HGBA1C 7.4 (A) 08/10/2023 HGBA1C 7.5 (A) 05/15/2023 - Lab Results Component Value Date MICROALBUR 22.0 05/15/2023 CREATININE 1.11 05/15/2023 -Changes: I increase his ozempic to 0.5mg weekly - Diabetic eye exam:patient is being follow by ophthalmology - Diabetic foot exam:pending - Continue lifestyle modifications - Continue current medications - Follow up: 3 months Assessment & Plan (08/10/2023 4:21 PM EST): Lab Results Component Value Date HGBA1C 7.4 (A) 08/10/2023 HGBA1C 7.5 (A) 05/15/2023 - Lab Results Component Value Date MICROALBUR 22.0 05/15/2023 CREATININE 1.11 05/15/2023 - Diabetic eye exam:up to date - Diabetic foot exam:pending - Continue lifestyle modifications -I nikia and started him on ozempic to target goal A1c Assessment & Plan (05/15/2023 1:09 PM EDT): - Lab Results Component Value Date HGBA1C 7.5 (A) 05/15/2023 -No results found for: GLUF, MICROALBUR, LDLCALC, CREATININE - Diabetic eye exam:referrl today - Diabetic foot exam: pending - Continue lifestyle modifications - Continue current medications, patient will bring his medications on next appointment Chronic bronchitis 05/15/2023 Assessment & Plan (07/31/2024 12:09 PM EST): Continue to follow with specialist Assessment & Plan (08/10/2023 4:19 PM EST): C/w oxygen supplementation Continue to follow with pulmonology Assessment & Plan (05/15/2023 1:07 PM EDT): Patient is being follow closely by natural science curator Chronic bilateral low back pain 05/15/2023 Assessment & Plan (05/15/2023 1:11 PM EDT): records for pain management and MRI will be obtained Colon cancer screening 05/15/2023 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 Encounters Date Type Department Care Team Description 08/08/2024 Orders Only GENERIC EXTERNAL DATA DEPARTMENT Provider, Generic External Data 07/31/2024 9:00 AM EST Office Visit [facility] [address] [place] [phone] Brenda Arnold MD Primary hypertension (Primary Dx); Type 2 diabetes mellitus with hyperglycemia, without long-term current use of insulin (CMS/HCC); Chronic bronchitis, unspecified chronic bronchitis type ([facility]/HCC); Encounter for immunization; Muscular pain 07/31/2024 Refill [facility] [address] [place] [address] Brenda Arnold MD Primary hypertension 07/31/2024 Travel 07/30/2024 Telephone [facility] [address] [place] [address] Rm Gonzalez MA Chart Prep 07/24/2024 Patient Outreach [facility] [address], [place] [phone] Brenda Arnold MD Pre-visit Planning (SDOH was completed on 10/23/2023) 07/08/2024 Orders Only [facility] External Provider, [facility] from Last 3 Months Immunizations Name Administration Dates Next Due Influenza High-dose Quadriva lent Preservative Free 05/15/2023,05/23/2022 Influenza Quadrivalent Adjuvanted 05/10/2020 Influenza, High Dose Seasona l, Preservative Free 07/31/2024 Influenza, IIV3, injectable 05/10/2020, 9,04/25/2016 Influenza, seasonal, injecta ble, preservative free 04/25/2016 Moderna Covid-19 Vaccine 12+ 10/27/2021 Pneumococcal Conjugate PCV 20 05/15/2023 Pneumococcal Polysaccharide PPSV23 10/27/2020 RSV Bivalent 10/19/2023 Social History Tobacco Use Types Packs/Day Years Used Date Smoking Tobacco: Former Cigarettes Passive Smoke Exposure: Past Smokeless Tobacco: Never Tobacco Cessation:Counseling Given: Not Answered Alcohol Use Standard Drinks/Week Comments Never 0 (1 standard drink = 0.6 oz pur e alcohol) Alcohol Answer Date Recorded Frequency of Alcohol Consumption Not on file 05/15/2023 Average Number of Drinks Not on file 023 Frequency of Binge Drinking Not on file 04/21 Score 0 05/15/2023 Depression Answer Date Recorded Patient Health Questionnaire-9 Score 0 12/28/2023 Patient Health Questionnaire-9 Score 0 12/28/2023 Last PHQ-9: Questionnaire Data Not on file 0 12/28/2023 Housing Stability Answer Date Recorded What is your housing situation today? I have marcy diaz 06/07/[address] you li ve. Do you have problems with any of the following? None of the above 06/07/2023 Food Insecurity Answer Date Recorded Within the past 12 months, y ou worried that your food would run out before you got money to buy more: Never True 06/07/2023 Within the past 12 months,th e food you bought just didn't last and you didn't have enough money to get more: Never True Transportation Answer Date Recorded In the past 12 months, has l ack of transportation kept you from medical appts, meetings, work or from getting things needed for daily living? No 06/07/2023 Utilities Answer Date Recorded In the past 12 months, has t he electric, gas, oil or water company threatened to shut off services in your home? No 06/07/2023 Depression Answer Date Recorded Patient Health Questionnaire-2 Score 0 12/28/2023 Sex and Gender Information Value Date Recorded Sex Assigned at Male 05/15/2023 8:22 AM EDT Legal Sex Male 3:34 PM EDT Gender Identity Male 05/15/2023 8:22 AM EDT Sexual Orientation Straight 05/15/2023 8: 22 AM EDT Last Filed Vital Signs Vital Sign Reading Time Taken Comments Blood Pressure 137/89 07/31/2024 9:14 AM EST Pulse 82 07/31/2024 9:14 AM EST Temperature 36.4 ??C (97.6 ??F) 07/31/2024 9:14 AM ES T Respiratory Rate 20 07/31/2024 9:14 AM EST Oxygen Saturation 91% 07/31/2024 9:14 AM EST Inhaled Oxygen Concentration - - Weight 90.8 kg (200 lb 3.2 oz) 07/31/2024 9:14 A M EST Height 160 cm (5' 3 ) 07/31/2024 9:14 AM EST Body Mass Index 35.46 07/31/2024 9:14 AM EST Plan of Treatment Health Maintenance Due Date Last Done Comments CT Colonography 1951 Colonoscopy 1951 FIT 1951 FOBT 1950 Sigmoidoscopy 1951 Diabetes: Foot Exam 1961 Hepatitis C Screening 1969 DTaP/Tdap/Td Vaccines (1 - Tdap) 1970 Zoster Vaccines (1 of 2) 2001 COVID-19 Vaccine ( season) 2024 10/27/2021, 11/10/2020 SDOH Screening 10/22/2024 10/23/2023 Depression Screening 12/27/2024 12/28/2023, 12/28/19 24 Diabetes: Hemoglobin A1C 01/29/2025 024, 02/05/2024, 10/30/2023, Additional history exists Alcohol/Substance Use Screening 07/31/2025 07/31/2024 Diabetes: Urine Protein Screening 07/31/2025 07/31/2024, 05/15/2023, 04/27/2023 Lipid Panel 07/31/2025 07/31/2024, 05/15/2023 Tobacco Screening 07/31/2025 07/31/2024 Eye Exam 04/30/2026 04/30/2024 Colorectal Cancer Screening 06/06/2026 FIT DNA/Cologuard 06/06/2026 06/06/2023 Pneumococcal Vaccine: 50+ Years Completed 05/15/2023, 10/27/2020 RSV Patients and Patients Aged 60 years or older Completed 10/19/2023 Influenza Vaccine Completed 07/31/2024, , 05/23/2022, Additional history exists HIB Vaccines Aged Out No longer eligi ble based on patient's age to complete this topic HPV Vaccines Aged Out No longer eligi ble based on patient's age to complete this topic Hepatitis A Vaccines Aged Out No long er eligible based on patient's age to complete this topic Hepatitis B Vaccines Aged Out No long er eligible based on patient's age to complete this topic IPV Vaccines Aged Out No longer eligi ble based on patient's age to complete this topic Meningococcal Vaccine Aged Out No vianca vinay eligible based on patient's age to complete this topic RSV under 20 months Aged Out No longe r eligible based on patient's age to complete this topic Rotavirus Vaccines Aged Out No longer eligible based on patient's age to complete this topic Procedures Procedure Name Priority Date/Time Associated Diagnosis Comments RESPIRATORY ALLERGY PROFILE REGION I Routine 08/08/2024 10:57 AM EST BASIC METABOLIC PANEL Routine 08/08/2024 10:57 AM EST Cataract of both eyes, unspecified cataract type COMPREHENSIVE METABOLIC PANEL Routine 07/31/2024 10:18 AM EST Type 2 diabetes mellitus with hyperglycemia, without long-term current use of insulin (CMS/HCC) ALBUMIN, RANDOM URINE W/CREATININE Routine 07/31/2024 10:18 AM EST Type 2 diabetes mellitus with hyperglycemia, without long-term current use of insulin (CMS/HCC) LIPID PANEL, STANDARD Routine 07/31/2024 10:18 AM EST Type 2 diabetes mellitus with hyperglycemia, without long-term current use of insulin ([facility]) POCT GLYCATED HEMOGLOBIN, TOTAL Routine 07/31/2024 9:22 AM EST Type 2 diabetes mellitus with hyperglycemia, without long-term current use of insulin ([facility]) POCT GLUCOSE Routine 07/31/2024 9:21 AM EST Type 2 diabetes mellitus with hyperglycemia, without long-term current use of insulin ([facility]) CT CHEST WO CONTRAST Routine 07/08/2024 9:55 AM EST AMB REFERRAL TO OPHTHALMOLOGY Urgent 04/30/2024 Cataract of both eyes, unspecified cataract type LAB COLOGUARD?? COLON CANCER SCREEN Routine 06/06/2023 10:30 AM EDT Colon cancer screening from Last 3 Months or Most Recently Relevant to Health Maintenance Results * Respiratory Allergy Profile Region I (08/08/2024 10:57 AM EST) Immunoglobulin E 61 <MU=230 kU/L [facility] Mouse Urine Proteins (E72) IgE <0.10 kU/L [facility] Class 0 [facility] Cockroach (I6) IgE <0.10 kU/L [facility] Class 0 [facility] Dermatophagoides farinae (D2) IgE <0.10 kU/L [facility] Class 0 [facility] Cat Dander (E1) IgE <0.10 kU/L [facility] Class 0 [facility] Comment:THIS TEST WAS PERFOR MED AT:[facility] [id number] [place] [phone] VANCE MD Dog Dander (E5) IgE <0.10 kU/L [facility] Class 0 [facility] Comment:THIS TEST WAS PERFOR MED AT:[facility] [address] [place] [phone] VANCE MD Jonathon Grass (G6) IgE <0.10 kU/L [facility] Class 0 [facility] Cladosporium herbarum (M2) IgE <0.10 kU/L [facility] Class 0 [facility] Aspergillus Fumigatis (M3) IgE <0.10 kU/L [facility] Class 0 [facility] Alternaria alternata (M6) IgE <0.10 kU/L [facility] Class 0 [facility] Comment:THIS TEST WAS PERFOR MED AT:[facility] [place] [id number] VANCE MD [place] (t6) IgE <0.10 kU/L [facility] Class 0 [facility] [place] (T7) IgE <0.10 kU/L [facility] Class 0 [facility] [place] (T10) IgE <0.10 kU/L [facility] Class 0 [facility] [place] (T11) IgE <0.10 kU/L [facility] Class 0 [facility] Concrete (T14) IgE <0.10 kU/L [facility] Class 0 [facility] [place] (t15) IgE <0.10 kU/L [facility] Class 0 [facility] [place] (T70) IgE <0.10 kU/L [facility] Class 0 [facility] Common Ragweed (Short) (W1) IgE <0.10 kU/L [facility] Class 0 [facility] Mugwort (w6) IgE <0.10 kU/L [facility] Class 0 [facility] Dermatophagoides pteronyssinus (D1) IgE <0.10 kU/L [facility] Class 0 [facility] B[place] Grass (g2) IgE <0.10 kU/L [facility] Class 0 [facility] Penicillium Notatum (M1) IgE <0.10 kU/L [facility] Class 0 [facility] Birch (T3) IgE <0.10 kU/L [facility] Class 0 [facility] Elm (t8) IgE <0.10 kU/L [facility] Class 0 [facility] Maple ([place]) (T1) IgE <0.10 kU/L [facility] Class 0 [facility] Rough Pigweed (W14) IgE <0.10 kU/L [facility] Class 0 [facility] Sheep Fortine (W18) IgE <0.10 kU/L [facility] Class 0 [facility] Allergen Comment See Below [facility] Comment: Specific ?Level of AllergenIGE Class ?kU/L ? Specific IGE Antibody ----- ? --------- ?0 ?<0.10 ? Absent/Undetectable ??0/1 ?0.10-0.34 ? Very Low Level ??1 ?0.35-0.69 ? Low Level ??2 ?0.70-3.49 ? Moderate Level ??3 ?3.50-17.4 ? High Level ??4 ?17.5-49.9 ? Very High Level ??5 ?50-100 ?Very High Level ??6 ?>100 ?Very High LevelThe clinical relevance of allergen results of0.10-0.34 kU/L are undetermined and intended forspecialist use.Allergens denoted with a include results usingone or more analyte specific reagents. In thosecases, the test was developed and its analyticalperformance characteristics have been determined by[employer]. It has not been cleared or approvedby the U.S. Food and Drug Administration. This assayhas been validated pursuant to the CLIA regulationsand is used for clinical purposes.THIS TEST WAS PERFORMED AT:[facility] [address] ??[phone] VANCE MD 08/08/2024 10:5 7 AM EST 08/08/2024 10:57 AM EST us Generic External Data Provider LAB BLOOD ORDERAB LES Final Result [facility] [address] [place] [phone] [phone] * (ABNORMAL) Basic Metabolic Panel (08/08/2024 10:57 AM EST) Sodium 143 135 - 145 mmol/L [facility] Potassium 4.2 3.3 - 5.1 mmol/L [facility] Chloride 108 96 - 108 mmol/L [facility] Carbon Dioxide 26 22 - 29 mmol/L [facility] Anion Gap 13 12 - 20 [facility] Urea Nitrogen (BUN) 17(H) 9 - 16 mg/dL [facility] Creatinine, Serum 1.09 0.5 - 1.4 mg/dL [facility] Estimated Glomerular Filt Rate >60 [facility] Comment:Chronic Kidney Disea se: Estimated GFR < 60 mL/min/1.51b2Ocdalf Kidney Disease: Estimated GFR < 15 mL/min/1.73m2 Glucose 119(H) 60 - 115 mg/dL [facility] Calcium 9.3 8.4 - 10.2 mg/dL [facility] 08/08/2024 10:5 7 AM EST 08/08/2024 10:57 AM EST us Generic External Data Provider LAB BLOOD ORDERAB LES Final Result Performing Organization Address [facility] Co de Phone Number [facility] [address] [place] [phone] * Albumin, Random Urine W/Creatinine (07/31/2024 10:18 AM EST) Creatinine, Urine 193.95 mg/dL [facility] Microalbumin Urine 49.0 mg/L [facility] Microalbum Creatinine Ratio Ur 25.2 <30 ug/mg cr [facility] Comment:Albumin/Creatinine R atio Reference Ranges: Normal: < 30 ug/mg creatinine Microalbuminuria: 30 - 300 ug/mg creatinineClinical Albuminuria: > 300 ug/mg creatinine Urine (Urine, Random) 07/31/2024 10:18 AM EST 07/31/2024 11:33 AM EST us Brenda Coburn MD LAB URINE ORDERABLES Final Result Performing Organization Address [facility]/ZIP Co de Phone Number [facility] [address] [place] [phone] * (ABNORMAL) Lipid Panel, Standard (07/31/2024 10:18 AM EST) Triglycerides 110 <150 mg/dL [facility] Comment:Desirable Triglyceri de: less than 150 mg/dLBorderline High Triglyceride 150-199 mg/dLHigh Triglyceride: 200-499 mg/dLVery High Triglyceride: greater than or equal to 5OO mg/dL Cholesterol 188 <200 mg/dL [facility] Comment:Desirable Cholestero l: less than 200 mg/dLBorderline High Cholesterol: 200-239 mg/dLHigh Cholesterol: greater than 239 mg/dL LDL Cholesterol Calculated 121(H) <100 mg/dL [facility] Comment:Desirable LDL: less than 100 mg/dLNear Optimal/Above Optimal LDL: 110- 129 mg/dLBorderline High LDL: 130-159 mg/dLHigh LDL: 160-189 mg/dLVery High LDL: greater than or equal to 190 mg/dL HDL Cholesterol 45 >40 mg/dL [facility] Comment:Desirable HDL: great er than 40 mg/dL Note: This HDL assay may give artificially low results in patients with liver disease. Blood Venous blood specimen / Unknown 07/31/2024 10:18 AM EST 07/31/2024 11:27 AM EST us Brenda Coburn MD LAB BLOOD ORDERABLES Final Result [facility] [address] [place] [phone] * (ABNORMAL) Comprehensive Metabolic Panel (07/31/2024 10:18 AM EST) Sodium 141 135 - 145 mmol/L [facility] Potassium 3.9 3.3 - 5.1 mmol/L [facility] Chloride 109(H) 96 - 108 mmol/L [facility] Carbon Dioxide 26 22 - 29 mmol/L [facility] Anion Gap 10(L) 12 - 20 [facility] Urea Nitrogen (BUN) 18(H) 9 - 16 mg/dL [facility] Creatinine, Serum 1.13 0.5 - 1.4 mg/dL [facility] Estimated Glomerular Filt Rate >60 [facility] Comment:Chronic Kidney Disea se: Estimated GFR < 60 mL/min/1.14s0Qlmdab Kidney Disease: Estimated GFR < 15 mL/min/1.73m2 Glucose 109 60 - 115 mg/dL [facility] Calcium 10.0 8.4 - 10.2 mg/dL [facility] Bilirubin, Total 0.7 0.0 - 1.0 mg/dL [facility] Aspartate Amino Transferase 19 5 - 37 U/L [facility] Alanine Aminotransferase 26 0 - 40 U/L [facility] Total Protein 7.4 6.5 - 8.0 g/dL [facility] Albumin Level 4.3 3.5 - 5.0 g/dL [facility] Alkaline Phosphatase 63 39 - 117 U/L [facility] Blood Venous blood specimen / Unknown 07/31/2024 10:18 AM EST 07/31/2024 11:27 AM EST Brenda Coburn MD LAB BLOOD ORDERABLES Final Result [facility] [address] [place] [phone] * (ABNORMAL) POCT HGB A1C (07/31/2024 9:22 AM EST) Hemoglobin A1C 6.2(A) 4.0 - 6.0 % QC Media Lot # [id number] Lot# Expiration Date [id number] Blood 07/31/2024 9:22 AM EST Brenda Coburn MD POINT OF CARE TEST EN TER/EDIT ORDERABLES Final Result * POCT Glucose (07/31/2024 9:21 AM EST) Glucose Blood, POC 131 60 - 200 mg/dL Comment:random QC Media Lot # [id number] Lot# Expiration Date ,790,011 Blood Capillary blood specimen / Unknown 07/31/2024 9:21 AM EST Result [facility] Brenda Coburn MD POINT OF CARE TEST EN TER/EDIT ORDERABLES Final Result * CT Chest w/o Contrast (07/08/2024 9:55 AM EST) Anatomical Region Laterality Modality Body, Chest Computed Tomogra phy 07/08/2024 9:55 AM EST Narrative 08/11/2024 10:03 AM EST ? [facility] ?[address] ?[place] [address] ? CT Scan Report ? Signed ? Patient: Dandy Lo ?MR#: ?? [id number] ? : 1950 ?Acct:[id number] ? Age/Sex: 74 / M ?ADM Date: 07/08/24 ? Loc: HO.CT ? Attending Dr: Tommy John MD ? Ordering Physician: Tommy John MD ?? Date of Service: 07/08/24 ?? Procedure(s): CT chest wo IV con ?? Accession Number(s): [id number] ? cc: Brenda Arnold MD; Tommy John MD ? EXAMINATION: ?? CT CHEST WITHOUT CONTRAST ? CLINICAL INFORMATION: ?? Solitary pulmonary nodule; follow-up. ? COMPARISON: ?? 04/18/2023. 04/25/2022. ? TECHNIQUE: ?? Multidetector volumetric CT imaging of the chest was done. Axial MIP ?? volume rendering provided. Sagittal and coronal reformatted images were ?? obtained. ? This CT examination was performed using dose optimization techniques as ?? appropriate, variously including the following: ?? *Automated exposure control ?? *Adjustment of mA and/or kV according to patient size (this includes ?? techniques or standardized protocols for targeted exams where dose is ?? matched to indication/reason for exam; i.e. extremities or head) ?? *Use of iterative reconstruction technique ? DLP: ?? 179 mGy-cm ? Exam submitted for review 08/11/2024 8:35 AM CRIMINOLOGY TEACHER. ? FINDINGS: ? PULMONARY NODULES: ?? -Numerous scattered calcified micronodules calcified granulomata are ?? stable and unchanged. These are benign. ?? -4 mm nodule left major fissure (series 7, image 297), consistent with ?? intrapulmonary lymph node and unchanged. ?? -No new or enlarging suspicious pulmonary nodule identified. ? LUNGS: ?? -Lungs demonstrate moderate centrilobular emphysema with upper lobe ?? predominance. ?? -Mild foci of biapical scarring, and linear scarring in the lingula as ?? well as medial left lower lobe are stable and unchanged. ? -Previously seen right major fissure thickening has resolved and was ?? presumably microatelectasis. ?? -No consolidations, abnormal groundglass opacities, effusions, or ?? pneumothorax. ?? -Small airways demonstrate minimal bronchiectasis, notable in the lower ?? lobes, and minimal thickening as well, suggestive of chronic bronchitis. ? MEDIASTINUM: ?? -Grossly normal thyroid. ?? -No abnormal or pathologic lymphadenopathy within the mediastinum or ?? hilum. ?? -Mildly aneurysmal ascending aorta at 4.4 cm, unchanged. Remainder the ?? aorta is mildly calcified but normal in caliber. Descending aorta is ?? tortuous. Main pulmonary artery has a normal size. ?? -Heart size is normal. No pericardial effusion. ?? -Central airways are patent. ?? -The esophagus is unremarkable. ? CORONARY ARTERY CALCIFICATION: Mild to moderate LAD and circumflex ?? calcifications. ? PLEURA: There is no pleural effusion. No pleural mass or thickening. ? AXILLA CHEST WALL: ?? -No masses or lymphadenopathy. There is mild to moderate bilateral ?? gynecomastia. ? UPPER ABDOMEN: ?? -No abnormality is identified. ? OSSEOUS STRUCTURES: ?? -No suspicious lytic or blastic bone lesions. Normal appearance. ? CT/CT chest wo IV con ?? IMPRESSION: ?? 1. Mild to moderate centrilobular emphysema with upper lobe ?? predominance. ?? 2. Stable scattered bilateral calcified and noncalcified nodules, with ?? no new or enlarging suspicious nodule. ?? 3. Small airway minimal bronchiectasis and thickening suggesting ?? chronic bronchitis. ?? 4. Mild aneurysmal dilatation of the ascending aorta up to 4.4 cm. This ?? is unchanged. ?? 5. Additional ancillary findings as discussed. ? Electronically signed by: ??Mike Hoover MD ??08/11/2024 09:59 AM EST RP ? Dictated By: ?Mike Hoover MD ? Signed By: ?<Electronically signed by Mike Hoover MD in OV> ?08/11/24 0959 ? DD/ 0955 ? TD/TT: 07/08/24 1020 ? Triple Valve Tester: ? Procedure Johnie Osorio, Abhilash - 08/11/[address] [address] [address] Scan Report Signed Patient: Dandy Lo EMR#: [id number] : 1Acct:[id number] Age/Sex: 74 / MADM Date: 07/08/24 Loc: HO.CT Attending Dr: Tommy John MD Ordering Physician: Tommy John MD Date of Service: 07/08/24 Procedure(s): CT chest wo IV con Accession Number(s): [id number] cc: Brenda Arnold MD; Tommy John MD EXAMINATION: CT CHEST WITHOUT CONTRAST CLINICAL INFORMATION: Solitary pulmonary nodule; follow-up. COMPARISON: 04/18/2023. 04/25/2022. TECHNIQUE: Multidetector volumetric CT imaging of the chest was done. Axial MIP volume rendering provided. Sagittal and coronal reformatted images were obtained. This CT examination was performed using dose optimization techniques as appropriate, variously including the following: *Automated exposure control *Adjustment of mA and/or kV according to patient size (this includes techniques or standardized protocols for targeted exams where dose is matched to indication/reason for exam; i.e. extremities or head) *Use of iterative reconstruction technique DLP: 179 mGy-cm Exam submitted for review 08/11/2024 8:35 AM CRIMINOLOGY TEACHER. FINDINGS: PULMONARY NODULES: -Numerous scattered calcified micronodules calcified granulomata are stable and unchanged. These are benign. -4 mm nodule left major fissure (series 7, image 297), consistent with intrapulmonary lymph node and unchanged. -No new or enlarging suspicious pulmonary nodule identified. LUNGS: -Lungs demonstrate moderate centrilobular emphysema with upper lobe predominance. -Mild foci of biapical scarring, and linear scarring in the lingula as well as medial left lower lobe are stable and unchanged. -Previously seen right major fissure thickening has resolved and was presumably microatelectasis. -No consolidations, abnormal groundglass opacities, effusions, or pneumothorax. -Small airways demonstrate minimal bronchiectasis, notable in the lower lobes, and minimal thickening as well, suggestive of chronic bronchitis. MEDIASTINUM: -Grossly normal thyroid. -No abnormal or pathologic lymphadenopathy within the mediastinum or hilum. -Mildly aneurysmal ascending aorta at 4.4 cm, unchanged. Remainder the aorta is mildly calcified but normal in caliber. Descending aorta is tortuous. Main pulmonary artery has a normal size. -Heart size is normal. No pericardial effusion. -Central airways are patent. -The esophagus is unremarkable. CORONARY ARTERY CALCIFICATION: Mild to moderate LAD and circumflex calcifications. PLEURA: There is no pleural effusion. No pleural mass or thickening. AXILLA CHEST WALL: -No masses or lymphadenopathy. There is mild to moderate bilateral gynecomastia. UPPER ABDOMEN: -No abnormality is identified. OSSEOUS STRUCTURES: -No suspicious lytic or blastic bone lesions. Normal appearance. CT/CT chest wo IV con IMPRESSION: 1. Mild to moderate centrilobular emphysema with upper lobe predominance. 2. Stable scattered bilateral calcified and noncalcified nodules, with no new or enlarging suspicious nodule. 3. Small airway minimal bronchiectasis and thickening suggesting chronic bronchitis. 4. Mild aneurysmal dilatation of the ascending aorta up to 4.4 cm. This is unchanged. 5. Additional ancillary findings as discussed. Electronically signed by: Mike Hoover MD 08/11/2024 09:59 AM [facility] Dictated By: Mike Hoover MD Signed By: <Electronically signed by Mike Hoover MD in OV> 08/11/24 0959 DD/ 0955 TD/TT: 07/08/24 1020 Triple Valve Tester: [facility] External Provider IMG CT PROCEDURES Final Result * Referral to Ophthalmology (04/30/2024) us Brenda Coburn MD OUTPATIENT REFERRAL O RDERABLES Final Result * (ABNORMAL) Cologuard?? colon cancer screening (06/06/2023 10:30 AM EDT) Cologuard Result Positive( A) Negative 06/13/2023 1:59 AM EDT [facility] (CLIA #:[id number]) Comment: POSITIVE TEST RESULT. A positive Cologuard result should be followed with a colonoscopy or visual examination of the colon. The normal value (reference range) for this assay is negative. TEST DESCRIPTION: Composite algorithmic analysis of stool DNA-biomarkers with hemoglobin immunoassay. ?? Quantitative values of individual biomarkers are not reportable and are not associated with individual biomarker result reference ranges. Cologuard is intended for colorectal cancer screening of adults of either sex, 45 years or older, who are at average-risk for colorectal cancer (CRC). Cologuard has been approved for use by the U.S. FDA. The performance of Cologuard was established in a cross sectional study of average-risk adults aged 50-84. Cologuard performance in patients ages 45 to 49 years was estimated by sub-group analysis of near-age groups. Colonoscopies performed for a positive result may find as the most clinically significant lesion: colorectal cancer [4.0%], advanced adenoma (including sessile serrated polyps greater than or equal to 1cm diameter) [20%] or non- advanced adenoma [31%]; or no colorectal neoplasia [45%]. These estimates are derived from a prospective cross-sectional screening study of 10,000 individuals at average risk for colorectal cancer who were screened with both Cologuard and colonoscopy. (Eduar Gaspar al, N Engl J Med 2014;370(14):1996-9870.) Cologuard may produce a false negative or false positive result (no colorectal cancer or precancerous polyp present at colonoscopy follow up). A negative Cologuard test result does not guarantee the absence of CRC or advanced adenoma (pre-cancer). The current Cologuard screening interval is every 3 years. ([place] [employer] Society and U.S. Multi-Society Task Force). Cologuard performance data in a 10,000 patient pivotal study using colonoscopy as the reference method can be accessed at the following location: [email or web address]/results. Additional description of the Cologuard test process, warnings and precautions can be found at [email or web address]. Stool specimen (specimen) 06/06/2023 10:30 AM EDT 06/07/2023 8:15 PM EDT Brenda Coburn MD LAB MOLECULAR DIAGNOS TICS ORDERABLES Final Result [facility] (CLIA #:[id number]) [place] [address], from Last 3 Months or Most Recently Relevant to Health Maintenance Insurance [facility] Care Teams Drawer In Dobby Loom Relationship Specialty Start Date End Date Brenda Arnold MD [address] [place] [address] PCP - General Internal Medicine 05/11/23
--- OUTSIDE RECORDS SUMMARY | 2024-09-25 13:09 | XMS_ITS | Clinical Summary ---
Author Organization [facility], Address [address] [place] [address] [place] [address] Phone Care Team Providers Care Paper Cup Handle Machine Operator Name Role Phone Amy Orozco MD Primary Care Provider Allergies No known active allergies Medications amLODIPine (NORVASC) 10 MG tablet Take 1 tablet by mouth 05/10/2021 Active Eliquis 2.5 MG tablet Take 2.5 mg by mouth 2 (two) times a day 01/21/2022 Active cholecalciferol (VITAMIN D-3) 1.25 MG (91272 UT) capsule Take 50,000 Int'l Units by mouth 03/14/2020 Active metoprolol succinate XL (TOPROL XL) 50 MG 24 hr tablet Take 50 mg by mouth 02/23/2021 Active predniSONE 5 MG tablet Take 10 mg by mouth 1 (one) time each day 02/21/2022 Active Blood Glucose Monitoring Suppl ([employer] Verio Flex System) w/Device kit USE DIRECTED TO CHECK BLOOD SUGAR TWICE DAILY 11/24/2021 Active Breztri Aerosphere 160-9-4.8 MCG/ACT aerosol INHALE 2 PUFFS BY MOUTH TWICE DAILY. RINSE MOUTH AND THROAT AFTER USE 01/17/2022 Active Wixela Inhub 250-50 MCG/ACT aerosol powder Inhale 1 puff 2 (two) times a day 02/05/2022 Active Lancets (VeedMeTouch Delica Plus [id number]) misc CHECK SUGARS UNDER THE SKIN TWICE DAILY 11/24/2021 Active furosemide (LASIX) 40 MG tablet Take 40 mg by mouth 1 (one) time each day 02/01/2022 Active atorvastatin (LIPITOR) 40 MG tablet Take 40 mg by mouth 1 (one) time each day 04/11/2023 Active olmesartan (BENICAR) 40 MG tablet Take 40 mg by mouth 03/11/2021 Active Farxiga 5 MG tablet Take 5 mg by mouth 1 (one) time each day in the morning 90 tablet 3 11/14/2023 Active Ozempic, 0.25 or 0.5 MG/DOSE, 2 MG/3ML solution pen-injector INJECT 0.5MG UNDER THE SKIN ONE TIME PER WEEK DIRECTED 10/30/2023 Active Active Problems Problem Noted Date Diagnosed Date Microalbuminuria 08/14/2023 Uncontrolled type 2 diabetes mellitus 03/01/2022 Overview (05/20/2024): Replacing diagnoses that were inactivated after the 05/20/24 Regulatory Import Hypertensive disorder 03/01/2022 Chronic obstructive pulmonary disease 03/01/2022 Family History Medical History Relation Comments Heart disease Brother Heart disease Mother Cancer Sister Relation Status Comments Brother Mother Sister Social History Tobacco Use Types Packs/Day Years Used Date Smoking Tobacco: Former Cigarettes 30 Comments:Smoking History Inf o:Every day Alcohol Use Standard Drinks/Week Comments No 0 (1 standard drink = 0.6 oz pur e alcohol) Sex and Gender Information Value Date Recorded Sex Assigned at Not on file Legal Sex Male 2:09 PM EDT Gender Identity Not on file Sexual Orientation Not on file Last Filed Vital Signs Vital Sign Reading Time Taken Comments Blood Pressure 110/56 03/01/2022 1:56 PM EDT Pulse 102 03/01/2022 1:56 PM EDT Temperature - - Respiratory Rate - - Oxygen Saturation - - Inhaled Oxygen Concentration - - Weight 85.5 kg (188 lb 6.4 oz) 10/11/2018 12:00 PM EST Height 160 cm (5' 3 ) 10/11/2018 12:00 PM EST Body Mass Index 33.37 10/11/2018 12:00 PM EST Plan of Treatment Upcoming Encounters Date Type Department Care Team (Late st Contact Info) Description 10/14/2024 10:20 AM EST Office Visit [facility], [address] [place] [address] Ricco Dent MD [address] [place] [address] Health Maintenance Due Date Last Done Comments Colorectal Cancer Screening: Annual FOBT 2000 Colorectal Cancer Screening: Colonoscopy 2000 Colorectal Cancer Screening: Sigmoidoscopy 2000 Diabetes: Ophthalmology Exam 01/19/2022 Diabetes: Pedal Pulse Checked 01/19/2022 Diabetes: Sensory Foot Exam 01/19/2022 Diabetes: Visual Foot Exam 01/19/2022 Influenza Vaccine (#1) 2024 05/10/2020, 2015 Diabetes: Hemoglobin A1C 05/07/2024 024, 10/30/2023, 08/10/2023, Additional history exists Pneumococcal Vaccine: 65+ Years Completed 05/15/2023, 10/27/2020 Hepatitis B Vaccine Aged Out No longe r eligible based on patient's age to complete this topic Procedures Procedure Name Priority Date/Time Associated Diagnosis Comments HEMOGLOBIN A1C Routine 04/27/2023 9:41 AM EDT from Last 3 Months or Most Recently Relevant to Health Maintenance Results * (ABNORMAL) Hemoglobin A1c (04/27/2023 9:41 AM EDT) Hemoglobin A1C 7.6(H) (4.0-5.6) % [facility] Comment: MONITORING: In known diabetic patients, hemoglobin A1c targets should be discussed with health care provider. DIAGNOSTIC USE: ??The [place] Diabetes Association (ADA) and the World Health Organization (WHO) recommend the use of HbA1c to diagnose diabetes using a threshold of 6.5%. Patients who have an HbA1c between 5.7% and 6.4% are considered at increased risk for developing diabetes in the future. CAUTION: Falsely low HbA1c results may be observed in patients with hemolytic anemia, homozygous forms of abnormal hemoglobin (e.g. SS, CC, SC), , recent blood loss or hemoglobin F greater than 7%. Fructosamine may be used as an alternate test in these cases. REFERENCE: ADA: Standards of Medical Care in Diabetes 2020, The Journal of Clinical and Applied Research and Education Volume 43, Supplement 1 Testing performed or reported by [facility] [employer], a Service of [facility], [address] [place] [address] Rudy Novoa MD, Outpatient Physical Therapist Assistant [facility]# [id number] 04/27/2023 9:41 AM EDT 04/27/2023 9:43 AM EDT Ricco Dent MD LAB BLOOD ORDERABLES Final Re sult [facility] from Last 3 Months or Most Recently Relevant to Health Maintenance Insurance [facility] MEDICARE MEDICAID [place] Care Teams Paper Cup Handle Machine Operator Relationship Specialty Start Date End Date Amy Orozco MD [facility] [address] PCP - General Internal Medicine 03/01/22
--- OUTSIDE RECORDS SUMMARY | 2024-09-25 13:10 | XMS_ITS | Encounter Summary ---
Author Organization [employer] Address [address] [facility] [address] [place] [address] Care Team Providers Care Flame Hardening Machine Setter Name Role Phone Brenda Arnold MD Primary Care Provide r Reason for Visit * Reason Onset Date Comments New Patient Appt 03/22/2023 Encounter Details Date Type Department Care Team ([facility] st Contact Info) Description 03/22/2023 Telephone [facility] [address] [place] [address] Hong Conn MD [address] [place] [address] New Patient Appt Social History Tobacco Use Types Packs/Day Years Used Date Smoking Tobacco: Never Assessed Sex and Gender Information Value Date Recorded Sex Assigned at Male 05/15/2023 8:22 AM EDT Legal Sex Male 3:34 PM EDT Gender Identity Male 05/15/2023 8:22 AM EDT Sexual Orientation Straight 05/15/2023 8: 22 AM EDT documented as of this encounter Miscellaneous Notes * Telephone Encounter - Yoko Mckeon - 03/22/2023 12:25 PM EDT PAR Yoko Rondon called pt to Offer DEPUTY SHERIFF BAILIFF appt. Pt demographics and insurance information were verified. Pt reports the following medical conditions: Asthma, lung Conditions, uses Oxygen, Blood pressure, diabetic, an other Chronic Conditions. Pt is currently taking medication: Yes ( will discuss with PCP, advised to please bring medication to appt ). Pt given DEPUTY SHERIFF BAILIFF appt with Dr. Heath on 05/15/2023. Pt will be sent appt reminder card and medical release form and agrees to complete and to returnto medical records prior to DEPUTY SHERIFF BAILIFF appt. documented in this encounter Plan of Treatment Not on file documented as of this encounter Visit Diagnoses Not on filedocumented in this encounter Care Teams Flame Hardening Machine Setter Relationship Specialty Start Date End Date Brenda Arnold MD [address] [place] [id number] PCP - General Internal Medicine 05/11/23 documented as of this encounter
--- OUTSIDE RECORDS SUMMARY | 2024-09-25 13:10 | XMS_ITS | Encounter Summary ---
Author Organization [facility] Address [address] [place] [address] Phone Care Team Providers Care Elevator Conductor Name Role Phone Amy Orozco MD Primary Care Provider Reason for Visit * Reason Comments Med Refill Encounter Details Date Type Department Care Team (Late Contact Info) Description 06/04/2023 [facility]ill [facility] [address] [place] [address] Ricco Dent MD [address] [place] [address] [place] [address] Social History Tobacco Use Types Packs/Day Years [...] on file Sexual Orientation Not on file documented as of this encounter Plan of Treatment Upcoming Encounters Date Type Department Care Team (Late Contact Info) Description 10/14/2024 10:20 AM EST Office [facility] [address] [place] [address] Ricco Dent MD [address] [place] [address] [place] [address] documented as of this encounter Visit Diagnoses Not on filedocumented in this encounter Care Teams Elevator Conductor Relationship Specialty Start Date End Date Amy Orozco MD [facility] PCP - General Internal Medicine 03/01/22 documented as of this encounter
--- OUTSIDE RECORDS SUMMARY | 2024-09-25 13:10 | XMS_ITS | Encounter Summary ---
Author Organization [facility] Address [address] [place] [address] Phone Care Team Providers Care Core Piler Name Role Phone Amy Orozco MD Primary Care Provider Encounter Details Date Type Department Care Team (Late Contact Info) Description 04/26/2023 Documentation Only [facility] [address] [place] [address] Ricco Dent MD [address] [place] [address] [place] [address] Social History Tobacco Use Types [...] Visit [facility] [address] [place] [address] Ricco Dent MD [address] [place] [address] [place] [address] documented as of this encounter Visit Diagnoses Not on filedocumented in this encounter Care Teams Core Piler Relationship Specialty Start Date End Date Amy Orozco MD [address] [place] [address] PCP - General Internal Medicine 03/01/22 documented as of this encounter
--- OUTSIDE RECORDS SUMMARY | 2024-09-25 13:10 | XMS_ITS | Encounter Summary ---
Author Organization [employer] Address [address] [facility] [address] [place] [address] Care Team Providers Care Crystal Syrup Maker Name Role Phone Brenda Arnold MD Primary Care Provide r Reason for Visit * Reason Comments Med Refill Encounter Details Date Type Department Care Team ([facility] st Contact Info) Description 07/31/2024 Refill [facility] [address] [place] [address] Brenda Arnold MD [address] [place] [address] Primary hypertension Social History Tobacco Use Types Packs/Day Years Used Date Smoking Tobacco: Former Cigarettes Passive Smoke Exposure: Past Smokeless Tobacco: Never Alcohol Use Standard Drinks/Week Comments Never 0 [...] AM EDT documented as of this encounter Plan of Treatment Not on file documented as of this encounter Visit Diagnoses Diagnosis Primary hypertension Unspecified essential hypertension documented in this encounter Additional Health Concerns Assessment Noted Time PHQ-9 Depression Total Score: 0 12/28/19 24 2:37 PM EDT documented as of this encounter Care Teams Crystal Syrup Maker Relationship Specialty Start Date End Date Brenda Arnold MD [address] [place] [id number] PCP - General Internal Medicine 05/11/23 documented as of this encounter
--- OUTSIDE RECORDS SUMMARY | 2024-09-25 13:10 | XMS_ITS | Encounter Summary ---
Author Organization [facility] Address [address] [place] [address] Phone Care Team Providers Care Manager Occupational Name Role Phone Amy Orozco MD Primary Care Provider Encounter Details Date Type Department Care Team (Late Contact Info) Description 01/28/2022 Documentation Only [facility] [address] [place] [address] Kirsten Beckwith PA Social History Tobacco Use Types Packs/Day Years Used Date Smoking Tobacco: Former Comments:Smoking History Inf o:Every day Alcohol Use [...] Visit [facility] [address] [place] [address] Ricco Dent MD [address] [place] [address] [place] [phone] documented as of this encounter Visit Diagnoses Not on filedocumented in this encounter Care Teams Manager Occupational Relationship Specialty Start Date End Date Amy Orozco MD [address] [place] [address] [address] [place], [place] PCP - General Internal Medicine 03/01/22 documented as of this encounter
--- OUTSIDE RECORDS SUMMARY | 2024-09-25 13:10 | XMS_ITS | Encounter Summary ---
Author Organization [facility] Address [address] [place] [address] Phone Care Team Providers Care Ribbing Machine Operator Name Role Phone Amy Orozco MD Primary Care Provider Encounter Details Date Type Department Care Team (Late Contact Info) Description 02/23/2022 Documentation Only [facility] [address] [place] [address] Kirsten Beckwith PA Social History [...] Visit [facility] [address] [place] [address] Ricco Dent MD [address] [place] [address] [place] [phone] documented as of this encounter Visit Diagnoses Not on filedocumented in this encounter Care Teams Ribbing Machine Operator Relationship Specialty Start Date End Date Amy Orozco MD [address] [place] [address] [address] [place], [place] PCP - General Internal Medicine 03/01/22 documented as of this encounter
--- OUTSIDE RECORDS SUMMARY | 2024-09-25 13:10 | XMS_ITS | Encounter Summary ---
Author Organization [facility] Address [address] [place] [address] Phone Care Team Providers Care Meter Record Clerk Name Role Phone Amy Orozco MD Primary Care Provider Encounter Details Date Type Department Care Team (Late Contact Info) Description 12/05/2023 Documentation Only [facility] [address] [place] [address] Albertina Cortes [address] [place] [address] Social History Tobacco Use Types Packs/Day Years [...] [facility] [address] [place] [address] Ricco Dent MD [address] [place] [address] [place] [address] documented as of this encounter Visit Diagnoses Not on filedocumented in this encounter Care Teams Meter Record Clerk Relationship Specialty Start Date End Date Amy Orozco MD [address] PCP - General Internal Medicine 03/01/22 documented as of this encounter
--- OUTSIDE RECORDS SUMMARY | 2024-09-25 13:10 | XMS_ITS | Encounter Summary ---
Author Organization [facility] Address [address] [place] [address] Phone Care Team Providers Care Internet Marketing Assistant Name Role Phone Amy Orozco MD Primary Care Provider Encounter Details Date Type Department Care Team (Late st Contact Info) Description 01/18/2022 Documentation Only [facility] [address] [place] [address] Kirsten Beckwith PA Social History Tobacco Use [...] Visit [facility] [address] [place] [phone] Ricco Dent MD [address] [place] [address] [place] [phone] documented as of this encounter Visit Diagnoses Not on filedocumented in this encounter Care Teams Internet Marketing Assistant Relationship Specialty Start Date End Date Amy Orozco MD [facility] [address] [place], [place] PCP - General Internal Medicine 03/01/22 documented as of this encounter
--- OUTSIDE RECORDS SUMMARY | 2024-09-25 13:10 | XMS_ITS | Encounter Summary ---
Author Organization [facility] Address [address] [place] [address] Phone Care Team Providers Care Rn Mds Coordinator Name Role Phone Amy Orozco MD Primary Care Provider Encounter Details Date Type Department Care Team (Late st Contact Info) Description 09/15/2021 Documentation Only [facility] [address] [place] [address] Kirsten Beckwith PA Social History Tobacco Use [...] Visit [facility] [address] [place] [phone] Ricco Dent MD [address] [place] [address] [place] [phone] documented as of this encounter Visit Diagnoses Not on filedocumented in this encounter Care Teams Rn Mds Coordinator Relationship Specialty Start Date End Date Amy Orozco MD [facility] [address] [place], [place] PCP - General Internal Medicine 03/01/22 documented as of this encounter
[2024-09-25 13:58] LABS: Anion Gap 12 (12-20); Blood Urea Nitrogen 19 mg/dL (9-16); Carbon Dioxide 29 mmol/L (22-29); Chloride 105 mmol/L (96-108); Estimated Glomerular Filt Rate > 60; Glucose Random 95 mg/dL (60-115); Potassium 4.4 mmol/L (3.3-5.1); Sodium 142 mmol/L (135-145)
== END 2024-09-25 13:04 | disposition home or self-care (01) ==
LOC: HO.LAB 13:03
PROVIDERS: PCP Internal Medicine; Visit Provider Internal Medicine
DX: I50.33 Acute on chronic diastolic (congestive) heart failure (principal); I25.10 Atherosclerotic heart disease of native coronary artery without angina pectoris
CPT/HCPCS: 36415; 80048

== ENCOUNTER 2024-11-18 12:41 | Outpatient (AMB) | payer MEDICARE, MEDICAID, SELFPAY ==
--- NOTE | 2024-11-18 13:05 | A.OFFVIS_ITS ---
Vital Signs 11/18/24 13:06 Height 5 ft 3 in Weight 199 lb BMI 35.2 BP 118/60 Blood Pressure Location Lt brachial Position Sitting Pulse 72 Pulse Source Pulse Oximeter Intake Visit Reasons: r/s 10/13/24 followup s/p cta Director Dental Services Required: Yes Director Dental Services Name: CASSANDRA [id number] Allergies No Known Allergies Allergy (Verified 08/08/24 10:19) Medication List - Last Reconciled 11/18/24 by Pancho Ryder MD albuterol sulfate 90 mcg/actuation 2 puffs inhalation Q6H PRN 30 days albuterol sulfate 2.0833 mg (2.5 mL) inhalation Q6H PRN atorvastatin 40 mg PO QPM xrghxaprwd-irpjulae-bwcdkxtjcx 160-9-4.8 mcg/actuation (Breztri Aerosphere) 2 inhalations inhalation BID 30 days dapagliflozin propanediol (Farxiga) 5 mg PO DAILY ipratropium-albuterol 0.5 mg-3 mg(2.5 mg base)/3 mL 3 mL inhalation BID 30 days metoprolol succinate ER 50 mg PO DAILY nebulizers As directed olmesartan 40 mg PO DAILY roflumilast (Daliresp) 500 mcg PO DAILY 30 days semaglutide (Ozempic) 0.25 mg subcut QWEEK HPI Comments Details: Dandy returns for follow-up. Recently seen in consultation regarding abnormal EKG. Apparently a prior EKG had shown Q-waves/concern for inferior infarct and hence he is referred. Patient himself has absolutely no cardiac symptoms. Denies any angina. He states even his breathing is okay. He has a history of COPD. Was on home oxygen but he states he is not using it at this time. Otherwise, within limits his activity, he has no specific concerns. He states he is trying to lose a lot of weight. Since last seen, he has undergone an echocardiogram, coronary CTA. [facility] Medical History (Updated 08/08/24 @ 10:41 by Tommy John MD) Allergies History of peptic ulcer disease Abdominal pain O2 dependent Pulmonary nodule On beta drea at home CHF (congestive heart failure) Acute on chronic respiratory failure with hypercapnia Diabetes mellitus Obesity hypoventilation syndrome Acute on chronic respiratory failure with hypoxia and hypercapnia REBECA (obstructive sleep apnea) Chronic respiratory failure COPD (chronic obstructive pulmonary disease) Asthma Bronchitis HTN (hypertension) High cholesterol Surgical History H/O colonoscopy History of surgery Family History Sister Breast cancer Sister FH: kidney cancer Brother Prostate cancer Social History (Updated 08/08/24 @ 10:22 by KATTY Montes) Household Members: Spouse Housing: Apartment Are you a primary career development coordinator/teacher to a significant other at home: No Do you presently have visiting nurse or other home services: No Alcohol intake: former Patient Tobacco Use Status: Former Tobacco user Second Hand Smoke Exposure: No service: No Current occupational status: disabled Review of Systems Const Denies weakness ENT Denies dizziness Card Denies chest pain, Denies chest pain with activity, Denies syncope, Denies rapid heart rate, Denies pedal edema, Denies edema, Denies leg edema, Denies lightheadedness, Denies palpitations, Denies dyspnea, Denies dyspnea on exertion and Denies orthopnea Resp Denies cough, Denies dyspnea and Denies dyspnea on exertion GI Denies hematochezia and Denies change in stool character Musc Denies abnormal gait, Denies muscle cramps, Denies muscle weakness, Denies numbness, Denies radiating pain into limb and Denies tingling Neuro Denies abnormal gait, Denies dizziness, Denies syncope, Denies numbness, Denies tingling and Denies weakness Endo Denies palpitations Physical Exam Vital Signs: Last Vital Signs Pulse 72 11/18/24 13:06 BP 118/60 11/18/24 13:06 BMI result Body Mass Index 35.2 Const General: comfortable and no acute distress Orientation/consciousness: patient oriented x3 HEENT Other: Unremarkable Head: Yes normal to inspection Neck Neck: Yes normal visual inspection Chest Chest palpation & inspection: normal inspection of the chest Resp Auscultation: clear to auscultation bilaterally Cardio Palpation: normal PMI Heart sounds: S1 normal heart sound present, S2 normal heart sound present, no gallops, no murmurs and no rubs GI Palpation (GI): Soft to palpation Back/Spine/Pelvis Other: unremarkable Skin General skin exam: no rashes or lesions noted Neuro General: patient oriented x3 Extrem General: Yes normal to inspection Psych Mental Status: mental status grossly normal Assessment & Plan Assessment & Plan (1) Atherosclerotic cardiovascular disease: Code(s): I25.10 - Atherosclerotic heart disease of [place] coronary artery without angina pectoris Category: Medical (2) COPD (chronic obstructive pulmonary disease): Code(s): J44.9 - Chronic obstructive pulmonary disease, unspecified Category: Medical (3) Chronic respiratory failure: Code(s): J96.10 - Chronic respiratory failure, unspecified whether with hypoxia or hypercapnia Category: Medical Qualifiers: Respiratory failure complication: hypoxia and hypercapnia Qualified Code(s): J96.11 - Chronic respiratory failure with hypoxia; J96.12 - Chronic respiratory failure with hypercapnia (4) Diabetes mellitus: Code(s): E11.9 - Type 2 diabetes mellitus without complications Category: Medical (5) HTN (hypertension): Code(s): I10 - Essential (primary) hypertension Category: Medical (6) Obesity hypoventilation syndrome: Code(s): E66.2 - Morbid (severe) obesity with alveolar hypoventilation Category: Medical Plan In the recent EKG, no clear findings in the inferior wall. Hence in the PCP EKG, findings could be related to lead position. Chest CT scan in the past reported to have coronary artery calcifications which is not unusual in his age. Aorta described to be nonaneurysmal. Coronary CTA with wlug-cd-rnjfffap stenosis in the 1st diagonal and 1st obtuse marginal. Ascending aortic size 4.1 cm. Mild dilatation the pulmonary artery at 3.1 cm. In the echocardiogram from 2021, LVEF 60-65%; mild aortic valve calcification; moderate mitral annular calcification; ascending aortic size 4 cm. Myocardial perfusion imaging study at [facility] is unremarkable. Overall, can treat for stable coronary disease. Continue statins. Clinically he has got no angina. Otherwise, mainly risk factor modification. Weight management. Aggressive management of diabetes, hypertension, dyslipidemia. Discussed with significant other. career development engineer used. Coding Level of Care Code Est Pt Level 4 (89366) Complex EM visit Add On G2211 Diagnoses Atherosclerotic cardiovascular disease I25.10 COPD (chronic obstructive pulmonary disease) J44.9 Chronic respiratory failure with hypoxia and hypercapnia J96.11; J96.12 Respiratory failure complication: hypoxia and hypercapnia Diabetes mellitus E11.9 HTN (hypertension) I10 Obesity hypoventilation syndrome E66.2
[2024-11-18 13:06] VITALS: BP 118/60; PULSE 72; BMI 35.2
--- OUTSIDE RECORDS SUMMARY | 2024-11-18 14:49 | XMS_ITS | Encounter Summary ---
Author Organization [facility] Address [address] [place] [address] Phone Care Team Providers Care Physician Liaison Name Role Phone Amy Orozco MD Primary Care Provider Encounter Details Date Type Department Care Team (Late st Contact Info) Description 02/23/2022 Documentation Only [facility] [place], [address] [place] [address] Kirsten Beckwith PA Social History [...] on filedocumented in this encounter Care Teams Physician Liaison Relationship Specialty Start Date End Date Amy Orozco MD [facility] [address] [place], [place] PCP - General Internal Medicine 03/01/22 documented as of this encounter
--- OUTSIDE RECORDS SUMMARY | 2024-11-18 14:49 | XMS_ITS | Clinical Summary ---
Author Organization [facility] [place], Address [address] [place] [address] [place] [address] Phone Care Team Providers Care Cell Tender Name Role Phone Amy Orozco MD Primary Care Provider Allergies No known active allergies Medications amLODIPine (NORVASC) 10 MG tablet Take 1 tablet by mouth 05/10/2021 Active Eliquis 2.5 MG tablet Take 2.5 mg by mouth 2 (two) times a day 01/21/2022 Active cholecalciferol (VITAMIN D-3) 1.25 MG (45492 UT) capsule Take 50,000 Int'l Units by mouth 03/14/2020 Active metoprolol succinate XL (TOPROL XL) 50 MG 24 hr tablet Take 50 mg by mouth 02/23/2021 Active predniSONE 5 MG tablet Take 10 mg by mouth 1 (one) time each day 02/21/2022 Active Blood Glucose Monitoring Suppl ([place]ona Verio Flex System) w/Device kit USE DIRECTED TO CHECK BLOOD SUGAR TWICE DAILY 11/24/2021 Active Breztri Aerosphere 160-9-4.8 MCG/ACT aerosol INHALE 2 PUFFS BY MOUTH TWICE DAILY. RINSE MOUTH AND THROAT AFTER USE 01/17/2022 Active Wixela Inhub 250-50 MCG/ACT aerosol powder Inhale 1 puff 2 (two) times a day 02/05/2022 Active Lancets (ChromatinTouch Delica Plus [id number]) misc CHECK SUGARS UNDER THE SKIN TWICE [...] 10/11/2018 12:00 PM EST Plan of Treatment Health Maintenance Due Date Last Done Comments Colorectal Cancer Screening: Annual FOBT 2000 Colorectal Cancer Screening: Colonoscopy 2000 Colorectal Cancer Screening: Sigmoidoscopy 2000 Diabetes: Ophthalmology Exam 01/19/2022 Diabetes: Pedal Pulse Checked 01/19/2022 Diabetes: Sensory Foot Exam 01/19/2022 Diabetes: Visual Foot Exam 01/19/2022 Diabetes: Hemoglobin A1C 05/07/202402/04/2 024, 10/30/2023, 08/10/2023, Additional history exists Influenza Vaccine (Season Ended) 2025 05/10/2020, 04/25/2016 Pneumococcal Vaccine: 65+ Years Completed 05/15/2023, 10/27/2020 [...] AM EDT) Hemoglobin A1C 7.6(H) (4.0-5.6) % [facility] Comment: MONITORING: In known diabetic patients, hemoglobin A1c targets should be discussed with health care provider. DIAGNOSTIC USE: ??The [place] Diabetes Association (ADA) and the World Health [...] Supplement 1 Testing performed or reported by [facility], a Service of [facility], [address] [place] [address] Rudy Novoa MD, Stencil Maker [facility]# [id number] 04/27/2023 9:41 AM EDT 04/27/2023 9:43 AM EDT us Ricco Dent MD LAB BLOOD ORDERABLES Final Re sult [facility] from Last 3 Months or Most Recently Relevant to Health Maintenance Insurance [facility] MEDICARE MEDICAID [place] Care Teams Cell Tender Relationship Specialty Start Date End Date Amy Orozco MD [address] [place] [address] PCP - General Internal Medicine 03/01/22
--- OUTSIDE RECORDS SUMMARY | 2024-11-18 14:49 | XMS_ITS | Encounter Summary ---
Author Organization [facility] Address [address] [place] [address] Phone Care Team Providers Care Plasterer Spray Gun Name Role Phone Amy Orozco MD Primary Care Provider Encounter Details Date Type Department Care Team (Late st Contact Info) Description 01/28/2022 Documentation Only [facility] [place], [address] [place] [address] Kirsten Beckwith PA Social History [...] on filedocumented in this encounter Care Teams Plasterer Spray Gun Relationship Specialty Start Date End Date Amy Orozco MD [facility] [address] [place], [place] PCP - General Internal Medicine 03/01/22 documented as of this encounter
--- OUTSIDE RECORDS SUMMARY | 2024-11-18 14:49 | XMS_ITS | Encounter Summary ---
Author Organization [facility] Address [address] [place] [address] Phone Care Team Providers Care Ratings Analyst Name Role Phone Amy Orozco MD Primary Care Provider Encounter Details Date Type Department Care Team (Late st Contact Info) Description 09/15/2021 Documentation Only [facility] [place], [address] [place] [phone] Kirsten Beckwith PA Social History Tobacco Use [...] on filedocumented in this encounter Care Teams Ratings Analyst Relationship Specialty Start Date End Date Amy Orozco MD [facility] [address] [place], [place] PCP - General Internal Medicine 03/01/22 documented as of this encounter
--- OUTSIDE RECORDS SUMMARY | 2024-11-18 14:49 | XMS_ITS | Encounter Summary ---
Author Organization [facility] Address [address] [place] [address] Phone Care Team Providers Care De Icer Installer Name Role Phone Amy Orozco MD Primary Care Provider [phone] Encounter Details Date Type Department Care Team (Late st Contact Info) Description 01/18/2022 Documentation Only [facility] [place], [address] [place] [phone] Kirsten Beckwith PA Social History Tobacco Use [...] on filedocumented in this encounter Care Teams De Icer Installer Relationship Specialty Start Date End Date Amy Orozco MD [facility] [address] [place], [place] PCP - General Internal Medicine 03/01/22 documented as of this encounter
--- OUTSIDE RECORDS SUMMARY | 2024-11-18 14:49 | XMS_ITS | Clinical Summary ---
Author Organization [employer] Address [address] [place] [address] Care Team Providers Care Hawk Missile Air Defense Artillery Name Role Phone Brenda Arnold MD Primary Care Provide r Allergies No known active allergies Medications Blood Glucose Monitoring Suppl (Flubit Limited Verio Flex System) w/Device kit Use to check blood sugar daily as directed 1 kit 3 Active simethicone (Mylicon,Gas-X) 180 MG capsuleIndication s:Colitis Take 1 capsule (180 mg) by mouth every 8 (eight) hours if needed for flatulence. 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 I have marcy joe 06/07/[address] you li [...] Vaccines (1 of 2) 2001 COVID-19 Vaccine (3 season) 2024 10/27/2021, 11/10/2020 SDOH Screening 10/22/2024 10/23/2023 Depression Screening 12/27/2024 12/28/2023, 12/28/19 Diabetes: Hemoglobin A1C 01/29/2025 024, 02/05/2024, 10/30/2023, [...] Procedure Name Priority Date/Time Associated Diagnosis Comments BASIC METABOLIC PANEL Routine 09/25/2024 1:18 PM EST ALBUMIN, RANDOM URINE W/CREATININE Routine 07/31/2024 10:18 AM EST Type 2 diabetes mellitus with hyperglycemia, without long-term current use of insulin ([facility]/HCC) LIPID PANEL, STANDARD Routine 07/31/2024 10:18 AM EST Type 2 diabetes mellitus with hyperglycemia, without long-term current use of insulin ([facility]) POCT GLYCATED HEMOGLOBIN, TOTAL Routine 07/31/2024 9:22 AM EST Type 2 diabetes mellitus with hyperglycemia, without long-term current use of insulin ([facility]) AMB REFERRAL TO OPHTHALMOLOGY Urgent 04/30/2024 Cataract of both eyes, unspecified cataract type LAB COLOGUARD?? COLON CANCER SCREEN Routine 06/06/2023 10:30 AM EDT Colon cancer screening from Last 3 Months or Most Recently Relevant to Health Maintenance Results * (ABNORMAL) Basic Metabolic Panel (09/25/2024 1:18 PM EST) Sodium 142 135 - 145 mmol/L [facility] Potassium 4.4 3.3 - 5.1 mmol/L [facility] Chloride 105 96 - 108 mmol/L [facility] Carbon Dioxide 29 22 - 29 mmol/L [facility] Anion Gap 12 12 - 20 [facility] Urea Nitrogen (BUN) 19(H) 9 - 16 mg/dL [facility] Creatinine, Serum 0.96 0.5 - 1.4 mg/dL [facility] Estimated Glomerular Filt Rate >60 [facility] Comment:Chronic Kidney Disea se: Estimated GFR < 60 mL/min/1.80m8Ioylbq Kidney Disease: Estimated GFR < 15 mL/min/1.73m2 Glucose 95 60 - 115 mg/dL [facility] Calcium 10.0 8.4 - 10.2 mg/dL [facility] 09/25/2024 1:18 PM EST 09/25/2024 1:18 PM EST us Generic External Data Provider LAB BLOOD ORDERAB LES Final Result Performing Organization Address [facility] Co de Phone Number [facility] [address] [place] [phone] * Albumin, Random Urine W/Creatinine (07/31/2024 10:18 AM EST) Creatinine, Urine 193.95 mg/dL [facility] Microalbumin Urine 49.0 mg/L [facility] Microalbum Creatinine Ratio Ur 25.2 <30 ug/mg cr [facility] Comment:Albumin/Creatinine R atio Reference Ranges: Normal: < 30 ug/mg creatinine Microalbuminuria: 30 - 300 ug/mg creatinineClinical Albuminuria: > 300 ug/mg creatinine Urine (Urine, Random) 07/31/2024 10:18 AM EST 07/31/2024 11:33 AM EST us Brenda Coburn MD LAB URINE ORDERABLES Final Result Performing Organization Address [facility] Co de Phone Number [facility] [address] [place] [phone] * (ABNORMAL) Lipid Panel, Standard (07/31/2024 10:18 AM EST) Triglycerides 110 <150 mg/dL [facility] Comment:Desirable Triglyceri de: less than 150 mg/dLBorderline High Triglyceride 150-199 mg/dLHigh Triglyceride: 200-499 mg/dLVery High Triglyceride: greater than or equal to 5OO mg/dL Cholesterol 188 <200 mg/dL [facility] Comment:Desirable Cholestero l: less than 200 mg/dLBorderline High Cholesterol: 200-239 mg/dLHigh Cholesterol: greater than 239 mg/dL LDL Cholesterol Calculated 121(H) <100 mg/dL [facility] Comment:Desirable LDL: less than 100 mg/dLNear Optimal/Above Optimal LDL: 110- 129 mg/dLBorderline High LDL: 130-159 mg/dLHigh LDL: 160-189 mg/dLVery High LDL: greater than or equal to 190 mg/dL HDL Cholesterol 45 >40 mg/dL [facility] Comment:Desirable HDL: great er than 40 mg/dL Note: This HDL assay may give artificially low results in patients with liver disease. Blood Venous blood specimen / Unknown 07/31/2024 10:18 AM EST 07/31/2024 11:27 AM EST us Brenda Coburn MD LAB BLOOD ORDERABLES Final Result Performing Organization Address City/State/[facility] Co de Phone Number [facility] [address] [place] [phone] * (ABNORMAL) POCT HGB A1C (07/31/2024 9:22 AM EST) [facility] Hemoglobin A1C 6.2(A) 4.0 - 6.0 % QC Media Lot # [id number] Lot# Expiration Date [id number] Blood 07/31/2024 9:22 AM EST Result Landy Coburn MD POINT OF CARE TEST EN TER/EDIT ORDERABLES Final Result * Referral to Ophthalmology (04/30/2024) Result Landy Coburn MD OUTPATIENT REFERRAL O RDERABLES Final Result * (ABNORMAL) Cologuard?? colon cancer screening (06/06/2023 10:30 AM EDT) Pathologist [facility] Cologuard Result Positive( A) Negative 06/13/2023 1:59 AM EDT [facility] (CLIA #:[id number]) Comment: POSITIVE TEST RESULT. A positive Cologuard [...] (Eduar Gaspar al, N Engl J Med 2014;370(14):4551-9870.) Cologuard may produce a false negative or false positive result (no colorectal cancer or precancerous polyp present at colonoscopy follow up). A negative Cologuard test result does not guarantee the absence of CRC or advanced adenoma (pre-cancer). The current Cologuard screening interval is every 3 years. ([place] [employer] and U.S. Multi-Society Task Force). Cologuard performance data in a 10,000 patient pivotal study using colonoscopy as the reference method can be accessed at the following location: www.CaseReader/results. Additional description of the Cologuard test process, warnings and precautions can be found at [email or web address].[email or web address]. Stool specimen (specimen) 06/06/2023 10:30 AM EDT 06/07/2023 8:15 PM EDT Brenda Coburn MD LAB MOLECULAR DIAGNOS TICS ORDERABLES Final Result [facility] (CLIA #:[id number]) [place] [address] [address], [place] [phone] from Last 3 Months or Most Recently Relevant to Health Maintenance Insurance [facility] [employer] Care Teams [employer] Relationship Specialty Start Date End Date Brenda Arnold MD [address] [place] [address] PCP - General Internal Medicine 05/11/23
--- OUTSIDE RECORDS SUMMARY | 2024-11-18 14:49 | XMS_ITS | Encounter Summary ---
Author Organization [employer] Address [address] [facility] [address] [place] [address] Care Team Providers Care Manufacturing Quality Engineer Name Role Phone Brenda Arnold MD Primary Care Provide r Reason for Visit * Reason Onset Date Comments New Patient Appt 03/22/2023 Encounter Details Date Type Department Care Team ([facility] st Contact Info) Description 03/22/2023 Telephone [facility] [address] [place] [address] Hong Conn MD [address] [place] [address] New Patient Appt Social History Tobacco Use [...] PAR Yoko Rondon called pt to Offer INDUSTRIAL ENGINEERING ANALYST appt. Pt demographics and insurance information were verified. Pt reports the following medical conditions: Asthma, lung Conditions, uses Oxygen, Blood pressure, diabetic, an other Chronic Conditions. Pt is currently taking medication: Yes ( will discuss with PCP, advised to please bring medication to appt ). Pt given INDUSTRIAL ENGINEERING ANALYST appt with Dr. Heath on 05/15/2023. Pt will be sent appt reminder card and medical release form and agrees to complete and to returnto medical records prior to INDUSTRIAL ENGINEERING ANALYST appt. documented in this encounter Plan of Treatment Not on file documented as of this encounter Visit Diagnoses Not on filedocumented in this encounter Care Teams Manufacturing Quality Engineer Relationship Specialty Start Date End Date Brenda Arnold MD [address] [place] [phone] PCP - General Internal Medicine 05/11/23 documented as of this encounter
--- OUTSIDE RECORDS SUMMARY | 2024-11-18 14:50 | XMS_ITS | Encounter Summary ---
Author Organization [facility] Address [address] [place] [address] Phone Care Team Providers Care Vacuum Applicator Operator Name Role Phone Amy Orozoc MD Primary Care Provider Encounter Details Date Type Department Care Team (Late st Contact Info) Description 12/05/2023 Documentation Only [facility] [place], [address] [address] Albertina Cortes [address] [place] [address] Social History Tobacco Use Types Packs/Day Years Used Date Smoking Tobacco: Former Cigarettes 1 30 Comments:Smoking History Inf o:Every day Alcohol [...] on filedocumented in this encounter Care Teams Vacuum Applicator Operator Relationship Specialty Start Date End Date Amy Orozco MD [facility] [facility] [address] [place], [place] PCP - General Internal Medicine 03/01/22 documented as of this encounter
--- OUTSIDE RECORDS SUMMARY | 2024-11-18 14:50 | XMS_ITS | Encounter Summary ---
Author Organization [facility] Address [address] [place] [address] Phone Care Team Providers Care Finding Fastener Name Role Phone Amy Orozco MD Primary Care Provider Encounter Details Date Type Department Care Team (Late st Contact Info) Description 04/26/2023 Documentation Only [facility] [place], [address] [place] [address] Ricco Dent MD [address] [facility] [place] [address] Social History Tobacco Use Types [...] on filedocumented in this encounter Care Teams Finding Fastener Relationship Specialty Start Date End Date Amy Orozco MD [address] [facility] [address] [place], [place] PCP - General Internal Medicine 03/01/22 documented as of this encounter
--- OUTSIDE RECORDS SUMMARY | 2024-11-18 14:50 | XMS_ITS | Encounter Summary ---
Author Organization [facility] [place], Address [address] [place] [address] Phone Care Team Providers Care Hooker Machine Tender Name Role Phone Amy Orozco MD Primary Care Provider Reason for Visit * Reason Comments Med Refill Encounter Details Date Type Department Care Team (Late st Contact Info) Description 06/04/2023 Refill [facility], [address] [place] [phone] Ricco Dent MD [address] [facility] [place] [phone] Social History Tobacco Use Types Packs/Day Years [...] on filedocumented in this encounter Care Teams Hooker Machine Tender Relationship Specialty Start Date End Date Amy Orozco MD [address] [facility] [address] [place], [place] PCP - General Internal Medicine 03/01/22 documented as of this encounter
--- OUTSIDE RECORDS SUMMARY | 2024-11-18 14:50 | XMS_ITS | Encounter Summary ---
Author Organization [employer] Address [address] [facility] [address] [place] [address] Care Team Providers Care Paper Twister Name Role Phone Brenda Arnold MD Primary Care Provide r Reason for Visit * Reason Comments Med Refill Encounter Details Date Type Department Care Team ([facility] st Contact Info) Description 07/31/2024 Refill [facility] [address] [place] [address] Brenda Arnold MD [address] [place] [address] Primary hypertension Social History Tobacco Use Types [...] documented as of this encounter Care Teams Paper Twister Relationship Specialty Start Date End Date Brenda Arnold MD [address] [place] [phone] PCP - General Internal Medicine 05/11/23 documented as of this encounter
== END 2024-11-18 13:21 | disposition home or self-care (01) ==
PROVIDERS: PCP Internal Medicine; Visit Provider Internal Medicine
DX: I25.10 Atherosclerotic heart disease of native coronary artery without angina pectoris (principal); J44.9 Chronic obstructive pulmonary disease, unspecified; J96.11 Chronic respiratory failure with hypoxia; J96.12 Chronic respiratory failure with hypercapnia; E11.9 Type 2 diabetes mellitus without complications; I10 Essential (primary) hypertension; E66.2 Morbid (severe) obesity with alveolar hypoventilation
CPT/HCPCS: 99214; G2211

== ENCOUNTER → 2024-11-18 12:41 | Outpatient (BNVA) | payer MEDICARE, MEDICAID, SELFPAY | PROVIDERS: PCP Internal Medicine; Visit Provider Internal Medicine | DX: I25.10 Atherosclerotic heart disease of native coronary artery without angina pectoris (principal); I10 Essential (primary) hypertension; J44.9 Chronic obstructive pulmonary disease, unspecified; J96.11 Chronic respiratory failure with hypoxia; J96.12 Chronic respiratory failure with hypercapnia; E11.9 Type 2 diabetes mellitus without complications; E66.2 Morbid (severe) obesity with alveolar hypoventilation; Z68.35 Body mass index [BMI] 35.0-35.9, adult | CPT/HCPCS: 99212 ==

== ENCOUNTER 2025-04-02 13:41 | Outpatient (REF) | payer MEDICARE, MEDICAID, SELFPAY ==
--- OUTSIDE RECORDS SUMMARY | 2025-04-02 14:35 | XMS_ITS | Clinical Summary ---
Author Organization [employer] Address [address] [facility] [address] [place] [address] Care Team Providers Care Computer Technical Support Specialist Name Role Phone Brenda Arnold MD Primary Care Provide r Allergies No known active allergies Medications Blood Glucose Monitoring Suppl (Simply Hired Verio Flex System) w/Device kit Use to check blood sugar daily as directed 1 kit 05/17/20 23 Active simethicone (Mylicon,Gas-X) 180 MG capsuleIndicatio ns:Colitis Take 1 capsule (180 mg) by mouth every 8 (eight) hours if needed for flatulence. 90 capsule 1 08/10/20 23 Active pravastatin (Pravachol) 40 MG tabletIndication s:Type 2 diabetes mellitus with hyperglycemia, without long-term current use of insulin (CMS/[facility]),Primar y hypertension Take 1 tablet (40 mg) by mouth in the morning. 30 tablet 11 08/10/20 23 Active sildenafil (Viagra) 50 MG tabletIndication s:Erectile dysfunction, unspecified erectile dysfunction type Take 1 tablet (50 mg) by mouth if needed each day for erectile dysfunction. 10 tablet 02/05/20 24 Active Blood Glucose Monitoring Suppl (ONE TOUCH ULTRA MINI) w/Device kitIndications:T ype 2 diabetes mellitus with hyperglycemia, without long-term current use of insulin ([facility]) Test daily before all meals/snacks and once before bedtime. 1 kit 05/13/20 24 Active glucose blood test strip Use to check BS QID 100 each 12 05/16/20 24 025 Active Lancets (Rocket.LaTouch Delica) lancets 30G 1 each by Other route 4 times daily. 100 each 12 05/16/20 24 025 Active lidocaine (Lidoderm) 5 % patchIndications :Chronic right-sided thoracic back pain Apply 1 patch topically Once per day. Remove & discard patch within 12 hours or as directed by MD. 30 patch 1 06/05/20 24 Active baclofen (Lioresal) 10 MG tabletIndication s:Chronic right-sided thoracic back pain Take one tablet TID PRN 30 tablet 06/05/20 24 Active metoprolol succinate XL (Toprol-XL) 50 MG 24 hr tabletIndication s:Primary hypertension Take 1 tablet (50 mg) by mouth Once per day. Do not crush or chew. 30 tablet 3 07/31/20 24 025 Active hydrocortisone 1 % creamIndications :Rash Apply topically 2 times daily. 28 g 1 04/02/20 25 Active famotidine (Pepcid) 20 MG tabletIndication s:Gastroesophage al reflux disease without esophagitis Take 1 tablet (20 mg) by mouth 2 times daily. 60 tablet 1 04/02/20 25 026 Active Tirzepatide (Mounjaro) 2.5 MG/0.5ML solution auto-injectorInd ications:Type 2 diabetes mellitus with hyperglycemia, without long-term current use of insulin (CMS/[facility]) Inject 2.5 mg under the skin 1 (one) time per week. 2 mL 2 04/02/20 25 Active semaglutide (Ozempic, 1 MG/DOSE,) 2 MG/1.5ML solution pen-injectorIndi cations:Type 2 diabetes mellitus with hyperglycemia, without long-term current use of insulin (CMS/HCC) Inject 2 mg under the skin 1 (one) time per week. 2 each 05/13/20 24 025 Discontinued Active Problems Problem Noted Date Diagnosed Date Rash 04/02/2025 Cramps of lower extremity 04/02/2025 GERD (gastroesophageal reflux disease) Muscular pain 07/31/2024 Assessment & Plan (07/31/2024 [...] EDT): Patient is being follow closely by project development coordinator Chronic bilateral low back pain 05/15/2023 Assessment & Plan (05/15/2023 1:11 PM EDT): records for pain management and MRI will be obtained Colon cancer screening 05/15/2023 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 Encounters Date Type Department Care Team Description 04/02/2025 1:00 PM EDT Office Visit [address] [address] Brenda Arnold MD Type 2 diabetes mellitus with hyperglycemia, without long-term current use of insulin ([facility]) (Primary Dx); Primary hypertension; Rash; Cramps of lower extremity; Gastroesophageal reflux disease without esophagitis 04/02/2025 Travel 02/23/2025 Telephone [facility] [address] [place] [address] Brenda Arnold MD No Show 02/19/2025 Telephone [facility] [address] [place] [address] Brenda Arnold MD chart prep 02/13/2025 Patient Outreach [facility] [address] [place], [place] [phone] Brenda Arnold MD Pre-visit Planning (SDOH negative, Tobacco screening negative.) from Last 3 Months Immunizations Immunization Administration Dates Next Due Influenza High-dose Quadriva [...] Date Recorded Patient Health Questionnaire-9 Score 0 04/02/2025 Patient Health Questionnaire-9 Score 0 04/02/2025 Last PHQ-9: Questionnaire Data Not on file 0 04/02/2025 Housing Stability Answer Date Recorded What is your housing situation today? I have marcy diaz 02/13/[address] you li ve. Do you have problems with any of the following? None of the above 02/13/2025 Food Insecurity Answer Date Recorded Within the past 12 months, y ou worried that your food would run out before you got money to buy more: Never True 02/13/2025 Within the past 12 months,th e food you bought just didn't last and you didn't have enough money to get more: Never True Transportation Answer Date Recorded In the past 12 months, has l ack of transportation kept you from medical appts, meetings, work or from getting things needed for daily living? No 02/13/2025 Utilities Answer Date Recorded In the past 12 months, has t he electric, gas, oil or water company threatened to shut off services in your home? No 02/13/2025 Depression Answer Date Recorded Patient Health Questionnaire-2 Score 0 04/02/2025 Internet Access Answer Date Recorded Internet Access Q1 Yes 02/13/2025 Internet Access Q2 Not on file 02/13/2025 Sex and Gender Information Value Date Recorded Sex Assigned at Male 05/15/2023 8:22 AM EDT Legal Sex Male 3:34 PM EDT Gender Identity Male 05/15/2023 8:22 AM EDT Sexual Orientation Straight 05/15/2023 8: 22 AM EDT Last Filed Vital Signs Vital Sign Reading Time Taken Comments Blood Pressure 140/90 04/02/2025 1:04 PM EDT Pulse 100 04/02/2025 1:04 PM EDT Temperature 36.3 C (97.4 F) 04/02/2025 1:04 PM EDT Respiratory Rate 20 04/02/2025 1:04 PM EDT Oxygen Saturation 94% 04/02/2025 1:04 PM EDT Inhaled Oxygen Concentration - - Weight 94.5 kg (208 lb 6.4 oz) 04/02/2025 1:04 P M EDT Height 160 cm (5' 3 ) 04/02/2025 1:04 PM EDT Body Mass Index 36.92 04/02/2025 1:04 PM EDT Plan of Treatment Health Maintenance Due Date Last Done Comments CT Colonography 1951 Colonoscopy 1951 FIT 1951 FOBT 1950 Sigmoidoscopy 1951 Diabetes: Foot Exam 1961 Hepatitis C Screening 1969 DTaP/Tdap/Td Vaccines (1 - Tdap) 1970 Zoster Vaccines (1 of 2) 2001 COVID-19 Vaccine (3 - season) 2024 10/27/2021, 11/10/2020 Influenza Vaccine (#1) 2025 , 05/15/2023, 05/23/2022, Additional history exists Alcohol/Substance Use Screening 07/31/2025 07/31/2024 Diabetes: Urine Protein Screening 07/31/2025 07/31/2024, 05/15/2023, 04/27/2023 Lipid Panel 07/31/2025 07/31/2024, 05/15/2023 Diabetes: Hemoglobin A1C 10/03/202504/02/ 025, 07/31/2024, 02/05/2024, Additional history exists SDOH Screening 02/13/2026 02/13/2025 Depression Screening 04/02/2026 04/02/2025, 04/02/20 Tobacco Screening 04/02/2026 04/02/2025 Eye Exam 04/30/2026 04/30/2024 Colorectal Cancer Screening 06/06/2026 FIT DNA/Cologuard 06/06/2026 06/06/2023 Pneumococcal Vaccine: 50+ Years Completed 05/15/2023, 10/27/2020 RSV Patients and Patients Aged 60 years or older Completed 10/19/2023 HIB Vaccines Aged Out No longer eligi [...] patient's age to complete this topic Meningococcal B Vaccine Aged Out No l onger eligible based on patient's age to complete [...] Procedure Name Priority Date/Time Associated Diagnosis Comments POCT GLYCATED HEMOGLOBIN, TOTAL Routine 04/02/2025 1:19 PM EDT Type 2 diabetes mellitus with hyperglycemia, without long-term current use of insulin (CMS/[facility]) POCT GLUCOSE Routine 04/02/2025 1:19 PM EDT Type 2 diabetes mellitus with hyperglycemia, without long-term current use of insulin (CMS/[facility]) ALBUMIN, RANDOM URINE W/CREATININE Routine 07/31/2024 10:18 AM EST Type 2 diabetes mellitus with hyperglycemia, without long-term current use of insulin (CMS/[facility]) LIPID PANEL, STANDARD Routine 07/31/2024 10:18 AM EST Type 2 diabetes mellitus with hyperglycemia, without long-term current use of insulin (CMS/[facility]) AMB REFERRAL TO OPHTHALMOLOGY Urgent 04/30/2024 Cataract of both eyes, unspecified cataract type LAB COLOGUARD COLON CANCER SCREEN Routine 06/06/2023 10:30 AM EDT Colon cancer screening from Last 3 Months or Most Recently Relevant to Health Maintenance Results * (ABNORMAL) POCT HGB A1C (04/02/2025 1:19 PM EDT) Hemoglobin A1C 6.4(A) 4.0 - 5.7 % QC Media Lot # [id number] Lot# Expiration Date 493 Blood 04/02/2025 1:19 PM EDT Brenda Coburn MD POINT OF CARE TEST EN TER/EDIT ORDERABLES Final Result * POCT Glucose (04/02/2025 1:19 PM EDT) Glucose Blood, POC 168 60 - 200 mg/dL QC Media Lot # [id number] Lot# Expiration Date [id number] Blood Capillary blood specimen / Unknown 04/02/2025 1:19 PM EDT Brenda Coburn MD POINT OF CARE TEST EN TER/EDIT ORDERABLES Final Result * Albumin, Random Urine W/Creatinine (07/31/2024 10:18 AM EST) Creatinine, Urine 193.95 mg/dL [facility] Microalbumin Urine 49.0 mg/L [facility] Microalbum Creatinine Ratio Ur 25.2 <30 ug/mg cr [facility] Comment:Albumin/Creatinine R atio Reference Ranges: Normal: < 30 ug/mg creatinine Microalbuminuria: 30 - 300 ug/mg creatinineClinical Albuminuria: > 300 ug/mg creatinine Urine (Urine, Random) 07/31/2024 10:18 AM EST 07/31/2024 11:33 AM EST Brenda Coburn MD LAB URINE ORDERABLES Final Result [facility] [address] [place] [phone] * (ABNORMAL) Lipid Panel, Standard (07/31/2024 10:18 AM EST) Triglycerides 110 <150 mg/dL [facility] Comment:Desirable Triglyceri de: less than 150 mg/dLBorderline High Triglyceride 150-199 mg/dLHigh Triglyceride: 200-499 mg/dLVery High Triglyceride: greater than or equal to 5OO mg/dL Cholesterol 188 <200 mg/dL [facility] Comment:Desirable Cholestero l: less than 200 mg/dLBorderline High Cholesterol: 200-239 mg/dLHigh Cholesterol: greater than 239 mg/dL LDL Cholesterol Calculated 121(H) <100 mg/dL [facility] Comment:Desirable LDL: less than 100 mg/dLNear Optimal/Above Optimal LDL: 110- 129 mg/dLBorderline High LDL: 130-159 mg/dLHigh LDL: 160-189 mg/dLVery High LDL: greater than or equal to 190 mg/dL HDL Cholesterol 45 >40 mg/dL [facility] Comment:Desirable HDL: great er than 40 mg/dL Note: This HDL assay may give artificially low results in patients with liver disease. Blood Venous blood specimen / Unknown 07/31/2024 10:18 AM EST 07/31/2024 11:27 AM EST us Brenda Coburn MD LAB BLOOD ORDERABLES Final Result [facility] [address] [place] [phone] * Referral to Ophthalmology (04/30/2024) us Brenda Coburn MD OUTPATIENT REFERRAL O RDERABLES Final Result * (ABNORMAL) Cologuard?? colon cancer screening (06/06/2023 10:30 AM EDT) Cologuard Result Positive( A) Negative 06/13/2023 1:59 AM EDT [facility] (CLIA #:[id number]) Comment: POSITIVE TEST RESULT. A positive Cologuard result should be followed with a colonoscopy or visual examination of the colon. The normal value (reference range) for this assay is negative. TEST DESCRIPTION: Composite algorithmic analysis of stool DNA-biomarkers with hemoglobin immunoassay. Quantitative values of individual biomarkers are not [...] screened with both Cologuard and colonoscopy. (Eduar Gotti et al, N Engl J Med 2014;370(14):7493-2220.) Cologuard may produce a false negative or false positive result (no colorectal cancer or precancerous polyp present at colonoscopy follow up). A negative Cologuard test result does not guarantee the absence of CRC or advanced adenoma (pre-cancer). The current Cologuard screening interval is every 3 years. ([place] [employer] Society and U.S. Multi-Society Task Force). Cologuard performance data in a 10,000 patient pivotal study using colonoscopy as the reference method can be accessed at the following location: www.[employer]/results. Additional description of the Cologuard test process, warnings and precautions can be found at [email or web address]. Stool specimen (specimen) 06/06/2023 10:30 AM EDT 06/07/2023 8:15 PM EDT Brenda Coburn MD LAB MOLECULAR DIAGNOS TICS ORDERABLES Final Result [facility] (CLIA #:[id number]) [place] [address], from Last 3 Months or Most Recently Relevant to Health Maintenance Insurance [facility] MEDICARE ADVANTAGE Care Teams Computer Technical Support Specialist Relationship Specialty Start Date End Date Brenda Arnold MD [address] [place] [phone] PCP - General Internal Medicine 05/11/23
--- OUTSIDE RECORDS SUMMARY | 2025-04-02 14:35 | XMS_ITS | Clinical Summary ---
Author Organization [facility], Address [address] [place] [address] [place] [address] Phone Care Team Providers Care Color Maker Name Role Phone Amy Orozco MD Primary Care Provider Allergies No known active allergies Medications amLODIPine (NORVASC) 10 MG tablet Take 1 tablet by mouth 05/10/2021 Active Eliquis 2.5 MG tablet Take 2.5 mg by mouth 2 (two) times a day 01/21/2022 Active cholecalciferol (VITAMIN D-3) 1.25 MG (49919 UT) capsule Take 50,000 Int'l Units by mouth 03/14/2020 Active metoprolol succinate XL (TOPROL XL) 50 MG 24 hr tablet Take 50 mg by mouth 02/23/2021 Active predniSONE 5 MG tablet Take 10 mg by mouth 1 (one) time each day 02/21/2022 Active Blood Glucose Monitoring Suppl (BTC [place] Verio Flex System) w/Device kit USE DIRECTED TO CHECK BLOOD SUGAR TWICE DAILY 11/24/2021 Active Breztri Aerosphere 160-9-4.8 MCG/ACT aerosol INHALE 2 PUFFS BY MOUTH TWICE DAILY. RINSE MOUTH AND THROAT AFTER USE 01/17/2022 Active Wixela Inhub 250-50 MCG/ACT aerosol powder Inhale 1 puff 2 (two) times a day 02/05/2022 Active Lancets (Fair and SquareTouch Delica Plus [id number]) misc CHECK SUGARS UNDER THE SKIN TWICE [...] 10/30/2023, 08/10/2023, Additional history exists Influenza Vaccine (#1) 2025 05/10/2020, 2015 Pneumococcal Vaccine: 50+ Years Completed 05/15/2023, 10/27/2020 Hepatitis B Vaccine Aged Out No longe r eligible based on patient's age to complete this topic Procedures Procedure Name Priority Date/Time Associated Diagnosis Comments HEMOGLOBIN A1C Routine 04/27/2023 9:41 AM EDT from Last 3 Months or Most Recently Relevant to Health Maintenance Results * (ABNORMAL) Hemoglobin A1c (04/27/2023 9:41 AM EDT) Hemoglobin A1C 7.6(H) (4.0-5.6) % [facility] Comment: MONITORING: In known diabetic patients, hemoglobin A1c targets should be discussed with health care provider. DIAGNOSTIC USE: The [place] [employer] (ADA) and the World Health [...] Supplement 1 Testing performed or reported by [facility], a Service of [facility], [address] [place] [phone] Rudy Novoa MD, Soft Drink Powder Mixer [facility]# [id number] 04/27/2023 9:41 AM EDT 04/27/2023 9:43 AM EDT us Ricco Dent MD LAB BLOOD ORDERABLES Final Re sult [facility] from Last 3 Months or Most Recently Relevant to Health Maintenance Insurance [facility] Medicare Medicaid [place] Care Teams Color Maker Relationship Specialty Start Date End Date Amy Orozco MD [address] [place] [address] PCP - General Internal Medicine 03/01/22
[2025-04-02 17:10] LABS: Anion Gap 12 (12-20); Blood Urea Nitrogen 17 mg/dL (9-16); Calcium 9.5 mg/dL (8.4-10.2); Carbon Dioxide 28 mmol/L (22-29); Chloride 105 mmol/L (96-108); Estimated Glomerular Filt Rate 56; Magnesium 2.1 mg/dL (1.6-2.6); Potassium 4.0 mmol/L (3.3-5.1); Sodium 141 mmol/L (135-145)
[2025-04-02 17:31] LABS: Folate 14.0 ng/mL (> or = 4.0); Vitamin B12 708 pg/mL (200-900)
== END 2025-04-02 13:42 | disposition home or self-care (01) ==
LOC: HO.HHCL 13:41
PROVIDERS: PCP Internal Medicine; Visit Provider Internal Medicine
DX: R25.2 Cramp and spasm (principal)
CPT/HCPCS: 36415; 80048; 82607; 82746; 83735; 84100; 84443

== ENCOUNTER 2025-05-05 10:07 | Outpatient (AMB) | payer MEDICARE, MEDICAID, SELFPAY ==
[2025-05-05 10:16] VITALS: BP 140/94; PULSE 90; O2SAT 93; BMI 37.5
--- NOTE | 2025-05-05 10:16 | A.OFFVIS_ITS ---
Vital Signs 05/05/25 10:16 Height 5 ft 3 in Weight 211 lb 10.3 oz BMI 37.5 BP 140/94 H Blood Pressure Location Lt brachial Position Sitting Pulse 90 Pulse Source Pulse Oximeter Pulse Oximetry (%) 93 Oxygen Delivery Method Room Air Intake Visit Reasons: COPD Accompanied by: Spouse Allergies No Known Allergies Allergy (Verified 05/05/25 10:19) HPI Comments Details: The patient is a 74-year-old gentleman with a known history of COPD and chronic respiratory failure. Apparently he has been diagnosed with COPD now for more than 30 years. The patient is no longer smoking. He previously was followed by Pulmonary at [facility]. However, recently he did move to [place] and now is getting established with local physicians and specialists. I did review his information from [facility]. His last PFTs from 2019 demonstrated that his FEV1 was around 45% suggesting severe COPD. In addition to that a significant diffusion impairment. The patient does have oxygen prescribed but he does not use it all the time. Sometimes he cannot carry the tank so is hard for him to uses oxygen. During the office visit initially will get tested for portable oxygen concentrator or conserving device. However, his baseline pulse ox was 81% on room air so therefore we terminated the conserving device trial as he is not going to qualify. He required up to 4 L of oxygen per minute to maintain a pulse ox in the low 90s. Will see about getting him an Oxymizer pendant to help him with his oxygen requirements. In addition to this the patient did have an ABG several years back demonstrating acute on chronic hypercarbic respiratory failure with CO2 of 68 mmHg per explained to the patient that with post hypercarbic hypoxic respiratory failure he needs to take care of himself because this can potentially continue getting worse. The patient has been on respiratory inhalers he has, she she she she she any medications she recently was prescribed Wixela which is fine but he has not started as of yet. Will maximize his respiratory at this time. In addition to this the patient does have daytime drowsiness with an [place] score of 12/24. His significant other reports snoring and also episodes of apnea. Therefore the patient will need an in-lab sleep study. Due to the fact that we need to measure his end-tidal CO2 to assess for ivaps the patient will be referred to [facility]. The patient also benefit from pulmonary rehab. also to note the patient did have a CT scan of the chest back in July 2021 when he was diagnosed with COVID demonstrating some minimal areas of ground-glass opacities, moderate emphysema is bronchitis and areas of atelectasis and scarring. The patient has already require prednisone for exacerbations. Usually requires prednisone 2 to 3 times a year. Therefore he will be an excellent candidate for Daliresp to treat his chronic bronchitis and to decrease his prednisone needs specially with his new diagnosis of diabetes. 10/30/2022 the patient is here for pulmonary follow-up visit. She continues use the oxygen with good effect. He has a hard time with the filling station and needs oxygen tanks. He is looking to get a portable oxygen concentrator. Currently he is using 3 L pulse. He understands that the battery life on the portable oxygen concentrator is a limited. He also understands that his [employer] company may be in back order of the portable oxygen concentrator is a may not have 1 available for him at this time. He understands the process may be long. He is looking to travel to [place]. He would have to call the [employer] company to try to get a rental or lease if they have 1 available. He did wean off the prednisone. The patient continues on the Daliresp. He is currently tolerating the 250 mcg dose will go ahead and increase that. We did review his last CT scan of the chest demonstrating some degree of emphysema and some degree of interstitial lung disease with some scarring. He also has pulmonary nodule noted. He continues uses respiratory therapy with good effect. 04/30/2023 the patient is here for pulmonary follow-up visit. The patient finally got his all portable oxygen concentrator. He has found that this is very affecting beneficial for him. He continues uses respiratory therapy with good effect. He still gets shortness of breath with activity but mild in severity. The patient also has been tolerating the higher dose Daliresp. Has not seen however significant weight loss. The patient recently had a CT scan of the chest in 04/18/2023. It appears that he has stable pulmonary nodules. However he has been having abdominal discomfort and distention. It was mentioned that there was some abnormality with this GI tract. Therefore will going to refer him to GI to further address that issue. Otherwise patient will return in 6-8 months. 09/25/2023 the patient is here for pulmonary follow-up visit. He has doing a lot better. He continues use the Breztri inhaler every day. Has not had any recent exacerbations to require prednisone. Rarely uses a rescue inhaler. The patient also responds well to the oxygen. He has a POC that he uses with activity. He also has a concentrator to use at nighttime. The oxygen therapy continues to be affecting beneficial. Did follow-up with GI and currently being evaluated for the findings on the CT scan. It is reassuring that he had a colonoscopy a few years ago. The patient is also taking the Daliresp medication tolerating that well. His last CT scan back in March 2023 was stable with stable pulmonary nodules otherwise. During his follow-up visit we will discuss when we should do additional imaging testing. He is starting to exercise a little bit more. He has a small treadmill at home and I did encourage him to do so with the oxygen. The patient did follow-up with pain management. It was recommended that he undergo a procedure under anesthesia. Currently the patient is doing well from respiratory status and is able to proceed with anesthesia and his surgical procedure at this time. 04/07/2024 the patient is here for pulmonary follow-up. Overall the patient has been doing well. He has not been using the oxygen actually returned it. He has been using his maintenance inhalers as prescribed. He still complains of chest congestion. [id number] severity. With yellowish phlegm. The patient also continues on Daliresp. This is helping with the chronic bronchitis. We did review his last CT scan of the chest which was 04/08/2023 demonstrating multiple pulmonary nodules. Subcentimeter in size. The patient also had some interstitial changes. Will go ahead and request a repeat CT scan of the chest and a PST so his next visit in 3-4 months. If the patient has any worsening symptoms prior to that he will call. In the meantime will treat him for a bout of bronchitis to see if we can make his chest congestion clear. In addition to that will request a flutter valve the Acapella valve will help him with mucus clearance and chest physical therapy. 08/08/2024 the patient is here for a pulmonary follow-up visit. The patient overall has been doing very well. He continues therapy as prescribed. He has not had to use his nebulizer which is reassuring. The patient did have a recent CT scan of the chest which we personally reviewed. Unfortunately has not been officially read yet. Although appears that he has nodular densities are stable. He does have moderate emphysema. At this point no additional imaging studies are warranted. The patient will have the official read and will call follow-up with those findings. In the meantime he does have some minimal breath sounds on the bases. He needs to work on deep breathing exercises. Also did get the Acapella valve and we did go instructed how to use it correctly. The patient also will work on deep breathing exercises and go for walks hopefully that he can work on expanding his lung capacity. He will follow-up in the fall of 2024. If he has any issues prior to that he will call for an earlier assessment. 05/05/2025 the patient is here for pulmonary follow-up visit. The patient overall has been doing well. Denies any worsening shortness of breath or cough. He is actually being active. He does get winded when he goes up a flight of stairs so if he bends down. Although he did gain weight. He is going to work on weight management. He has tried multiple medications because of his type 2 diabetes it he had been on GLP ones he has not had any significant weight loss. He continued to beyond them and he is going to continue with lifestyle changes. Last imaging study was without any acute disease. The patient does respond well to his current respiratory therapy without any limitations. Will plan to follow-up in 8-12 months. If he has any issues prior to this he will call for an earlier assessment. [facility] Medical History (Updated 05/05/25 @ 20:55 by Tommy John MD) Allergies History of peptic ulcer disease Abdominal pain O2 dependent Pulmonary nodule On beta drea at home CHF (congestive heart failure) Acute on chronic respiratory failure with hypercapnia Diabetes mellitus Obesity hypoventilation syndrome Acute on chronic respiratory failure with hypoxia and hypercapnia REBECA (obstructive sleep apnea) Chronic respiratory failure COPD (chronic obstructive pulmonary disease) Asthma Bronchitis HTN (hypertension) High cholesterol Surgical History H/O colonoscopy History of surgery Family History Sister Breast cancer Sister FH: kidney cancer Brother Prostate cancer Social History Household Members: Spouse Housing: Apartment Are you a primary assurance services manager health care to a significant other at home: No Do you presently have visiting nurse or other home services: No Alcohol intake: former Patient Tobacco Use Status: Former Tobacco user Second Hand Smoke Exposure: No service: No Current occupational status: disabled Review of Systems Const Reports no additional complaints ENT Reports Normal hearing present Card Denies chest pain, Denies chest pain at rest, Denies chest pain with activity, Denies pedal edema and Reports dyspnea on exertion Resp Denies cough and Reports dyspnea on exertion GI Denies abdominal pain Musc Denies abnormal gait, Reports back pain, Denies muscle cramps and Denies radiating pain into limb Skin/Breast Denies skin ulcer and Denies wounds Neuro Reports Normal hearing present and Denies abnormal gait Psych Reports no additional complaints Physical Exam Vital Signs: Last Vital Signs Pulse 90 05/05/25 10:16 BP 140/94 H 05/05/25 10:16 Pulse Ox 93 05/05/25 10:16 Oxygen Delivery Method Room Air 05/05/25 10:16 BMI result Body Mass Index 37.5 Const General: cooperative, healthy appearing and comfortable Orientation/consciousness: oriented to person, oriented to place and oriented to time HEENT Head: Yes normal to inspection Neck Neck: Yes normal visual inspection Carotids: no bruits Chest Chest palpation & inspection: normal inspection of the chest Resp Effort & Inspection: normal respiratory effort and able to speak in complete sentences Auscultation: no crackles, no rales, no rhonchi, no wheezes and diminished lung sounds Cardio Rate: regular rate Rhythm: regular rhythm Heart sounds: S1 normal heart sound present and S2 normal heart sound present Bruits: no carotid bruits Peripheral pulses: Peripheral pulses 2+ throughout GI Inspection: Yes normal to inspection Skin Wounds: no wounds Hair: normal Neuro General: oriented to person, oriented to place and oriented to time Cranial nerves: Yes Normal hearing present Cognition (Neuro): normal cognition Motor exam (neuro): 5/5 motor strength present throughout Extrem Other: venous exam: No significant superficial varicosities or spider telangiectasias, minimal edema General: No clubbing, No cyanosis and No edema Psych Appearance: grossly normal Mental Status: mental status grossly normal Speech and movement: Normal speech and movement present Assessment & Plan Assessment & Plan (1) Chronic respiratory failure: Code(s): J96.10 - Chronic respiratory failure, unspecified whether with hypoxia or hypercapnia Category: Medical Qualifiers: Respiratory failure complication: hypoxia and hypercapnia Qualified Code(s): J96.11 - Chronic respiratory failure with hypoxia; J96.12 - Chronic respiratory failure with hypercapnia (2) REBECA (obstructive sleep apnea): Code(s): G47.33 - Obstructive sleep apnea (adult) (pediatric) Category: Medical (3) COPD (chronic obstructive pulmonary disease): Code(s): J44.9 - Chronic obstructive pulmonary disease, unspecified Category: Medical Qualifiers: COPD type: chronic bronchitis Chronic bronchitis type: mixed simple and mucopurulent Qualified Code(s): J41.8 - Mixed simple and mucopurulent chronic bronchitis (4) ILD (interstitial lung disease): Code(s): J84.9 - Interstitial pulmonary disease, unspecified Category: Medical (5) Pulmonary nodule: Code(s): R91.1 - Solitary pulmonary nodule Category: Medical (6) Allergies: Code(s): T78.40XA - Allergy, unspecified, initial encounter Category: Medical Qualifiers: Encounter type: initial encounter Qualified Code(s): T78.40XA - Allergy, unspecified, initial encounter Plan continue Daliresp 500 mcg continue diuresis as tolerated continue with Breztri BID JANINE as needed stopped oxygen supplementation. not using APAP consider Pulmonary rehab follow-up in 8-12 months Coding Level of Care Code Est Pt Level 4 (51024) Diagnoses Chronic respiratory failure with hypoxia and hypercapnia J96.11; J96.12 Respiratory failure complication: hypoxia and hypercapnia REBECA (obstructive sleep apnea) G47.33 Mixed simple and mucopurulent chronic bronchitis J41.8 COPD type: chronic bronchitis Chronic bronchitis type: mixed simple and mucopurulent ILD (interstitial lung disease) J84.9 Pulmonary nodule R91.1 Allergy, initial encounter T78.40XA Encounter type: initial encounter Time Spent (min) 16
--- OUTSIDE RECORDS SUMMARY | 2025-05-05 13:10 | XMS_ITS | Encounter Summary ---
Author Organization [facility] Address [address] [place] [address] Phone Care Team Providers Care Wire Fence Erector Name Role Phone Amy Orozco MD Primary Care Provider Encounter Details Date Type Department Care Team (Late st Contact Info) Description 02/23/2022 Documentation Only [facility], [address] [place] [address] Kirsten Beckwith PA Social History [...] on filedocumented in this encounter Care Teams Wire Fence Erector Relationship Specialty Start Date End Date Amy Orozco MD [facility] [address] [place], [place] PCP - General Internal Medicine 03/01/22 documented as of this encounter
--- OUTSIDE RECORDS SUMMARY | 2025-05-05 13:10 | XMS_ITS | Encounter Summary ---
Author Organization [facility] Address [address] [place] [address] Phone Care Team Providers Care Radiation Therapy Technologist Name Role Phone Amy Orozco MD Primary Care Provider Encounter Details Date Type Department Care Team (Late st Contact Info) Description 09/15/2021 Documentation Only [facility], [address] [place] [id number] Kirsten Beckwith PA Social History Tobacco Use [...] on filedocumented in this encounter Care Teams Radiation Therapy Technologist Relationship Specialty Start Date End Date Amy Orozco MD [facility] [address] [place], [place] PCP - General Internal Medicine 03/01/22 documented as of this encounter
--- OUTSIDE RECORDS SUMMARY | 2025-05-05 13:10 | XMS_ITS | Clinical Summary ---
Author Organization [facility] [place], Address [address] [place] [address] [place] [address] Phone Care Team Providers Care Captain/Check Airman Name Role Phone Amy Orozco MD Primary Care Provider Allergies No known active allergies Medications amLODIPine (NORVASC) 10 MG tablet Take 1 tablet by mouth 05/10/2021 Active Eliquis 2.5 MG tablet Take 2.5 mg by mouth 2 (two) times a day 01/21/2022 Active cholecalciferol (VITAMIN D-3) 1.25 MG (57545 UT) capsule Take 50,000 Int'l Units by mouth 03/14/2020 Active metoprolol succinate XL (TOPROL XL) 50 MG 24 hr tablet Take 50 mg by mouth 02/23/2021 Active predniSONE 5 MG tablet Take 10 mg by mouth 1 (one) time each day 02/21/2022 Active Blood Glucose Monitoring Suppl (Digital Bloom Verio Flex System) w/Device kit USE DIRECTED TO CHECK BLOOD SUGAR TWICE DAILY 11/24/2021 Active Breztri Aerosphere 160-9-4.8 MCG/ACT aerosol INHALE 2 PUFFS BY MOUTH TWICE DAILY. RINSE MOUTH AND THROAT AFTER USE 01/17/2022 Active Wixela Inhub 250-50 MCG/ACT aerosol powder Inhale 1 puff 2 (two) times a day 02/05/2022 Active Lancets (RebelMouseTouch Delica Plus [id number]) misc CHECK SUGARS UNDER THE SKIN TWICE [...] AM EDT) Hemoglobin A1C 7.6(H) (4.0-5.6) % [facility] Comment: MONITORING: In known diabetic patients, hemoglobin A1c targets should be discussed with health care provider. DIAGNOSTIC USE: The [place] Diabetes Association (ADA) and the World Health [...] Supplement 1 Testing performed or reported by [facility], a Service of [facility], [address] [place] [id number] Rudy Novoa MD, User Experience Designer [facility]# [id number] 04/27/2023 9:41 AM EDT 04/27/2023 9:43 AM EDT us Ricco Dent MD LAB BLOOD ORDERABLES Final Re sult [facility] from Last 3 Months or Most Recently Relevant to Health Maintenance Insurance [facility] Medicare Medicaid [place] Care Teams Captain/Check Airman Relationship Specialty Start Date End Date Amy Orozco MD [address] [place] [address] PCP - General Internal Medicine 03/01/22
--- OUTSIDE RECORDS SUMMARY | 2025-05-05 13:10 | XMS_ITS | Clinical Summary ---
Author Organization [employer] Address [address] [facility] 7[address] [place] [address] Care Team Providers Care Colored Leather Setter Name Role Phone Brenda Arnold MD Primary Care Provide r Allergies No known active allergies Medications Blood Glucose Monitoring Suppl ([employer] Verio Flex System) w/Device kit Use to check blood sugar daily as directed 1 kit 3 Active simethicone (Mylicon,Gas-X) 180 MG capsuleIndication s:Colitis Take 1 capsule (180 mg) by mouth every 8 (eight) hours if needed for flatulence. 90 capsule 1 3 Active pravastatin (Pravachol) 40 MG tabletIndications :Type 2 diabetes mellitus with hyperglycemia, without long-term current use of insulin ([facility]),Primary hypertension Take 1 tablet (40 [...] hyperglycemia, without long-term current use of insulin ([facility]) Test daily before all meals/snacks and once before bedtime. 1 kit 4 Active glucose blood test strip Use to check BS QID 100 each 12 4 05/16/20 25 Active Lancets (indeniTouch Delica) lancets 30G 1 each by Other [...] 30 tablet 3 4 07/31/20 25 Active hydrocortisone 1 % creamIndications: Rash Apply topically 2 times daily. 28 g 1 5 Active Tirzepatide (Mounjaro) 2.5 MG/0.5ML solution auto-injectorIndi cations:Type 2 diabetes mellitus with hyperglycemia, without long-term current use of insulin ([facility]) Inject 2.5 mg under the skin 1 (one) time per week. 2 mL 2 5 Active famotidine (Pepcid) 20 MG tabletIndications :Gastroesophageal reflux disease without esophagitis TAKE 1 TABLET(20 MG) BY MOUTH TWICE DAILY 180 tablet 5 Active gabapentin (Neurontin) 100 MG capsuleIndication s:Neuropathy Take 2 capsules (200 mg) by mouth 3 times daily. 180 capsule 2 5 04/08/20 26 Active Active Problems Problem Noted Date Diagnosed Date Rash 04/02/2025 Cramps of lower extremity 04/02/2025 Assessment & Plan (04/02/2025 5:36 PM EDT): I will order blood work and contact patient with results GERD (gastroesophageal reflux disease) Assessment & Plan (04/02/2025 5:35 PM EDT): I advise patient to avoid NSAIDs, spicy and acid food, I advise to eat at the same time every day, I advise to elevate the head of the bed and take medications as prescribe I will prescribe famotidine 20mg BID Severe obesity 04/02/2025 Assessment & Plan (04/02/2025 5:32 PM EDT): Today extensive discussion was done about life style modifications I advise healthy diet (low calorie) and cardiovascular exercise Muscular pain 07/31/2024 Assessment & Plan (07/31/2024 [...] 06/13/2023 Primary hypertension 05/15/2023 Assessment & Plan (04/02/2025 5:31 PM EDT): I advised: - Aerobic exercise to reduce BP. Initial [...] consulting health care provider Assessment & Plan (07/31/2024 12:10 PM EST): [...] use of insulin 05/15/2023 Assessment & Plan (04/02/2025 5:35 PM EDT): Diabetes is: controlled - Lab Results Component Value Date HGBA1C 6.4 (A) 04/02/2025 HGBA1C 6.2 (A) 07/31/2024 HGBA1C 6.5 (A) 02/05/2024 - Lab Results Component Value Date MICROALBUR 49.0 07/31/2024 CREATININE 1.27 04/02/2025 -Changes: I discontinue his ozempic and instead a started him on mounjaru 2.5mg weekly - Diabetic eye exam: up to date - Diabetic foot exam:pending - Continue lifestyle modifications - Continue current medications - Follow up: 3 months Assessment & Plan (07/31/2024 12:11 PM EST): [...] appointment Chronic bronchitis 05/15/2023 Assessment & Plan (04/02/2025 5:36 PM EDT): Stable c/w same interventions Assessment & Plan (07/31/2024 12:09 PM EST): Continue to follow with specialist Assessment & Plan (08/10/2023 4:19 PM EST): C/w oxygen supplementation Continue to follow with pulmonology Assessment & Plan (05/15/2023 1:07 PM EDT): Patient is being follow closely by gis database administrator Chronic bilateral low back pain 05/15/2023 Assessment & Plan (05/15/2023 1:11 PM EDT): records for pain management and MRI will be obtained Colon cancer screening 05/15/2023 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 Encounters Date Type Department Care Team Description 04/08/2025 Orders Only [facility] MED[facility] [address] [place] [address] Brenda Arnold MD Neuropathy (Primary Dx) 04/08/2025 Telephone [facility] MED[facility] [address] [place] [address] Brenda Arnold MD Telephone Call 04/02/2025 1:00 PM EDT Office Visit [facility] [address] [place] [phone] Brenda Arnold MD Type 2 diabetes mellitus with hyperglycemia, without long-term current use of insulin ([facility]) (Primary Dx); Primary hypertension; Rash; Cramps of lower extremity; Gastroesophageal reflux disease without esophagitis; Severe obesity ([facility]); Chronic bronchitis, unspecified chronic bronchitis type ([facility]) 04/02/2025 Refill [facility] [address] [place] [address] [phone] Brenda Arnold MD Gastroesophageal reflux disease without esophagitis 04/02/2025 Travel 02/23/2025 Telephone [facility] MED[facility]INE [address] [place] [address] [phone] Brenda Arnold MD No Show 02/19/2025 Telephone [facility] MED[facility]INE [address] [place] [address] [phone] Brenda Arnold MD chart prep 02/13/2025 Patient Outreach [facility] [address] [place], [place] [phone] Brenda Arnold MD Pre-visit Planning (SDOH negative, [...] 04/02/2025 1:04 PM EDT Plan of Treatment Upcoming Encounters Date Type Department Care Team (Late st Contact Info) Description 07/07/2025 10:45 AM EST Office Visit [facility] MED[facility]INE [address] [place] [address] Brenda Arnold MD [address] [place], [place] [phone] Health Maintenance Due Date Last Done Comments CT Colonography 1951 Colonoscopy 1951 FIT 1950 Sigmoidoscopy 1951 Diabetes: Foot Exam 1961 Hepatitis C Screening 1969 DTaP/Tdap/Td Vaccines (1 - Tdap) 1970 Zoster Vaccines (1 of 2) 2001 FOBT 06/06/2024 06/06/2023 COVID-19 Vaccine (3 - season) 2025 10/27/2021, 11/10/2020 Influenza Vaccine (#1) 2025 , 05/15/2023, 05/23/2022, Additional history exists Alcohol/Substance Use Screening 07/31/2025 07/31/2024 Diabetes: Urine Protein Screening 07/31/2025 07/31/2024, 05/15/2023, 04/27/2023 Lipid Panel 07/31/2025 07/31/2024, 05/15/2023 Diabetes: Hemoglobin A1C 10/03/2025 025, 07/31/2024, 02/05/2024, Additional history exists SDOH Screening 02/13/2026 02/13/2025 Depression Screening 04/02/2026 04/02/2025, 04/02/20 25 Tobacco Screening 04/02/2026 04/02/2025 Eye Exam 04/30/2026 [...] Procedure Name Priority Date/Time Associated Diagnosis Comments TSH W/REFLEX TO FT4 Routine 04/02/2025 1 :46 PM EDT Cramps of lower extremity VITAMIN B12/FOLATE, SERUM PANEL Routine 04/02/2025 1:46 PM EDT Cramps of lower extremity MAGNESIUM Routine 04/02/2025 1:46 PM EDT Cramps of lower extremity PHOSPHATE ( PHOSPHORUS) Routine 04/02/2025 1:46 PM EDT Cramps of lower extremity BASIC METABOLIC PANEL Routine 04/02/2025 1:46 PM EDT Cramps of lower extremity POCT GLYCATED HEMOGLOBIN, TOTAL Routine 04/02/2025 1:19 PM EDT Type 2 diabetes mellitus with hyperglycemia, without long-term current use of insulin ([facility]) POCT GLUCOSE Routine 04/02/2025 1:19 PM EDT Type 2 diabetes mellitus with hyperglycemia, without long-term current use of insulin (CMS/HCC) ALBUMIN, RANDOM URINE W/CREATININE Routine 07/31/2024 10:18 AM EST Type 2 diabetes mellitus with hyperglycemia, without long-term current use of insulin (CMS/HCC) LIPID PANEL, STANDARD Routine 07/31/2024 10:18 AM EST Type 2 diabetes mellitus with hyperglycemia, without long-term current use of insulin (CMS/HCC) AMB REFERRAL TO OPHTHALMOLOGY Urgent 04/30/2024 Cataract of both eyes, unspecified cataract type LAB COLOGUARD COLON CANCER SCREEN Routine 06/06/2023 10:30 AM EDT Colon cancer screening from Last 3 Months or Most Recently Relevant to Health Maintenance Results * Vitamin B12/Folate, Serum Panel (04/02/2025 1:46 PM EDT) Vitamin B12 708 200 - 900 pg/mL [facility] Comment:NORMAL 200-900 PG/ML INDETERMINATE 160-199 PG/ML DEFICIENT < 160 PG/ML Folate 14.0 > or = 4.0 ng/mL [facility] Comment:Reference Values:> o r = 4.0 ng/mL< 4.0 ng/mL suggests folate deficiency Methotrexate, aminopterin and folinic acid(leucovorin) are chemotherapeutic agents whose molecularstructures are similar to folate; therefore, the Architectfolate assay cannot be used for patients using these drugs. Blood Venous blood specimen / Unknown 04/02/2025 1:46 PM EDT 04/02/2025 4:28 PM EDT us Brenda Coburn MD LAB BLOOD ORDERABLES Final Result [facility] [address] [place] [phone] * TSH W/Reflex to FT4 (04/02/2025 1:46 PM EDT) Pathologist [facility] TSH reflex Free T4 1.51 0.32 - 4.0 uIU/mL [facility] Blood Venous blood specimen / Unknown 04/02/2025 1:46 PM EDT 04/02/2025 4:28 PM EDT Brenda Coburn MD LAB BLOOD ORDERABLES Final Result Performing Organization Address [facility] Co de Phone Number [facility] [address] [place] [phone] * Phosphate (As Phosphorus) (04/02/2025 1:46 PM EDT) [facility] Phosphorus 3.3 2.7 - 4.5 mg/dL [facility] Blood Venous blood specimen / Unknown 04/02/2025 1:46 PM EDT 04/02/2025 4:28 PM EDT us Brenda Coburn MD LAB BLOOD ORDERABLES Final Result Performing Organization Address [facility] Co de Phone Number [facility] [address] [place] [phone] * Magnesium (04/02/2025 1:46 PM EDT) [facility] Magnesium 2.1 1.6 - 2.6 mg/dL [facility] Blood Venous blood specimen / Unknown 04/02/2025 1:46 PM EDT 04/02/2025 4:28 PM EDT Brenda Coburn MD LAB BLOOD ORDERABLES Final Result Performing Organization Address [facility] Co de Phone Number [facility] [address] [place] [phone] * (ABNORMAL) Basic Metabolic Panel (04/02/2025 1:46 PM EDT) [facility] Sodium 141 135 - 145 mmol/L [facility] Potassium 4.0 3.3 - 5.1 mmol/L [facility] Chloride 105 96 - 108 mmol/L [facility] Carbon Dioxide 28 22 - 29 mmol/L [facility] Anion Gap 12 12 - 20 [facility] Urea Nitrogen (BUN) 17(H) 9 - 16 mg/dL [facility] Creatinine, Serum 1.27 0.5 - 1.4 mg/dL [facility] Estimated Glomerular Filt Rate 56 [facility] Comment:Chronic Kidney Disea se: Estimated GFR < 60 mL/min/[id number] Kidney Disease: Estimated GFR < 15 mL/min/1.73m2 Glucose 127(H) 60 - 115 mg/dL [facility] Calcium 9.5 8.4 - 10.2 mg/dL [facility] Blood Venous blood specimen / Unknown 04/02/2025 1:46 PM EDT 04/02/2025 4:28 PM EDT us Brenda Coburn MD LAB BLOOD ORDERABLES Final Result [facility] [address] [place], [place] [phone] * (ABNORMAL) POCT HGB A1C (04/02/2025 1:19 PM EDT) Hemoglobin A1C 6.4(A) 4.0 - 5.7 % QC Media Lot # [id number] Lot# Expiration Date 47, Blood 04/02/2025 1:19 PM EDT Brenda Coburn MD POINT OF CARE TEST EN TER/EDIT ORDERABLES Final Result * POCT Glucose (04/02/2025 1:19 PM EDT) Glucose Blood, POC 168 60 - 200 mg/dL QC Media Lot # [id number] Lot# Expiration Date [id number] Blood Capillary blood specimen / Unknown 04/02/2025 1:19 PM EDT Brenda Coburn MD POINT OF CARE TEST EN TER/EDIT ORDERABLES Final Result * Albumin, Random Urine W/Creatinine (07/31/2024 10:18 AM EST) Creatinine, Urine 193.95 mg/dL [facility] Microalbumin Urine 49.0 mg/L [facility] Microalbum Creatinine Ratio Ur 25.2 <30 ug/mg cr [facility] Comment:Albumin/Creatinine R atio Reference Ranges: Normal: < 30 ug/mg creatinine Microalbuminuria: 30 - 300 ug/mg creatinineClinical Albuminuria: > 300 ug/mg creatinine Urine (Urine, Random) 07/31/2024 10:18 AM EST 07/31/2024 11:33 AM EST Brenda Coburn MD LAB URINE ORDERABLES Final Result [facility] [address] [place], [place] [phone] * (ABNORMAL) Lipid Panel, Standard (07/31/2024 10:18 AM EST) Triglycerides 110 <150 mg/dL [facility] Comment:Desirable Triglyceri de: less than 150 mg/dLBorderline High Triglyceride 150-199 mg/dLHigh Triglyceride: 200-499 mg/dLVery High Triglyceride: greater than or equal to 5OO mg/dL Cholesterol 188 <200 mg/dL [facility] Comment:Desirable Cholestero l: less than 200 mg/dLBorderline High Cholesterol: 200-239 mg/dLHigh Cholesterol: greater than 239 mg/dL LDL Cholesterol Calculated 121(H) <100 mg/dL [facility] Comment:Desirable LDL: less than 100 mg/dLNear Optimal/Above Optimal LDL: 110- 129 mg/dLBorderline High LDL: 130-159 mg/dLHigh LDL: 160-189 mg/dLVery High LDL: greater than or equal to 190 mg/dL HDL Cholesterol 45 >40 mg/dL [facility] Comment:Desirable HDL: great er than 40 mg/dL Note: This HDL assay may give artificially low results in patients with liver disease. Blood Venous blood specimen / Unknown 07/31/2024 10:18 AM EST 07/31/2024 11:27 AM EST Brenda Coburn MD LAB BLOOD ORDERABLES Final Result [facility] [address] [place] [phone] * Referral to Ophthalmology (04/30/2024) us Brenda Coburn MD OUTPATIENT REFERRAL O RDERABLES Final Result * (ABNORMAL) Cologuard?? colon cancer screening (06/06/2023 10:30 AM EDT) Cologuard Result Positive( A) Negative 06/13/2023 1:59 AM EDT [facility] (CLIA #:[id number]) Comment: POSITIVE TEST RESULT. A positive Cologuard [...] (Eduar Gaspar al, N Engl J Med 2014;370(14):0884-1987.) Cologuard may produce a false negative or false positive result (no colorectal cancer or precancerous polyp present at colonoscopy follow up). A negative Cologuard test result does not guarantee the absence of CRC or advanced adenoma (pre-cancer). The current Cologuard screening interval is every 3 years. ([place] and U.S. Multi-Society Task Force). Cologuard performance data in a 10,000 patient pivotal study using colonoscopy as the reference method can be accessed at the following location: www.[employer]/results. Additional description of the Cologuard test process, warnings and precautions can be found at www.[email or web address].com. Stool specimen (specimen) 06/06/2023 10:30 AM EDT 06/07/2023 8:15 PM EDT Brenda Coburn MD LAB MOLECULAR DIAGNOS TICS ORDERABLES Final Result [facility] (CLIA #:[id number]) [place] [address], from Last 3 Months or Most Recently Relevant to Health Maintenance Insurance [facility] MEDICARE ADVANTAGE Care Teams Colored Leather Setter Relationship Specialty Start Date End Date Brenda Arnold MD [address] [place] [address] PCP - General Internal Medicine 05/11/23
--- OUTSIDE RECORDS SUMMARY | 2025-05-05 13:10 | XMS_ITS | Encounter Summary ---
Author Organization [facility] Address [address] [place] [address] Phone Care Team Providers Care Lump Maker Name Role Phone Amy Orozco MD Primary Care Provider Encounter Details Date Type Department Care Team (Late st Contact Info) Description 01/28/2022 Documentation Only [facility] [place], [address] [place] [address] Kirsten Beckwith PA Social History [...] on filedocumented in this encounter Care Teams Lump Maker Relationship Specialty Start Date End Date Amy Orozco MD [facility] [address] [place], [place] PCP - General Internal Medicine 03/01/22 documented as of this encounter
--- OUTSIDE RECORDS SUMMARY | 2025-05-05 13:10 | XMS_ITS | Encounter Summary ---
Author Organization [facility], Address [address] [place] [address] Phone Care Team Providers Care Business Education Instructor Name Role Phone Amy Orozco MD Primary Care Provider [phone] Reason for Visit * Reason Comments Med Refill Encounter Details Date Type Department Care Team (Late st Contact Info) Description 06/04/2023 Refill [facility], [address] [place] [phone] Ricco Dent MD [address] [facility] [place] [phone] Social History Tobacco Use Types Packs/Day Years [...] on filedocumented in this encounter Care Teams Business Education Instructor Relationship Specialty Start Date End Date Amy Orozco MD [address] [facility] [address] [place], [place] PCP - General Internal Medicine 03/01/22 documented as of this encounter
--- OUTSIDE RECORDS SUMMARY | 2025-05-05 13:10 | XMS_ITS | Encounter Summary ---
Author Organization [employer] Address [address] [facility] 7t [place] [address] Care Team Providers Care Air Hose Coupler Name Role Phone Brenda Arnold MD Primary Care Provide r Reason for Visit * Reason Onset Date Comments New Patient Appt 03/22/2023 Encounter Details Date Type Department Care Team ([facility] st Contact Info) Description 03/22/2023 Telephone [facility] MED[facility]INE [address] [place] [address] Hong Conn MD [address] [place] [address] New Patient Appt Social History Tobacco Use [...] PAR Yoko Rondon called pt to Offer [employer] appt. Pt demographics and insurance information were verified. Pt reports the following medical conditions: Asthma, lung Conditions, uses Oxygen, Blood pressure, diabetic, an other Chronic Conditions. Pt is currently taking medication: Yes ( will discuss with PCP, advised to please bring medication to appt ). Pt given [employer] appt with Dr. Heath on 05/15/2023. Pt will be sent appt reminder card and medical release form and agrees to complete and to returnto medical records prior to [employer] appt. documented in this encounter Plan of Treatment Upcoming Encounters Date Type Department Care Team (Late st Contact Info) Description 07/07/2025 10:45 AM EST Office Visit [facility] [address] [place], [place] [phone] Brenda Arnold MD [address] [place], [place] [phone] documented as of this encounter Visit Diagnoses Not on filedocumented in this encounter Care Teams Air Hose Coupler Relationship Specialty Start Date End Date Brenda Arnold MD [address] [place] [address] [phone] PCP - General Internal Medicine 05/11/23 documented as of this encounter
--- OUTSIDE RECORDS SUMMARY | 2025-05-05 13:10 | XMS_ITS | Encounter Summary ---
Author Organization [facility] Address [address] [place] [address] Phone Care Team Providers Care Press Writer Name Role Phone Amy Orozco MD Primary Care Provider [phone] Encounter Details Date Type Department Care Team (Late st Contact Info) Description 01/18/2022 Documentation Only [facility] [place], [address] [place] [phone] Kirsten Beckwith PA Social History Tobacco Use [...] on filedocumented in this encounter Care Teams Press Writer Relationship Specialty Start Date End Date Amy Orozco MD [facility] [address] [place], [place] PCP - General Internal Medicine 03/01/22 documented as of this encounter
--- OUTSIDE RECORDS SUMMARY | 2025-05-05 13:11 | XMS_ITS | Encounter Summary ---
Author Organization [facility] Address [address] [place] [address] Phone Care Team Providers Care Band Maker Name Role Phone Amy Orozco MD Primary Care Provider Encounter Details Date Type Department Care Team (Late st Contact Info) Description 04/26/2023 Documentation Only [facility] [place], [address] [facility] [place] [address] Ricco Dent MD [address] [facility] [place] [address] Social History Tobacco Use Types [...] on filedocumented in this encounter Care Teams Band Maker Relationship Specialty Start Date End Date Amy Orozco MD [address] [facility] [address] [place], [place] PCP - General Internal Medicine 03/01/22 documented as of this encounter
--- OUTSIDE RECORDS SUMMARY | 2025-05-05 13:11 | XMS_ITS | Encounter Summary ---
Author Organization [facility] Address [address] [place] [address] Phone Care Team Providers Care Applied Marine Physics Professor Name Role Phone Amy Orozco MD Primary Care Provider Encounter Details Date Type Department Care Team (Late st Contact Info) Description 12/05/2023 Documentation Only [facility] [place], [address] [place] [address] Albertina Cortes [address] [place] [address] Social History Tobacco Use Types [...] on filedocumented in this encounter Care Teams Applied Marine Physics Professor Relationship Specialty Start Date End Date Amy Orozco MD [facility] [address] [place], [place] PCP - General Internal Medicine 03/01/22 documented as of this encounter
--- OUTSIDE RECORDS SUMMARY | 2025-05-05 13:11 | XMS_ITS | Encounter Summary ---
Author Organization [employer] Address [address] [facility] 7t [place] [address] Care Team Providers Care Survey Director Name Role Phone Brenda Arnold MD Primary Care Provide r Reason for Visit * Reason Comments Med Refill Encounter Details Date Type Department Care Team ([facility] Contact Info) Description 07/31/2024 Refill [facility] [address] [place] [address] Brenda Arnold MD [address] [place] [address] Primary hypertension Social History Tobacco Use Types [...] Description 07/07/2025 10:45 AM EST Office Visit [facility] [address] [place] [address] Brenda Arnold MD [address] [place] [address] documented as of this encounter Visit Diagnoses Diagnosis Primary hypertension Unspecified essential hypertension documented in this encounter Additional Health Concerns Assessment Noted Time PHQ-9 Depression Total Score: 0 12/28/19 24 2:37 PM EDT documented as of this encounter Care Teams Survey Director Relationship Specialty Start Date End Date Brenda Arnold MD [address] [place] [phone] PCP - General Internal Medicine 05/11/23 documented as of this encounter
== END 2025-05-05 10:33 | disposition home or self-care (01) ==
LOC: HO.HPS 10:07
PROVIDERS: PCP Internal Medicine; Visit Provider Hospitalist
DX: J96.11 Chronic respiratory failure with hypoxia (principal); J96.12 Chronic respiratory failure with hypercapnia; G47.33 Obstructive sleep apnea (adult) (pediatric); J41.8 Mixed simple and mucopurulent chronic bronchitis; J84.9 Interstitial pulmonary disease, unspecified; R91.1 Solitary pulmonary nodule; T78.40XA Allergy, unspecified, initial encounter
CPT/HCPCS: 99214

== ENCOUNTER → 2025-05-05 10:07 | Outpatient (BNVA) | payer MEDICARE, MEDICAID, SELFPAY | PROVIDERS: PCP Internal Medicine; Visit Provider Hospitalist | DX: J41.8 Mixed simple and mucopurulent chronic bronchitis (principal); J96.11 Chronic respiratory failure with hypoxia; J96.12 Chronic respiratory failure with hypercapnia; G47.33 Obstructive sleep apnea (adult) (pediatric); R91.1 Solitary pulmonary nodule; T78.40XA Allergy, unspecified, initial encounter; Z87.891 Personal history of nicotine dependence | CPT/HCPCS: 99212 ==

== ENCOUNTER 2025-05-21 12:27 | Outpatient (AMB) | payer MEDICARE, MEDICAID, SELFPAY ==
[2025-05-21 12:37] VITALS: BP 140/80; PULSE 95; BMI 37.1
--- NOTE | 2025-05-21 12:37 | A.OFFVIS_ITS ---
Vital Signs 05/21/25 12:37 Height 5 ft 3 in Weight 209 lb 7.026 oz BMI 37.1 BP 140/80 H Blood Pressure Location Lt brachial Position Sitting Pulse 95 Pulse Source Monitor Intake Visit Reasons: 6 mth f/up Welding Systems And Equipment Repairer Required: Yes Welding Systems And Equipment Repairer Name: CASSANDRA [id number] Allergies No Known Allergies Allergy (Verified 05/05/25 10:19) Medication List - Last Reconciled 05/21/25 by Pancho Ryder MD albuterol sulfate 90 mcg/actuation 2 puffs inhalation Q6H PRN 30 days albuterol sulfate 2.0833 mg (2.5 mL) inhalation Q6H PRN mepxjmbuii-rpwwiuze-kzwmagpjtr 160-9-4.8 mcg/actuation (Breztri Aerosphere) 2 inhalations inhalation BID 30 days ipratropium-albuterol 0.5 mg-3 mg(2.5 mg base)/3 mL 3 mL inhalation BID 30 days metoprolol succinate ER 50 mg PO DAILY nebulizers As directed roflumilast (Daliresp) 500 mcg PO DAILY 30 days tirzepatide (Mounjaro) 5 mg subcut QWEEK HPI Comments Details: Dandy returns for follow-up. Recently seen in consultation regarding abnormal EKG. Apparently a prior EKG had shown Q-waves/concern for inferior infarct and hence he was referred. Patient himself has absolutely no cardiac symptoms. Denies any angina. He states even his breathing is okay. He has a history of COPD. Was on home oxygen but he states he is not using it at this time. Otherwise, within limits his activity, he has no specific concerns. He states he is trying to lose a lot of weight. After coronary CTA, found to have nonobstructive CAD and he was put on statins but he stopped taking them, as he feels that this medication will cause dementia. He was also on olmesartan but he stopped taking it as well. [facility] Medical History (Updated 05/21/25 @ 13:09 by Pancho Ryder MD) Allergies History of peptic ulcer disease Abdominal pain O2 dependent Pulmonary nodule On beta drea at home CHF (congestive heart failure) Acute on chronic respiratory failure with hypercapnia Diabetes mellitus Obesity hypoventilation syndrome Acute on chronic respiratory failure with hypoxia and hypercapnia REBECA (obstructive sleep apnea) Chronic respiratory failure COPD (chronic obstructive pulmonary disease) Asthma Bronchitis HTN (hypertension) High cholesterol Surgical History H/O colonoscopy History of surgery Family History Sister Breast cancer Sister FH: kidney cancer Brother Prostate cancer Social History Household Members: Spouse Housing: Apartment Are you a primary care professionals to a significant other at home: No Do you presently have visiting nurse or other home services: No Alcohol intake: former Patient Tobacco Use Status: Former Tobacco user Second Hand Smoke Exposure: No service: No Current occupational status: disabled Review of Systems Const Denies weakness ENT Denies dizziness Card Denies chest pain, Denies chest pain with activity, Denies syncope, Denies rapid heart rate, Denies pedal edema, Denies edema, Denies leg edema, Denies lightheadedness, Denies palpitations, Denies dyspnea, Denies dyspnea on exertion and Denies orthopnea Resp Denies cough, Denies dyspnea and Denies dyspnea on exertion GI Denies hematochezia and Denies change in stool character Musc Denies abnormal gait, Denies muscle cramps, Denies muscle weakness, Denies numbness, Denies radiating pain into limb and Denies tingling Neuro Denies abnormal gait, Denies dizziness, Denies syncope, Denies numbness, Denies tingling and Denies weakness Endo Denies palpitations Physical Exam Vital Signs: Last Vital Signs Pulse 95 05/21/25 12:37 BP 140/80 H 05/21/25 12:37 BMI result Body Mass Index 37.1 Const General: comfortable and no acute distress Orientation/consciousness: patient oriented x3 HEENT Other: Unremarkable Head: Yes normal to inspection Neck Neck: Yes normal visual inspection Chest Chest palpation & inspection: normal inspection of the chest Resp Auscultation: rhonchi Cardio Palpation: normal PMI Heart sounds: S1 normal heart sound present, S2 normal heart sound present, no gallops, no murmurs and no rubs GI Palpation (GI): Soft to palpation Back/Spine/Pelvis Other: unremarkable Skin General skin exam: no rashes or lesions noted Neuro General: patient oriented x3 Extrem General: Yes normal to inspection Psych Mental Status: mental status grossly normal Office Procedures EKG Details: EKG with underlying sinus rhythm at 95/Min; supraventricular ectopy; [place]. [id number]-[id number], Complete Assessment & Plan Assessment & Plan (1) Atherosclerotic cardiovascular disease: Code(s): I25.10 - Atherosclerotic heart disease of [place] coronary artery without angina pectoris Category: Medical (2) Nonischemic cardiomyopathy: Code(s): I42.8 - Other cardiomyopathies Category: Medical (3) Ascending aorta enlargement: Code(s): I77.89 - Other specified disorders of arteries and arterioles Category: Medical (4) COPD (chronic obstructive pulmonary disease): Code(s): J44.9 - Chronic obstructive pulmonary disease, unspecified Category: Medical (5) Chronic respiratory failure: Code(s): J96.10 - Chronic respiratory failure, unspecified whether with hypoxia or hypercapnia Category: Medical Qualifiers: Respiratory failure complication: hypoxia and hypercapnia Qualified Code(s): J96.11 - Chronic respiratory failure with hypoxia; J96.12 - Chronic respiratory failure with hypercapnia (6) Diabetes mellitus: Code(s): E11.9 - Type 2 diabetes mellitus without complications Category: Medical (7) HTN (hypertension): Code(s): I10 - Essential (primary) hypertension Category: Medical (8) Obesity hypoventilation syndrome: Code(s): E66.2 - Morbid (severe) obesity with alveolar hypoventilation Category: Medical Plan In the last EKG, no clear findings in the inferior wall. Hence in the PCP EKG, findings could be related to lead position. Chest CT scan in the past reported to have coronary artery calcifications which is not unusual in his age. Aorta described to be nonaneurysmal. Coronary CTA with qopk-ic-ikfkhitw stenosis in the 1st diagonal and 1st obtuse marginal. Ascending aortic size 4.1 cm. Mild dilatation of the pulmonary artery at 3.1 cm. In the echocardiogram from 2023, LVEF is 44%. Ascending aortic size 4.2 cm. In the echocardiogram from 2021, LVEF 60-65%. Myocardial perfusion imaging study at [facility] is unremarkable. Overall, he has got stable coronary disease and likely nonischemic cardiomyopathy. With regard to the coronary artery disease, he has got no angina. He should take statins, but would not do so as he is convinced that it will lead to dementia. With regard to the mild cardiomyopathy, he should resume the Olmesartan, as he has stopped taking that as well. Otherwise, risk factor modification including weight loss, management of diabetes. We will reassess him in about 6 months' time with an echocardiogram. Orders: Orders CA echo transthoracic complete 6 Months I42.9 - Cardiomyopathy, unspecified Coding Level of Care Code Est Pt Level 4 (18353) Complex EM visit Add On G2211 Diagnoses Atherosclerotic cardiovascular disease I25.10 Nonischemic cardiomyopathy I42.8 Ascending aorta enlargement I77.89 COPD (chronic obstructive pulmonary disease) J44.9 Chronic respiratory failure with hypoxia and hypercapnia J96.11; J96.12 Respiratory failure complication: hypoxia and hypercapnia Diabetes mellitus E11.9 HTN (hypertension) I10 Obesity hypoventilation syndrome E66.2 CPT Codes EKG - CPT: 53555-Mdpjnudluskirfjwj, Complete ([id number])
--- OUTSIDE RECORDS SUMMARY | 2025-05-21 13:57 | XMS_ITS | Encounter Summary ---
Author Organization [facility] Address [address] [place] [address] Phone Care Team Providers Care Conveyor Console Operator Name Role Phone Amy Orozco MD Primary Care Provider [phone] Encounter Details Date Type Department Care Team (Late st Contact Info) Description 01/28/2022 Documentation Only [facility] [place], [address] [place] [address] Kirsten Beckwith PA Social History [...] on filedocumented in this encounter Care Teams Conveyor Console Operator Relationship Specialty Start Date End Date Amy Orozco MD [facility] [address] [place], [place] PCP - General Internal Medicine 03/01/22 documented as of this encounter
--- OUTSIDE RECORDS SUMMARY | 2025-05-21 13:57 | XMS_ITS | Encounter Summary ---
Author Organization [facility] Address [address] [place] [address] Phone Care Team Providers Care Director Style Name Role Phone Amy Orozco MD Primary Care Provider [phone] Encounter Details Date Type Department Care Team (Late st Contact Info) Description 04/26/2023 Documentation Only [facility] [place], [address] [place] [address] Ricco Dent MD [address] [place] [address] Social History Tobacco Use Types [...] on filedocumented in this encounter Care Teams Director Style Relationship Specialty Start Date End Date Amy Orozco MD [address] [place], [place] PCP - General Internal Medicine 03/01/22 documented as of this encounter
--- OUTSIDE RECORDS SUMMARY | 2025-05-21 13:57 | XMS_ITS | Encounter Summary ---
Author Organization [employer] Address [address] [facility] [address] [place] [address] Care Team Providers Care Railroad Police Name Role Phone Brenda Arnold MD Primary Care Provide r Reason for Visit * Reason Comments Med Refill Encounter Details Date Type Department Care Team ([facility] Contact Info) Description 07/31/2024 Refill [facility] [address] [place] [address] Brenda Arnold MD [address] [place] [address] Primary hypertension Social History Tobacco Use Types [...] Description 07/07/2025 10:45 AM EST Office Visit [facility] [address] [place] [address] Brenda Arnold MD [address] [place] [address] documented as of this encounter Visit Diagnoses Diagnosis Primary hypertension Unspecified essential hypertension documented in this encounter Additional Health Concerns Assessment Noted Time PHQ-9 Depression Total Score: 0 12/28/19 24 2:37 PM EDT documented as of this encounter Care Teams Railroad Police Relationship Specialty Start Date End Date Brenda Arnold MD [address] [place] [phone] PCP - General Internal Medicine 05/11/23 documented as of this encounter
--- OUTSIDE RECORDS SUMMARY | 2025-05-21 13:57 | XMS_ITS | Encounter Summary ---
Author Organization [facility] Address [address] [place] [address] Phone Care Team Providers Care Amf Mechanic Name Role Phone Amy Orozco MD Primary Care Provider Encounter Details Date Type Department Care Team (Late st Contact Info) Description 01/18/2022 Documentation Only [facility] [place], [address] [place] [phone] Kirsten Beckwith PA Social History Tobacco Use [...] on filedocumented in this encounter Care Teams Amf Mechanic Relationship Specialty Start Date End Date Amy Orozco MD [facility] [address] [place], [place] PCP - General Internal Medicine 03/01/22 documented as of this encounter
--- OUTSIDE RECORDS SUMMARY | 2025-05-21 13:57 | XMS_ITS | Clinical Summary ---
Author Organization [employer] Address [address] [facility] [address] [place] [address] Care Team Providers Care Press Feeder Broomcorn Name Role Phone Brenda Arnold MD Primary Care Provide r Allergies No known active allergies Medications Blood Glucose Monitoring Suppl (Skin Scan Verio Flex System) w/Device kit Use to check blood sugar daily as directed 1 kit 3 Active simethicone (Mylicon,Gas-X) 180 MG capsuleIndication s:Colitis Take 1 capsule (180 mg) by mouth every 8 (eight) hours if needed for flatulence. 90 capsule 1 3 Active pravastatin (Pravachol) 40 MG tabletIndications :Type 2 diabetes mellitus with hyperglycemia, without long-term current use of insulin (HCC),Primary hypertension Take 1 tablet (40 mg) by [...] hyperglycemia, without long-term current use of insulin (HCC) Test daily before all meals/snacks and once before bedtime. 1 kit 4 Active lidocaine (Lidoderm) 5 % patchIndications: Chronic [...] hyperglycemia, without long-term current use of insulin ([facility]) Inject 2.5 mg under the skin 1 (one) time per week. 2 mL 2 5 Active famotidine (Pepcid) 20 MG tabletIndications :Gastroesophageal reflux disease without esophagitis TAKE 1 TABLET(20 MG) BY MOUTH TWICE DAILY 180 tablet 5 Active gabapentin (Neurontin) 100 MG capsuleIndication s:Neuropathy Take 2 capsules (200 mg) by mouth 3 times daily. 180 capsule 2 5 04/08/20 26 Active glucose blood test strip Use to check BS QID 100 each 12 4 05/16/20 25 Lancets (GeelbeTouch Delica) lancets 30G 1 each by Other route 4 times daily. 100 each 12 4 05/16/20 25 Active Problems Problem Noted Date Diagnosed Date [...] will prescribe famotidine 20mg BID Severe obesity (CMS/HCC) 04/02/2025 Assessment & Plan (04/02/2025 5:32 PM [...] his medications on next appointment Chronic bronchitis ([facility]/HCC) 05/15/2023 Assessment & Plan (04/02/2025 5:36 PM EDT): Stable c/w same interventions Assessment & Plan (07/31/2024 12:09 PM EST): Continue to follow with specialist Assessment & Plan (08/10/2023 4:19 PM EST): C/w oxygen supplementation Continue to follow with pulmonology Assessment & Plan (05/15/2023 1:07 PM EDT): Patient is being follow closely by stratigraphy teacher Chronic bilateral low back pain 05/15/2023 Assessment & Plan (05/15/2023 1:11 PM EDT): records for pain management and MRI will be obtained Colon cancer screening 05/15/2023 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 Encounters Date Type Department Care Team Description 04/08/2025 Orders Only [facility] [address] [place] [phone] Brenda Arnold MD Neuropathy (Primary Dx) 04/08/2025 Telephone [facility] [address] [place] [address] Brenda Arnold MD Telephone Call 04/02/2025 1:00 PM EDT Office Visit [facility] [address] [place] [phone] Brenda Arnold MD Type 2 diabetes mellitus with hyperglycemia, without long-term current use of insulin ([facility]) (Primary Dx); Primary hypertension; Rash; Cramps of lower extremity; Gastroesophageal reflux disease without esophagitis; Severe obesity ([facility]); Chronic bronchitis, unspecified chronic bronchitis type ([facility]) 04/02/2025 Refill [facility] [address] [place] [phone] Brenda Arnold MD Gastroesophageal reflux disease without esophagitis 04/02/2025 Travel 02/23/[address] [address] Brenda Arnold MD No Show 02/19/[address] [phone] Brenda Arnold MD chart prep from Last 3 Months Immunizations Immunization Administration [...] Description 07/07/2025 10:45 AM EST Office Visit [facility] [address] [place] [address] Brenda Arnold MD [address] [place], [place] [phone] Health Maintenance Due Date Last Done Comments [...] hyperglycemia, without long-term current use of insulin ([facility]) POCT GLUCOSE Routine 04/02/2025 1:19 PM EDT Type 2 diabetes mellitus with hyperglycemia, without long-term current use of insulin (CMS/[facility]) ALBUMIN, RANDOM URINE W/CREATININE Routine 07/31/2024 [...] Vitamin B12 708 200 - 900 pg/mL [facility] Comment:NORMAL 200-900 PG/M L INDETERMINATE 160-199 PG/ML DEFICIENT < 160 PG/ML Folate 14.0 > or = 4.0 ng/mL [facility] Comment:Reference Values:> o r = 4.0 ng/mL< 4.0 ng/mL suggests folate deficiency Methotrexate, aminopterin and folinic acid(leucovorin) are chemotherapeutic agents whose molecularstructures are similar to folate; therefore, the Architectfolate assay cannot be used for patients using these drugs. Blood Venous blood specimen / Unknown 04/02/2025 1:46 PM EDT 04/02/2025 4:28 PM EDT us Brenda Coburn MD LAB BLOOD ORDERABLES Final Result [facility] [address] [place] [address] [phone] * TSH W/Reflex to FT4 (04/02/2025 1:46 PM EDT) TSH reflex Free T4 1.51 0.32 - 4.0 uIU/mL [facility] Blood Venous blood specimen / Unknown 04/02/2025 1:46 PM EDT 04/02/2025 4:28 PM EDT Brenda Coburn MD LAB BLOOD ORDERABLES Final Result Performing Organization Address [facility] Co de Phone Number [facility] [address] [place] [phone] * Phosphate (As Phosphorus) (04/02/2025 1:46 PM EDT) Pathologist [facility] Phosphorus 3.3 2.7 - 4.5 mg/dL [facility] Blood Venous blood specimen / Unknown 04/02/2025 1:46 PM EDT 04/02/2025 4:28 PM EDT Brenda Coburn MD LAB BLOOD ORDERABLES Final Result Performing Organization Address [facility] Phone Number [facility] [address] [place] [phone] * Magnesium (04/02/2025 1:46 PM EDT) [facility] Magnesium 2.1 1.6 - 2.6 mg/dL [facility] Blood Venous blood specimen / Unknown 04/02/2025 1:46 PM EDT 04/02/2025 4:28 PM EDT Brenda Coburn MD LAB BLOOD ORDERABLES Final Result Performing Organization Address [facility] Co de Phone Number [facility] [address] [place] [phone] * (ABNORMAL) Basic Metabolic Panel (04/02/2025 1:46 PM EDT) [facility] Sodium 141 135 - 145 mmol/L [facility] Potassium 4.0 3.3 - 5.1 mmol/L [facility] Chloride 105 96 - 108 mmol/L [facility] Carbon Dioxide 28 22 - 29 mmol/L [facility] Anion Gap 12 12 - 20 [facility] Urea Nitrogen (BUN) 17(H) 9 - 16 mg/dL [facility] Creatinine, Serum 1.27 0.5 - 1.4 mg/dL [facility] Estimated Glomerular Filt Rate 56 [facility] Comment:Chronic Kidney Disea se: Estimated GFR < 60 mL/min/1.35f8Oufwxy Kidney Disease: Estimated GFR < 15 mL/min/1.73m2 Glucose 127(H) 60 - 115 mg/dL [facility] Calcium 9.5 8.4 - 10.2 mg/dL [facility] Blood Venous blood specimen / Unknown 04/02/2025 1:46 PM EDT 04/02/2025 4:28 PM EDT Brenda Coburn MD LAB BLOOD ORDERABLES Final Result Performing Organization Address City/State/[facility] Co de Phone Number [facility] [address] [place] [phone] * (ABNORMAL) POCT HGB A1C (04/02/2025 1:19 PM EDT) Hemoglobin A1C 6.4(A) 4.0 - 5.7 % QC Media Lot # [id number] Lot# Expiration Date [id number] Blood 04/02/2025 1:19 PM EDT Brenda Coburn MD POINT OF CARE TEST EN TER/EDIT ORDERABLES Final Result * POCT Glucose (04/02/2025 1:19 PM EDT) Glucose Blood, POC 168 60 - 200 mg/dL QC Media Lot # [id number] Lot# Expiration Date [id number] Blood Capillary blood specimen / Unknown 04/02/2025 1:19 PM EDT us Brenda Coburn MD POINT OF CARE TEST EN TER/EDIT ORDERABLES Final Result * Albumin, Random Urine W/Creatinine (07/31/2024 10:18 AM EST) Creatinine, Urine 193.95 mg/dL [facility] Microalbumin Urine 49.0 mg/L [facility] Microalbum Creatinine Ratio Ur 25.2 <30 ug/mg cr [facility] Comment:Albumin/Creatinine R atio Reference Ranges: Normal: < 30 ug/mg creatinine Microalbuminuria: 30 - 300 ug/mg creatinineClinical Albuminuria: > 300 ug/mg creatinine Urine (Urine, Random) 07/31/2024 10:18 AM EST 07/31/2024 11:33 AM EST us Brenda Coburn MD LAB URINE ORDERABLES Final Result [facility] [address] [place] [address] [phone] * (ABNORMAL) Lipid Panel, Standard (07/31/2024 10:18 AM EST) Triglycerides 110 <150 mg/dL [facility] Comment:Desirable Triglyceri de: less than 150 mg/dLBorderline High Triglyceride 150-199 mg/dLHigh Triglyceride: 200-499 mg/dLVery High Triglyceride: greater than or equal to 5OO mg/dL Cholesterol 188 <200 mg/dL [facility] Comment:Desirable Cholestero l: less than 200 mg/dLBorderline High Cholesterol: 200-239 mg/dLHigh Cholesterol: greater than 239 mg/dL LDL Cholesterol Calculated 121(H) <100 mg/dL [facility] Comment:Desirable LDL: less than 100 mg/dLNear Optimal/Above Optimal LDL: 110- 129 mg/dLBorderline High LDL: 130-159 mg/dLHigh LDL: 160-189 mg/dLVery High LDL: greater than or equal to 190 mg/dL HDL Cholesterol 45 >40 mg/dL [facility] Comment:Desirable HDL: great er than 40 mg/dL Note: This HDL assay may give artificially low results in patients with liver disease. Blood Venous blood specimen / Unknown 07/31/2024 10:18 AM EST 07/31/2024 11:27 AM EST us Brenda Coburn MD LAB BLOOD ORDERABLES Final Result [facility] [address] [place] [phone] * Referral to Ophthalmology (04/30/2024) Brenda Coburn MD OUTPATIENT REFERRAL O RDERABLES Final Result * (ABNORMAL) Cologuard?? colon cancer screening (06/06/2023 10:30 AM EDT) Cologuard Result Positive( A) Negative 06/13/2023 1:59 AM EDT [employer] (CLIA #:[id number]) Comment: POSITIVE TEST RESULT. A positive Cologuard [...] Gotti et al, N Engl J Med 2014;370(14):2957-2146.) Cologuard may produce a false negative or false positive result (no colorectal cancer or precancerous polyp present at colonoscopy follow up). A negative Cologuard test result does not guarantee the absence of CRC or advanced adenoma (pre-cancer). The current Cologuard screening interval is every 3 years. ([employer] and [place].S. Multi-Society Task Force). Cologuard performance data in a 10,000 patient pivotal study using colonoscopy as the reference method can be accessed at the following location: [email or web address]/results. Additional description of the Cologuard test process, warnings and precautions can be found at www.cologuard.com. Stool specimen (specimen) 06/06/2023 10:30 AM EDT 06/07/2023 8:15 PM EDT Brenda Coburn MD LAB MOLECULAR DIAGNOS TICS ORDERABLES Final Result [employer] (CLIA #:[id number]) [address] [place] [address], from Last 3 Months or Most Recently Relevant to Health Maintenance Insurance [facility] MEDICARE ADVANTAGE Care Teams Press Feeder Broomcorn Relationship Specialty Start Date End Date Brenda Arnold MD [address] [place] [phone] PCP - General Internal Medicine 05/11/23
--- OUTSIDE RECORDS SUMMARY | 2025-05-21 13:57 | XMS_ITS | Encounter Summary ---
Author Organization [facility] Address [address] [place] [address] Phone Care Team Providers Care Loss Mitigation Specialist Name Role Phone Amy Orozco MD Primary Care Provider [phone] Encounter Details Date Type Department Care Team (Late st Contact Info) Description 12/05/2023 Documentation Only [facility] [place], [address] [place] [address] Albertina Cortes [address] [place] [address] Social History Tobacco Use Types [...] on filedocumented in this encounter Care Teams Loss Mitigation Specialist Relationship Specialty Start Date End Date Amy Orozco MD [facility] [address] [place], [place] PCP - General Internal Medicine 03/01/22 documented as of this encounter
--- OUTSIDE RECORDS SUMMARY | 2025-05-21 13:57 | XMS_ITS | Encounter Summary ---
Author Organization [facility] Address [address] [place] [address] Phone Care Team Providers Care As400 Developer Name Role Phone Amy Orozco MD Primary Care Provider Encounter Details Date Type Department Care Team (Late st Contact Info) Description 02/23/2022 Documentation Only [facility], [address] [place] [address] Kirsten Beckwith PA Social History [...] on filedocumented in this encounter Care Teams [id number] Developer Relationship Specialty Start Date End Date Amy Orozco MD [facility] [address] [place], [place] PCP - General Internal Medicine 03/01/22 documented as of this encounter
--- OUTSIDE RECORDS SUMMARY | 2025-05-21 13:57 | XMS_ITS | Clinical Summary ---
Author Organization [facility], Address [address] [place] [address] [place] [address] Phone Care Team Providers Care Nurse Midwife Name Role Phone Amy Orozco MD Primary Care Provider [phone] Allergies No known active allergies Medications amLODIPine (NORVASC) 10 MG tablet Take 1 tablet by mouth 05/10/2021 Active Eliquis 2.5 MG tablet Take 2.5 mg by mouth 2 (two) times a day 01/21/2022 Active cholecalciferol (VITAMIN D-3) 1.25 MG (20403 UT) capsule Take 50,000 Int'l Units by mouth 03/14/2020 Active metoprolol succinate XL (TOPROL XL) 50 MG 24 hr tablet Take 50 mg by mouth 02/23/2021 Active predniSONE 5 MG tablet Take 10 mg by mouth 1 (one) time each day 02/21/2022 Active Blood Glucose Monitoring Suppl (Culture Jam Verio Flex System) w/Device kit USE DIRECTED TO CHECK BLOOD SUGAR TWICE DAILY 11/24/2021 Active Breztri Aerosphere 160-9-4.8 MCG/ACT aerosol INHALE 2 PUFFS BY MOUTH TWICE DAILY. RINSE MOUTH AND THROAT AFTER USE 01/17/2022 Active Wixela Inhub 250-50 MCG/ACT aerosol powder Inhale 1 puff 2 (two) times a day 02/05/2022 Active Lancets (Gruppo La PatriaTouch Delica Plus Eddvac08D) misc CHECK SUGARS UNDER THE SKIN TWICE [...] AM EDT) Hemoglobin A1C 7.6(H) (4.0-5.6) % [facility] Comment: MONITORING: In known diabetic patients, hemoglobin A1c targets should be discussed with health care provider. DIAGNOSTIC USE: The [place] Diabetes Association (ADA) and the World Health [...] Supplement 1 Testing performed or reported by [facility], a Service of [facility], [address] [place] [id number] Rudy Novoa MD, Principal Associate [facility]# [id number] 04/27/2023 9:41 AM EDT 04/27/2023 9:43 AM EDT us Ricco Dent MD LAB BLOOD ORDERABLES Final Re sult [facility] from Last 3 Months or Most Recently Relevant to Health Maintenance Insurance [facility] Medicare Medicaid [place] Care Teams Nurse Midwife Relationship Specialty Start Date End Date Amy Orozco MD [address] [place] [address] PCP - General Internal Medicine 03/01/22
--- OUTSIDE RECORDS SUMMARY | 2025-05-21 13:57 | XMS_ITS | Encounter Summary ---
Author Organization [employer] Address [address] [facility] [address] [place] [address] Care Team Providers Care Diving Judge Name Role Phone Brenda Arnold MD Primary Care Provide r Reason for Visit * Reason Onset Date Comments New Patient Appt 03/22/2023 Encounter Details Date Type Department Care Team ([facility] st Contact Info) Description 03/22/2023 Telephone [facility] [address] [place] [address] Hong Conn MD [address] [place] [address] New Patient Appt Social History Tobacco Use [...] PAR Yoko Rondon called pt to Offer ELECTR[employer] ACCESSORIES ASSEMBLER appt. Pt demographics and insurance information were verified. Pt reports the following medical conditions: Asthma, lung Conditions, uses Oxygen, Blood pressure, diabetic, an other Chronic Conditions. Pt is currently taking medication: Yes ( will discuss with PCP, advised to please bring medication to appt ). Pt given ELECTR[employer] ACCESSORIES ASSEMBLER appt with Dr. Heath on 05/15/2023. Pt will be sent appt reminder card and medical release form and agrees to complete and to returnto medical records prior to E[employer] ACCESSORIES ASSEMBLER appt. documented in this encounter Plan of Treatment Upcoming Encounters Date Type Department Care Team (Late st Contact Info) Description 07/07/2025 10:45 AM EST Office Visit [facility] [address] [place], [place] [phone] Brenda Arnold MD [address] [place], [place] [phone] documented as of this encounter Visit Diagnoses Not on filedocumented in this encounter Care Teams Diving Judge Relationship Specialty Start Date End Date Brenda Arnold MD [address] [place] [address] [phone] PCP - General Internal Medicine 05/11/23 documented as of this encounter
--- OUTSIDE RECORDS SUMMARY | 2025-05-21 13:57 | XMS_ITS | Encounter Summary ---
Author Organization [facility], Address [address] [place] [address] Phone Care Team Providers Care Deckhand Engineer Name Role Phone Amy Orozco MD Primary Care Provider Reason for Visit * Reason Comments Med Refill Encounter Details Date Type Department Care Team (Late st Contact Info) Description 06/04/2023 Refill [facility], [address] [place] [phone] Ricco Dent MD [address] [address] [place] [phone] Social History Tobacco Use Types Packs/Day Years [...] on filedocumented in this encounter Care Teams Deckhand Engineer Relationship Specialty Start Date End Date Amy Orozco MD [address] [facility] [address] [place], [place] PCP - General Internal Medicine 03/01/22 documented as of this encounter
--- OUTSIDE RECORDS SUMMARY | 2025-05-21 13:57 | XMS_ITS | Encounter Summary ---
Author Organization [facility] Address [address] [place] [address] Phone Care Team Providers Care Pre K Special Education Teacher Name Role Phone Amy Orozco MD Primary Care Provider Encounter Details Date Type Department Care Team (Late st Contact Info) Description 09/15/2021 Documentation Only [facility], [address] [place] [phone] Kirsten Beckwith PA Social History Tobacco Use [...] on filedocumented in this encounter Care Teams Pre K Special Education Teacher Relationship Specialty Start Date End Date Amy rOozco MD [facility] [address] [place], [place] PCP - General Internal Medicine 03/01/22 documented as of this encounter
== END 2025-05-21 12:58 | disposition home or self-care (01) ==
LOC: HO.HCS 12:27
PROVIDERS: PCP Internal Medicine; Visit Provider Internal Medicine
DX: I25.10 Atherosclerotic heart disease of native coronary artery without angina pectoris (principal); I42.8 Other cardiomyopathies; I77.89 Other specified disorders of arteries and arterioles; J44.9 Chronic obstructive pulmonary disease, unspecified; J96.11 Chronic respiratory failure with hypoxia; J96.12 Chronic respiratory failure with hypercapnia; E11.9 Type 2 diabetes mellitus without complications; I10 Essential (primary) hypertension; E66.2 Morbid (severe) obesity with alveolar hypoventilation
CPT/HCPCS: 93010; 99214; G2211

== ENCOUNTER → 2025-05-21 12:27 | Outpatient (BNVA) | payer MEDICARE, MEDICAID, SELFPAY | PROVIDERS: PCP Internal Medicine; Visit Provider Internal Medicine | DX: I25.10 Atherosclerotic heart disease of native coronary artery without angina pectoris (principal); I77.89 Other specified disorders of arteries and arterioles; I10 Essential (primary) hypertension; I42.8 Other cardiomyopathies; J44.9 Chronic obstructive pulmonary disease, unspecified; J96.11 Chronic respiratory failure with hypoxia; J96.12 Chronic respiratory failure with hypercapnia; E11.9 Type 2 diabetes mellitus without complications; E66.2 Morbid (severe) obesity with alveolar hypoventilation | CPT/HCPCS: 93005; 99212 ==